=== PATIENT | male | born 1935 | race Caucasian/White ===

== ENCOUNTER 2018-04-19 15:22 | Emergency (ER) | payer OTHER ==
--- OUTSIDE RECORDS SUMMARY | 2018-04-19 15:25 | XMS REPORT | Clinical Summary ---
:1935 [facility] Address [address] [place] [address] Care Team Providers Name Role Phone Garcia Fernandes Primary Care Provider Allergies No Known Allergies Medications Medication Sig Dispensed Refills Start Date End Date Status pantoprazole (PROTONIX) Take 1 tablet (40 30 tablet 0 11/22/2015 Active 40 MG tablet mg total) by mouth daily. Active Problems Problem Noted Date Stenosis of aorta 11/21/2015 Chronic systolic CHF (congestive heart failure), NYHA class 2 11/21/2015 Bacteremia 11/20/2015 Cerebrovascular accident (CVA), unspecified mechanism 11/18/2015 Leucocytosis 11/18/2015 UTI (urinary tract infection) 11/18/2015 Stroke Coronary artery disease Social History Tobacco Use Types Packs/Day Years Used Date Current Every Day Smoker Alcohol Use Drinks/Week oz/Week Comments No Sex Assigned at Date Recorded Not on file Job Start Date Occupation Industry Not on file Not on file Not on file Travel History Travel Start Travel End No recent travel history available. Last Filed Vital Signs Not on file Plan of Treatment Not on file Results Not on fileafter 04/18/2017 Insurance Payer Benefit Plan / Group Subscriber ID Type Phone Address CARE IMPROVEMENT MEDICARE MGD CARE IMPROVEMENT PLUS xxxxxxxxx CARE Advance Directives For more information, please contact:[facility] [phone] Code Status Date Activated Date Inactivated Comments Full Code 11/18/2015 6:45 PM 11/22/2015 7:33 PM This code status was determined by: Patient
--- NOTE | 2018-04-19 16:11 | RAD REPORT ---
EXAM DESCRIPTION: CT - CTHCSPWOC - 04/19/2018 3:51 pm CLINICAL HISTORY: Fall, head and neck injury, laceration to the right face COMPARISON: CT head August 2016. TECHNIQUE: Axial 5 mm thick images of the head were obtained. Axial 2 mm thick images of the cervic al spine were obtained with sagittal and coronal reconstruction images generated and reviewed. All CT scans are performed using dose optimization technique as appropriate and may include automated exposure control or mA/KV adjustment according to patient size. FINDINGS: No intracranial hemorrhage, mass, edema or acute intracranial finding. No suspicion for ac yurok infarction. Advanced chronic ischemic changes are present. Mild to moderate atrophy is present. V entricles are in proportion to volume loss. COMMODITY LOAN CLERK shunt is in place entering the right side skull near t he parietotemporal junction tip is near the atrium of the right lateral ventricle. Ventricles are sim ilar to August 2016 study. Mastoid air cells and paranasal sinuses are clear. No globe or orbit abnorm ality seen. Cervical bodies are normal in height. There is a very slight retrolisthesis of C5 on C6. C5-6 and C6- 7 disc space narrowing seen. Facet degenerative changes are present. Mild foraminal encroachment at C 5-6. No fracture or acute bony abnormality. Central canal detail is inherently limited. No paraspinal mass or hematoma. IMPRESSION: No hemorrhage, edema or acute CT Head finding. No significant change from August 2016. Cervical spine degenerative change as detailed. No acute finding.
--- NOTE | 2018-04-19 16:12 | RAD REPORT ---
EXAM DESCRIPTION: RAD - Chest Single View - 04/19/2018 4:00 pm CLINICAL HISTORY: Fall, chest pain COMPARISON: August 2016 TECHNIQUE: AP portable chest image was obtained 1545 hour . FINDINGS: Lungs are clear. Heart and vasculature are normal. No measurable pleural effusion and no p neumothorax. No acute bony abnormality seen. No acute aortic findings suspected. IMPRESSION: No acute cardiopulmonary process.
--- NOTE | 2018-04-19 16:12 | RAD REPORT ---
EXAM DESCRIPTION: RAD - Pelvis - 04/19/2018 4:00 pm CLINICAL HISTORY: Fall, pelvic pain COMPARISON: None. TECHNIQUE: AP imaging of the pelvis was obtained. FINDINGS: No fracture of the bony pelvis. No fracture, dislocation or other acute hip joint finding. No significant SI joint findings. Lower lumbar degenerative change present. Mild degenerative changes are present at both hip joints. N o gross deformity of either femoral head. No soft tissue abnormality. IMPRESSION: Negative pelvis for acute or significant findings.
[2018-04-19 16:45] LABS: Absolute Lymphocytes (CBC) 1.5 K/uL (0.7-4.9); Absolute Neutrophil 6.8 K/uL (1.8-8.0); Basophils % 0.6 % (0-1.3); Eosinophils % 0.6 % (0-4.4); Lymphocytes % 15.9 % (15.3-44.8); MPV 11.1 fL (7.6-11.3); Monocytes % 10.8 % (3.3-12.3); Protime INR 1.07; RBC Red Blood Cell Count 5.48 M/uL (4.33-5.43)
[2018-04-19 16:52] LABS: Potassium 4.5 mmol/L (3.5-5.1)
[2018-04-19] MEDS ORDERED: TETANUS & DIPHTHERIA TOX,ADULT 0.5 ML VIAL ONE (17:03)
[2018-04-19] MEDS ORDERED: LIDOCAINE 1% MPF 30 ML VIAL ONE (17:22)
--- NOTE | 2018-04-19 18:33 | EDPHYS ---
Physician Documentation [facility] Name: Joey Ramsey Age: 82 yrs Sex: Male : 1935 Arrival Date: 04/19/2018 Time: 15:27 Bed 30 Private MD: ED Physician Austen Castañeda HPI: 04/19 18:09 This 82 yrs old Male presents to ER via Wheelchair with complaints of Fall gs Injury. 18:09 Details of fall: The patient fell from an upright position, while walking. Onset: The gs symptoms/episode began/occurred acutely, just prior to arrival. Associated injuries: The patient sustained injury to the head. Severity of symptoms: At their worst the symptoms were moderate, in the emergency department the symptoms are unchanged. The patient has experienced similar episodes in the past, a few times. no cp no dizziness says tripped and fell, says at baseline. Historical: - Allergies: 15:35 No Known Allergies; aj - Home Meds: 15:35 aspirin 81 mg Oral chew 1 tab once daily [Active]; clopidogrel 75 mg Oral tab once aj daily [Active]; atorvastatin 10 mg Oral tab 1 tab once daily [Active]; bisoprolol fumarate 5 mg Oral tab once daily [Active]; - PMHx: 15:35 Aortic Stenosis; CAD; CHF; stroke; UTI; aj 18:15 Hypertension; gs - PSHx: 15:35 cerebral stent; CABG; Cholecystectomy; right rotator cuff; Vasectomy; aj 18:16 vp business development shunt; gs - Immunization history: Last tetanus immunization: unknown. - Social history:: Smoking status: Patient/guardian denies using tobacco. - Ebola Screening: : No symptoms or risks identified at this time. ROS: 18:09 All other systems are negative. gs Exam: 18:09 Eyes: Pupils equal round and reactive to light, extra-ocular motions intact. Lids and gs lashes normal. Conjunctiva and sclera are non-icteric and not injected. Cornea within normal limits. Periorbital areas with no swelling, redness, or edema. ENT: Nares patent. No nasal discharge, no septal abnormalities noted. Tympanic membranes are normal and external auditory canals are clear. Oropharynx with no redness, swelling, or masses, exudates, or evidence of obstruction, uvula midline. Mucous membranes moist. Neck: Trachea midline, no thyromegaly or masses palpated, and no cervical lymphadenopathy. Supple, full range of motion without nuchal rigidity, or vertebral point tenderness. No Meningismus. Chest/axilla: Normal chest wall appearance and motion. Nontender with no deformity. No lesions are appreciated. Cardiovascular: Regular rate and rhythm with a normal S1 and S2. No gallops, murmurs, or rubs. Normal PMI, no JVD. No pulse deficits. Respiratory: Lungs have equal breath sounds bilaterally, clear to auscultation and percussion. No rales, rhonchi or wheezes noted. No increased work of breathing, no retractions or nasal flaring. Abdomen/GI: Soft, non-tender, with normal bowel sounds. No distension or tympany. No guarding or rebound. No evidence of tenderness throughout. Back: No spinal tenderness. No costovertebral tenderness. Full range of motion. Skin: Warm, dry with normal turgor. Normal color with no rashes, no lesions, and no evidence of cellulitis. MS/ Extremity: Pulses equal, no cyanosis. Neurovascular intact. Full, normal range of motion. Neuro: Awake and alert, GCS 15, oriented to person, place, time, and situation. Cranial nerves II-XII grossly intact. Motor strength 5/5 in all extremities. Sensory grossly intact. Cerebellar exam normal. Normal gait. 18:09 Constitutional: The patient appears alert, awake. 18:09 Head/face: Noted is a laceration(s), that is deep, 6 cm(s), of the right cheek. Vital Signs: 15:23 BP 169 / 77; Pulse 75; Resp 19; Temp 98.5; Pulse Ox 96% on R/A; Weight 68.04 kg; Height aj 5 ft. 8 in. (172.72 cm); 16:47 BP 157 / 70; Pulse 68; Resp 18; Pulse Ox 97% on R/A; mg2 17:52 BP 166 / 78; Pulse 65; Resp 18; Pulse Ox 98% on R/A; Pain 4/10; mg2 15:23 Body Mass Index 22.81 (68.04 kg, 172.72 cm) aj [place] Coma Score: 15:23 Eye Response: spontaneous(4). Verbal Response: oriented(5). Motor Response: obeys aj commands(6). Total: 15. Trauma Score (Adult): 15:23 Eye Response: spontaneous(1); Verbal Response: oriented(1); Motor Response: obeys aj commands(2); Systolic BP: > 89 mm Hg(4); Respiratory Rate: 10 to 29 per min(4); Franck Score: 15; Trauma Score: 12 Laceration: 18:09 Wound Repair of 6cm ( 2.4in ) subcutaneous laceration to right cheek. Distal gs neuro/vascular/tendon intact. Anesthesia: Local anesthetic administered with 5 mls of 1% lidocaine. Wound prep: Moderate cleansing with betadine, Wound irrigation with saline, Particulate matter removal of dirt, Copious irrigation. Subcutaneous tissue closed with 3 5-0 Prolene using simple sutures and sterile technique. Skin closed with 9 6-0 Prolene using simple sutures and sterile technique. Dressed with Bacitracin. Patient tolerated well. 18:09 Wound Repair of subcutaneous laceration to performed by chino masterson. Distal gs neuro/vascular/tendon intact. MDM: 15:29 Patient medically screened. cp 18:09 Differential diagnosis: closed head injury, fracture, laceration. Data reviewed: vital gs signs, nurses notes. Counseling: I had a detailed discussion with the patient and/or guardian regarding: the historical points, exam findings, and any diagnostic results supporting the discharge/admit diagnosis, lab results, radiology results, the need for outpatient follow up. Response to treatment: the patient's symptoms have markedly improved after treatment, and as a result, I will discharge patient. 04/19 15:32 Order name: CBC with Diff; Complete Time: 17:07 04/19 15:32 Order name: Basic Metabolic Panel; Complete Time: 17: 04/19 15:32 Order name: PT-INR; Complete Time: 17: 04/19 15:32 Order name: Type And Screen; Complete Time: 17:51 04/19 15:32 Order name: CT Head C Spine; Complete Time: 17: 04/19 17:30 Order name: ABO/RH no charge; Complete Time: 17:51 EDMS 04/19 15:32 Order name: XRAY CXR (1 view); Complete Time: 17:07 04/19 15:32 Order name: Pelvis XRAY; Complete Time: 17: 04/19 15:32 Order name: EKG - Nurse/Tech; Complete Time: 16:43 gs Administered Medications: 17:01 Drug: Tetanus-Diphtheria Toxoid Adult 0.5 ml {Metal Reclamation Kettle Tender: Topic. Exp: mg2 05/27/2020. Lot #: [id number]. } Route: IM; Site: left deltoid; 18:15 Follow up: Response: No adverse reaction mg2 Disposition: 04/19/18 18:14 Discharged to Home. Impression: Laceration without foreign body of unspecified part of head. - Condition is Stable. - Discharge Instructions: Laceration Care, Adult, [id number]. - Prescriptions for Keflex 500 mg Oral Capsule - take 1 capsule by ORAL route every 12 hours for 5 days; 10 capsule. - Medication Reconciliation Form, Thank You Letter, Antibiotic Education, Prescription Opioid Use form. - Follow up: Private Physician; When: 5 - 6 days; Reason: Staple/Suture removal. Signatures: Dispatcher [employer] EDMS Stacy Rubalcava RN RN Mehdi Mendenhall PA PA cp Baxter, Heather, RN RN hb Starr, Gregory, MD MD Salomon Millan RN RN mg2 Corrections: (The following items were deleted from the chart) 18:35 18:14 04/19/2018 18:14 Discharged to Home. Impression: Laceration without foreign body mg2 of unspecified part of head. Condition is Stable. Forms are Medication Reconciliation Form, Thank You Letter, Antibiotic Education, Prescription Opioid Use. Follow up: Private Physician; When: 5 - 6 days; Reason: Staple/Suture removal. 18:55 18:09 Wound Repair of 6cm ( 2.4in ) subcutaneous laceration to right cheek. Distal gs neuro/vascular/tendon intact. Anesthesia: Local anesthetic administered with 5 mls of 1% lidocaine. Wound prep: Moderate cleansing with betadine, Wound irrigation with saline, Particulate matter removal of dirt, Copious irrigation. Subcutaneous tissue closed with 3 5-0 Prolene using simple sutures and sterile technique. Skin closed with 9 6-0 Prolene using simple sutures and sterile technique. Dressed with Bacitracin. Patient tolerated well.
--- NOTE | 2018-04-19 18:33 | ER ---
Nurse's Notes [facility] Name: Joey Ramsey Age: 82 yrs Sex: Male : 1935 Arrival Date: 04/19/2018 Time: 15:27 Bed 30 Private MD: Diagnosis: Laceration without foreign body of unspecified part of head Presentation: 04/19 15:29 Presenting complaint: Patient states: Fell from standing position and hit face on aj ground. Laceration to right cheek. Positive LOC reported by patient. Fall was 1 hour NODULIZER. Care prior to arrival: None. Mechanism of Injury: Fall from standing position. Trauma event details: Injury occurred in the [facility], Injury occurred: at home. Injury occurred: April 19, 2018 Injury occurred at: 14:30. 15:29 Acuity: VINAY 2 aj 15:29 Method Of Arrival: Wheelchair aj 15:33 Transition of care: patient was not received from another setting of care. Onset of aj symptoms was April 19, 2018. Risk Assessment: Do you want to hurt yourself or someone else? Patient reports no desire to harm self or others. Initial Sepsis Screen: Does the patient meet any 2 criteria? No. Patient's initial sepsis screen is negative. Does the patient have a suspected source of infection? No. Patient's initial sepsis screen is negative. Trauma Activation: Alert Physician: ED Physician; Name: ; Notified At: ; Arrived At: Physician: General Surgeon; Name: ; Notified At: ; Arrived At: Physician: Radiology; Name: ; Notified At: ; Arrived At: Physician: Respiratory; Name: ; Notified At: ; Arrived At: Physician: Lab; Name: ; Notified At: ; Arrived At: Trauma Activation: Alert Physician: ED Physician; Name: Dr. Castañeda; Notified At: 15:23; Arrived At: 15:25 Physician: General Surgeon; Name: ; Notified At: 15:23; Arrived At: Physician: Radiology; Name: Niki hamilton; Notified At: 15:23; Arrived At: 15:24 Physician: Respiratory; Name: ; Notified At: 15:23; Arrived At: Physician: Lab; Name: ; Notified At: 15:23; Arrived At: Historical: - Allergies: 15:35 No Known Allergies; aj - Home Meds: 15:35 aspirin 81 mg Oral chew 1 tab once daily [Active]; clopidogrel 75 mg Oral tab once aj daily [Active]; atorvastatin 10 mg Oral tab 1 tab once daily [Active]; bisoprolol fumarate 5 mg Oral tab once daily [Active]; - PMHx: 15:35 Aortic Stenosis; CAD; CHF; stroke; UTI; aj 18:15 Hypertension; gs - PSHx: 15:35 cerebral stent; CABG; Cholecystectomy; right rotator cuff; Vasectomy; aj 18:16 vp security shunt; gs - Immunization history: Last tetanus immunization: unknown. - Social history:: Smoking status: Patient/guardian denies using tobacco. - Ebola Screening: : No symptoms or risks identified at this time. Screenin:32 Abuse screen: Denies threats or abuse. Denies injuries from another. Nutritional hb screening: No deficits noted. Tuberculosis screening: No symptoms or risk factors identified. Fall Risk Total Quezada Fall Scale indicates High Risk Score (45 or more points). Fall prevention measures have been instituted. Side Rails Up X 2 Frequent Obs/Assessments Occuring Family Present and informed to notify staff if the need to leave the bedside As available patient and family educated on Fall Prevention Program and Strategies. Primary Survey: 15:23 Breathing/Chest: Respiratory pattern: regular, Respiratory effort: spontaneous, aj unlabored, Breath sounds: clear, bilaterally. Chest inspection: symmetrical rise and fall of the chest. Circulation: Skin color: pink. Disability Alert. 16:44 Reassessment Breathing/Chest. mg2 Assessment: 15:23 General: Appears in no apparent distress. comfortable, Behavior is cooperative, flat. aj Pain: Complains of pain in face. Neuro: Level of Consciousness is awake, alert, obeys commands, Oriented to person, place, time, situation, Hoe Runner are equal bilaterally Moves all extremities. Full function. Neuro: Reports headache. Respiratory: Airway is patent Respiratory effort is even, unlabored, Respiratory pattern is regular, symmetrical. Derm: Skin is intact, is healthy with good turgor, Skin is pink, warm \T\ dry. normal. 16:47 Reassessment: Patient appears in no apparent distress at this time. Patient and/or mg2 family updated on plan of care and expected duration. Pain level reassessed. Patient is alert, oriented x 3, equal unlabored respirations, skin warm/dry/pink. 17:53 Reassessment: ongoing suturing by AJ James. mg2 Vital Signs: 15:23 BP 169 / 77; Pulse 75; Resp 19; Temp 98.5; Pulse Ox 96% on R/A; Weight 68.04 kg; Height aj 5 ft. 8 in. (172.72 cm); 16:47 BP 157 / 70; Pulse 68; Resp 18; Pulse Ox 97% on R/A; mg2 17:52 BP 166 / 78; Pulse 65; Resp 18; Pulse Ox 98% on R/A; Pain 4/10; mg2 15:23 Body Mass Index 22.81 (68.04 kg, 172.72 cm) aj Franck Coma Score: 15:23 Eye Response: spontaneous(4). Verbal Response: oriented(5). Motor Response: obeys aj commands(6). Total: 15. Trauma Score (Adult): 15:23 Eye Response: spontaneous(1); Verbal Response: oriented(1); Motor Response: obeys aj commands(2); Systolic BP: > 89 mm Hg(4); Respiratory Rate: 10 to 29 per min(4); [place] Score: 15; Trauma Score: 12 ED Course: 15:23 Patient has correct armband on for positive identification. aj 15:27 Patient arrived in ED. bd 15:29 Mehdi Collins PA is PHCP. cp 15:29 Austen Castañeda MD is Attending Physician. cp 15:30 Triage completed. aj 15:32 Patient maintains SpO2 saturation greater than 95% on room air. Thermoregulation: warm hb blanket given to patient. 15:35 Arm band placed on left wrist. Patient placed in an exam room, on a stretcher. aj 15:37 Salomon Millan, ALEXIS is Primary Nurse. mg2 15:50 CT completed. Patient moved to CT via stretcher. Patient moved back from CT. cw1 15:51 CT Head C Spine In Process Unspecified. EDMS 15:57 X-ray completed. Patient tolerated procedure well. kp1 15:58 XRAY CXR (1 view) In Process Unspecified. EDMS 15:58 Pelvis XRAY In Process Unspecified. EDMS 16:43 No provider procedures requiring assistance completed. Inserted saline lock: 20 gauge mg2 in right antecubital area, using aseptic technique. Blood collected. 17:05 manager monitoring on. Pulse ox on. NIBP on. mg2 17:05 Door closed. Warm blanket given. mg2 18:11 Assist provider with laceration repair on right side of the eyebrow that was between mg2 2.6 to 7.5 cm using sutures. Set up tray. Performed by Joselito Umana DATA COLLECTION SPECIALIST Dressed with Patient tolerated well. 12 stitches made under local anesthesia. Wound care: to laceration located on right side of th eeyebrow was cleaned with Betadine, irrigated with normal saline, dressed with ABD pads, Patient tolerated well. 18:33 IV discontinued, intact, bleeding controlled, No redness/swelling at site. Pressure mg2 dressing applied. Administered Medications: 17:01 Drug: Tetanus-Diphtheria Toxoid Adult 0.5 ml {Auto Washer: [employer]. Exp: mg2 05/27/2020. Lot #: [id number]. } Route: IM; Site: left deltoid; 18:15 Follow up: Response: No adverse reaction mg2 Intake: 17:52 PO: 0ml; Total: 0ml. mg2 Outcome: 18:14 Discharge ordered by . 18:34 Discharged to home via wheelchair, with family. mg2 18:34 Condition: stable 18:34 Discharge instructions given to patient, family, Instructed on discharge instructions, follow up and referral plans. medication usage, Demonstrated understanding of instructions, follow-up care, medications, wound care, Prescriptions given X 1. 18:34 Patient's length of stay in the Emergency Department was greater than 2 hours. for mg2 procedures like suturing. Patient's length of stay extended due to 18:35 Patient left the ED. mg2 Signatures: Dispatcher [employer] EDMS Jimena Duarte Amanda RN Niki Mcnair cw1 Mehdi Collins PA PA cp Baxter, Heather, Yasmine Love RN kp1 Austen Castañeda MD MD gs Gardose, Michele, RN RN mg2
[2018-04-19 19:04] VITALS: TEMP 98.5
[2018-04-19 19:07] VITALS: BP 166/78; O2SAT 98
== END 2018-04-19 18:35 | disposition home or self-care (01) ==
LOC: ER 15:22
PROC: 0JQ10ZZ Repair Face Subcutaneous Tissue and Fascia, Open Approach (ICD-10-PCS; principal; 2018-04-19)
DX: S01.411A Laceration without foreign body of right cheek and temporomandibular area, initial encounter (principal); W01.0XXA Fall on same level from slipping, tripping and stumbling without subsequent striking against object, initial encounter; Y93.9 Activity, unspecified; Y92.9 Unspecified place or not applicable; Z23 Encounter for immunization; Z79.82 Long term (current) use of aspirin; Z86.73 Personal history of transient ischemic attack (TIA), and cerebral infarction without residual deficits; Z95.1 Presence of aortocoronary bypass graft; I10 Essential (primary) hypertension; I50.9 Heart failure, unspecified
CPT/HCPCS: 36415; 70450; 71045; 72125; 72170; 80048; 85025; 85610; 86850; 86900; 86901; 90714; 99285

== ENCOUNTER 2018-07-26 18:00 | Emergency (ER) | payer OTHER ==
--- OUTSIDE RECORDS SUMMARY | 2018-07-26 18:02 | XMS REPORT | Clinical Summary ---
:1935 [facility] Address [address] [place] [address] Care Team Providers Name Role Phone Garcia [...] Not on file Results Not on fileafter 07/25/2017 Insurance Payer Benefit Plan / Group Subscriber ID Type Phone Address CARE IMPROVEMENT MEDICARE MGD CARE IMPROVEMENT PLUS xxxxxxxxx CARE Advance Directives For more information, please contact:[facility] [phone] Code Status Date Activated Date Inactivated Comments Full Code 11/18/2015 6:45 PM 11/22/2015 7:33 PM This code status was determined by: Patient
--- NOTE | 2018-07-26 19:12 | RAD REPORT ---
EXAM DESCRIPTION: CT - Head C Spine Mpr Wo Con - 07/26/2018 6:58 pm CLINICAL HISTORY: Head and neck injury status post fall. Head and neck pain COMPARISON: April 2018 TECHNIQUE: Computed axial tomography of the head and cervical spine was obtained. Sagittal and coronal reconstruction was performed. All CT scans are performed using dose optimization technique as appropriate and may include automated exposure control or mA/KV adjustment according to patient size. FINDINGS: A right-sided shunt is unchanged in position. Moderate low-density areas within periventricular, deep and subcortical white matter likely represent ischemic changes secondary to small vessel disease. An intracranial bleed is not seen. The ventricles are normal in caliber. An extra-axial fluid collect ion is not noted.Fluid within the visualized sinuses and mastoids is not seen A cervical fracture is not visualized. No dislocation is noted. Spondylosis involves primarily C5-6 a nd C6-7 IMPRESSION: No acute intracranial abnormality is seen. A cervical fracture is not visualized. If the patient continues to have symptoms to suggest intracra nial /spinal cord pathology then MRI would be recommended
--- NOTE | 2018-07-26 19:15 | RAD REPORT ---
EXAM DESCRIPTION: CT - Facial Bones W/ Mpr - 07/26/2018 6:58 pm CLINICAL HISTORY: Facial injury status post fall. Facial pain COMPARISON: None TECHNIQUE: Computed axial tomography of the face was obtained. Coronal and sagittal reconstruction w as performed. All CT scans are performed using dose optimization technique as appropriate and may include automated exposure control or mA/KV adjustment according to patient size. FINDINGS: A left frontal scalp swelling is present. The A fracture is not seen. The nasal septum is deviated towards the left A TMJ dislocation is not noted. The globes are intact. Fluid within the sinuses is not seen. IMPRESSION: Negative for a facial fracture.
--- NOTE | 2018-07-26 19:38 | RAD REPORT ---
EXAM DESCRIPTION: RAD - Knee Right 3 View - 07/26/2018 7:15 pm CLINICAL HISTORY: Right knee pain FINDINGS: No fracture or dislocation is seen. Chondrocalcinosis is present.
--- NOTE | 2018-07-26 19:44 | EDPHYS ---
Physician Documentation [facility] Name: Joey Ramsey Age: 82 yrs Sex: Male : 1935 Arrival Date: 07/26/2018 Time: 18:03 Bed 28 Private MD: Marcie Nielson ED Physician Austen Castañeda HPI: 07/26 18:18 This 82 yrs old Male presents to ER via Wheelchair with complaints of Fall jmm Injury. 18:18 Details of fall: The patient fell from an upright position. Onset: The symptoms/episode jmm began/occurred acutely, just prior to arrival. Associated injuries: The patient sustained injury to the head, abrasion. This is an 82 year old male with a history of CAD, CVA, HTN that presents to the ED after a mechanical fall which occurred just prior to arrival. Patient was talking out garbage and slipped, landing on his face injuring his right knee. Patient is weak on the right side after previous CVA. . Historical: - Allergies: 18:07 No Known Allergies; la1 - Home Meds: 19:34 aspirin 81 mg Oral chew 1 tab once daily [Active]; atorvastatin 10 mg Oral tab 1 tab mg2 once daily [Active]; bisoprolol fumarate 5 mg Oral tab once daily [Active]; clopidogrel 75 mg Oral tab once daily [Active]; - PMHx: 18:07 Aortic Stenosis; CAD; CHF; Hypertension; stroke; UTI; la1 - Immunization history:: Adult Immunizations up to date. - Social history:: Smoking status: Patient uses tobacco products, smokes one pack cigarettes per day. - Immunization history: Last tetanus immunization: unknown. - Ebola Screening: : No symptoms or risks identified at this time. ROS: 18:18 Constitutional: Negative for fever, chills, and weight loss, Cardiovascular: Negative jmm for chest pain, palpitations, and edema, Respiratory: Negative for shortness of breath, cough, wheezing, and pleuritic chest pain. 18:18 Neck: Negative for pain with movement, pain at rest. 18:18 MS/extremity: Positive for injury or acute deformity, abrasion. 18:18 Neuro: Positive for headache. 18:18 All other systems are negative. Exam: 18:18 Constitutional: This is a well developed, well nourished patient who is awake, alert, jmm and in no acute distress. 18:18 Eyes: EOMI, no conjunctival erythema appreciated ENT: Moist Mucus Membranes 18:18 Chest/axilla: Normal chest wall appearance and motion. Cardiovascular: Regular rate and rhythm. No edema appreciated Respiratory: Normal respirations, no respiratory distress appreciated Abdomen/GI: Non distended, soft Back: Normal ROM 18:18 Head/face: abrasion noted to the nose and the forehead. 18:18 Neck: C-spine: appears grossly normal, ROM/movement: is normal. 18:18 Chest/axilla: Inspection: normal, Palpation: is normal. 18:18 Musculoskeletal/extremity: abrasion noted to the right anterior knee, FROM appreciated, compartments are soft, NVI. 18:18 Skin: abrasions noted to the forehead, nose, and right anterior knee. 18:18 Neuro: Orientation: is normal, Mentation: is normal, Memory: is normal. 18:18 Psych: Behavior/mood is pleasant, cooperative. Vital Signs: 18:08 Pulse 65; Resp 16; Temp 97.5; Pulse Ox 98% on R/A; Weight 70.31 kg; Height 5 ft. 10 in. la1 (177.80 cm); 18:09 BP 136 / 63; la1 18:36 BP 131 / 63; Pulse 67; Resp 18; Pulse Ox 98% on R/A; Pain 3/10; mg2 19:31 BP 160 / 67; Pulse 61; Resp 18; Pulse Ox 96% on R/A; mg2 20:26 BP 145 / 78; Pulse 65; Resp 18; Pulse Ox 100% on R/A; Pain 2/10; mg2 18:08 Body Mass Index 22.24 (70.31 kg, 177.80 cm) la1 [place] Coma Score: 18:36 Eye Response: spontaneous(4). Verbal Response: oriented(5). Motor Response: obeys mg2 commands(6). Total: 15. Trauma Score (Adult): 18:36 Eye Response: spontaneous(1); Verbal Response: oriented(1); Motor Response: obeys mg2 commands(2); Systolic BP: > 89 mm Hg(4); Respiratory Rate: 10 to 29 per min(4); [place] Score: 15; Trauma Score: 12 MDM: 18:16 Patient medically screened. [place] 19:41 Data reviewed: vital signs, nurses notes. Counseling: I had a detailed discussion with cassie the patient and/or guardian regarding: the historical points, exam findings, and any diagnostic results supporting the discharge/admit diagnosis, radiology results, the need for outpatient follow up, to return to the emergency department if symptoms worsen or persist or if there are any questions or concerns that arise at home. ED course: Patient is alert and non toxic in appearance in the ED. CT imaging studies discussed with the patient. Advised to follow up with PCP for reevaluation. Patient otherwise given strict return precautions. Patient understood and agrees with plan of care. . 07/26 18:16 Order name: CT Head C Spine; Complete Time: 19:16 [place] 07/26 18:16 Order name: CT Facial Bones W/O Con; Complete Time: 19:20 [place] 07/26 18:16 Order name: Knee Right 3 View XRAY; Complete Time: 19:40 [place] 07/26 19:44 Order name: Wound Care; Complete Time: 20:13 [place] 07/26 19:44 Order name: Nico wrap-joint; Complete Time: 20:13 [place] Administered Medications: No medications were administered Disposition: 07/27 16:56 Co-signature as Attending Physician, Austen Castañeda MD. Disposition: 07/26/18 19:43 Discharged to Home. Impression: Unspecified injury of face and head, Abrasion of knee. - Condition is Stable. - Discharge Instructions: Abrasion, Head Injury, Adult. - Medication Reconciliation Form, Thank You Letter, Antibiotic Education, Prescription Opioid Use form. - Follow up: Marcie Nielson MD; When: 2 - 3 days; Reason: Recheck today's complaints, Continuance of care, Re-evaluation by your physician. Signatures: Dispatcher [employer] EDMS To Truong PA PA [place] Shelton Cavanaugh RN RN la1 Austen Castañeda MD MD Salomon Millan RN RN mg2 Corrections: (The following items were deleted from the chart) 07/26 20:27 19:43 07/26/2018 19:43 Discharged to Home. Impression: Unspecified injury of face and mg2 head; Abrasion of knee. Condition is Stable. Forms are Medication Reconciliation Form, Thank You Letter, Antibiotic Education, Prescription Opioid Use. Follow up: Marcie Nielson; When: 2 - 3 days; Reason: Recheck today's complaints, Continuance of care, Re-evaluation by your physician. cassie
--- NOTE | 2018-07-26 19:44 | ER ---
Nurse's Notes [facility] Name: Joey Ramsey Age: 82 yrs Sex: Male : 1935 Arrival Date: 07/26/2018 Time: 18:03 Bed 28 Private MD: Marcie Nielson Diagnosis: Unspecified injury of face and head;Abrasion of knee Presentation: 07/26 18:05 Presenting complaint: Patient states: I was taking the garbage back and fell on to the la1 concrete. I hit my face, and nose and right knee, pt denies LOC. Transition of care: patient was not received from another setting of care. Onset of symptoms was July 26, 2018. Risk Assessment: Do you want to hurt yourself or someone else? Patient reports no desire to harm self or others. Initial Sepsis Screen: Does the patient meet any 2 criteria? No. Patient's initial sepsis screen is negative. Does the patient have a suspected source of infection? No. Patient's initial sepsis screen is negative. Care prior to arrival: None. 18:05 Method Of Arrival: Wheelchair la1 18:05 Acuity: VINAY 3 la1 19:34 Mechanism of Injury: Fall from standing position. Trauma event details: Injury occurred mg2 in the [facility], Injury occurred: at home. Injury occurred: July 26, 2018 Injury occurred at: 17:00. Trauma Activation: Not Applicable Physician: ED Physician; Name: ; Notified At: ; Arrived At: Physician: General Surgeon; Name: ; Notified At: ; Arrived At: Physician: Radiology; Name: ; Notified At: ; Arrived At: Physician: Respiratory; Name: ; Notified At: ; Arrived At: Physician: Lab; Name: ; Notified At: ; Arrived At: Historical: - Allergies: 18:07 No Known Allergies; la1 - Home Meds: 19:34 aspirin 81 mg Oral chew 1 tab once daily [Active]; atorvastatin 10 mg Oral tab 1 tab mg2 once daily [Active]; bisoprolol fumarate 5 mg Oral tab once daily [Active]; clopidogrel 75 mg Oral tab once daily [Active]; - PMHx: 18:07 Aortic Stenosis; CAD; CHF; Hypertension; stroke; UTI; la1 - Immunization history:: Adult Immunizations up to date. - Social history:: Smoking status: Patient uses tobacco products, smokes one pack cigarettes per day. - Immunization history: Last tetanus immunization: unknown. - Ebola Screening: : No symptoms or risks identified at this time. Screenin:19 Abuse screen: Denies threats or abuse. Denies injuries from another. Tuberculosis mg2 screening: No symptoms or risk factors identified. 19:35 Nutritional screening: No deficits noted. Fall Risk Fall in past 12 months (25 points). mg2 Mental Status- Oriented to own ability (0 pts). Primary Survey: 18:33 NO uncontrolled hemorrhage observed. A: The patient is alert. Airway: patent. mg2 Breathing/Chest: Respiratory pattern: regular, Respiratory effort: spontaneous, unlabored, Breath sounds: clear, in right upper lobe, left upper lobe, left posterior upper lobe and right posterior upper lobe Chest inspection: symmetrical rise and fall of the chest. Circulation: Skin color: pink. Disability Alert. Exposure/Environment: All clothing and personal items were removed. There is no evidence of uncontrolled external bleeding. Obvious injury(ies) are noted at this time: abrasion A warming method has been applied: A warm blanket has been provided to the patient. 19:31 Reassessment Airway Airway Patent Breathing/Chest Respiratory pattern Regular mg2 Respiratory effort Spontaneous Unlabored Circulation Color [place] Disability Alert. Secondary Survey: 18:34 HEENT: Face Other abrasion noted Nose: clear to bilateral nares. abrasions noted. mg2 Gastrointestinal: No deficits noted. : No deficits noted. Musculoskeletal: Circulation, motion, and sensation intact. Capillary refill < 3 seconds, Reports pain in right knee. Injury Description: Abrasion sustained to face, right knee. Assessment: 18:29 General: Appears in no apparent distress. comfortable, Behavior is calm, cooperative. mg2 Pain: Complains of pain in face, right knee Pain does not radiate. Pain currently is 3 out of 10 on a pain scale. Quality of pain is described as aching, Pain began suddenly, 40 min ago Is intermittent. Neuro: Level of Consciousness is awake, alert, obeys commands, Oriented to person, place, time, situation. Cardiovascular: Capillary refill < 3 seconds Patient's skin is warm and dry. Respiratory: Airway is patent Respiratory effort is even, unlabored, Respiratory pattern is regular, symmetrical. GI: No signs and/or symptoms were reported involving the gastrointestinal system. : No signs and/or symptoms were reported regarding the genitourinary system. EENT: No signs and/or symptoms were reported regarding the EENT system. Derm: Skin is healthy with good turgor, Wound noted right knee and face Wound is abrasion. Musculoskeletal: Circulation, motion, and sensation intact. Capillary refill < 3 seconds. Injury Description: Abrasion sustained to right knee, face is not bleeding was sustained 30-60 minutes ago. Vital Signs: 18:08 Pulse 65; Resp 16; Temp 97.5; Pulse Ox 98% on R/A; Weight 70.31 kg; Height 5 ft. 10 in. la1 (177.80 cm); 18:09 BP 136 / 63; la1 18:36 BP 131 / 63; Pulse 67; Resp 18; Pulse Ox 98% on R/A; Pain 3/10; mg2 19:31 BP 160 / 67; Pulse 61; Resp 18; Pulse Ox 96% on R/A; mg2 20:26 BP 145 / 78; Pulse 65; Resp 18; Pulse Ox 100% on R/A; Pain 2/10; mg2 18:08 Body Mass Index 22.24 (70.31 kg, 177.80 cm) la1 [place] Coma Score: 18:36 Eye Response: spontaneous(4). Verbal Response: oriented(5). Motor Response: obeys mg2 commands(6). Total: 15. Trauma Score (Adult): 18:36 Eye Response: spontaneous(1); Verbal Response: oriented(1); Motor Response: obeys mg2 commands(2); Systolic BP: > 89 mm Hg(4); Respiratory Rate: 10 to 29 per min(4); [place] Score: 15; Trauma Score: 12 ED Course: 18:03 Patient arrived in ED. mr 18:04 Marcie Nielson MD is Private Physician. mr 18:07 Triage completed. la1 18:07 Arm band placed on right wrist. la1 18:11 To Truong PA is [facility] 18:11 Austen Castañeda MD is Attending Physician. m 18:16 Salomon Millan, ALEXIS is Primary Nurse. mg2 18:33 No provider procedures requiring assistance completed. Patient did not have IV access mg2 during this emergency room visit. 18:58 CT Head C Spine In Process Unspecified. EDMS 18:58 CT Facial Bones W/O Con In Process Unspecified. EDMS 19:09 Knee Right 3 View XRAY In Process Unspecified. EDMS 19:35 Patient has correct armband on for positive identification. Pulse ox on. NIBP on. Door mg2 closed. Warm blanket given. 19:35 Patient maintains SpO2 saturation greater than 95% on room air. mg2 19:35 Thermoregulation: warm blanket given to patient. mg2 19:43 Marcie Nielson MD is Referral Physician. jmm 20:25 Wound care: to abrasion, located on face and left leg was cleaned with Hibiclens, mg2 dressed with Neosporin. Administered Medications: No medications were administered Intake: 18:36 PO: 0ml; Total: 0ml. mg2 Outcome: 19:43 Discharge ordered by MD. jm 20:26 Discharged to home via wheelchair, with family. mg2 20:26 Condition: stable 20:26 Discharge instructions given to patient, family, Instructed on discharge instructions, follow up and referral plans. wound care, Demonstrated understanding of instructions, follow-up care, wound care. 20:26 Patient's length of stay was not longer than 2 hours. mg2 20:27 Patient left the ED. mg2 Signatures: Dispatcher [employer] EDMA To Truong PA PA jmm Rivera, Mary mr Shelton Cavanaugh, RN RN laSalomon Del Valle, ALEXIS RN mg2
[2018-07-26 21:11] VITALS: TEMP 97.5
[2018-07-26 21:16] VITALS: BP 145/78; O2SAT 100
== END 2018-07-26 20:27 | disposition home or self-care (01) ==
LOC: ER 18:00
DX: S09.90XA Unspecified injury of head, initial encounter (principal); S09.93XA Unspecified injury of face, initial encounter; S80.211A Abrasion, right knee, initial encounter; W01.0XXA Fall on same level from slipping, tripping and stumbling without subsequent striking against object, initial encounter; Y93.E9 Activity, other interior property and clothing maintenance; Y92.008 Other place in unspecified non-institutional (private) residence as the place of occurrence of the external cause; Z79.82 Long term (current) use of aspirin; Z86.73 Personal history of transient ischemic attack (TIA), and cerebral infarction without residual deficits; F17.210 Nicotine dependence, cigarettes, uncomplicated; I10 Essential (primary) hypertension; I50.9 Heart failure, unspecified
CPT/HCPCS: 70450; 70486; 72125; 76377; 99284

== ENCOUNTER 2018-11-10 14:56 | Emergency (ER) | payer OTHER ==
--- OUTSIDE RECORDS SUMMARY | 2018-11-10 14:58 | XMS REPORT | Clinical Summary ---
:1935 [facility] Address [address] [place] [address] Care Team Providers Name Role Phone Garcia [...] Not on file Results Not on fileafter 11/09/2017 Insurance Payer Benefit Plan / Group Subscriber ID Type Phone Address CARE IMPROVEMENT MEDICARE MGD CARE IMPROVEMENT PLUS xxxxxxxxx CARE Advance Directives For more information, please contact:[facility] [phone] Code Status Date Activated Date Inactivated Comments Full Code 11/18/2015 6:45 PM 11/22/2015 7:33 PM This code status was determined by: Patient
--- NOTE | 2018-11-10 15:33 | RAD REPORT ---
EXAM DESCRIPTION: CT - Head Brain Wo Cont - 11/10/2018 3:25 pm CLINICAL HISTORY: SLURRED SPEECH CVA symptomology, headache and drowsiness COMPARISON: <Comparisons> TECHNIQUE: All CT scans are performed using dose optimization technique as appropriate and may inclu de automated exposure control or mA/KV adjustment according to patient size. FINDINGS: No intracranial hemorrhage, hydrocephalus or extra-axial fluid collection.There is quite p rominent periventricular and deep white matter chronic microvascular ischemic changes. Right-sided ve ntriculostomy shunt is noted, unchanged in position.No areas of brain edema or evidence of midline sh ift. The paranasal sinuses and mastoids are clear. The calvarium is intact. IMPRESSION: No acute intracranial abnormality.
[2018-11-10] MEDS ORDERED: FOLIC ACID 5 MG/ML VIAL ONE (15:35)
[2018-11-10] MEDS ORDERED: NA CHLORIDE 0.9% 1,000 ML ONE (15:36)
--- NOTE | 2018-11-10 16:08 | RAD REPORT ---
EXAM DESCRIPTION: MRI - Brain Wo Cont - 11/10/2018 4:00 pm CLINICAL HISTORY: SLURRED SPEECH Headache, drowsiness, CVA symptomology COMPARISON: Head Brain Wo Cont dated 11/10/2018 TECHNIQUE: Multi-sequence, multiplanar MR imaging of the brain was performed without contrast. FINDINGS: There is blooming artifact present along the right posterior cerebrum limiting assessment. No acute hemorrhage, hydrocephalus or midline shift is seen. There is a diffuse mild and smooth thick ening of the dura.Moderate generalized brain atrophy is present with moderate periventricular and preethi p white matter chronic microvascular ischemic changes. DWI is negative for acute CVA. Midline structures are normally formed. Mastoid air cells and paranasal sinuses are clear. IMPRESSION: Examination is limited by blooming artifact, without acute CVA or other acute intracrani al finding demonstrated.
--- NOTE | 2018-11-10 16:48 | RAD REPORT ---
EXAM DESCRIPTION: US - CP - 11/10/2018 4:39 pm CLINICAL HISTORY: DIZZINESS Headache, drowsiness, syncope COMPARISON: <Comparisons> TECHNIQUE: Real-time sonographic evaluation of both carotid systems was performed. Doppler interroga tion was performed with waveform tracing bilaterally. FINDINGS: Normal high resistance waveforms are noted in both external carotid arteries. The common c arotid arteries and internal carotid arteries show normal low resistance waveforms. Mild hard plaque is present in both carotid bulbs. Peak systolic and end diastolic velocity values an d the ICA/CCA ratios are in the non-hemodynamically significant range. Antegrade flow seen in both vertebral arteries. IMPRESSION: Mild mixed plaquing in both proximal ICAs. No evidence of a hemodynamically significant stenosis.
--- NOTE | 2018-11-10 16:49 | RAD REPORT ---
EXAM DESCRIPTION: RAD - Chest Single View - 11/10/2018 4:44 pm CLINICAL HISTORY: COUGH Chest pain. COMPARISON: <Comparisons> FINDINGS: Portable technique limits examination quality. The lungs are grossly clear. The heart is upper limit normal in size changes of a prior CABG. No disp laced fractures.Right-sided shunt tubing traverses the chest. IMPRESSION: No acute intrathoracic process suspected.
[2018-11-10 16:57] LABS: Absolute Lymphocytes (CBC) 2.5 K/uL (0.7-4.9); Absolute Monocytes 0.9 K/uL (0.1-1.3); Absolute Neutrophil 3.3 K/uL (1.8-8.0); Basophils % 0.7 % (0-1.3); Eosinophils % 2.1 % (0-4.4); Hematocrit 45.3 % (39.6-49.0); Lymphocytes % 36.1 % (15.3-44.8); MPV 10.3 fL (7.6-11.3); Monocytes % 12.9 % (3.3-12.3); RBC Red Blood Cell Count 5.27 M/uL (4.33-5.43)
[2018-11-10 17:07] LABS: Protime INR 1.13
[2018-11-10 17:19] LABS: ALT/SGPT 16 U/L (12-78); AST/SGOT 8 U/L (15-37); Albumin 3.6 g/dL (3.4-5.0); Alkaline Phosphatase 72 U/L (45-117); BUN Blood Urea Nitrogen 18 mg/dL (7-18); Bicarbonate 29 mmol/L (21-32); Bilirubin Direct 0.2 mg/dL (0-0.2); Bilirubin Total 0.6 mg/dL (0.2-1.0); C-Reactive Protein < 2.90 mg/L (<3.00); Glucose Level 115 mg/dL (74-106); Magnesium 2.5 mg/dL (1.8-2.4); NT PRO-BNP 308 pg/mL (<450); Potassium 3.8 mmol/L (3.5-5.1); Sodium Level 145 mmol/L (136-145); Troponin (Emerg Dept Use Only) < 0.02 ng/mL (0.0-0.045)
--- NOTE | 2018-11-10 17:33 | ER ---
Nurse's Notes [facility] Name: Joey Ramsey Age: 83 yrs Sex: Male : 1935 Arrival Date: 11/10/2018 Time: 14:58 Bed 27 Private MD: Marcie Nielson Diagnosis: Hydrocephalus, unspecified;Altered mental status, unspecified-resolved;Unspecified adverse effect of drug or medicament-valium Presentation: 11/10 15:02 Presenting complaint: states: his appt was 11, he was given a Valium abou tw2 12-12:30, then he started having slurred speech when they called him back to the room and then he couldn't walk and was shuffling his feet, speech is better now but still shuffeling. Presenting complaint: states: they cancelled the surgery because of his symptoms, Dr. Machado wrote yall a note but they already dilated his eye. Transition of care: patient was not received from another setting of care. Onset of symptoms was November 10, 2018. Risk Assessment: Do you want to hurt yourself or someone else? Patient reports no desire to harm self or others. Initial Sepsis Screen: Does the patient meet any 2 criteria? No. Patient's initial sepsis screen is negative. Does the patient have a suspected source of infection? No. Patient's initial sepsis screen is negative. Care prior to arrival: None. 15:02 Method Of Arrival: Wheelchair tw2 15:02 Method Of Arrival: Wheelchair tw2 15:02 Acuity: VINAY 2 tw2 15:09 Note triage note and assessment discussed with Dr. Santos at this time. tw2 19:19 No acute neurological deficit is noted. Pre-hospital glucose is not applicable to this rv patient. Triage Assessment: 15:05 The onset of the patients symptoms was November 10, 2018 at 12:30. General: Appears in no tw2 apparent distress. Behavior is calm, cooperative, appropriate for age. Pain: Denies pain. Neuro: Reports shuffling feet. Historical: - Allergies: 15:07 No Known Allergies; tw2 - Home Meds: 15:07 clopidogrel 75 mg Oral tab once daily [Active]; atorvastatin 10 mg Oral tab 1 tab once tw2 daily [Active]; bisoprolol fumarate 5 mg Oral tab once daily [Active]; aspirin 81 mg Oral chew 1 tab once daily [Active]; - PMHx: 15:07 Aortic Stenosis; CAD; CHF; Hypertension; stroke; UTI; tw2 - Immunization history:: Adult Immunizations. - Social history:: Smoking status: . - Ebola Screening: : Patient denies travel to an Ebola-affected area in the 21 days before illness onset. - Family history:: not pertinent. Screenin:18 Abuse screen: Denies threats or abuse. Denies injuries from another. Nutritional rv screening: No deficits noted. Tuberculosis screening: No symptoms or risk factors identified. Fall Risk None identified. Assessment: 15:09 VAN Scoring: Arm Drift: Patients demonstrates NO arm weakness. Patient is VAN Negative. tw2 19:17 Patient has been NPO before screening. The patient is alert, and able to follow rv commands. The patient does not exhibit slurred or garbled speech. The patient is not exhibiting difficulty speaking. The patient does not exhibit difficulty understanding words. The patient is able to swallow own secretions with no drooling or need for suction. Patient tolerated one teaspoon of water. No drooling, immediate coughing, gurgling, or clearing of the throat was noted. The patient tolerated 90mL of water. No drooling, immediate coughing, gurgling, or clearing of the throat was noted. The patient passed the bedside swallow screening. Oral medications may be given as ordered. Contact Physician for further diet orders. Provider notified of bedside swallow screening results: Mehdi Santos MD. Vital Signs: 15:06 BP 147 / 66; Pulse 58; Resp 17; Temp 97.0(TE); Pulse Ox 98% on R/A; Weight 68.04 kg tw2 (R); Height 5 ft. 8 in. (172.72 cm); Pain 0/10; 16:00 BP 155 / 68; Pulse 61; Resp 17; Temp 98; Pulse Ox 98% ; rv 17:00 BP 147 / 71; Pulse 58; Resp 16; Pulse Ox 98% ; rv 18:00 BP 155 / 65; Pulse 57; Resp 16; Pulse Ox 99% ; rv 19:00 BP 147 / 76; Pulse 63; Resp 16; Temp 98; Pulse Ox 99% ; rv 15:06 Body Mass Index 22.81 (68.04 kg, 172.72 cm) tw2 NIH Stroke Scale Scores: 19:17 NIHSS Score: 0 rv ED Course: 14:58 Patient arrived in ED. mr 14:58 Marcie Nielson MD is Private Physician. mr 15:05 Triage completed. tw2 15:05 Arm band placed on. tw2 15:08 Mehdi Santos MD is Attending Physician. mychal 15:17 Saroj Villarreal, RN is Primary Nurse. rv 15:18 Radiology exam delayed due to PT GOING TO CT, MRI AND ULTRASOUND. bb2 15:27 CT Head Brain wo Cont In Process Unspecified. EDMS 15:50 Brain Wo Cont In Process Unspecified. EDMS 16:43 US Carotid Artery Bilateral In Process Unspecified. EDMS 16:46 XRAY Chest (1 view) In Process Unspecified. EDMS 16:47 Inserted saline lock: 22 gauge in right antecubital area, using aseptic technique. rv Blood collected. 16:59 EKG done, by chiller technician. reviewed by Mehdi Santos MD. at1 17:31 Marcie Nielson MD is Referral Physician. mychal 19:18 Patient has correct armband on for positive identification. Bed in low position. Call rv light in reach. Side rails up X 1. Pulse ox on. NIBP on. 19:19 No provider procedures requiring assistance completed. Patient transferred, IV remains rv in place. Administered Medications: 16:52 Drug: NS 0.9% 500 ml Route: IV; Rate: bolus; Site: right antecubital; rv 17:25 Follow up: IV Status: Completed infusion; IV Intake: 500ml rv 16:52 Drug: foLIC Acid 1 mg Route: IVPB; Site: right antecubital; rv 17:25 Drug: NS 0.9% 1000 ml Route: IV; Rate: 125 ml/hr; Site: right antecubital; rv Intake: 17:25 IV: 500ml; Total: 500ml. rv Outcome: 17:31 Discharge ordered by . mychal 18:02 ER care complete, transfer ordered by . mychal 19:22 Transferred to [facility], Transfer form completed. X-rays sent w/ patient. rv 19:22 Condition: good 19:22 Instructed on the need for transfer. 19:23 Patient left the ED. rv NIH Stroke Scale - NIH Stroke Score Date: 11/10/2018 Time: 19:17 Total Score = 0 1a. Level of Consciousness (LOC) - 0(Alert) 1b. Level of Consciousness (LOC) (Year \T\ Age) - 0(Both) 1c. LOC Commands (Open \T\ Closes Eyes/Project Design Engineer) - 0(Both) 2. Best Gaze (Lateral Gaze Paresis) - 0(Normal) 3. Visual Field Loss - 0(No visual loss) 4. Facial Palsy - 0(Normal) 5a. Left Arm: Motor (10-second hold) - 0(No drift) 5b. Right Arm: Motor (10-second hold) - 0(No drift) 6a. Left Leg: Motor (5-second hold - always test supine) - 0(No drift) 6b. Right Leg: Motor (5-second hold - always test supine) - 0(No drift) 7. Limb Ataxia (finger/nose \T\ heel/mcgrath - test with eyes open) - 0(Absent) 8. Sensory Loss (pinprick arms/legs/face) - 0(Normal) 9. Best Language: Aphasia (description/naming/reading) - 0(No aphasia) 10. Dysarthria (speech clarity - read or repeat words) - 0(Normal) 11. Extinction and Inattention (visual/tactile/auditory/spatial/personal) - 0(No abnormality) Initials: rv Signatures: Dispatcher [employer] EDMS Mehdi Santos MD MD cha Rivera, Wendy Stacy Durant, disease management nurse EKG Tat1 Christina Crocker RN RN tw2 Jenny Allen bb2 Saroj Villarreal, ALEXIS RN rv Corrections: (The following items were deleted from the chart) 15:07 15:06 BP 147 / 66; Pulse 58bpm; Resp 17bpm; Pulse Ox 98% RA; Temp 97.0F tw2 Temporal; 68.04 kg Reported; Height 5 ft. 10 in.; BMI: 21.5; Pain 0/10; tw2
--- NOTE | 2018-11-10 17:33 | EDPHYS ---
Physician Documentation [facility] Name: Joey Ramsey Age: 83 yrs Sex: Male : 1935 Arrival Date: 11/10/2018 Time: 14:58 Bed 27 Private MD: Marcie Nielson ED Physician Mehdi Santos HPI: 11/10 16:26 This 83 yrs old Male presents to ER via Wheelchair with complaints of Slurred mychal Speech. 16:26 The patient presents to the emergency department with weakness of the a speech or mychal higher order brain function problem, difficulty standing, difficult walking. Onset: The symptoms/episode began/occurred just prior to arrival. Context: occurred at an office. Historical: - Allergies: 15:07 No Known Allergies; tw2 - Home Meds: 15:07 clopidogrel 75 mg Oral tab once daily [Active]; atorvastatin 10 mg Oral tab 1 tab once tw2 daily [Active]; bisoprolol fumarate 5 mg Oral tab once daily [Active]; aspirin 81 mg Oral chew 1 tab once daily [Active]; - PMHx: 15:07 Aortic Stenosis; CAD; CHF; Hypertension; stroke; UTI; tw2 - Immunization history:: Adult Immunizations. - Social history:: Smoking status: . - Ebola Screening: : Patient denies travel to an Ebola-affected area in the 21 days before illness onset. - Family history:: not pertinent. ROS: 16:26 Constitutional: Negative for fever, chills, and weight loss, Eyes: Negative for injury, mychal pain, redness, and discharge, ENT: Negative for injury, pain, and discharge, Neck: Negative for injury, pain, and swelling, Cardiovascular: Negative for chest pain, palpitations, and edema, Respiratory: Negative for shortness of breath, cough, wheezing, and pleuritic chest pain, Abdomen/GI: Negative for abdominal pain, nausea, vomiting, diarrhea, and constipation, Back: Negative for injury and pain, : Negative for injury, bleeding, discharge, and swelling, MS/Extremity: Negative for injury and deformity, Skin: Negative for injury, rash, and discoloration, Psych: Negative for depression, anxiety, suicide ideation, homicidal ideation, and hallucinations, Allergy/Immunology: Negative for hives, rash, and allergies, Endocrine: Negative for neck swelling, polydipsia, polyuria, polyphagia, and marked weight changes, Hematologic/Lymphatic: Negative for swollen nodes, abnormal bleeding, and unusual bruising. 16:26 Neuro: Positive for altered mental status, speech changes, weakness. Exam: 16:26 Constitutional: This is a well developed, well nourished patient who is awake, alert, mychal and in no acute distress. Head/Face: Normocephalic, atraumatic. Eyes: Pupils equal round and reactive to light, extra-ocular motions intact. Lids and lashes normal. Conjunctiva and sclera are non-icteric and not injected. Cornea within normal limits. Periorbital areas with no swelling, redness, or edema. ENT: Nares patent. No nasal discharge, no septal abnormalities noted. Tympanic membranes are normal and external auditory canals are clear. Oropharynx with no redness, swelling, or masses, exudates, or evidence of obstruction, uvula midline. Mucous membranes moist. Neck: Trachea midline, no thyromegaly or masses palpated, and no cervical lymphadenopathy. Supple, full range of motion without nuchal rigidity, or vertebral point tenderness. No Meningismus. Chest/axilla: Normal chest wall appearance and motion. Nontender with no deformity. No lesions are appreciated. Cardiovascular: Regular rate and rhythm with a normal S1 and S2. No gallops, murmurs, or rubs. Normal PMI, no JVD. No pulse deficits. Respiratory: Lungs have equal breath sounds bilaterally, clear to auscultation and percussion. No rales, rhonchi or wheezes noted. No increased work of breathing, no retractions or nasal flaring. Abdomen/GI: Soft, non-tender, with normal bowel sounds. No distension or tympany. No guarding or rebound. No evidence of tenderness throughout. Back: No spinal tenderness. No costovertebral tenderness. Full range of motion. Skin: Warm, dry with normal turgor. Normal color with no rashes, no lesions, and no evidence of cellulitis. MS/ Extremity: Pulses equal, no cyanosis. Neurovascular intact. Full, normal range of motion. Neuro: Awake and alert, GCS 15, oriented to person, place, time, and situation. Cranial nerves II-XII grossly intact. Motor strength 5/5 in all extremities. Sensory grossly intact. Cerebellar exam normal. Normal gait. Psych: Awake, alert, with orientation to person, place and time. Behavior, mood, and affect are within normal limits. Vital Signs: 15:06 BP 147 / 66; Pulse 58; Resp 17; Temp 97.0(TE); Pulse Ox 98% on R/A; Weight 68.04 kg tw2 (R); Height 5 ft. 8 in. (172.72 cm); Pain 0/10; 16:00 BP 155 / 68; Pulse 61; Resp 17; Temp 98; Pulse Ox 98% ; rv 17:00 BP 147 / 71; Pulse 58; Resp 16; Pulse Ox 98% ; rv 18:00 BP 155 / 65; Pulse 57; Resp 16; Pulse Ox 99% ; rv 19:00 BP 147 / 76; Pulse 63; Resp 16; Temp 98; Pulse Ox 99% ; rv 15:06 Body Mass Index 22.81 (68.04 kg, 172.72 cm) tw2 NIH Stroke Scale Scores: 19:17 NIHSS Score: 0 rv MDM: 15:[address] [facility] 16:29 Data reviewed: vital signs, nurses notes, lab test result(s), EKG, radiologic studies, [facility] CT scan, MRI, ultrasound. 11/10 15:10 Order name: Basic Metabolic Panel [facility] 11/10 15:10 Order name: CBC with Diff [facility] 11/10 15:10 Order name: LFT's [facility] 11/10 15:10 Order name: Magnesium; Complete Time: 17:29 [facility] 11/10 15:10 Order name: NT PRO-BNP; Complete Time: 17:29 [facility] 11/10 15:10 Order name: PT-INR; Complete Time: 17:29 [facility] 11/10 15:10 Order name: Troponin (emerg Dept Use Only); Complete Time: 17:29 [facility] 11/10 15:10 Order name: XRAY Chest (1 view); Complete Time: 17:29 [facility] 11/10 15:10 Order name: Sed Rate; Complete Time: 17:29 [facility] 11/10 15:10 Order name: CRP; Complete Time: 17:29 [facility] 11/10 15:12 Order name: Basic Metabolic Panel; Complete Time: 17:29 [facility] 11/10 15:12 Order name: CBC with Automated Diff; Complete Time: 17:29 [facility] 11/10 15:12 Order name: Liver (Hepatic) Function; Complete Time: 17:29 [facility] 11/10 15:10 Order name: EKG; Complete Time: 15:13 [facility] 11/10 15:10 Order name: Cardiac monitoring [facility] 11/10 15:10 Order name: EKG - Nurse/Tech [facility] 11/10 15:10 Order name: IV Saline Lock [facility] 11/10 15:10 Order name: Labs collected and sent [facility] 11/10 15:10 Order name: O2 Per Protocol; Complete Time: 15:56 [facility] 11/10 15:10 Order name: O2 Sat Monitoring; Complete Time: 15:56 [facility] 11/10 15:10 Order name: CT Head Brain wo Cont; Complete Time: 16:30 [facility] 11/10 15:10 Order name: Urine Dipstick-Ancillary (obtain specimen) [facility] 11/10 15:10 Order name: US Carotid Artery Bilateral; Complete Time: 17:29 [facility] 11/10 15:49 Order name: Brain Wo Cont; Complete Time: 16:30 EDMS Administered Medications: 16:52 Drug: NS 0.9% 500 ml Route: IV; Rate: bolus; Site: right antecubital; rv 17:25 Follow up: IV Status: Completed infusion; IV Intake: 500ml rv 16:52 Drug: foLIC Acid 1 mg Route: IVPB; Site: right antecubital; rv 17:25 Drug: NS 0.9% 1000 ml Route: IV; Rate: 125 ml/hr; Site: right antecubital; rv Disposition: 11/10/18 18:[address] [facility]. Diagnosis are Hydrocephalus, unspecified, Altered mental status, unspecified - resolved, Unspecified adverse effect of drug or medicament - valium. - Reason for transfer: Higher level of care. - Accepting physician is to [facility], neurosurgery. - Condition is Stable. - Problem is new. - Symptoms have improved. NIH Stroke Scale - NIH Stroke Score Date: 11/10/2018 Time: 19:17 Total Score = 0 1a. Level of Consciousness (LOC) - 0(Alert) 1b. Level of Consciousness (LOC) (Year \T\ Age) - 0(Both) 1c. LOC Commands (Open \T\ Closes Eyes/Railcar Foreman) - 0(Both) 2. Best Gaze (Lateral Gaze Paresis) - 0(Normal) 3. Visual Field Loss - 0(No visual loss) 4. Facial Palsy - 0(Normal) 5a. Left Arm: Motor (10-second hold) - 0(No drift) 5b. Right Arm: Motor (10-second hold) - 0(No drift) 6a. Left Leg: Motor (5-second hold - always test supine) - 0(No drift) 6b. Right Leg: Motor (5-second hold - always test supine) - 0(No drift) 7. Limb Ataxia (finger/nose \T\ heel/mcgrath - test with eyes open) - 0(Absent) 8. Sensory Loss (pinprick arms/legs/face) - 0(Normal) 9. Best Language: Aphasia (description/naming/reading) - 0(No aphasia) 10. Dysarthria (speech clarity - read or repeat words) - 0(Normal) 11. Extinction and Inattention (visual/tactile/auditory/spatial/personal) - 0(No abnormality) Initials: rv Signatures: Dispatcher [employer] EDMS Mehdi Santos MD MD cha Wise, Tara, RN RN tw2 Saroj Villarreal RN RN rv Corrections: (The following items were deleted from the chart) 15:49 15:13 MR STROKE PROTOCOL+MRI.RAD.BRZ ordered. [facility] 18:00 17:31 11/10/2018 17:31 Discharged to Home. Impression: Altered mental status, mychal unspecified - resolved. Condition is Stable. Forms are Medication Reconciliation Form, Thank You Letter, Antibiotic Education, Prescription Opioid Use. Follow up: Marcie Nielson; When: 2 - 3 days; Reason: Recheck today's complaints, Continuance of care, Re-evaluation by your physician. Follow up: Private Physician; When: 48 Hours; Reason: Recheck today's complaints, Continuance of care, Re-evaluation by your physician. Problem is new. Symptoms have improved. mychal 19:23 18:02 11/10/2018 18:02 Transfer ordered to [facility]. Diagnosis is Hydrocephalus, unspecified; Altered mental status, unspecified - resolved; Unspecified adverse effect of drug or medicament - valium. Reason for transfer: Higher level of care. Accepting physician is to [facility], neurosurgery. Condition is Stable. Problem is new. Symptoms have improved. mychal
[2018-11-10 20:09] VITALS: TEMP 98
[2018-11-10 20:12] VITALS: O2SAT 99
[2018-11-10 20:14] VITALS: BP 147/76
--- NOTE | 2018-11-11 07:39 | EKG ---
Test Date: 2018-11-10 Test Time: 16:41:47 Skin Installer: TASHI MEASUREMENT RESULTS: Intervals: Rate: 60 WI: 218 QRSD: 98 QT: 466 QTc: 466 [place]: P: 22 WI: 218 QRS: -4 T: 103 INTERPRETIVE STATEMENTS: Sinus rhythm with 1st degree AV block Inferior infarct, age undetermined Abnormal ECG Compared to ECG 08/12/2016 21:40:08 First degree AV block now present Myocardial infarct finding now present Electronically Signed On 11-11-18 07:38:22 CDT by Zac Aquino
== END 2018-11-10 19:23 | disposition short-term general hospital (02) ==
LOC: ER 14:56
DX: G91.9 Hydrocephalus, unspecified (principal); T42.4X5A Adverse effect of benzodiazepines, initial encounter; I10 Essential (primary) hypertension; I50.9 Heart failure, unspecified; I25.10 Atherosclerotic heart disease of native coronary artery without angina pectoris; Z79.82 Long term (current) use of aspirin; Z86.73 Personal history of transient ischemic attack (TIA), and cerebral infarction without residual deficits
CPT/HCPCS: 93005; 85025; 80048; 36415; 83735; 85610; 80076; 85652; 84484; 83880; 86140; 70450; 71045; 93880; 70551; J7030; 96361; 96374; 99285

== ENCOUNTER 2018-11-13 12:09 | Emergency (ER) | payer OTHER ==
--- OUTSIDE RECORDS SUMMARY | 2018-11-13 12:11 | XMS REPORT ---
:1935 [facility] Address [address] [place]. [address] [place] [id number] Care Team Providers Name Role Phone Unavailable Unavailable Unavailable Problems This patient has no known problems. Allergies, Adverse Reactions, Alerts This patient has no known allergies or adverse reactions. Medications This patient has no known medications. Encounters Start End Encounter Admission Attending Care Care Encounter Date/Time Date/Time Type Type Clinicians Facility Department ID 2018-11-10 2018-11-10 Emergency [facility] [id number] 18:32:00 18:32:00
--- OUTSIDE RECORDS SUMMARY | 2018-11-13 12:11 | XMS REPORT | Clinical Summary ---
:1935 [facility] Address [address] [place] [address] Care Team Providers Name Role Phone Garcia [...] Not on file Results Not on fileafter 11/12/2017 Insurance Payer Benefit Plan / Group Subscriber ID Type Phone Address CARE IMPROVEMENT MEDICARE MGD CARE IMPROVEMENT PLUS xxxxxxxxx CARE Advance Directives For more information, please contact:[facility] [phone] Code Status Date Activated Date Inactivated Comments Full Code 11/18/2015 6:45 PM 11/22/2015 7:33 PM This code status was determined by: Patient
[2018-11-13 12:56] LABS: Protime INR 1.11
--- NOTE | 2018-11-13 13:01 | RAD REPORT ---
EXAM DESCRIPTION: Zach Single View11/13/2018 12:55 pm CLINICAL HISTORY: Hypertension dizziness COMPARISON: November 10, 2018 FINDINGS: The lungs appear clear of acute infiltrate. The heart is mildly enlarged. Postsurgical changes involve the chest. IMPRESSION: No acute abnormalities displayed
[2018-11-13] MEDS ORDERED: ONDANSETRON 4 MG/2 ML VIAL ONE ×2 (13:07→13:46)
[2018-11-13] MEDS ORDERED: NA CHLORIDE 0.9% 1,000 ML ONE ×2 (13:07→13:46)
[2018-11-13 13:08] LABS: BUN Blood Urea Nitrogen 15 mg/dL (7-18); Bicarbonate 25 mmol/L (21-32); Creatine Phosphokinase 39 U/L (39-308); Glucose Level 128 mg/dL (74-106); Potassium 3.8 mmol/L (3.5-5.1); Sodium Level 144 mmol/L (136-145); Troponin (Emerg Dept Use Only) < 0.02 ng/mL (0.0-0.045)
--- NOTE | 2018-11-13 13:22 | RAD REPORT ---
EXAM DESCRIPTION: CT - Ct Stroke Brain Wo Cont - 11/13/2018 1:14 pm CLINICAL HISTORY: DIZZINESS Headache, drowsiness COMPARISON: Head Brain Wo Cont dated 11/10/2018; Facial Bones W/ Mpr dated 07/26/2018; Brain Wo Cont da radha 11/10/2018 TECHNIQUE: All CT scans are performed using dose optimization technique as appropriate and may inclu de automated exposure control or mA/KV adjustment according to patient size. FINDINGS: No intracranial hemorrhage, hydrocephalus or extra-axial fluid collection.Prominent genera lized brain atrophy is present with prominent periventricular and deep white matter chronic microvasc ular ischemic changes.Right-sided ventriculostomy tube noted. The paranasal sinuses and mastoids are clear. The calvarium is intact. IMPRESSION: No acute intracranial abnormality. The findings were discussed with Dr. Hickey on 11/13/2018 at 12:40 p.m. by telephone.
[2018-11-13 13:33] LABS: Absolute Lymphocytes (CBC) 1.3 K/uL (0.7-4.9); Absolute Monocytes 0.6 K/uL (0.1-1.3); Absolute Neutrophil 5.1 K/uL (1.8-8.0); Basophils % 0.5 % (0-1.3); Eosinophils % 1.2 % (0-4.4); Hematocrit 44.8 % (39.6-49.0); Lymphocytes % 18.5 % (15.3-44.8); Monocytes % 7.9 % (3.3-12.3)
--- NOTE | 2018-11-13 13:34 | RAD REPORT ---
EXAM DESCRIPTION: CT - Head angio - 11/13/2018 1:26 pm CLINICAL HISTORY: DIZZINESS Headache, drowsiness, dizziness COMPARISON: Ct Stroke Brain Wo Cont dated 11/13/2018; Head Brain Wo Cont dated 11/10/2018 TECHNIQUE: CT angiography of the head was performed with MIPs. All CT scans are performed using dose optimization technique as appropriate and may include automated exposure control or mA/KV adjustment according to patient size. FINDINGS: No evidence of aneurysm is detected. No flow-limiting stenosis or vascular malformation id entified. Antegrade flow is seen in the vertebral arteries. The vertebral arteries are patent and slightly left -sided dominant. The visualized dural venous sinuses are patent. IMPRESSION: No significant flow abnormality is detected.
--- NOTE | 2018-11-13 13:40 | RAD REPORT ---
EXAM DESCRIPTION: CT - Neck Angio - 11/13/2018 1:28 pm CLINICAL HISTORY: dizziness COMPARISON: Head C Spine Mpr Wo Con dated 07/26/2018; Head C Spine Mpr Wo Con dated 04/19/2018; Brain Wo Cont dated 11/10/2018 TECHNIQUE: CT angiography of the neck vessels was performed with MIPs. All CT scans are performed using dose optimization technique as appropriate and may include automated exposure control or mA/KV adjustment according to patient size. FINDINGS: A left aortic arch is identified. No significant flow abnormality is seen of the common carotid bilaterally. Mild plaquing is present in both proximal internal carotid arteries. The proximal left ICA demonstrat es mild narrowing, less than 50%, based on NASCET criteria, due to mild mixed plaque. Normal flow is seen within both vertebral arteries. IMPRESSION: No significant carotid stenosis is identified. There is evidence of less than 50% stenos is proximal left ICA related to mixed plaque formation.
[2018-11-13] MEDS ORDERED: MORPHINE 4 MG/ML SYR ONE (13:46)
--- NOTE | 2018-11-13 14:33 | ER ---
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 Transition of care: patient was not received from another setting of care. Onset of symptoms was November 13, 2018 at 11:30. Risk Assessment: Do you want to hurt yourself or someone else? Unable to obtain. Initial Sepsis Screen: Does the patient meet any 2 criteria? No. Patient's initial sepsis screen is negative. Does the patient have a suspected source of infection? No. Patient's initial sepsis screen is negative. Care prior to arrival: IV initiated. 18 GA, in the left forearm, Glucose check: 141. 12:20 Method Of Arrival: EMS: [facility] bp 12:20 Acuity: VINAY 1 bp Triage Assessment: 12:30 General: Appears in no apparent distress. comfortable, Behavior is cooperative. Pain: bp Denies pain. EENT: No deficits noted. Neuro: Level of Consciousness is awake, obeys commands, Oriented to person, Accounting File Clerk are equal bilaterally Facial droop on left. Cardiovascular: Rhythm is sinus bradycardia. Respiratory: Airway is patent Respiratory effort is even, unlabored, Respiratory pattern is regular, symmetrical. GI: Parent/caregiver reports the patient having vomiting. : No signs and/or symptoms were reported regarding the genitourinary system. Derm: No deficits noted. Musculoskeletal: Circulation, motion, and sensation intact. Range of motion: intact in all extremities. 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 - Social history:: Smoking status: Patient/guardian denies using tobacco. - Ebola Screening: : No symptoms or risks identified at this time. - Family history:: not pertinent. - Hospitalizations: : Patient was recently seen at. Screenin:20 Abuse screen: Denies threats or abuse. Denies injuries from another. Nutritional bp screening: No deficits noted. 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 Fall Risk No fall in past 12 months (0 pts). Secondary diagnosis (15 points) CVA. Assessment: 12:20 Reassessment: PT TO CT. General: SEE TRIAGE NOTE. bp 13:03 Reassessment: Patient appears in no apparent distress at this time. Patient and/or tw2 family updated on plan of care and expected duration. Pain level reassessed. 13:31 Reassessment: pt is in imaging at this time. tw2 13:37 Reassessment: Patient appears in no apparent distress at this time. Patient and/or tw2 family updated on plan of care and expected duration. Pain level reassessed. pt back from imaging at this time. 14:32 Reassessment: Patient appears in no apparent distress at this time. Patient and/or tw2 family updated on plan of care and expected duration. Pain level reassessed. pt ambulates with nurse around nursing station at this time, reports "that's about how he normally walks", provider notified. Vital Signs: 12:30 BP 180 / 86; Pulse 57; Resp 14; Temp 98.3; Pulse Ox 96% ; Weight 68.04 kg; bp 13:02 BP 170 / 73; Pulse 54; Resp 16; Pulse Ox 98% on R/A; tw2 13:37 BP 145 / 86; Pulse 59; Resp 16; Pulse Ox 96% on R/A; tw2 14:32 BP 149 / 77; Pulse 58; Resp 17; Pulse Ox 97% on R/A; tw2 ED Course: 12:20 Patient arrived in ED. ss 12:20 Patient has correct armband on for positive identification. Bed in low position. Call bp light in reach. Side rails up X2. Adult w/ patient. 12:20 Maintain EMS IV. Dressing intact. Good blood return noted. Site clean \\T\\ dry. Gauge \\T\\ bp site: 18 GAUGE LEFT FA. 12:21 Fuad Hickey MD is Attending Physician. rn 12:36 Harsh Hicks, RN is Primary Nurse. bp 12:44 Triage completed. bp 12:51 X-ray completed. Portable x-ray completed in exam room. Patient tolerated procedure jb2 well. 12:53 Stroke CXR 1 View In Process Unspecified. EDMS 12:54 Arm band placed on. bp 12:59 EKG done, by pest technician. reviewed by Fuad Hickey MD. at1 13:02 CT Stroke Brain w/o Contrast In Process Unspecified. EDMS 13:28 CT Head Angio In Process Unspecified. EDMS 13:31 CT Neck Angio In Process Unspecified. EDMS 14:33 No provider procedures requiring assistance completed. IV discontinued, intact, tw2 bleeding controlled, No redness/swelling at site. Pressure dressing applied. Administered Medications: 12:55 Drug: NS 0.9% 1000 ml Route: IV; Rate: 1000 ml; Site: left antecubital; tw2 14:00 Follow up: Response: No adverse reaction; IV Status: Completed infusion; IV Intake: tw2 1000ml 12:59 Drug: Zofran 4 mg Route: IVP; Site: left forearm; tw2 14:33 Follow up: Response: No adverse reaction tw2 Point of Care Testing: Blood Glucose: 12:42 Blood Glucose: 140 mg/dL; tw2 Ranges: Intake: 14:00 IV: 1000ml; Total: 1000ml. tw2 Outcome: 14:33 Discharge ordered by . rn 14:50 Discharged to home via wheelchair, with significant other. bp 14:50 Condition: stable 14:50 Discharge instructions given to patient, significant other, Instructed on discharge instructions, follow up and referral plans. Demonstrated understanding of instructions, follow-up care. 14:50 Patient left the ED. bp 14:51 Patient left the ED. Signatures: Dispatcher [employer] EDMS Mao Kalpesh jb2 Fuad Hickey MD MD rn Smirch, Shelby, RN RN Stacy Robles, field control inspector EKG Tat1 Christina Crocker RN RN tw2 Harsh Hicks, RN RN bp Corrections: (The following items were deleted from the chart) 13:03 12:30 Pulse 57bpm; Resp 14bpm; Pulse Ox 96%; Temp 98.3F; 68.04 kg; bp bp
--- NOTE | 2018-11-13 14:34 | EDPHYS ---
Physician Documentation [facility] Name: Joey Ramsey Age: 83 yrs Sex: Male : 1935 Arrival Date: 11/13/2018 Time: 12:20 Bed 6 Private MD: ED Physician Fuad Hickey HPI: 11/13 13:05 This 83 yrs old Male presents to ER via EMS with complaints of dizziness. rn 13:05 The patient presents with generalized weakness, lightheadedness, feeling off balance. rn Onset: The symptoms/episode began/occurred at 11:00. Context: occurred at a restaurant, occurred while the patient was standing, just prior to the episode the patient experienced no apparent symptoms. Modifying factors: The symptoms are alleviated by nothing, the symptoms are aggravated by changing position. Severity of symptoms: At their worst the symptoms were moderate in the emergency department the symptoms have improved. The patient has experienced similar episodes in the past. reports similar but worse symptoms a few days ago, sent to [place] for shunt adjustment, they adjusted shunt, has not been back to baseline since then, but today after eating, got up to walk to truck, felt lightheaded and dizzy, no syncope. EMS reports seemed weak on left side of body and possible facial droop. Weakness of face or body no longer present, symptoms began around 1100, tried to help him to truck, unable to walk so called EMS. . 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 - Social history:: Smoking status: Patient/guardian denies using tobacco. - Ebola Screening: : No symptoms or risks identified at this time. - Family history:: not pertinent. - Hospitalizations: : Patient was recently seen at. ROS: 13:05 Constitutional: Negative for fever, chills, and weight loss, Eyes: Negative for injury, rn pain, redness, and discharge, Cardiovascular: Negative for chest pain, palpitations, and edema, Respiratory: Negative for shortness of breath, cough, wheezing, and pleuritic chest pain, Abdomen/GI: negative for abdominal pain, + nausea and vomiting MS/Extremity: Negative for injury and deformity, Skin: Negative for injury, rash, and discoloration, Neuro: Negative for headache, numbness, tingling, and seizure. Exam: 13:05 Constitutional: Thin male, awake, and no acute distress Head/Face: Normocephalic, rn atraumatic. ENT: Pupils equal bilaterally, 3mm, reactive Cardiovascular: Brett cardic, regular, No pulse deficits. Respiratory: Lungs have equal breath sounds bilaterally, clear to auscultation. No increased work of breathing, no retractions or nasal flaring. Abdomen/GI: soft, non-tender Skin: Warm, dry MS/ Extremity: Pulses equal, no cyanosis. Neurovascular intact. Full, normal range of motion. Equal circumference. Neuro: Awake and alert, GCS 15, oriented to person, place,not time. Cranial nerves II-XII grossly intact. Motor strength 4/5 in all extremities. Sensory grossly intact. Cerebellar exam normal. Vital Signs: 12:30 BP 180 / 86; Pulse 57; Resp 14; Temp 98.3; Pulse Ox 96% ; Weight 68.04 kg; bp 13:02 BP 170 / 73; Pulse 54; Resp 16; Pulse Ox 98% on R/A; tw2 13:37 BP 145 / 86; Pulse 59; Resp 16; Pulse Ox 96% on R/A; tw2 14:32 BP 149 / 77; Pulse 58; Resp 17; Pulse Ox 97% on R/A; tw2 MDM: 12:21 Patient medically screened. rn 12:36 ED course: NIH 0. CT head no acute findings per Dr. Wiley. Getting CT angio head and rn neck.. 12:38 ED course: Pt improving, states that currently is doing better than when rn transferred 3 days ago for similar symptoms. NIH 0 currently. . 14:29 Differential diagnosis: cardiac arrhythmia, CVA, generalized weakness, hypovolemia, rn idiopathic dizziness, near-syncope, TIA, vertigo. Data reviewed: vital signs, nurses notes, lab test result(s), EKG, radiologic studies, CT scan. Counseling: I had a detailed discussion with the patient and/or guardian regarding: the historical points, exam findings, and any diagnostic results supporting the discharge/admit diagnosis, lab results, radiology results. Response to treatment: the patient's symptoms have markedly improved after treatment. ED course: Pt improved, able to stand, no acute findings on w/u today, possible TIA. Just had shunt evaluated and settings evaluated 3 days ago, no significant flow abnormality on CTA head/neck, + mild dehydration. Will ambulate and reeval. Patient now reports took himself off of plavix for unclear reasons. . 14:31 ED course: states back to baseline, able to walk fine. Recommend restarting plavix rn and aspirin. Negative UA. Will dc home with neuro f/u, has appt this next week, return precautions given.. 11/13 12:34 Order name: CPK 11/13 12:34 Order name: Troponin (emerg Dept Use Only) 11/13 12:34 Order name: Basic Metabolic Panel 11/13 12:34 Order name: CBC with Diff 11/13 12:34 Order name: Protime (+inr); Complete Time: 13:15 11/13 12:34 Order name: Ptt, Activated; Complete Time: 13:15 11/13 12:34 Order name: CT Stroke Brain w/o Contrast; Complete Time: 13:50 rn 11/13 12:34 Order name: Stroke CXR 1 View; Complete Time: 13:15 11/13 12:35 Order name: Creatine Phosphokinase; Complete Time: 13:15 EDWY 11/13 12:35 Order name: Troponin (Emerg Dept Use Only); Complete Time: 13:15 EDWY 11/13 12:35 Order name: Basic Metabolic Panel; Complete Time: 13:15 EDWY 11/13 12:35 Order name: CT Head Angio; Complete Time: 13:50 rn 11/13 12:35 Order name: CT Neck Angio; Complete Time: 14:02 rn 11/13 14:38 Order name: Urine Dipstick--Ancillary (enter results) 11/13 12:34 Order name: EKG; Complete Time: 12:35 11/13 12:34 Order name: Accucheck; Complete Time: 12:41 rn 11/13 12:34 Order name: Cardiac monitoring; Complete Time: 12:42 rn 11/13 12:34 Order name: EKG - Nurse/Tech; Complete Time: 13:40 rn 11/13 12:34 Order name: IV Saline Lock; Complete Time: 12:42 rn 11/13 12:34 Order name: Labs collected and sent; Complete Time: 13:44 rn 11/13 12:34 Order name: NPO; Complete Time: 12:42 rn 11/13 12:34 Order name: O2 Per Protocol; Complete Time: 12:42 rn 11/13 12:34 Order name: O2 Sat Monitoring; Complete Time: 12:42 rn 11/13 12:34 Order name: Stroke Swallow Screen; Complete Time: 13:45 rn Administered Medications: 12:55 Drug: NS 0.9% 1000 ml Route: IV; Rate: 1000 ml; Site: left antecubital; tw2 14:00 Follow up: Response: No adverse reaction; IV Status: Completed infusion; IV Intake: tw2 1000ml 12:59 Drug: Zofran 4 mg Route: IVP; Site: left forearm; tw2 14:33 Follow up: Response: No adverse reaction tw2 Point of Care Testing: Blood Glucose: 12:42 Blood Glucose: 140 mg/dL; tw2 Ranges: Critical Glucose Levels:Adult <50 mg/dl or >400 mg/dl <40 mg/dl or >180 mg/dl Disposition: 11/13/18 14:33 Discharged to Home. Impression: Dizziness and giddiness, Transient cerebral ischemic attack, unspecified. - Condition is Stable. - Discharge Instructions: Dizziness, Transient Ischemic Attack. - Prescriptions for Plavix 75 mg Oral Tablet - take 1 tablet by ORAL route once daily; 90 tablet. - Medication Reconciliation Form, Thank You Letter, Antibiotic Education, Prescription Opioid Use form. - Follow up: Private Physician; When: As needed; Reason: Recheck today's complaints, Re-evaluation by your physician. - Problem is new. - Symptoms have improved. Signatures: Dispatcher [employer] EDMS Fuad Hickey MD MD rn Smirch, Shelby RN RN ss Christina Crocker RN RN tw2 Harsh Hicks RN RN bp Corrections: (The following items were deleted from the chart) 14:50 14:33 11/13/2018 14:33 Discharged to Home. Impression: Dizziness and giddiness; bp Transient cerebral ischemic attack, unspecified. Condition is Stable. Forms are Medication Reconciliation Form, Thank You Letter, Antibiotic Education, Prescription Opioid Use. Follow up: Private Physician; When: As needed; Reason: Recheck today's complaints, Re-evaluation by your physician. Problem is new. Symptoms have improved. rn 14:51 14:50 11/13/2018 14:33 Discharged to Home. Impression: Dizziness and giddiness; ss Transient cerebral ischemic attack, unspecified. Condition is Stable. Discharge Instructions: Dizziness, Transient Ischemic Attack. Forms are Medication Reconciliation Form, Thank You Letter, Antibiotic Education, Prescription Opioid Use. Follow up: Private Physician; When: As needed; Reason: Recheck today's complaints, Re-evaluation by your physician. Problem is new. Symptoms have improved. bp
[2018-11-13 14:48] LABS: Urine Blood NEGATIVE (NEG); Urine Glucose NEGATIVE (NEG); Urine Protein NEGATIVE (NEG); Urine Specific Gravity 1.015 (1.005-1.030)
[2018-11-13 15:31] VITALS: TEMP 98.3
[2018-11-13 15:34] VITALS: BP 149/77; O2SAT 97
--- NOTE | 2018-11-14 09:04 | EKG ---
Test Date: 2018-11-13 Test Time: 12:46:49 Oracle Manager: KEDAR MEASUREMENT RESULTS: Intervals: Rate: 55 MN: 234 QRSD: 94 QT: 488 QTc: 466 [place]: P: MN: 234 QRS: 2 T: 106 INTERPRETIVE STATEMENTS: Sinus bradycardia with 1st degree AV block Inferior infarct, age undetermined Abnormal ECG Compared to ECG 11/10/2018 16:41:47 Sinus rhythm no longer present Myocardial infarct finding still present Electronically Signed On 11-14-18 09:01:02 CDT by Nick Stubbs
== END 2018-11-13 14:51 | disposition home or self-care (01) ==
LOC: ER 12:09
DX: G45.9 Transient cerebral ischemic attack, unspecified (principal); I25.10 Atherosclerotic heart disease of native coronary artery without angina pectoris; I11.0 Hypertensive heart disease with heart failure; I50.9 Heart failure, unspecified; Z86.73 Personal history of transient ischemic attack (TIA), and cerebral infarction without residual deficits
CPT/HCPCS: 96361; 93005; 85025; 80048; 36415; 82550; 85610; 82962; 85730; 81003; 84484; 70496; 70498; 70450; 71045; 96374; 99291; 99292; Q9967 ×2; J7030; J2405

== ENCOUNTER 2018-12-03 16:51 | Emergency (ER) | payer OTHER ==
--- OUTSIDE RECORDS SUMMARY | 2018-12-03 16:53 | XMS REPORT | Clinical Summary ---
:1935 [facility] Address [address] [place] [address] Care Team Providers Name Role Phone Garcia [...] Not on file Results Not on fileafter 12/02/2017 Insurance Payer Benefit Plan / Group Subscriber ID Type Phone Address CARE IMPROVEMENT MEDICARE MGD CARE IMPROVEMENT PLUS xxxxxxxxx CARE Advance Directives For more information, please contact:[facility] [phone] Code Status Date Activated Date Inactivated Comments Full Code 11/18/2015 6:45 PM 11/22/2015 7:33 PM This code status was determined by: Patient
--- OUTSIDE RECORDS SUMMARY | 2018-12-03 16:53 | XMS REPORT ---
:1935 Author Organization [facility] Address [address] [place] [address] Dr. De Los Santos [address] [place] [address] Care Team Providers Name Role Phone Unavailable Unavailable Unavailable Problems This patient has no known problems. Allergies, Adverse Reactions, Alerts This patient has no known allergies or adverse reactions. Medications This patient has no known medications. Encounters Start End Encounter Admission Attending Care Care Encounter Date/Time Date/Time Type Type Clinicians Facility Department ID 2018-11-10 2018-11-10 Emergency E [facility] [id number] 18:32:00 18:32:00
[2018-12-03 17:29] LABS: Absolute Lymphocytes (CBC) 2.4 K/uL (0.7-4.9); Basophils % 0.6 % (0-1.3); Eosinophils % 1.6 % (0-4.4); Hematocrit 46.5 % (39.6-49.0); MPV 10.7 fL (7.6-11.3)
--- NOTE | 2018-12-03 17:31 | RAD REPORT ---
EXAM DESCRIPTION: CT - Head Brain Wo Cont - 12/03/2018 5:20 pm CLINICAL HISTORY: Alteration of awareness/confusion COMPARISON: November 13, 2018 TECHNIQUE: Computed axial tomography of the head was obtained. IV contrast was not requested. All CT scans are performed using dose optimization technique as appropriate and may include automated exposure control or mA/KV adjustment according to patient size. FINDINGS: Right ventriculostomy tube unchanged in position. Borderline prominence of the ventricles is unchanged An intracranial bleed is not seen . No extra-axial fluid collection is noted. Moderate low-density areas within periventricular, deep and subcortical white matter likely represent ischemic changes secondary to small vessel disease. Fluid within the sinuses/ mastoids is not seen. IMPRESSION: No change since the prior exam. If patient's symptoms persist MRI of the brain would be recommended.
[2018-12-03 17:41] LABS: Potassium 4.1 mmol/L (3.5-5.1)
--- NOTE | 2018-12-03 18:15 | RAD REPORT ---
EXAM DESCRIPTION: RAD - Shuntogram - 12/03/2018 5:44 pm CLINICAL HISTORY: Ventriculoperitoneal shunt. Lethargy FINDINGS: A shunt courses from the right aspect of the brain caudally into the right lateral neck and right lat eral chest. The shunt then enters the left mid abdomen extending cranially. The tip of the shunt with in the left upper quadrant is not included in the field of view of the x-rays and is not evaluated. A kink or break of the shunt is not noted
[2018-12-03] MEDS ORDERED: NA CHLORIDE 0.9% 1,000 ML ONE (18:39)
[2018-12-03 20:13] LABS: Urine Bacteria 20-50 /HPF (NONE SEEN); Urine Culture Reflex Order REFLEXED; Urine RBC <5 /HPF (NONE SEEN)
[2018-12-03 20:15] LABS: Urine Blood TRACE (NEG); Urine Glucose NEGATIVE (NEG); Urine Protein NEGATIVE (NEG); Urine Specific Gravity 1.025 (1.005-1.030); Urine pH 5.5 (5.0-7.0)
--- NOTE | 2018-12-03 20:26 | ER ---
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 Patient had recent shunt revision. Transition of care: patient was not received from another setting of care. Onset of symptoms was December 03, 2018 at 10:30. Risk Assessment: Do you want to hurt yourself or someone else? Patient reports no desire to harm self or others. Initial Sepsis Screen: Does the patient meet any 2 criteria? No. Patient's initial sepsis screen is negative. Does the patient have a suspected source of infection? No. Patient's initial sepsis screen is negative. Care prior to arrival: None. 16:57 Method Of Arrival: EMS: [facility] 16:57 Acuity: VINAY 2 aj Triage Assessment: 17:01 General: Appears in no apparent distress. comfortable, Behavior is calm, cooperative, aj appropriate for age. Pain: Denies pain. Neuro: Level of Consciousness is awake, confused, Oriented to none. Neuro: Reports weakness. Respiratory: Airway is patent Respiratory effort is even, unlabored, Respiratory pattern is regular, symmetrical. Derm: Skin is intact, is healthy with good turgor, Skin is pink, warm \T\ dry. normal. 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 - Social history:: Smoking status: Patient uses tobacco products, smokes one-half pack cigarettes per day. - Ebola Screening: : Patient negative for fever greater than or equal to 101.5 degrees Fahrenheit, and additional compatible Ebola Virus Disease symptoms Patient denies exposure to infectious person Patient denies travel to an Ebola-affected area in the 21 days before illness onset No symptoms or risks identified at this time. - Family history:: not pertinent. Screenin:19 Abuse screen: Denies threats or abuse. Denies injuries from another. Nutritional aj screening: No deficits noted. Tuberculosis screening: No symptoms or risk factors identified. Fall Risk None identified. Assessment: 17:19 Reassessment: Patient appears in no apparent distress at this time. No changes from aj previously documented assessment. 17:51 Reassessment: Patient appears in no apparent distress at this time. No changes from aj previously documented assessment. Patient and/or family updated on plan of care and expected duration. Pain level reassessed. Patient denies pain at this time. 18:16 General: Appears in no apparent distress. comfortable, Behavior is calm, cooperative, aj appropriate for age. Pain: Denies pain. 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 Respiratory: Airway is patent Respiratory effort is even, unlabored, Respiratory pattern is regular, symmetrical. Derm: Skin is intact, is healthy with good turgor, Skin is pink, warm \T\ dry. normal. 20:30 Reassessment: Report received from Stacy ESPINOZA. jb4 21:02 Reassessment: Patient appears in no apparent distress at this time. No changes from jb4 previously documented assessment. Patient and/or family updated on plan of care and expected duration. Pain level reassessed. Patient is alert, oriented x 3, equal unlabored respirations, skin warm/dry/pink. PT is now fully alert and oriented, speech is clear. Patient denies pain at this time. 21:30 Reassessment: Report called to ALEXIS Nguyen at receiving facility. jb4 Vital Signs: 17:01 BP 156 / 71; Pulse 74; Resp 17; Temp 98.4; Pulse Ox 98% on R/A; Weight 63.5 kg; Height aj 5 ft. 9 in. (175.26 cm); 17:56 BP 150 / 66; Pulse 68; Resp 18; Temp 98.1(O); Pulse Ox 99% on R/A; mh5 18:16 BP 160 / 66; Pulse 69; Resp 18; Pulse Ox 98% on R/A; aj 19:19 BP 156 / 65; Pulse 67; Resp 19; Pulse Ox 98% on R/A; aj 20:00 BP 148 / 69; Pulse 66; Resp 16; Pulse Ox 98% on R/A; jb4 21:00 BP 147 / 66; Pulse 66; Resp 16; Temp 97.7(O); Pulse Ox 98% on R/A; jb4 17:01 Body Mass Index 20.67 (63.50 kg, 175.26 cm) aj NIH Stroke Scale Scores: 18:52 NIHSS Score: 2 ED Course: 16:57 Patient arrived in ED. aj 16:58 Austen Castañeda MD is Attending Physician. 16:59 Triage completed. aj 17:01 Arm band placed on left wrist. Patient placed in an exam room. aj 17:[address] via stretcher. em2 17:18 AMMONIA Sent. aj 17:18 Basic Metabolic Panel Sent. aj 17:18 CBC with Diff Sent. aj 17:19 Patient has correct armband on for positive identification. aj 17:19 Inserted saline lock: 22 gauge in right forearm, using aseptic technique. Blood aj collected. 17:21 CT Head Brain wo Cont In Process Unspecified. EDMS 17:22 CT completed. Patient tolerated procedure well. Patient moved to radiology via em2 stretcher. 17:36 Stacy Rubalcava, RN is Primary Nurse. aj 17:42 Shuntogram XRAY In Process Unspecified. EDMS 18:[address] Lebron Garrison the nurosurgeon for the patient at eb [phone]/ left message with the the answering service to please call back. 19:46 Attending Physician role handed off by Austen Castañeda MD [facility] 19:46 Mehdi Santos MD is Attending Physician. mychal 20:29 XRAY Chest (1 view) In Process Unspecified. EDMS 20:29 PT-INR Sent. aj 20:29 LFT's Sent. aj 20:29 Magnesium Sent. aj 20:29 NT PRO-BNP Sent. aj 20:29 Troponin (emerg Dept Use Only) Sent. aj 20:45 IV discontinued, intact, bleeding controlled, No redness/swelling at site. IV jb4 infiltrated. 21:00 Inserted saline lock: 22 gauge in left antecubital area, using aseptic technique. jb4 21:30 No provider procedures requiring assistance completed. Patient transferred, IV remains jb4 in place. Administered Medications: 18:27 Drug: NS 0.9% 1000 ml Route: IV; Rate: 125 ml/hr; Site: right forearm; aj 20:22 Drug: NS 0.9% 500 ml Route: IV; Rate: bolus; Site: right forearm; aj 20:54 Follow up: IV SiteChange: left antecubital; IV SiteChange Reason: Infiltration jb4 20:22 Drug: foLIC Acid 1 mg Route: IVPB; Site: right forearm; aj Outcome: 20:25 ER care complete, transfer ordered by . mychal 21:30 Transferred by ground EMS to [facility]. jb4 21:30 Condition: stable 21:30 Discharge instructions given to patient, family, Instructed on the need for transfer, Demonstrated understanding of instructions. 22:08 Patient left the ED. jb4 NIH Stroke Scale - NIH Stroke Score Date: 12/03/2018 Time: 18:52 Total Score = 2 1a. Level of Consciousness (LOC) - 0(Alert) 1b. Level of Consciousness (LOC) (Year \T\ Age) - 2(Neither) 1c. LOC Commands (Open \T\ Closes Eyes/Seo Analyst) - 0(Both) 2. Best Gaze (Lateral Gaze Paresis) - 0(Normal) 3. Visual Field Loss - 0(No visual loss) 4. Facial Palsy - 0(Normal) 5a. Left Arm: Motor (10-second hold) - 0(No drift) 5b. Right Arm: Motor (10-second hold) - 0(No drift) 6a. Left Leg: Motor (5-second hold - always test supine) - 0(No drift) 6b. Right Leg: Motor (5-second hold - always test supine) - 0(No drift) 7. Limb Ataxia (finger/nose \T\ heel/mcgrath - test with eyes open) - 0(Absent) 8. Sensory Loss (pinprick arms/legs/face) - 0(Normal) 9. Best Language: Aphasia (description/naming/reading) - 0(No aphasia) 10. Dysarthria (speech clarity - read or repeat words) - 0(Normal) 11. Extinction and Inattention (visual/tactile/auditory/spatial/personal) - 0(No abnormality) Initials: Addendum: 12/07/2018 09:12 Addendum: Culture Results: Positive urine culture. Phone call Attempt #1 faxed ss culture report to [facility] Stroke unit. ATTN: ALEXIS Silvestre. Fax # [phone]. Signatures: Dispatcher [employer] Stacy Vang, RN Mehdi Flower MD MD cha Smirch, Shelby, RN RN ss Montes, Enrique em2 Bryson, James, RN RN Katey Willard Austen Miranda MD MD gs Botello, Elizabeth eb
--- NOTE | 2018-12-03 20:26 | EDPHYS ---
Physician Documentation [facility] Name: Joey Ramsey Age: 83 yrs Sex: Male : 1935 Arrival Date: 12/03/2018 Time: 16:57 Bed 20 Private MD: ED Physician Mehdi Santos HPI: 12/03 18:52 This 83 yrs old Male presents to ER via EMS with complaints of Altered Mental gs Status. 18:52 The patient presents with decreased mental status. Onset: The symptoms/episode gs began/occurred at 10:30. Possible causes: unknown. Associated signs and symptoms: Pertinent negatives: abdominal pain, chest pain. The patient has experienced similar episodes in the past, a few times. difficulty awaken this am, not talking to . 20:52 Patient's baseline: Neuro: alert and fully oriented. 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 - Social history:: Smoking status: Patient uses tobacco products, smokes one-half pack cigarettes per day. - Ebola Screening: : Patient negative for fever greater than or equal to 101.5 degrees Fahrenheit, and additional compatible Ebola Virus Disease symptoms Patient denies exposure to infectious person Patient denies travel to an Ebola-affected area in the 21 days before illness onset No symptoms or risks identified at this time. - Family history:: not pertinent. ROS: 18:52 Unable to obtain ROS due to baseline dementia. gs Exam: 18:52 Head/Face: Normocephalic, atraumatic. Eyes: Pupils equal round and reactive to light, gs extra-ocular motions intact. Lids and lashes normal. Conjunctiva and sclera are non-icteric and not injected. Cornea within normal limits. Periorbital areas with no swelling, redness, or edema. ENT: Nares patent. No nasal discharge, no septal abnormalities noted. Tympanic membranes are normal and external auditory canals are clear. Oropharynx with no redness, swelling, or masses, exudates, or evidence of obstruction, uvula midline. Mucous membranes moist. Neck: Trachea midline, no thyromegaly or masses palpated, and no cervical lymphadenopathy. Supple, full range of motion without nuchal rigidity, or vertebral point tenderness. No Meningismus. Chest/axilla: Normal chest wall appearance and motion. Nontender with no deformity. No lesions are appreciated. Cardiovascular: Regular rate and rhythm with a normal S1 and S2. No gallops, murmurs, or rubs. Normal PMI, no JVD. No pulse deficits. Respiratory: Lungs have equal breath sounds bilaterally, clear to auscultation and percussion. No rales, rhonchi or wheezes noted. No increased work of breathing, no retractions or nasal flaring. Abdomen/GI: Soft, non-tender, with normal bowel sounds. No distension or tympany. No guarding or rebound. No evidence of tenderness throughout. Back: No spinal tenderness. No costovertebral tenderness. Full range of motion. Skin: Warm, dry with normal turgor. Normal color with no rashes, no lesions, and no evidence of cellulitis. MS/ Extremity: Pulses equal, no cyanosis. Neurovascular intact. Full, normal range of motion. 18:52 Constitutional: The patient appears alert, awake. 18:52 Neuro: Orientation: to person, place, Cranial nerves: CN II- XII are normal as tested, Motor: moves all fours, Sensation: no obvious gross deficits. 19:04 ECG was reviewed by the Attending Physician. Vital Signs: 17:01 BP 156 / 71; Pulse 74; Resp 17; Temp 98.4; Pulse Ox 98% on R/A; Weight 63.5 kg; Height aj 5 ft. 9 in. (175.26 cm); 17:56 BP 150 / 66; Pulse 68; Resp 18; Temp 98.1(O); Pulse Ox 99% on R/A; mh5 18:16 BP 160 / 66; Pulse 69; Resp 18; Pulse Ox 98% on R/A; aj 19:19 BP 156 / 65; Pulse 67; Resp 19; Pulse Ox 98% on R/A; aj 20:00 BP 148 / 69; Pulse 66; Resp 16; Pulse Ox 98% on R/A; jb4 21:00 BP 147 / 66; Pulse 66; Resp 16; Temp 97.7(O); Pulse Ox 98% on R/A; jb4 17:01 Body Mass Index 20.67 (63.50 kg, 175.26 cm) aj NIH Stroke Scale Scores: 18:52 NIHSS Score: 2 MDM: 17:03 Patient medically screened. 18:52 Differential Diagnosis: CVA, UTI, volume depletion, shunt malfunction. Data reviewed: vital signs, nurses notes. Response to treatment: the patient's symptoms have markedly improved after treatment, closer to baseline. ED course: no TPA outside both 3 and 4.5 windows last know well early am, doubt stoke pt essentially back to baseline talking to me. 19:02 ED course: will discuss dr alston transferring pt v clinic follow up. 12/03 17:05 Order name: CBC with Diff; Complete Time: 18:14 12/03 17:05 Order name: Basic Metabolic Panel; Complete Time: 18:14 12/03 17:05 Order name: AMMONIA; Complete Time: 18:14 12/03 19:05 Order name: Urine Microscopic Only; Complete Time: 20:14 12/03 19:53 Order name: Urine Dipstick--Ancillary (enter results); Complete Time: 20:50 [facility] 12/03 20:15 Order name: Urine Culture [facility] 12/03 17:05 Order name: CT Head Brain wo Cont; Complete Time: 18:14 12/03 17:05 Order name: Shuntogram XRAY; Complete Time: 18:19 12/03 20:16 Order name: LFT's; Complete Time: 20:57 [facility] 12/03 20:16 Order name: Magnesium; Complete Time: 20:57 [facility] 12/03 20:16 Order name: NT PRO-BNP; Complete Time: 20:57 [facility] 12/03 20:16 Order name: PT-INR; Complete Time: 21:46 [facility] 12/03 20:16 Order name: Troponin (emerg Dept Use Only); Complete Time: 20:57 [facility] 12/03 20:16 Order name: XRAY Chest (1 view); Complete Time: 20:50 [facility] 12/03 18:20 Order name: EKG - Nurse/Tech; Complete Time: 18:51 12/03 19:05 Order name: Urine Dipstick-Ancillary (obtain specimen); Complete Time: 19:52 12/03 20:16 Order name: EKG; Complete Time: 20:17 [facility] 12/03 20:16 Order name: Cardiac monitoring; Complete Time: 20:22 [facility] 12/03 20:16 Order name: IV Saline Lock; Complete Time: 20:22 [facility] 12/03 20:16 Order name: Labs collected and sent; Complete Time: 20: [facility] 12/03 20:16 Order name: O2 Per Protocol; Complete Time: 20: [facility] 12/03 20:16 Order name: O2 Sat Monitoring; Complete Time: 20: [facility] EC:04 Rate is 68 beats/min. Rhythm is regular. IA interval is prolonged. QRS interval is gs normal. QT interval is normal. Q waves are Old in lead III. T waves are Inverted in lead aVL. Clinical impression: NSR w/ Non-specific ST/T Changes. Interpreted by me. Administered Medications: : Drug: NS 0.9% 1000 ml Route: IV; Rate: 125 ml/hr; Site: right forearm; aj 20:22 Drug: NS 0.9% 500 ml Route: IV; Rate: bolus; Site: right forearm; aj 20:54 Follow up: IV SiteChange: left antecubital; IV SiteChange Reason: Infiltration jb4 20:22 Drug: foLIC Acid 1 mg Route: IVPB; Site: right forearm; aj Disposition: 12/03/18 20:25 Transfer ordered to [facility]. Diagnosis are Transient cerebral ischemic attack, unspecified, Hydrocephalus, unspecified - Asparagus Cutter shunt, Altered mental status, unspecified. - Reason for transfer: Higher level of care. - Accepting physician is to [facility]. - Condition is Stable. - Problem is new. - Symptoms have improved. NIH Stroke Scale - NIH Stroke Score Date: 12/03/2018 Time: 18:52 Total Score = 2 1a. Level of Consciousness (LOC) - 0(Alert) 1b. Level of Consciousness (LOC) (Year \T\ Age) - 2(Neither) 1c. LOC Commands (Open \T\ Closes Eyes/Roller Mechanic) - 0(Both) 2. Best Gaze (Lateral Gaze Paresis) - 0(Normal) 3. Visual Field Loss - 0(No visual loss) 4. Facial Palsy - 0(Normal) 5a. Left Arm: Motor (10-second hold) - 0(No drift) 5b. Right Arm: Motor (10-second hold) - 0(No drift) 6a. Left Leg: Motor (5-second hold - always test supine) - 0(No drift) 6b. Right Leg: Motor (5-second hold - always test supine) - 0(No drift) 7. Limb Ataxia (finger/nose \T\ heel/mcgrath - test with eyes open) - 0(Absent) 8. Sensory Loss (pinprick arms/legs/face) - 0(Normal) 9. Best Language: Aphasia (description/naming/reading) - 0(No aphasia) 10. Dysarthria (speech clarity - read or repeat words) - 0(Normal) 11. Extinction and Inattention (visual/tactile/auditory/spatial/personal) - 0(No abnormality) Initials: Signatures: Dispatcher [employer] EDHI Stacy Rubalcava RN RN aj Anderson, Corey, MD MD cha Bryson, James, RN RN [address] Rhodes StreetAusten eubanks MD MD Corrections: (The following items were deleted from the chart) 22:08 20:25 12/03/2018 20:25 Transfer ordered to [address] Diagnosis is Transient cerebral ischemic attack, unspecified; Hydrocephalus, unspecified - Asparagus Cutter shunt; Altered mental status, unspecified. Reason for transfer: Higher level of care. Accepting physician is to [facility]. Condition is Stable. Problem is new. Symptoms have improved. mychal
[2018-12-03] MEDS ORDERED: FOLIC ACID 5 MG/ML VIAL ONE (20:34)
--- NOTE | 2018-12-03 20:43 | RAD REPORT ---
EXAM DESCRIPTION: Zach Single View12/03/2018 8:29 pm CLINICAL HISTORY: cough COMPARISON: 11/13/2018 FINDINGS: The lungs appear clear of acute infiltrate. The heart is normal size. Postsurgical changes involve the chest. Shunt courses the right hemithorax IMPRESSION: No acute abnormalities displayed
[2018-12-03 20:46] LABS: Protime INR 1.1
[2018-12-03 20:52] LABS: ALT/SGPT 18 U/L (12-78); AST/SGOT 14 U/L (15-37); Albumin 3.7 g/dL (3.4-5.0); Alkaline Phosphatase 72 U/L (45-117); Bilirubin Direct 0.2 mg/dL (0-0.2); Bilirubin Total 0.7 mg/dL (0.2-1.0); Magnesium 2.5 mg/dL (1.8-2.4); NT PRO-BNP 556 pg/mL (<450); Protein, Total 8.3 g/dL (6.4-8.2); Troponin (Emerg Dept Use Only) < 0.02 ng/mL (0.0-0.045)
[2018-12-03 22:19] VITALS: O2SAT 98
[2018-12-03 22:23] VITALS: BP 147/66; TEMP 97.7
--- NOTE | 2018-12-04 08:26 | EKG ---
Test Date: 2018-12-03 Test Time: 18:52:05 Sales Service Promoter: DOMO MEASUREMENT RESULTS: Intervals: Rate: 68 ND: 208 QRSD: 92 QT: 432 QTc: 459 Ward: P: 28 ND: 208 QRS: 12 T: 85 INTERPRETIVE STATEMENTS: Normal sinus rhythm Cannot rule out Inferior infarct, age undetermined Abnormal ECG Compared to ECG 11/13/2018 12:46:49 Sinus bradycardia no longer present First degree AV block no longer present Myocardial infarct finding still present Electronically Signed On 12-04-18 08:24:56 CDT by Nick Stubbs
== END 2018-12-03 22:08 | disposition short-term general hospital (02) ==
LOC: ER 16:51
DX: G45.9 Transient cerebral ischemic attack, unspecified (principal); G91.9 Hydrocephalus, unspecified; I10 Essential (primary) hypertension; I50.9 Heart failure, unspecified; F17.210 Nicotine dependence, cigarettes, uncomplicated; Z79.82 Long term (current) use of aspirin; Z98.2 Presence of cerebrospinal fluid drainage device; Z95.1 Presence of aortocoronary bypass graft
CPT/HCPCS: 93005; 87088; 85025; 87086; 80048; 36415; 82140; 83735; 85610; 80076; 84484; 83880; 70450; 71045; 75809; 49427; 96374; 99285; J7030; 81003; 81015; 87077; 87186

== ENCOUNTER 2019-01-09 09:58 | Emergency (ER) | payer OTHER ==
--- OUTSIDE RECORDS SUMMARY | 2019-01-09 10:01 | XMS REPORT | Clinical Summary ---
:1935 Author Organization [facility] Address [address] [place] [address] Care Team Providers Name Role Phone Garcia [...] Not on file Results Not on fileafter 01/08/2018 Insurance Payer Benefit Plan / Group Subscriber ID Type Phone Address CARE IMPROVEMENT MEDICARE MGD CARE IMPROVEMENT PLUS xxxxxxxxx CARE Advance Directives For more information, please contact:[facility] [phone] Code Status Date Activated Date Inactivated Comments Full Code 11/18/2015 6:45 PM 11/22/2015 7:33 PM This code status was determined by: Patient
--- OUTSIDE RECORDS SUMMARY | 2019-01-09 10:04 | XMS REPORT | Continuity of Care Document ---
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/19 [facility] STROKE [address] [place] [address] HYDROCEPHALUS, Active 12/02/19 UNSPECIFIED 19 [place] At risk for 11/11/19 11/12/2018 [facility] altered mental [address] [place] [address] status Center AMS Active 11/11/[address] 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 [facility] STROKE [address] [place] [address] 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 [facility] [place] CVA - Active Problem 03/20/2013 [facility] Cerebrovascular Medical accident [facility], [place] Dysarthria Active Problem 03/20/2013 [facility], [place] Dysphagia Active Problem 03/20/2013 [facility] Fall risk Active Problem 03/20/2013 [facility] General weakness Active Problem 03/20/2013 [facility] HLD Resolved Problem 03/24/2013 [facility] HTN Resolved Problem 03/24/2013 [facility] Hypertension Active Problem 03/20/2013 [facility] Knowledge deficit Active Problem 03/20/[address],[facility] Slurred speech Active Problem 03/20/2013 [facility] CVA - Active Problem 01/01/2019 [facility] Cerebrovascular Medical accident [place], [place] Dysarthria Active Problem 01/01/2019 [facility], [place] Dysphagia Active Problem 01/01/2019 [facility] Fall risk Active Problem 01/01/2019 [facility] General weakness Active Problem 01/01/2019 [facility] HLD (Confirmed) Resolved Problem 01/01/2019 [facility] HTN (Confirmed) Resolved Problem 01/01/2019 [facility] Hypertension Active Problem 01/01/2019 [facility] Knowledge deficit Active Problem 01/01/2019 stroke [facility] stroke1 [facility] Slurred speech Active Problem 01/01/2019 [facility] COMMUNICAT Active HYDROCEPHALUS [facility] CVA Active [facility] CEREB INFRC D/T Active [facility] UNSP OCCLS OR Medical ST[facility] OF [place] Medications Medication Details Route Status Patient Ordering Order Source Instructions Provider Date quetiapine 25 mg, 1 tab, Inactive [facility] Route: PO, 019 Medical Drug form: [place] TAB, Bedtime, Dosing Weight 70.17, kg, Start date: 12/08/18 21:00:00 CDT, Stop date: 01/06/19 21:00:00 CDT, 0Notes: (Same as: SEROquel) Levetiracetam 500 mg=1 tab, Active [place] 500 MG Oral PO, Q12H, # 60 019 Medical Tablet [Keppra] tab, 2 Center Refill(s) Levetiracetam 500 mg, 1 tab, No Longer [place] 500 MG Oral Route: PO, Active 019 Medical Tablet [Keppra] Drug form: [place] TAB, Q12H, Dosing Weight 70.17, kg, Start date: 12/05/18 21:00:00 CDT, Duration: 30 day, Stop date: 01/04/19 9:00:00 CDT, 0Notes: (Same as:Keppra) Vancomycin 1,000 mg, No Longer [facility] Route: IVPB, Active 019 Medical Drug form: [place] INJ, [id number], Dosing Weight 70.17, kg, Priority: STAT, Start date: 12/05/18 19:25:00 CDT, Duration: 7 day, Stop date: 12/11/18 19:25:00 CDT, ABX Indication: Bacteremia, 0Notes: TIME CRITICAL MEDICATION (Same As: Vancocin) Infusion rate 2001 mg: infuse over 2.5 hours For adult patients only: Round to nearest 250 mg per Medical Staff approval MEDICATION WASTE Product Size: 1000 mg Product Wasted: ___ mg Vitamin B12 1,000 Inactive [facility] microgram, 1 019 Medical mL, Route: IM, Center Drug form: INJ, ONCE, Dosing Weight 70.17, kg, Start date: 12/05/18 16:53:00 CDT, Stop date: 12/05/18 16:53:00 CDT, 0Notes: (Same As: Vitamin B12) Vitamin B12 1,000 Inactive [place] microgram, 1 019 Medical mL, Route: IM, Center Drug form: INJ, ONCE, Dosing Weight 70.17, kg, Start date: 12/05/18 16:42:00 CDT, Stop date: 12/05/18 16:42:00 CDT, 0Notes: (Same As: Vitamin B12) Keppra 1,500 mg, Inactive [facility] Route: IVPB, 019 Medical ONCE, Dosing Center Weight 70.17, kg, Loading Dose, Start date: 12/05/18 11:09:00 CDT, Stop date: 12/05/18 11:09:00 CDT, 0Notes: Same as Keppra Mix with 100 mL NS, LR or D5W MEDICATION WASTE Product Size: 500 mg Product Wasted: ___ mg Vitamin B12 1,000 Inactive [facility] microgram, 1 019 Medical mL, Route: IM, Center Drug form: INJ, ONCE, Dosing Weight 70.17, kg, Start date: 12/05/18 11:09:00 CDT, Stop date: 12/05/18 11:09:00 CDT, 0Notes: (Same As: Vitamin B12) atorvastatin 10 mg, 1 tab, No Longer [facility] Route: PO, Active 019 Medical Drug form: Center TAB, Bedtime, Dosing Weight 70.17, kg, Start date: 12/04/18 21:00:00 CDT, Duration: 30 day, Stop date: 01/02/19 21:00:00 CDT, 0Notes: (Same As: Lipitor) Briviact 50 mg, 1 tab, Inactive [facility] Route: PO, 019 Medical Drug form: Center TAB, Q12H, Dosing Weight 70.17, kg, Start date: 12/04/18 21:00:00 CDT, Duration: 30 day, Stop date: 01/03/19 9:00:00 CDT, 0Notes: (Same as: Briviact) Do Not Crush topiramate 25 mg, Route: Inactive [facility] PO, Drug form: 019 Medical TAB, Q12H, Center Dosing Weight 70.17, kg, Start date: 12/04/18 21:00:00 CDT, Duration: 30 day, Stop date: 01/03/19 9:00:00 CDT Aspirin 81 MG 81 mg=1 tab, Active [facility] Enteric Coated PO, Daily, # 019 Medical Tablet 90 tab, 3 Center Refill(s) Saline Flush 10 ml, Route: No Longer [facility] 0.9% IVP, Drug Active 019 Medical Form: INJ, Center Dosing Weight 63.5, kg, Q12H, Start date: 12/04/18 9:00:00 CDT, Duration: 30 day, Stop date: 01/02/19 21:00:00 CDT, 0Notes: Same as: BD Posiflush Sterile Docusate Sodium 1 tab, Route: No Longer [place] 50 MG / PO, Drug Form: Active 019 Medical sennosides, GROUP HOME TAB, Dosing Center 8.6 MG Oral Weight 70.17, Tablet kg, BID, Start date: 12/04/18 9:00:00 CDT, Duration: 30 day, Stop date: 01/02/19 17:00:00 CDT, 0Notes: (Same as Senokot-S) Equiv. to Valorie-Colace. Topamax 200 mg, Route: Inactive [place] PO, Drug form: 019 Medical TAB, Q12H, Center Dosing Weight 70.17, kg, Start date: 12/04/18 9:00:00 CDT, Duration: 30 day, Stop date: 01/02/19 21:00:00 CDT heparin 5,000 unit, 1 No Longer [place] mL, Route: Active 019 Medical SUB-Q, Drug Center form: INJ, Q8H, Dosing Weight 70.17, kg, Start date: 12/04/18 8:00:00 CDT, Duration: 30 day, Stop date: 01/03/19 0:00:00 CDT, 0Notes: porcine heparin clopidogrel 75 mg, 1 tab, No Longer [facility] Route: PO, Active 019 Medical Drug form: [place] TAB, Q24H, Dosing Weight 63.5, kg, Start date: 12/04/18 4:00:00 CDT, Duration: 30 day, Stop date: 01/02/19 9:00:00 CDT, 0Notes: (Same As: Plavix) Aspirin 81 MG 81 mg, 1 tab, No Longer [facility] Enteric Coated Route: PO, Active 019 Medical Tablet Drug form: [place] ECTAB, Q24H, Dosing Weight 63.5, kg, Start date: 12/04/18 4:00:00 CDT, Duration: 30 day, Stop date: 01/02/19 9:00:00 CDT, 0Notes: Do not crush or chew. (Same As: Ecotrin) normal saline 1,000 mL, No Longer [facility] 0.9% IV 1,000 Rate: 75 Active 019 Medical mL ml/hr, Infuse Center over: 13.3 hr, Route: IV, Dosing Weight 63.5 kg, Total Volume: 1,000, Start date: 12/04/18 3:38:00 CDT, Duration: 30 day, Stop date: 01/03/19 3:37:00 CDT, 1.76, m2, 0 Fluticasone 1 spray, Active [facility] propionate 0.05 NASAL, BID, # 019 Medical MG/ACTUAT 16 gm, 0 [place] Metered Dose Refill(s) Nasal [place] meclizine 25 mg 25 mg=1 tab, Active [facility] oral tablet PO, TID, PRN 019 Medical Other-See [place] Comments, # 30 tab, 0 Refill(s) atorvastatin 10 10 mg=1 tab, Active [place] mg oral tablet PO, Bedtime, # 019 Medical 30 tab, 0 Center Refill(s) Aspirin 81 mg, PO, Inactive [facility] Daily, 0 019 Medical Refill(s) Center losartan 25 mg 25 mg=1 tab, Active [facility] oral tablet PO, Daily, # 019 Medical 30 tab, 0 Center Refill(s) Saline Flush 10 ml, Route: No Longer [facility] 0.9% IVP, Drug Active 019 Medical Form: INJ, Center Dosing Weight 63.5, kg, PRN, PRN Line Flush, Start date: 12/04/18 3:28:00 CDT, Duration: 30 day, Stop date: 01/03/19 3:27:00 CDT, 0Notes: Same as: BD Posiflush Sterile Iohexol 60 mL, Route: Inactive [facility] IVP, Drug 019 Medical Form: SOLN, [place] Dosing Weight 63.5, kg, ONCALL, STAT, Start date: 12/04/18 0:16:00 CDT, Duration: 1 doses or times, Dose=2.2ml/kg, Max [id number] -- "To be infused by Radiology Staff ONLY" Lipitor 80 mg, 1 tab, Inactive [facility] Route: PO, treras Medical Drug form: [place] TAB, QPM, Dosing Weight 72.727, kg, Start date: 03/17/13 17:00:00, Duration: 30 day, Stop date: 04/15/13 17:00:00Same as Lipitor Lipitor 80 mg 80 mg, 1 tab, Inactive [place] [facility] oral tablet PO, Daily, Medical tab, Center Substitution Allowed, TAB lisinopril 10 10 mg, 1 tab, Active [place] mg oral tablet PO, Daily, Medical tab, Center Substitution Allowed, TAB aspirin 325 mg 325 mg, 1 tab, Active [place] [facility] tablet, enteric PO, Daily, Medical coated tab, Center Substitution Allowed, ECTAB aspirin 81 mg 81 mg, 1 tab, Inactive [facility] tablet, PO, Daily, Medical chewable tab, Center Substitution Allowed, [place] lisinopril 10 mg, 1 tab, Inactive [place] [facility] Route: PO, 013 Medical Drug form: Center TAB, Daily, Dosing Weight 72.727, kg, Start date: 03/17/13 11:00:00, Duration: 30 day, Stop date: 04/16/13 9:00:00(Same as: Prinivil, Zestril) clopidogrel 75 mg, 1 tab, Inactive [facility] 10/09/2 [place] Route: PO, susanne Sanabria Medical Drug form: Center TAB, Daily, Dosing Weight 72.727, kg, Start date: 03/17/13 9:00:00, Duration: 30 day, Stop date: 04/15/13 9:00:00(Same As: Plavix) aspirin 300 mg 300 mg, 1 Inactive [place] rectal supp, Route: [place] Medical suppository [place], Drug form: [place] SUPP, Daily, Dosing Weight 72.727, kg, Start date: 03/17/13 9:00:00, Duration: 30 day, Stop date: 04/15/13 9:00:00Refrige rate. Senokot S 1 tab, Route: [facility] [place] PO, Drug Form: susanne [facility] Medical TAB, Dosing Center Weight 72.727, kg, Daily, Start date: 03/17/13 9:00:00, Duration: 30 day, Stop date: 04/15/13 9:00:00(Same as Senokot-S) Equiv. to Valorie-Colace. Omnipaque 85 mL, Route: [facility] [place] [facility]/ml IVP, Drug susanne Sanabria Medical Form: SOLN, [place] Dosing Weight 72.727, kg, ONCALL, STAT, Start date: 03/17/13 1:53:00, Duration: 1 doses or times, Dose=2.2ml/kg, Max [id number] -- "To be infused by Radiology Staff ONLY"Dose=2.2m l/kg, Max [id number] -- "To be infused by Radiology Staff ONLY"(Same as:Omnipaque 350). heparin 5,000 unit, 1 [facility] [place] mL, Route: susanne [facility] Medical SUB-Q, Drug Center form: INJ, Q8H, Dosing Weight 72.727, kg, Start date: 03/17/13 0:00:00, Duration: 30 day, Stop date: 04/15/13 16:00:00porcin e heparin aspirin 325 mg 325 mg, 1 tab, [facility] [place] tablet, enteric Route: PO, Active treras 013 Medical coated Drug form: [place] ECTAB, Daily, Dosing Weight 72.727, kg, Start date: 03/16/13 23:30:00, Duration: 30 day, Stop date: 04/15/13 9:00:00(Do Not Crush) Do not crush or chew. aspirin 81 mg 81 mg, 1 tab, No Longer [place] tablet, PO, Daily, Active [facility] Medical chewable tab, Center Substitution Allowed, [place]AB citalopram 20 20 mg, 1 tab, Active [place] mg oral tablet PO, Daily, Medical tab, Center Substitution Allowed, TAB bisoprolol 5 mg 2.5 mg, 0.5 Active [facility] oral tablet tab, PO, Every Medical Other Day, Center Substitution Allowed clopidogrel 75 75 mg, 1 tab, Active [place] mg oral tablet PO, Daily, Medical tab, Center Substitution Allowed, TAB Saline Flush 5 ml, Route: No Longer [facility] 0.9% IVP, Drug Active treras 013 Medical Form: INJ, [place] Dosing Weight 72.727, kg, Q12H, Start date: 03/16/13 21:00:00, Duration: 30 day, Stop date: 04/15/13 9:00:00(Same as: BD Posiflush) Dextrose 50% 25 gm, 50 mL, No Longer [facility] Syringe Route: IVP, Active treras 013 Medical Drug Form: [place] INJ, Dosing Weight 72.727, kg, PRN, PRN Abnormal Lab Result, Start date: 03/16/13 20:58:00, Duration: 30 day, Stop date: 04/15/13 19:57:00 insulin regular 7 unit, 0.07 No Longer [facility] 100 units/mL mL, Route: Active treras 013 Medical human SUB-Q, Drug [place] recombinant form: SOLN, PRN, Dosing Weight 72.727, kg, PRN Abnormal Lab Result, Start date: 03/16/13 20:58:00, Duration: 30 day, Stop date: 04/15/13 19:57:00(Same as: Humulin R) Roll in palms of hands gently; Do not shake vigorously. "single patient use only" (Restricted to patients requiring a dose > 60 units) Stable for 28 days at room temperature Expires in days from Date Zofran 4 mg, 1 tab, No Longer [facility] Route: PO, Active treras 013 Medical Drug form: Center TAB, Q8H, Dosing Weight 72.727, kg, PRN Nausea, Start date: 03/16/13 20:57:00, Duration: 30 day, Stop date: 04/15/13 20:56:00(Same as: Zofran) Tylenol 650 mg, 2 tab, [facility] Route: PO, Active treras 013 Medical Drug form: Center TAB, Q6H, Dosing Weight 72.727, kg, PRN Pain, Start date: 03/16/13 20:57:00, Duration: 30 day, Stop date: 04/15/13 20:56:00Do not exceed 4 gm/day. (Same as: Tylenol) Saline Flush 5 ml, Route: No Longer [facility] 0.9% IVP, Drug Active treras 013 Medical Form: INJ, Center Dosing Weight 72.727, kg, PRN, PRN Line Flush, Start date: 03/16/13 20:56:00, Duration: 30 day, Stop date: 04/15/13 19:55:00(Same as: BD Posiflush) labetalol 10 mg, 2 mL, [facility] Long[facility] Route: IVP, Active [place]ras 013 Medical Drug form: Center INJ, Q10Min, Dosing Weight 72.727, kg, PRN Hypertension, Start date: 03/16/13 20:56:00, Duration: 30 day, Stop date: 04/15/13 19:55:00, For SBP > 180mmHg and/or DBP > 105mmHg Sodium Chloride 1,000 mL, [facility] Longer [facility] 0.9% IV 1,000 Rate: 75 Active [place]ras 013 Medical mL ml/hr, Infuse Center over: 13.3 hr, Route: IV, Dosing Weight 72.727 kg, Total Volume: 1,000, Start date: 03/16/13 20:56:00, Duration: 30 day, Stop date: 04/15/13 20:55:00 Allergies, Adverse Reactions, Alerts Substance Category Reaction Severity Reaction Status Date Comments Source type Reported No Known Assertion Drug Medication allergy [place] Allergies Immunizations No Data Provided for This Section Results Order Name Results Value Reference Date Interpretation Comments Source Range URINE AND UA Turbidity Slight Clear 12/06 [facility] *ABN* /2018 [facility] (12/06/18 9:32 AM) [place] URINE AND UA Color Yellow Yellow 12/06 [facility] *NA* 2018 [facility] (12/06/18 9:32 AM) [place] URINE AND UA Hyal Cast 1 0 - 2 12/[address] URINE AND UA Gran Cast 0-2 /LPF None Seen 12/06 [facility] /[facility] [address] [place] [address] URINE AND UA WBC 5 0 - 5 12/[address] URINE AND UA Amorph Occasional None Seen 12/06 [facility] Lupe /HPF /HPF [address] [place] [address] URINE AND UA Renal Epi 1 <=0 /LPF 12/[address] URINE AND UA RBC 13 0 - 2 12/[address] URINE AND UA Mucus Few /LPF None Seen 12/06 [facility] /[facility] [address] [place] [address] URINE AND UA Bacteria Occasional None Seen 12/06 [facility] /HPF /HPF /[address] [place] [address] URINE AND UA Sq Epi Occasional Few /LPF 12/06 [facility] /[facility] [address] [place] [address] URINE AND UA Blood Moderate Negative 12/06 [facility] *ABN* /2018 [facility] (12/06/18 9:32 AM) [place] URINE AND UA Nitrite Negative Negative 12/06 [facility] (12/06/18 9:32 AM) [facility] URINE AND UA <1.0 0.1 - 1.0 12/06 [facility] Urobilinogen /[address] [place] [address] URINE AND UA Leuk Est Negative Negative 12/06 [facility] (12/06/18 9:32 AM) [address] [place] [address] URINE AND UA Spec Grav 1.020 <=1.030 12/[address] URINE AND UA Bili Negative Negative 12/06 [facility] STOOL *NA* [facility] (12/06/18 9:32 AM) Center URINE AND UA Ketones Negative Negative 12/06 [facility] mg/dL mg/dL [facility] URINE AND UA Protein Negative Negative 12/06 [facility] mg/dL mg/dL [facility] URINE AND UA pH 5.0 5.0 - 8.0 12/[address] URINE AND UA Glucose Negative Negative 12/06 [facility] mg/dL mg/dL [facility] CHEM PANEL Magnesium Lvl 2.3 1.8 - 2.4 12/[address] CHEM PANEL Phosphorus 2.8 2.5 - 4.5 12/[address] ELECTROLYTE AGAP 9.5 10.0 - 12/[address] [facility] 20.0 [facility] ELECTROLYTE BUN 13 7 - 22 12/[address] ELECTROLYTE Potassium Lvl 3.5 3.5 - 5.1 12/[address] ELECTROLYTE Chloride Lvl 108 95 - 109 12/[address] ELECTROLYTE Creatinine 0.91 0.50 - 12/[address] [facility] Lvl 1.40 [facility] ELECTROLYTE Sodium Lvl 139 135 - 145 12/[address] ELECTROLYTE Glucose Lvl 100 70 - 99 12/[address] ELECTROLYTE eGFR 77 12/06 [facility] Comment: The [facility] eGFR is Center calculated using the CKD-EPI formula. In most young, healthy individuals the eGFR will be >90 mL/min/1.73m2 . The eGFR declines with age. An eGFR of 60-89 may be normal in some populations, particularly the elderly, for whom the CKD-EPI formula has not been extensively validated. Use of the eGFR is not recommended in the following populations:< br/>
Dannielle viduals with unstable creatinine concentration s, including patients and those with serious co-morbid conditions.<b r/>
Patie nts with extremes in muscle mass or diet.

The data above are obtained from the National Kidney Disease Education Program (NKDEP) which additionally recommends that when the eGFR is used in patients with extremes of body mass index for purposes of drug dosing, the eGFR should be multiplied by the estimated BMI. ELECTROLYTE CO2 25 24 - 32 12/06 [facility] S [facility] ELECTROLYTE Calcium Lvl 9.2 8.5 - 10.5 12/06 [facility] S /2018 [facility] HEMATOLOGY RBC 5.17 4.70 - 12/06 [place] 6.10 [facility] HEMATOLOGY Hgb 15.1 14.0 - 12/06 [place] 18.0 /2019 [facility] HEMATOLOGY WBC 10.8 3.7 - 10.4 12/06 2018 [facility] HEMATOLOGY MPV 10.4 7.4 - 10.4 12/06 [facility]2018 [facility] HEMATOLOGY Platelet 174 133 - 450 12/06 [facility] HEMATOLOGY MCHC 34.5 32.0 - 12/06 [facility] 36.0 [facility] HEMATOLOGY RDW 15.2 11.5 - 12/06 [facility] 14.5 [facility] HEMATOLOGY MCH 29.1 27.0 - 12/06 [facility] 31.0 [facility] HEMATOLOGY MCV 84.3 80.0 - 12/06 [facility] 94.0 [facility] HEMATOLOGY Hct 43.6 42.0 - 12/06 [place] 54.0 2019 [facility] HEMATOLOGY Lymphocytes # 1.7 1.0 - 5.5 12/[address] HEMATOLOGY Neutrophils # 7.5 1.5 - 8.1 12/06 [facility]2018 [facility] HEMATOLOGY Eosinophils # 0.2 0.0 - 0.5 12/06 [facility]2018 [facility] HEMATOLOGY Monocytes # 1.3 0.0 - 0.8 12/06 [facility]2018 [facility] HEMATOLOGY Segs 69.5 45.0 - 12/06 [place] 75.0 2019 [facility] HEMATOLOGY Monocytes 12.4 2.0 - 12.0 12/[address] HEMATOLOGY Lymphocytes 16.0 20.0 - 12/06 [facility] 40.0 2019 [facility] HEMATOLOGY Eosinophils 1.7 0.0 - 4.0 12/06 [facility]2018 [facility] HEMATOLOGY Basophils 0.4 0.0 - 1.0 12/06 [facility]2018 [facility] PARATHYROID Ca Ion WB 1.20 1.05 - 12/06 [place] PROFILE 1. [facility] PARATHYROID Ca Norm WB 1.18 1.05 - 12/06 [place] PROFILE 07.03 [facility] ANEMIA Vitamin B12 218 254 - 1320 12/05 [facility] STUDY l /2018 [facility] Center CHEM PANEL VITAMIN B1 136.4 66.5 - 12/05 Result [facility] (THIAMINE) 200.0 /2018 Comment: This Medical WHOLE BLOOD test was Center developed and its performance characteristi cs
determ ined by [facility]. It has not been cleared or
approv ed by the Food and Drug Administratio n.
Perfor med At: [facility] [place]
[address], [place] [id number]<br/ >Kirk Moon MD Ph:[phone] CHEM PANEL Ammonia 12.0 <=45.0 12/05 [facility] uMol/L /2018 [facility] IMMUNOLOGY HIV Ag/Ab 4th Negative Negative 12/05 [facility] Gen *NA* /2018 [facility] (12/04/18 8:39 PM) [place] IMMUNOLOGY Treponemal Ab Non-Reactive Non [facility] (12/04/18 8:39 PM) Center CHEM PANEL Lactic Acid 1.8 0.5 - 2.2 12/04 [facility] /2018 [facility] URINE AND UA <1.0 0.1 - 1.0 12/04 [facility] Urobilinogen /2018 [facility] URINE AND UA Leuk Est Negative Negative 12/04 [facility] (12/04/18 5:27 PM) /2018 [facility] URINE AND UA Sq Epi Occasional Few /LPF 12/04 [facility] STOOL /F /2018 [facility] URINE AND UA Nitrite Negative Negative 12/04 [facility] (12/04/18 5:27 PM) /2018 [facility] URINE AND UA Blood Negative Negative 12/04 [facility] (12/04/18 5:27 PM) /2018 [facility] URINE AND UA Bili Negative Negative 12/04 [facility] STOOL *NA* /2018 [facility] (12/04/18 5:27 PM) Center URINE AND UA Mucus Few /LPF None Seen 12/04 [facility] STOOL /LPF /2019 [facility] URINE AND UA RBC <1 0 - 2 12/04 [facility] /[address] [place] [address] URINE AND UA Bacteria Moderate None Seen 12/04 [facility] STOOL /HPF /HPF /2018 [facility] URINE AND UA WBC 1 0 - 5 12/04 [facility] STOOL /[address] [place] [address] URINE AND UA Protein Negative Negative 12/04 [facility] STOOL mg/dL mg/dL [facility] URINE AND UA pH 5.0 5.0 - 8.0 12/04 [facility] STOOL /2018 [facility] URINE AND UA Spec Grav 1.016 <=1.030 12/04 [facility] STOOL /2018 [facility] URINE AND UA Turbidity Clear Clear 12/04 [facility] STOOL (12/04/18 5:27 PM) /2018 [facility] URINE AND UA Color Light Yellow Yellow 12/04 [facility] STOOL *NA* /2018 [facility] (12/04/18 5:27 PM) [place] URINE AND UA Ketones Trace Negative 12/04 [facility] [facility] STOOL mg/dL mg/dL [facility] URINE AND UA Glucose Negative Negative 12/04 [facility] STOOL mg/dL mg/dL [facility] MOLECULAR Anisha Not Detected Not 12/04 [facility] DIAGNOSTIC Vancomycin (12/04/18 5:14 PM) Detected [facility] MOLECULAR vanB Not Detected Not 12/04 [facility] DIAGNOSTIC Vancomycin (12/04/18 5:14 PM) Detected [facility] MOLECULAR S. anginosus Not Detected Not 12/04 [facility] DIAGNOSTIC grp (12/04/18 5:14 PM) [facility] MOLECULAR E. faecalis Not Detected Not 12/04 [facility] DIAGNOSTIC (12/04/18 5:14 PM) [facility] MOLECULAR S. pyogenes Not Detected Not 12/04 [facility] DIAGNOSTIC (12/04/18 5:14 PM) [facility] MOLECULAR S. pneumoniae Not Detected Not 12/04 [facility] DIAGNOSTIC (12/04/18 5:14 PM) [facility] MOLECULAR S. agalactiae Not Detected Not 12/04 [facility] DIAGNOSTIC (12/04/18 5:14 PM) Detected [facility] MOLECULAR Streptococcus Not Detected Not 12/04 [facility] DIAGNOSTIC spp. (12/04/18 5:14 PM) Detected [facility] MOLECULAR Staphylococcu Detected Not 12/04 [facility] DIAGNOSTIC s spp. *ABN* Detected /2018 [facility] (12/04/18 5:14 PM) [place] MOLECULAR E. faecium Not Detected Not 12/04 [facility] DIAGNOSTIC (12/04/18 5:14 PM) Detected [facility] MOLECULAR mecA Not Detected Not 12/04 [facility] DIAGNOSTIC Methicillin (12/04/18 5:14 PM) Detected [facility] MOLECULAR Listeria spp. Not Detected Not 12/04 [facility] DIAGNOSTIC (12/04/18 5:14 PM) Detected [facility] MOLECULAR S. Not Detected Not 12/04 [facility] DIAGNOSTIC epidermidis (12/04/18 5:14 PM) Detected [facility] MOLECULAR S. aureus Not Detected Not 12/04 [facility] DIAGNOSTIC (12/04/18 5:14 PM) Detected [facility] MOLECULAR S. Not Detected Not 12/04 [facility] DIAGNOSTIC lugdunensis (12/04/18 5:14 PM) [facility] HEMATOLOGY Plav Effect 19 12/04 [facility] Plt /2018 [facility] HEMATOLOGY ASA Effect 509 12/04 [facility] Plt [facility] URINE AND UA Mucus Few /LPF None Seen 12/04 [facility] STOOL /LPF /2018 [facility] URINE AND UA Bacteria Occasional None Seen 12/04 [facility] STOOL /HPF /HPF /2018 [facility] URINE AND UA Color Light Yellow Yellow 12/04 [facility] STOOL *NA* /2018 [facility] (12/04/18 5:37 AM) [place] URINE AND UA Turbidity Clear Clear 12/04 [facility] (12/04/18 5:37 AM) [facility] URINE AND UA Spec Grav 1.032 <=1.030 12/04 [facility] STOOL [facility] URINE AND UA Sq Epi Occasional Few /LPF 12/04 [facility] STOOL /LPF [facility] URINE AND UA WBC 1 0 - 5 12/04 [facility] URINE AND UA Leuk Est Negative Negative 12/04 [facility] (12/04/18 5:37 AM) [facility] URINE AND UA RBC 1 0 - 2 12/04 [facility] STOOL [facility] URINE AND UA pH 5.0 5.0 - 8.0 12/04 [facility] STOOL [facility] URINE AND UA Protein Negative Negative 12/04 [facility] STOOL mg/dL mg/dL [facility] URINE AND UA Glucose Negative Negative 12/04 [facility] STOOL mg/dL mg/dL [facility] URINE AND UA Ketones 20 mg/dL Negative 12/04 [facility] STOOL mg/dL [facility] URINE AND UA Bili Negative Negative 12/04 [facility] *NA* /2018 [facility] (12/04/18 5:37 AM) [place] URINE AND UA <1.0 0.1 - 1.0 12/04 [facility] STOOL Urobilinogen /2018 [facility] URINE AND UA Nitrite Negative Negative 12/04 [facility] STOOL (12/04/18 5:37 AM) [facility] URINE AND UA Blood Negative Negative 12/04 [facility] STOOL (12/04/18 5:37 AM) [facility] CARDIAC Total CK 411 12 - 191 12/04 [facility] ENZYMES [facility] LIPIDS CHD Risk 3.03 4.00 - 12/04 [facility] 7.30 [facility] LIPIDS Trig 123 <=149 12/04 [facility] mg/dL /2018 [facility] LIPIDS HDL 38 >=61 mg/dL 12/04 [facility] LIPIDS Chol 115 <=199 12/04 [facility] mg/dL [facility] LIPIDS LDL 52 <=99 mg/dL 12/04 [facility] (Calculated) [facility] LIPIDS VLDL 25 12/04 [facility] SPECIAL Hgb A1C 5.3 <=5.6 % 12/04 [facility] CHEMISTRY [facility] CHEM PANEL eGFR 76 12/04 Result Comment: The [facility] eGFR is Center calculated using the CKD-EPI formula. In most young, healthy individuals the eGFR will be >90 mL/min/1.73m2 . The eGFR declines with age. An eGFR of 60-89 may be normal in some populations, particularly the elderly, for whom the CKD-EPI formula has not been extensively validated. Use of the eGFR is not recommended in the following populations:< br/>
Dannielle viduals with unstable creatinine concentration s, including patients and those with serious co-morbid conditions.<b r/>
Patie nts with extremes in muscle mass or diet.

The data above are obtained from the National Kidney Disease Education Program (NKDEP) which additionally recommends that when the eGFR is used in patients with extremes of body mass index for purposes of drug dosing, the eGFR should be multiplied by the estimated BMI. CHEM PANEL Glucose Lvl 75 70 - 99 12/04 [facility] CHEM PANEL BUN 14 7 - 22 12/04 [facility] CHEM PANEL Creatinine 0.92 0.50 - 12/04 [facility] Lvl 1.40 [facility] CHEM PANEL Sodium Lvl 136 135 - 145 12/04 [facility] CHEM PANEL Calcium Lvl 9.2 8.5 - 10.5 12/04 [facility]2018 [facility] CHEM PANEL Potassium Lvl 4.3 3.5 - 5.1 12/[address] CHEM PANEL CO2 23 24 - 32 12/[address] CHEM PANEL Chloride Lvl 104 95 - 109 12/[address] CHEM PANEL AGAP 13.3 10.0 - 12/04 [place] 20.0 2019 [facility] HEMATOLOGY Neutrophils # 4.6 1.5 - 8.1 12/[address] HEMATOLOGY Basophils 0.5 0.0 - 1.0 12/04 [facility]2018 [facility] HEMATOLOGY Eosinophils # 0.2 0.0 - 0.5 12/04 [facility]2018 [facility] HEMATOLOGY Lymphocytes # 2.7 1.0 - 5.5 12/04 [facility]2018 [facility] HEMATOLOGY Monocytes # 1.1 0.0 - 0.8 12/04 [facility]2018 [facility] HEMATOLOGY Segs 53.1 45.0 - 12/04 [place] 75.0 [facility] HEMATOLOGY Lymphocytes 31.4 20.0 - 12/04 [place] 40.0 [facility] HEMATOLOGY Monocytes 13.0 2.0 - 12.0 12/04 [facility]2018 [facility] HEMATOLOGY Eosinophils 2.0 0.0 - 4.0 12/04 [facility]2018 [facility] HEMATOLOGY PTT 29.9 22.9 - 12/04 [place] 35.8 /2019 [facility] HEMATOLOGY INR 1.04 0.85 - 12/04 [place] 1.17 [facility] HEMATOLOGY PT 13.4 12.0 - 12/04 [place] 14.7 [facility] HEMATOLOGY RDW 15.0 11.5 - 12/04 [facility] 14.5 [facility] HEMATOLOGY Platelet 164 133 - 450 12/04 [facility]2018 [facility] HEMATOLOGY MCH 28.4 27.0 - 12/04 [place] 31.0 2019 [facility] HEMATOLOGY MCHC 33.5 32.0 - 12/04 [place] 36.0 2019 [facility] HEMATOLOGY MPV 10.3 7.4 - 10.4 12/[address] HEMATOLOGY RBC 5.37 4.70 - 12/04 [place] 6.10 2019 [facility] HEMATOLOGY Hgb 15.2 14.0 - 12/04 [facility] [place] 18.0 [facility] HEMATOLOGY WBC 8.7 3.7 - 10.4 12/04 [facility] HEMATOLOGY Hct 45.5 42.0 - 12/04 [facility] 54.0 [facility] HEMATOLOGY MCV 84.8 80.0 - 12/04 [facility] 94.0 [facility] BEDSIDE Glucose POC 136 70 - 99 03/17 [place] <sup>1</sup>I [facility] nterpretive Medical TESTING Data: Center Upper Reportable Limit: 200 mg/dL. CHEMISTRY Hgb A1C 5.6 <=5.6 03/17 Normal [facility] CHEMISTRY A/G Ratio 1.0 0.7 - 1.6 03/17 Normal [facility] CHEMISTRY Globulin 3.5 2.0 - 4.0 03/17 Normal [facility] CHEMISTRY B/C Ratio 16 6 - 25 03/17 Normal [facility] CHEMISTRY AGAP 14.0 10.0 - 03/17 Normal [facility] 20.0 [facility] CHEMISTRY eGFR 81 03/17 <sup>3</sup>R esult Medical Comment: The Center eGFR is calculated using the CKD-EPI formula. In most young, healthy individuals the eGFR will be >90 mL/min/1.73m2 . The eGFR declines with age. An eGFR of 60-89 may be normal in some populations, particularly the elderly, for whom the CKD-EPI formula has not been extensively validated. Use of the eGFR is not recommended in the following populations:& lt;br/>
I ndividuals with unstable creatinine concentration s, including patients and those with serious co-morbid conditions.<b r/>
Patie nts with extremes in muscle mass or diet.

The data above are obtained from the National Kidney Disease Education Program (NKDEP) which additionally recommends that when the eGFR is used in patients with extremes of body mass index for purposes of drug dosing, the eGFR should be multiplied by the estimated BMI. CHEMISTRY Albumin Lvl 3.6 3.5 - 5.0 03/17 Normal [facility] CHEMISTRY BUN 14 7 - 22 03/17 Normal [facility] CHEMISTRY Alk Phos 56 39 - 136 03/17 Normal [facility] CHEMISTRY ALANINE 15 0 - 65 03/17 Normal [facility] AMINOTRANSFER [facility] Center CHEMISTRY Sodium Lvl 144 135 - 145 03/17 Normal [facility] CHEMISTRY Glucose Lvl 145 70 - 99 03/17 HI <sup>5</sup>I nterpretive Medical Data: Adult Center reference range values reflect the clinical guidelines
of the [place] [employer]. CHEMISTRY Creatinine 0.9 0.5 - 1.4 03/17 Normal [facility] Lvl [facility] CHEMISTRY Chloride Lvl 108 95 - 109 03/17 Normal [facility] CHEMISTRY Calcium Lvl 8.7 8.5 - 10.5 03/17 Normal [facility] CHEMISTRY Bili Total 0.3 0.2 - 1.3 03/17 Normal [facility] CHEMISTRY CO2 26 24 - 32 03/17 Normal [facility] CHEMISTRY Total Protein 7.1 6.4 - 8.4 03/17 Normal [facility] CHEMISTRY ASPARTATE 8 0 - 37 03/17 Normal [facility] TRANSAMINASE [facility] CHEMISTRY Potassium Lvl 4.0 3.5 - 5.1 03/17 Normal [facility] CHEMISTRY Ca Ion WB 1.13 1.05 - 03/17 Normal [facility] 1. [facility] CHEMISTRY Ca Norm WB 1.13 1.05 - 03/17 Normal [facility] 1. [facility] CHEMISTRY LDL 64 <=99 03/17 Normal [facility] CHOLESTEROL [facility] CHEMISTRY Chol 120 <=199 03/17 Normal [facility] CHEMISTRY HDL 33 >=61 03/17 LOW [facility] CHEMISTRY Trig 113 <=149 03/17 Normal [facility] CHEMISTRY CHD Risk 3.64 4.00 - 03/17 LOW [facility] 7.30 [facility] CHEMISTRY eGFR 81 03/17 <sup>4</sup>R esult Medical Comment: The Center eGFR is calculated using the CKD-EPI formula. In most young, healthy individuals the eGFR will be >90 mL/min/1.73m2 . The eGFR declines with age. An eGFR of 60-89 may be normal in some populations, particularly the elderly, for whom the CKD-EPI formula has not been extensively validated. Use of the eGFR is not recommended in the following populations:& lt;br/>
I ndividuals with unstable creatinine concentration s, including patients and those with serious co-morbid conditions.<b r/>
Patie nts with extremes in muscle mass or diet.

The data above are obtained from the National Kidney Disease Education Program (NKDEP) which additionally recommends that when the eGFR is used in patients with extremes of body mass index for purposes of drug dosing, the eGFR should be multiplied by the estimated BMI. CHEMISTRY Glucose Lvl 144 70 - 99 03/17 [facility] <sup>6</sup>I nterpretive Medical Data: Adult Center reference range values reflect the clinical guidelines
of the [place] [employer]. CHEMISTRY Creatinine 0.9 0.5 - 1.4 03/17 Normal [facility] Lvl [facility] CHEMISTRY BUN 14 7 - 22 03/17 Normal [facility] CHEMISTRY CO2 22 24 - 32 03/17 LOW [facility] CHEMISTRY Calcium Lvl 8.7 8.5 - 10.5 03/17 Normal [facility] CHEMISTRY Sodium Lvl 144 135 - 145 03/17 Normal [facility] CHEMISTRY Chloride Lvl 109 95 - 109 03/17 Normal [facility] CHEMISTRY Potassium Lvl 4.0 3.5 - 5.1 03/17 Normal [facility] CHEMISTRY AGAP 17.0 10.0 - 03/17 Normal [place] 20.0 [facility] HEMATOLOGY Lymphocytes # 2.8 1.0 - 5.5 03/17 Normal [facility] HEMATOLOGY Monocytes # 1.1 0.0 - 0.8 03/17 HI [facility] HEMATOLOGY Eosinophils # 0.2 0.0 - 0.5 03/17 Normal [facility] HEMATOLOGY Basophils # 0.1 0.0 - 0.2 03/17 Normal [facility] HEMATOLOGY Monocytes 12.9 2.0 - 12.0 03/17 [facility] HEMATOLOGY Lymphocytes 32.1 20.0 - 10 Normal [place] 40.0 [facility] HEMATOLOGY Segs 51.5 45.0 - 03/17 Normal [place] 75.0 /2012 [facility] HEMATOLOGY Segs-Bands # 4.5 1.5 - 8.1 03/17 Normal [facility] HEMATOLOGY Basophils 0.9 0.0 - 1.0 03/17 Normal [facility] HEMATOLOGY Eosinophils 2.6 0.0 - 4.0 03/17 Normal [facility] HEMATOLOGY INR 1.01 0.85 - 03/17 Normal <sup>8</sup>I [facility] 1.17 nterpretive Medical Data: Center RECOMMENDED RANGES FOR PROTIME INR:
2.0-3.0 for most medical and surgical thromboemboli c states.
2.5-3.5 for artificial heart valves and recurrent embolism.<br/ >
INR SHOULD BE USED ONLY FOR PATIENTS ON STABLE ANTICOAGULANT THERAPY. HEMATOLOGY aPTT 27.0 22.9 - 03/17 Normal <sup>9</sup>I [facility] 35.8 nterpretive Medical Data: Heparin Center Therapeutic Range: 57 - 92 Seconds HEMATOLOGY PROTIME 13.2 12.0 - 03/17 Normal [facility] 14.7 [facility] HEMATOLOGY RBC X 10x6 5.06 4.70 - 03/17 Normal [facility] 6.10 [facility] HEMATOLOGY WBC X 10x3 8.7 3.7 - 10.4 03/17 Normal [facility] HEMATOLOGY RDW 15.5 11.5 - 03/17 [facility] 14.5 [facility] HEMATOLOGY MCHC 33.9 32.0 - 03/17 Normal [facility] 36.0 /2012 [facility] HEMATOLOGY MCH 29.9 27.0 - 03/17 Normal [facility] 31.0 [facility] HEMATOLOGY MPV 10.7 7.4 - 10.4 03/17 [facility] HEMATOLOGY Platelet 145 133 - 450 03/17 Normal [facility] HEMATOLOGY MCV 88.1 80.0 - 03/17 Normal [facility] 94.0 [facility] HEMATOLOGY Hct 44.5 42.0 - 03/17 Normal [facility] 54.0 [facility] HEMATOLOGY Hgb 15.1 14.0 - 03/17 [facility] 18.0 [facility] CHEMISTRY U Cannab Scr Negative Negative 03/17 [facility] *NA* [facility] (03/17/2013 00:09:00) Center CHEMISTRY U Opiate Scr Negative Negative 03/17 [facility] *NA* /2012 Medical (03/17/2013 00:09:00) Center CHEMISTRY U Benzodia Negative Negative 03/17 [facility] Scr *NA Medical (03/17/2013 00:09:00) Center CHEMISTRY U Cocaine Scr Negative Negative 03/17 * Medical (03/17/2013 00:09:00) Center CHEMISTRY U Sapna Scr Negative Negative 03/17 Medical (03/17/2013 00:09:00) Center CHEMISTRY UDS Note See Note 7 03/17 <sup>7</sup>I nterpretive Medical (03/17/2013 00:09:00) Data: Drugs Center reported as positive have not been confirmed by a second
method and should be used for medical purposes only. To order
con firmation, contact laboratory.

n ote: Below are cut-off concentration s for all urine drugs of
abuse performed in the laboratory. Some drugs listed in the table
may not be included in this panel.
<b r/>Descriptio n Cut-off concentration
-------- ---
Amphe tamine 1000 ng/mL
Bar biturates 200 ng/mL
Maurizio zodiazepines 300 ng/mL
Kay victor m metabolites 300 ng/mL
Opi ates 300 ng/mL
Phe ncyclidine 25 ng/mL
Pro poxyphene 300 ng/mL
Mar ijuana metabolites 50 ng/mL
Met hadone 300 ng/mL
Uri ne alcohol 20 mg/dL CHEMISTRY U Phencyc Scr Negative Negative 03/17 [facility] * Medical (03/17/2013 00:09:00) Center CHEMISTRY U Amph Scr Negative Negative 03/17 Medical (03/17/2013 00:09:00) Center URINALYSIS UA <=1.0 0.1 - 1.0 03/17 [facility] Urobilinogen mg/dL [facility] URINALYSIS UA RBC <1 0 - 2 03/[address] [facility] URINALYSIS UA WBC 1 0 - [address] 03/[address] [facility] Center URINALYSIS UA Mucus Few /LPF None Seen 03/17 Medical [place] URINALYSIS UA Nitrite Negative Negative 03/17 Normal [facility] (03/17/2013 00:09:00) Medical Center URINALYSIS UA Blood Negative Negative 03/17 Normal [facility] (03/17/2013 00:09:00) Medical Center URINALYSIS UA Glucose Negative Negative 03/17 [facility] mg/dL [facility] Center URINALYSIS UA Sq Epi Occasional Few 03/17 [facility] /F Medical Center URINALYSIS UA Leuk Est Negative Negative 03/17 Normal [facility] (03/17/2013 00:09:00) [facility] URINALYSIS UA Bili Negative Negative 03/17 [facility] *NA* [facility] (03/17/2013 00:09:00) Center URINALYSIS UA Ketones Negative Negative 03/17 [facility] mg/dL [facility] URINALYSIS UA Spec Grav 1.007 <=1.030 03/17 Normal [facility] URINALYSIS UA pH 7.0 5.0 - 8.0 03/17 Normal [facility] URINALYSIS UA Protein Negative Negative 03/17 Normal [facility] mg/dL [facility] URINALYSIS UA Turbidity Clear Clear 03/17 Normal [facility] (03/17/2013 00:09:00) [facility] Center URINALYSIS UA Color Light Yellow Yellow 03/17 [facility] *NA* Medical (03/17/2013 00:09:00) Center BEDSIDE Gluc POC Notify 03/17 [facility] GLUCOSE Comment 1 RN/MD /2012 Medical TESTING Center BEDSIDE Glucose POC 99 70 - 99 03/17 Normal <sup>2</sup>I [facility] GLUCOSE nterpretive Medical TESTING Data: Center Upper Reportable Limit: 200 mg/dL. Pathology Reports No Data Provided for This Section Diagnostic Reports Report Value Date Source Esophagus BA swallow Clinical Indication: Dysphagia - dysphagia / cerebral infarction,unspecified, / FT= 12/30/2018 [facility] function video DX Comparison: None FINDINGS: Fluoroscopic imaging was provided for modified barium swallow examination performed by the speech pathology service. The patient ingested thin liquids, nectar thick, honey, pureed, and solids. Aspiration was seen with thin and nectar. Total fluoroscopic time: 2.5 minutes Reference air kerma 5.3 mGy Fluoroscopic images were saved on PACS. Please refer to the official speech pathology report for detailed assessment. IMPRESSION: 1. Fluoroscopic imaging provided for modified barium swallow examination by speech pathology, as noted above. SL: [id number] Brain wo contrast CT Clinical Indication: - hydrocephalus, dementia; 2018 [facility] Comparison: Head CT on 12/05/2018, magnetic resonance imaging of the brain on 12/04/2014 TECHNIQUE: CT images were obtained from the foramen magnum to the vertex without the use of intravenous contrast on a multidetector CT. Coronal and sagittal reconstructions were obtained. CT imaging performed at this location utilizes radiation dose optimization techniques which include one or more of the following: -Automated exposure control -Adjustment of the mA and/or kV according to patient size -Use of iterative reconstruction technique CT Radiation Dose DLP 585 mGy-cm FINDINGS: BRAIN PARENCHYMA: There is no mass effect, midline shift or edema. There is no intracranial hyperdense hemorrhage. Severe patchy/confluent hypoattenuation within the bilateral periventricular subcortical and deep white matter. Severe atherosclerotic calcified plaques of the bilateral cavernous internal carotid arter ies and distal intradural vertebral arteries. A small chronic lacunar infarct within the left cerebellar hemisphere. Tiny lacunar infarcts within the left thalamus left basal ganglions and right subinsu lar region. Previously seen small right temporal lobe infarct is not well visualized. VENTRICLES: Again noted is right posterior parietal ventriculoperitoneal shunt catheter with tip within the occipital horn of the right lateral ventricle subependymal location/adjacent white matter, sim ilar to prior study. The lateral ventricles, third and fourth ventricles remain prominent. The basilar cisterns are normal. ORBITS, MASTOIDS AND PARANASAL SINUSES: The limited visualized orbits are unremarkable. A 1 cm mucous retention cyst within the left maxillary sinus. An 8 mm mucous retention cyst within the right maxil radha sinus. Partial opacification of the left anterior and bilateral posterior ethmoidal air cells. The limited visualized other paranasal sinuses are unremarkable. The mastoid air cells are clear. SKULL: There are no osseous abnormalities. If there is further concern for intracranial pathology or acute stroke, MRI of the brain may be performed for complete assessment. ---- IMPRESSION: 1. No mass effect, hemorrhage . 2. Known small right temporal infarct is not well visualized. 3. Stable size of the ventricles. 4. Mild paranasal sinus disease. 5. No significant change since prior study as detailed above. ----- SL: EMIDIA- Ventriculoperitoneal shunt Clinical Indication: - Hydrocephalus, unspecified ; 12/17/2018 [facility] [place] Comparison: 10/28/2011 Technique: After sterile preparation, the right retromastoid shunt reservoir was accessed with a small needle. Clear CSF was withdrawn. 2 mCi of technetium 99m DTPA was then injected and flushed with CSF. Anterior planar scintigraphic imaging was performed of the head, chest, and abdomen. Findings: Radiotracer reticulation is seen within the ventricular system, shunt reservoir, and shunt catheter coursing in the right neck, chest, and abdomen. There is free spillage of radiotracer into the abdomen. IMPRESSION: Patent right ventriculoperitoneal shunt catheter. SL: [id number] Brain wo contrast CT EXAM: CT BRAIN WITHOUT CONTRAST 12/05/2018 [facility] DATE: 12/05/2018 12:55 CDT Center INDICATION: - DROWSINESS COMPARISON: Brain MRI dated 01/03/2019 TECHNIQUE: Routine axial CT images of the brain were obtained. Reformatted images in the sagittal and coronal plane were included. IV contrast: None. DLP: 904 mGy-cm FINDINGS: The recent infarct in the right temporal deep white matter is not clearly delineated in the current exam. Confluent microvascular ischemic changes in the periventricular and subcortical white matter, as well as in the thalami and basal ganglia remain similar in appearance as compared to the previous study. The ventricles and sulci are prominent as are result of volume loss. The right temporal ventricu lostomy catheter is unchanged in position. The sinuses are unremarkable. IMPRESSION: No new parenchymal abnormality. The recent right temporal white matter infarct is difficult to delineate. Skull 1 view DX EXAM: SKULL 1 VIEW 12/04/2018 [facility] DATE: 12/04/2018 at 0417 hours Center INDICATION: - post MRI COMPARISON: Skull radiograph 12/04/2018 at an earlier time TECHNIQUE: AP and lateral views of the skull, chest and abdomen. FINDINGS: A partially visualized ventricular peritoneal shunt is present, with the proximal limb projecting over the temporal region. Programmable hydrocephalus valve appears to be a Strata NSC with P/L of 1.0, unchanged compared to prior radiographs performed on 12/04/2018 at 0100 hours. IMPRESSION: Partially visualized ventricular peritoneal shunt with settings as above without change compared to 12/04/2018 at 0100 hours. UT SECTION: ER Skull 1 view DX EXAM: SKULL 1 VIEWS 12/04/2018 [facility] DATE: 12/04/2018 at 0100 hours Center INDICATION: -shunt setting COMPARISON: None TECHNIQUE: Lateral views of the skull FINDINGS: A partially visualized ventricular peritoneal shunt is present, with the proximal limb projecting over the temporal region. Programmable hydrocephalus valve appears to be a Strata NSC with P/L of 1.0. IMPRESSION: Partially visualized ventricular peritoneal shunt with settings as above. UT SECTION: ER Brain wo contrast MRI EXAM: MRI BRAIN WITHOUT CONTRAST 12/04/2018 [facility] DATE: 12/04/2018 2:56 CDT Center INDICATION: - eval for acute infarct Additional clinical information: Pt. transferred from [facility] c/o TIA. N at 1030 this morning. Per EMS pt. had episode of confusion and trouble walking with slurred speech. Symptoms resolved. Hx of CVA with R. sided deficits. CT neg. 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 CT of the brain dated 2018. TECHNIQUE: Abbreviated stroke protocol including axial flair, axial DWI, and axial gradient echo images was acquired. Arterial spin labeling noncontrast MR perfusion sequences were included. FINDINGS: A triangular-shaped area of restricted diffusion in the deep white matter of the right temporal lobe (series 3, image 19) is identified, consistent with recent infarct. Confluent microvascular ischemic changes in the periventricular and subcortical white matter remain similar in distribution as compared to prior exams. There is a right temporal ventriculostomy catheter, with a stable decompressed ventricles. The basal cisterns are patent. IMPRESSION: 1. Focus of restricted diffusion noted in the right temporal lobe, which may represent recent infarct. 2. Scattered severe confluent white matter abnormal signal which is nonspecific, most likely chronic microvascular ischemic changes. Findings discussed with Dr. Almanzar at 0336 hours on 12/04/2018. Brain/Neck CTA Exam: CTA HEAD AND NECK 12/03/2018 [facility] DATE: 12/03/2018 11:38 PM CDT Center INDICATION: - tia symptoms COMPARISON: Carotid ultrasound 11/10/2018, CT 8 03/17/2013 TECHNIQUE: Rapid acquisition spiral CT images of the brain and neck were obtained between the skull base and the cranial vertex during intravenous infusion of iodinated contrast for the purposes of CT angiography. 3-D CT angiographic images are created using maximum intensity projection technique at the acquisition workstation. The source images are also presented for interpretation. IV contrast: 100 mL Omnipaque 350 Total DLP: 767 mGycm. DISCUSSION: Calcified plaque in the aortic arch involving the origin of the right brachiocephalic trunk. Both common carotid arteries are patent from their origin. The carotid bifurcations are patent. Concentric mi xed plaque at the origin of the left internal carotid artery not resulting in significant stenosis by NASCET criteria. Both cervical internal carotid arteries are patent and symmetric in caliber. Atheromatous calcification of the carotid siphons. Both vertebral arteries are patent from their origin with usual course and caliber. The intradural vertebral arteries, basilar artery and both posterior cerebral arteries are patent. Contour irregularit y along the basilar artery and both project economist, left greater than right, increased since exam from 2012. Contour irregularities along both MCA and ROXANNE branches. Stable appearance of the left M2 segment since prior CTA from 2012. No AV malformation or aneurysms. IMPRESSION: No significant stenosis by NASCET criteria. Increased contour irregularities in the left AWAKE OVERNIGHT COUNSELOR presumably due to atherosclerotic disease since CTA from 2012. All quantitative and qualitative assessment of stenosis in the carotid bulbs are made referencing the distal internal carotid artery (NASCET criteria). Brain-Outside Consult MRI EXAM: MRI BRAIN WITHOUT CONTRAST-- OUTSIDE CONSULT 11/10/2018 [facility] DATE: 11/10/2018 9:16 PM T Center INDICATION: ' - outside study'; transferred for higher level of care, request for second interpretation of outside imaging. COMPARISON: MRI 03/17/2013 TECHNIQUE: Multisequence multiplanar noncontrast MR imaging of the brain was at an outside hospital. 244 images. Imaging was performed at [facility] on 11/10/2018. FINDINGS: There is no intracranial hemorrhage. There is FLAIR hyperintense dural thickening versus holohemispheric collections. No diffusion-weighted imaging abnormality to suggest acute ischemic infarction in the nonobscured portions. Artifact from the shunt obscures portions of the right brain. Unchanged severe confluent white matter T2 FLAIR hyperintense signal is nonspecific, likely chronic microvascular ischemic changes given the corresponding pontine signal abnormality. Persistent right transtemporal shunt catheter with associated artifact. The ventricles are slightly smaller in caliber, but with persistent enlargement. The pituitary gland is larger than on the 2013 exam. IMPRESSION: 1. Portions of the brain on the diffusion weighted imaging are obscured by the shunt catheter related artifact, but there is no acute ischemic infarction in the nonobscured portions. 2. Interval slight decrease in ventricular caliber since 2013 with new dural thickening versus subdural collections and pituitary enlargement that can be correlated for clinical signs of intracranial hypotension and over shunting. 3. Unchanged severe confluent white matter abnormal signal which is nonspecific, most likely chronic microvascular ischemic changes. Skull 1 view EXAM: SKULL X-RAY 1 VIEW 03/17/2013 [facility] DATE: 03/17/2013 INDICATION: Programmable ventricular shunt TECHNIQUE: Three oblique radiographs of the skull. COMPARISON: None FINDINGS: Strata programmable valve is present with setting closest to P/L 1.0. IMPRESSION: Strata programmable valve with pressure setting approximately P/ L 1.0. Brain wo contrast MRI MRI OF THE BRAIN 03/17/2013 [facility] DATE: 03/17/2013 at 3:18 a.m. Comparison studies: 05/03/2011. CLINICAL INFORMATION: Aphasia, dysarthria. Technique: Multiplanar MR imaging was performed utilizing T1, diffusion, and T2 weighting. FINDINGS: The brain is morphologically normal. There is a tiny focus of restricted diffusion within the right frontal siegel radiata (series 301 image 136, series 351 image 132) consistent with a small acute infarct. There is no other focus of restricted diffusion to suggest acute infarction. There is confluent increased T2 signal throughout the periventricular white matter progressed since the previous study. The ventricles are slightly more prominent than on the previous study with elevati on and thinning of the corpus callosum. These findings suggest transependymal fluid migration superimposed upon chronic small vessel ischemic disease, and mild hydrocephalus. A right transit parietal sh unt catheter is again noted in place with tip ending in the right occipital horn. IMPRESSION: 1. Small acute infarct within the right frontal siegel radiata. 2. Mild hydrocephalus with transependymal fluid migration. 3. Nonspecific T2 white matter hyperintensities consistent chronic small vessel ischemic disease. Head/Neck CTA CT ANGIOGRAM OF THE HEAD AND NECK 03/17/2013 [facility] DATE: 03/17/2013 at 2:16 a.m. CLINICAL INFORMATION: Aphasia, dysarthria. Comparison studies: 05/04/2011. Outside imaging CT brain 03/16/2013 from [facility]. TECHNIQUE: Axial images were obtained from the vertex through the upper thorax at 1.5 mm intervals in the enhanced mode. 3-D maximum intensity projection, MIP images were also created. FINDINGS: Calcified atherosclerotic plaque is noted with the wall the aorta and proximal great vessels without stenosis. There is normal contrast-enhancement of the aortic arch and proximal great vessels. The rig ht innominate, left common carotid, and left subclavian arteries arise in normal anatomic configuration. There are no proximal stenoses. Minimal calcified plaque is noted within the left carotid bulb and proximal left internal carotid artery without stenosis. There is normal contrast- enhancement of the bilateral common, internal, and external carotid arteries. There is normal contrast-enhancement of the bilateral vertebral arteries. Intracranially there is normal contrast-enhancement of the bilateral intracranial internal carotid arteries, the bilateral distal vertebral arteries , and the basilar artery. Calcified atherosclerotic pl aque is noted with the hay of the cavernous internal carotid arteries bilaterally without stenosis. Atherosclerotic disease with moderate to severe stenosis of the left M2 segment is again noted and n ot significantly changed from the prior study. There is irregularity of the hay of the right middle cerebral artery and bilateral posterior cerebral arteries without the thickened stenosis. There is n ormal contrast-enhancement of the superior cerebellar, and posterior inferior cerebellar arteries bilaterally. There are no intracranial branch occlusions. There is normal contrast-enhancement of the venous structures. A right transit parietal shunt catheter is again noted in place with tip near the right occipital horn but possibly an extraventricular. There is however no hydrocephalus. Ventricles are unchanged in si ze. Low density is again noted within the periventricular white matter likely representing chronic small vessel ischemic disease. There is prominence of the cortical sulci, fissures, cisterns and ventri cles consistent with cortical atrophy appropriate for the patient's stated age of 77 years. IMPRESSION: 1. Sclerotic plaque of the aortic arch, proximal great vessels, left carotid bifurcation common bilateral cavernous internal carotid arteries without hemodynamically significant stenosis. 2. Atherosclerotic disease with high grade stenosis of the left M2 segment, unchanged from prior study of 05/04/2011. 3. Mild atherosclerotic disease of the right middle cerebral artery and bilateral posterior cerebral arteries. 4. White matter hypodensity consistent chronic small vessel ischemic disease. 5. Age-related volume loss. 6. Right transparietal shunt catheter in place without evidence of shunt malfunction. Consultation Notes No Data Provided for This Section Discharge Summaries No Data Provided for This Section History and Physicals No Data Provided for This Section Vital Signs Vital Sign Value Date Comments Source Temperature Oral (F) 98.9 F 12/08/2018 [facility] Systolic (mm Hg) 137 12/08/2018 [facility] Diastolic (mm Hg) 81 12/08/2018 [facility] Heart Rate 91 12/08/2018 [facility] Respitory Rate 18 12/08/2018 [facility] Systolic (mm Hg) 140 12/08/2018 [facility] Diastolic (mm Hg) 86 12/08/2018 [facility] Heart Rate 83 12/08/2018 [facility] Respitory Rate 20 12/08/2018 [facility] Systolic (mm Hg) 140 12/08/2018 [facility] Diastolic (mm Hg) 80 12/08/2018 [facility] Respitory Rate 20 12/08/2018 [facility] Heart Rate 76 12/08/2018 [facility] Temperature Oral (F) 98.8 F 12/08/2018 [facility] Temperature Oral (F) 97.4 F 12/07/2018 [facility] Height 177.8 cm 12/04/2018 [facility] Weight 70.17 12/04/2018 [facility] BMI Calculated 22.2 12/04/2018 [facility] Weight 63.5 12/04/2018 [facility] BMI Calculated 20.67 12/04/2018 [facility] Height 175.26 cm 12/04/2018 [facility] Temperature Oral (F) 98.1 F 11/11/2018 [facility] Respitory Rate 18 11/11/2018 [facility] Systolic (mm Hg) 168 11/11/2018 [facility] Diastolic (mm Hg) 71 11/11/2018 [facility] Systolic (mm Hg) 173 11/11/2018 [facility] Diastolic (mm Hg) 77 11/11/2018 [facility] Respitory Rate 20 11/11/2018 [facility] Systolic (mm Hg) 146 11/11/2018 [facility] Diastolic (mm Hg) 82 11/11/2018 [facility] Respitory Rate 20 11/11/2018 [facility] Weight 68.182 11/11/2018 [facility] BMI Calculated 22.2 11/11/2018 [facility] Height 175.26 cm 11/11/2018 [facility] Temperature Oral (F) 97.1 F 11/11/2018 [facility] Heart Rate 59 11/11/2018 [facility] Respitory Rate 25 03/17/2013 [facility] Systolic (mm Hg) 141 03/17/2013 [facility] Diastolic (mm Hg) 77 03/17/2013 [facility] Respitory Rate 17 03/17/2013 [facility] Diastolic (mm Hg) 74 03/17/2013 [facility] Systolic (mm Hg) 136 03/17/2013 [facility] Respitory Rate 23 03/17/2013 [facility] Diastolic (mm Hg) 85 03/17/2013 [facility] Systolic (mm Hg) 146 03/17/2013 [facility] Temperature Oral (F) 96.9 F 03/17/2013 [facility] Height 172.72 cm 03/17/2013 [facility] Weight 72.727 03/17/2013 [facility] Temperature Oral (F) 97.2 F 03/17/2013 [facility] Encounters Location Location Encounter Encounter Reason Attending ADM DC Status Source Details Type Number For Provider Date Date Visit Outpatient [id number] HYDROCEP RAÚL GARRISON 10/27 [id number] EMILY 03/16 03/17 Discharg [facility] 1 ARMIJO /2012 ed [facility] Emergency [id number] Mehdi 11/11 11/11 [facility] 5 [facility] Inpatient [id number] Delia 12/04 12/08 [facility] Drew 3 [facility] Outpatient [id number] Raúl Garrison 12/17 12[facility]18 [id number] [place] 12/30 12/31 [facility] 4 [place] [facility] Procedures Procedure Code Date Perfomer Comments Source Cholecystectomy [id number] [facility] Insertion of stent [id number] [facility] into cerebral artery [facility] Open heart surgery [id number] [facility] Cholecystectomy [id number] [facility] Insertion of stent [id number] [facility] into cerebral artery [facility] Open heart surgery [id number] [facility] Balloon dilation of [id number] [facility] prostate Cholecystectomy [id number] [facility] Creation of RESULTS TECHNICIAN shunt [id number] [facility] Insertion of stent [id number] [facility] into cerebral artery Open heart surgery [id number] [facility] Triple coronary [id number] [facility] bypass Balloon dilation of [id number] [facility] Creation of RESULTS TECHNICIAN shunt [id number] [facility] Triple coronary [id number] [facility] Assessment and Plan Assessment and Plan Date Source Extracted from:Title: Stroke Discharge Summary 12/08/2018 [facility] Author: Jakob Moore MD Date: 12/08/18 [place] DISCHARGE SUMMARY Date of Admission: 12/03/2018 23:06 Date of Discharge: 12/08/2018 Admit Diagnosis: Cerebral infarction due to embolism of right middle cerebral artery Discharge Diagnosis: (I63.511) Acceleratedhypertension(I10) AcuteischemicrightMCAstroke(I63.511) CAD(coronaryarterydisease)(I25.10) Cerebralinfarctionduetoembolismofrightmiddlecerebralartery(I63.411) ChroniccombinedsystolicanddiastolicCHF(congestiveheartfailure)(I50.42) ChronicischemicleftMCAstroke(I69.30) Consults Obtained: Neurosurgery Brief HPI: 83 yo M with PMH of HTN, CAD s/p CABG and stent on (ASA/Plavix, compliant), CHF , NPH s/p VPS (2004), prior pontine stroke (2010), presenting with acute-onset confusion, dysarthria and b/l UE shaking epi sodes concerning for TIA vs Stroke. tried to wake him up but he appeared confused and had an episode of b/l UE shaking that lasted around 1 min. This episode was also associated with confusion and slurring of speech. was concerned that he may be having another stroke therefore took the patient to OSH ED, where CT head and shunt series was done. Of note, patient was seen here on 11/10 with alte red mental status after receiving Valium during a cataract surgery. At that time patient's shunt settings were changed by neurosurgery. Patient has had problems with ambulation and confusion since 11/10. Prior to this admission, patient was seen by his Neurosurgery on 11/20 (Dr. Raúl Garrison), recommended obtaining a nuclear shunt study to interrogate it's integrity. Hospital Course: 12/04: Neurosurgery was consulted to rule-out shunt malfunction and told to the patient to follow-up outpatient just after admission. An MRI stroke-limited confirmed the presence of a DWI lesion in RMCA territory, but presented outside the window for tPA. No large vessel occlusion was noted on CTA, but severe internal carotid artery disease was noted. 12/05: Due to increasing confusion overnight and difficultly arousing the patient, repeat CT and EEG were ordered. CT was stable. EEG showed encephalopathic changes. Despite EEG without seizure activity, he was started on Keppra given concern that mental status changes could still be related to seizure activity. Echocardiogram was preformed to assess stroke etiology. Patient was found to have global hy pokinesis, EF 40%, and mild mitral and tricuspid regurgitation, consistent with known diagnosis of CHF. B12 was found to be low, and was repleted. TSH was within normal limits, Treponemal Ab and HIV were negative. 12/06: The patient began retaining urine and required Q6H straight catheterizations for urinary retention. Retention thought to be neurologic, as UA was negative and patient has fluctuating exam, stroke, and possible shunt malfunction. One of two blood cultures from 12/04 also came back positive for staph species, likely contamination. 12/07: Patient urinated without straight catheterization, and subsequently had 2 episodes of urinary incontinence. He was bladder scanned twice with <150cc. Patient was discharged with follow ups w ith Neurology, Neurosurgery for NPH and RESULTS TECHNICIAN management, Urology for urinary changes, and PCP for follow-up. Discharge Physical Examination: GENERAL: Easily arousable, alert HEENT: - Normocephalic and atraumatic LUNGS - Comfortable on room air CV - RRR, systolic murmur noted, equal pulses bilaterally. ABDOMEN - Soft, nontender, normoactive bowel sounds NEURO: Mental Status: A&Ox2 to self and location Language: Speech dysarthric, but clearer today. Comprehension appears intact. Naming difficulties. Cranial Nerves: PERRL 3 mm/brisk. EOMI, no facial asymmetry, facial sensation intact, VF full. Motor: antigravity in all extremities Tone: is normal and bulk is normal Sensation- intact to light tough Coordination: FTN intact Etiology of Stroke: ICAD Discharge Medications: See HMR Disposition: Home with home health Follow up and Discharge Instructions: - Follow up with Dr.Shahin Hunter, Neurologist in 2 weeks. - Follow up with PCP in 2 weeks. - Follow up with Dr. Raúl Garrison, Neurosurgeon in 1 week. - Follow up with your urologist in 2 weeks. - Take your BP 2 times a day and write it down, take log with you to PCP for management of BP medications. BP goal is < 150 systolic (top number). - The patient received stroke education regarding signs and symptoms of stroke. They were instructed to call 911 if similar symptoms occurred again.The list of their medications on discharge was revi ewed with the patient and all questions were answered. Nell Meneses MD PGY-1 Neurology Extracted from:Title: Stroke Progress Note Author: Nell Meneses MD Date: 12/08/18 Stroke Progress Note Patient is a 83 y/o M w/ history of HTN, CAD s/p CABG + stent on ASA/plavix, CHF, NPH s/p shunt who initially presented with bilateral upper extremity shaking, AMS, and slurred speech. Hospital Course: 12/04: Exam improving. 12/05: Afebrile overnight. Increasingly confusion overnight and difficult to arouse this morning. B12 low, will replete. Repeat CT stable. Started on Keppra. 12/06: Decreased urine output overnight, bladder scan showed >700cc. Blood cultures from 12/04 + for staph species but only 1/2 cultures - likely contamination. Mentation much improved. Transferred to floor. 12/07: No acute events overnight. Patient much more awake this morning. Requiring straight caths overnight, but urinated on his own this AM. Review of Systems: GEN: no fever, chills CARDIO: no chest pain PULM: no shortness of breath GI: no abdominal pain, + constipation : urinating Medications (9) Active Scheduled Meds (7): 12/04/18 aspirin (aspirin 81 mg tablet, enteric coated) 81 mg PO Q24H 12/04/18 atorvastatin 10 mg PO Bedtime 12/04/18 clopidogrel 75 mg PO Q24H 12/04/18 docusate-senna (docusate-senna 50 mg-8.6 mg oral tablet) 1 tab PO BID 12/04/18 heparin 5,000 unit SUB-Q Q8H 12/05/18 levETIRAcetam (Keppra 500 mg oral tablet) 500 mg PO Q12H 12/04/18 sodium chloride (Saline Flush 0.9%) 10 ml IVP Q12H Objective: Vitals Tmp(F) Pulse BP RR SpO2 FIO2 12/08 03:33 97.8 83 140/86 20 97 --- 12/08 00:42 97.4 76 140/80 20 96 --- 12/08 00:15 ---- 76 159/82 24 96 --- 12/07 22:00 ---- 78 159/87 14 97 --- 12/07 21:00 ---- 75 154/72 17 97 --- 24 Hr Tmax: 98.8F (37.11c) at 12/07 19:08 Vital Signs are the last 5 in the past 48 hours. I/O Intake Output Balance 12/07/2018 7a-3p 460.00 440.00 20.00 3p-11p 10.00 900.00 -890.00 11p-7a 0.00 500.00 -500.00 Totals 470.00 1840.00 -1370.00 12/06/2018 7a-3p 535.00 320.00 215.00 3p-11p 610.00 280.00 330.00 11p-7a 600.00 500.00 100.00 Totals 1745.00 1100.00 645.00 GENERAL: Easily arousable, alert HEENT: - Normocephalic and atraumatic LUNGS - Comfortable on room air CV - RRR, systolic murmur noted, equal pulses bilaterally. ABDOMEN - Soft, nontender, normoactive bowel sounds NEURO: Mental Status: A&Ox2 to self and location Language: Speech dysarthric, but clearer today. Comprehension appears intact. Naming difficulties. Cranial Nerves: PERRL 3 mm/brisk. EOMI, no facial asymmetry, facial sensation intact, VF full. Motor: antigravity in all extremities Tone: is normal and bulk is normal Sensation- intact to light tough Coordination: FTN intact Gait- deferred Labs (Last four charted values) WBC H 10.8 (DEC 06) 8.7 (DEC 03) Hgb 15.1 (DEC 06) 15.2 (DEC 03) Hct 43.6 (DEC 06) 45.5 (DEC 03) Plt 174 (DEC 06) 164 (DEC 03) Na 139 (DEC 06) 136 (DEC 03) K 3.5 (DEC 06) 4.3 (DEC 03) CO2 25 (DEC 06) L 23 (DEC 03) Cl 108 (DEC 06) 104 (DEC 03) Cr 0.91 (DEC 06) 0.92 (DEC 03) BUN 13 (DEC 06) 14 (DEC 03) Glucose Random H 100 (DEC 06) 75 (DEC 03) Mg 2.3 (DEC 06) Phos 2.8 (DEC 06) Ca 9.2 (DEC 06) 9.2 (DEC 03) PT 13.4 (DEC 03) INR 1.04 (DEC 03) PTT 29.9 (DEC 03) Total CK H 411 (DEC 04) LDL 52 A1c 5.3 TSH 1.78 B12 218 B1 pending Trep Ab non reactive HIV negative Blood Cx 12/04 + staph species ECHO: global hypokinesis, mild mitral and tricuspid regurg. EF 40%. Otherwise normal structures. EEG: Moderate encephalopathy, no seizure or epileptiform activity Imaging Studies Brain wo contrast CT 12/05/2018 13:29 Impression: No new parenchymal abnormality. The recent right temporal white matter infarct is difficult to delineate. Skull 1 view DX 12/04/2018 04:22 Impression: Partially visualized ventricular peritoneal shunt with settings as above without change compared to 12/04/2018 at 0100 hours. UT SECTION: ER Brain wo contrast MRI 12/04/2018 03:28 Impression: 1. Focus of restricted diffusion noted in the right temporal lobe, which may represent recent infarct. 2. Scattered severe confluent white matter abnormal signal which is nonspecific, most likely chronic microvascular ischemic changes. Findings discussed with Dr. Almanzar at 0336 hours on 12/04/2018. Skull 1 view DX 12/04/2018 01:13 Impression: Partially visualized ventricular peritoneal shunt with settings as above. UT SECTION: ER Brain/Neck CTA 12/04/2018 00:44 Impression: No significant stenosis by NASCET criteria. Increased contour irregularities in the left AWAKE OVERNIGHT COUNSELOR presumably due to atherosclerotic disease since CTA from 2012. All quantitative and qualitative assessment of stenosis in the carotid bulbs are made referencing the distal internal carotid artery (NASCET criteria). Assessment: 83 yo M with PMH of HTN, CAD s/p CABG and stent on (ASA/Plavix, compliant), CHF , NPH s/p VPS (2004), prior pontine stroke (2010), presenting with acute-onset confusion, dysarthria and b/l UE shaking episodes concerning for TIA vs Stroke. Patient was also recently evaluated by his neurosurgeon who expressed concern for shunt malfunction and had ordered NM shunt study, neurosurgery was consulted to rule-out shunt malfunction. An MRI strok e-limited confirmed the presence of DWI lesion in RMCA territory, patient presented OOW for tPA, no LVO on CTA but severe ICAD noted. 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 -PT/OT recommending home with home health - ASA/Plavix Assay - effective DAPT - Repeat CT stable - Follow-up with Neurosurgery as scheduled for shunt management Dysphagia following cerebral infarction -ST - dysphagia diet with thin liquids - ST following Hemiplegia - improving -PT/OT Metabolic encephalopathy -TSH normal -B12 low - replete - HIV, Trep negative - B1 pending - Repeat CT stable - Continue Keppra, as possible that fluctuation in MS may be seizure activity, though EEG only with encephalopathy NPH - Shunt evaluated by NSGY - Appears to be intact - Follow up with Neurosurgery in 1 week. RESP Breathing RA COPD - chronic smoker - Ok to keep sats in 90-94 CV Essential (primary) hypertension -Permissive for now <220 - Resume Home meds when appropriate -Titrate oral agents Hyperlipidemia, unspecified - Statin for goal LDL < 70 ID Possible bacteremia - Likely contamination - Staph species, not resistant to vanc - 1/2 cultures + - Remains afebrile, very mild leukocytosis - Vancomycin x1 dose last night - D/c today /Renal Urinary Retention - likely neurologic, urinated this morning - Repeat UA - consistent with straight cath with mod blood, squam, bacteria - straight cath q8h if >300cc - Continue straight cath on discharge - Follow up with home urologist 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 Georgiana Hunter - Follow up with Neurosurgery: Dr. Raúl Garrison - Follow up with patient's urologist 1-2 weeks post discharge Nell Meneses MD PGY-1 Neurology STROKE STAFF I have personally evaluated the patient. i have reviewed the resident 's note detailed above. I agree with the resident's findings, assessment and plan as outlined in the note except as detail ed below. In addition, i have reviewed the patient's neuroimaging findings. has a right temporal ischemic infarction, probably due to cerebral atherosclerosis given the vascular risk factors and CTA findings. On ASA and Plavix. He will follow up with his neurosurgeon for NPH management and isotope testing. He also needs a comprehensive neuropsychological testing and dementia assessment by outside neurology. He is now able to urinayte on his own, he will follow up [facility] urology outpatient. I spoke to his at length at the bedside at length, updated her on the clinical case progress and answered all her questions Jakob Moore MD Appellate Law Clerk-[facility] Department of Neurology Extracted from:Title: Stroke H&P Author: Charlie Manley MD Date: 12/04/18 Stroke History and Physical Patient:MATT MATT Consult Requested By: ED Chief Complaint: Confusion, dysarthia, right UE shaking History of Present Illness: 83 yo M with PMH of HTN, CAD s/p CABG and stent on (ASA/Plavix, compliant), CHF , NPH s/p VPS (2004), prior pontine stroke (2010), presenting with acute-onset confusion, dysarthria and b/l UE shaking epi sodes concerning for TIA vs Stroke. Patient was last seen normal at 10:30 AM at which time he took a nap. Around 3pm, tried to wake him up but he appeared confused and had an episode of b/l UE sh aking that lasted around 1 min. This episode was also associated with confusion and slurring of speech. was concerned that he may be having another stroke therefore took the patient to OSH ED, wher e CT head and shunt series was done. Per EMS, patient was beginning to become verbal. Of note, patient was seen here on 11/10 with altered mental status after receiving Valium during a cataract surgery. At that time patient's shunt settings were changed by neurosurgery. states that he has had problems with ambulation and confusion since 11/10. denies fever, chest pain, abdominal pain, changes in UOP. Patient denies pain anywhere Prior to this admission, patient was seen by his Neurosurgery on 11/20 (Dr. Raúl Garrison), recommended obtaining a nuclear shunt study to interrogate it's integrity. Review of Systems: GEN: no fever, chills, weight loss, fatigue EYES: no blurred vision, double vision CARDIO: no chest pain, palpitations PULM: no shortness of breath, cough GI: no nausea, vomiting, diarrhea, no abd pain : no frequency, dysuria, hematuria NEURO: see HPI SKIN: no rash or lesion MSK: no pain, swelling, redness, heat in muscles, no limited ROM, weakness, or atrophy, no cramps LYMPH/IMMUNO: No lymph node enlargement/tenderness, no heat/cold intolerance Past Medical History: HTN (hypertension) HLD (hyperlipidemia) Past Surgical History: Insertion of stent into cerebral artery Open heart surgery Cholecystectomy Family Medical History: [place] Social History: Smokes 1 ppd for >50 years, lives with . Home Medications: aspirin 70UrrgbdqozBXYXTZNDvlmnixt22Wupd. atorvastatin(mmfmwbwsrgjj64darnbcagnyhl) 1tab(s)BYMOUTHBedtime. bisoprolol(lcpmtcuxjy9kukwbragzbut) 0.5tab(s)BYMOUTHEveryOtherDay. clopidogrel(yqvlxaientz15zhhqckpruwih) 1tab(s)BYMOUTHDaily. fluticasonenasal(fluticasonenasal0.05mg/inhspray) 1spray(s)Morzd0XzdmzEhkyz. losartan(flhgbadj59kbgvetkxgwfo) 1tab(s)BYMOUTHDaily. meclizine(jclwvevdb24hmzxhghgsvdd) 1tab(s)NJIHRPB0RkrsjHgwxyvtmhwdtzSkmea- AleJzhvahyvfwi38Xixh. Allergies: No Known Medication Allergies Physical Exam: Vitals Vital Signs (last 24 hrs) Last Charted Temp Oral 97.5 DegF (DEC 03:) Heart Rate Peripheral 69 bpm (DEC 03:) Resp Rate 18 BRMIN (DEC 03:) SBP H 182mmHg (DEC 03:) DBP 80 mmHg (DEC 03:) SpO2 96 % (DEC 03:) Weight 63.5 kg (DEC 03:) Height 175.26 cm (DEC 03:) BMI 20.67 (DEC 03:) GENERAL: Awake, alert in NAD HEENT: - Normocephalic and atraumatic, dry mm, no LN++, no Thyromegally LUNGS - Clear to auscultation bilaterally with no wheezes CV - S1S2 RRR, no m/r/g, equal pulses bilaterally. ABDOMEN - Soft, nontender, nondistended with normoactive BS NEURO: Mental Status: Alert, orient to self and place but unable to tell the year. But able to name POTUS Language: speech is slowed, but normal. Able to comprehend commands when talked to loudly. But slow in responses Cranial Nerves: PERRL 4-2mm/brisk. EOMI, visual murphy full, no facial asymmetry, facial sensation intact, presbyacusis, tongue/uvula/soft palate midline, normal sternocleidomastoid and trapezius muscle strength. No evidence of tongue atrophy or fibrillations Motor: 5/5 upper ext. 4/5 on LE but symmetric weakness of hip extensor/ flexors. Tone: is normal and bulk is normal Sensation- Intact to light touch bilaterally Coordination: FTN intact bilaterally, no ataxia in BLE. Gait- Magnetic gait, walks in varying speed, unable to maintain balance on retropulsion test. Unable to perform tandem walk or tiptoe walking. Romberg + Pre-Morbid MRS 3-Moderate disability-requires help but walks WITHOUT assistance NIHSS=0 Labs: BMP/CBC Labs (Last four charted values) WBC 8.7 (DEC 03) Hgb 15.2 (DEC 03) Hct 45.5 (DEC 03) Plt 164 (DEC 03) Na 136 (DEC 03) K 4.3 (DEC 03) CO2 L 23 (DEC 03) Cl 104 (DEC 03) Cr 0.92 (DEC 03) BUN 14 (DEC 03) Glucose Random 75 (DEC 03) Ca 9.2 (DEC 03) PT 13.4 (DEC 03) INR 1.04 (DEC 03) PTT 29.9 (DEC 03) HbA1C Lipid Profile CHD Risk: 3.03 Low (12/04/18 04:16:00) Chol: 115 mg/dL (12/04/18 04:16:00) HDL: 38 mg/dL Low (12/04/18 04:16:00) LDL (Calculated): 52 mg/dL (12/04/18 04:16:00) Tri mg/dL (12/04/18 04:16:00) VLDL: 25 (12/04/18 04:16:00) LFT No qualifying data available. EKG: Imaging: Imaging Studies (last 36 hours) Skull 1 view DX 12/04/2018 01:13 Impression: Partially visualized ventricular peritoneal shunt with settings as above. UT SECTION: ER Brain/Neck CTA 12/04/2018 00:44 Impression: No significant stenosis by NASCET criteria. Increased contour irregularities in the left AWAKE OVERNIGHT COUNSELOR presumably due to atherosclerotic disease since CTA from 2012. All quantitative and qualitative assessment of stenosis in the carotid bulbs are made referencing the distal internal carotid artery (NASCET criteria). Assessment: 83 yo M with PMH of HTN, CAD s/p CABG and stent on (ASA/Plavix, compliant), CHF , NPH s/p VPS (2004), prior pontine stroke (2010), presenting with acute-onset confusion, dysarthria and b/l UE shaking episodes concerning for TIA vs Stroke. Patient was also recently evaluated by his neurosurgeon who expressed concern for shunt malfunction and had ordered NM shunt study, neurosurgery was consulted to rule-out shunt malfunction. An MRI strok e-limited confirmed the presence of DWI lesion in RMCA territory, patient presented OOW for tPA, no LVO on CTA but severe ICAD noted. Plan: Acute Ischemic Stroke Cerebral infarction due to embolism of right middle cerebral artery Acuity: Acute Current Suspected Etiology: ICAD Continue Evaluation: -Admit to: Stroke Unit -Continue DAPT + Statin -Blood pressure control, goal of SYS <220 -MRI/ECHO/A1C/Lipid panel. -Hyperglycemia management per SSI to maintain glucose 140-180mg/dL. 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 Georgiana Hunter - Follow up with Neurosurgery: Dr. 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 i have reviewed the resident 's note detailed above. I agree with the resident's findings, assessment and plan as outlined in the note except as detailed below. 12/04: we reviewed the MRI , ddx includes ischemic stroke, encephalopathy; will complete stroke evaluation and encephalopathy eval; check EEG; d/w NSG if our evaluateion is negative. will add therapeutic trial of AED after EEG. language is severely dysarthric, he follows commands, had a right facial droop , EOMI, jaw hangs open, slight drift on the right and slightly weak RLE; Medications (8) Active Scheduled Meds (6): 12/04/18 aspirin (aspirin 81 mg tablet, enteric coated) 81 mg PO Q24H 12/04/18 clopidogrel 75 mg PO Q24H 12/04/18 docusate-senna (docusate-senna 50 mg-8.6 mg oral tablet) 1 tab PO BID 12/04/18 heparin 5,000 unit SUB-Q Q8H 12/04/18 sodium chloride (Saline Flush 0.9%) 10 ml IVP Q12H 12/04/18 topiramate (Topamax) 200 mg PO Q12H Unscheduled Meds: None PRN Meds (1): 12/04/18 sodium chloride (Saline Flush 0.9%) 10 ml IVP PRN One Time Meds: None Continuous Infusions (1): 12/04/18 Sodium Chloride 0.9% IV 1,000 mL (normal saline 0.9% IV 1,000 mL) 1, 000 mL 75 ml/hr Vitals and Temp: Vitals Tmp(F) Pulse BP RR SpO2 FIO2 12/04 08:00 ---- 78 152/76 19 96 --- 12/04 07:00 98.2 68 145/69 15 96 --- 12/04 06:00 96.6 73 165/76 23 96 --- 12/04 05:05 ---- 77 ----- 27 --- --- 12/04 05:00 ---- 74 161/73 16 97 --- 24 Hr Tmax: 98.2F (36.78c) at 12/04 07:00 Vital Signs are the last 5 in the past 48 hours. In addition, i have reviewed the patient's neuroimaging findings which reveal: CT: CTA Head/Neck CT 12/04/18 00:44:04 IMPRESSION: No significant stenosis by NASCET criteria. Increased contour irregularities in the left AWAKE OVERNIGHT COUNSELOR presumably due to atherosclerotic disease since CTA from 2012. MRI/MRA: TTE/MARKOS: LIPIDS: Chol: 115 mg/dL (12/04/18 04:16:00) HDL: 38 mg/dL Low (12/04/18 04:16:00) LDL (Calculated): 52 mg/dL (12/04/18 04:16:00) Tri mg/dL (12/04/18 04:16:00) Hgb A1C: 5.3 % (12/04/18 04:16:00) impression/Plan: THE FOLLOWING WERE PRESENT ON ADMISSION: In addition to above: G93.41, Metabolic encephalopathy -unclear etiology, eval inprogress Plan of Care No Data Provided for This Section Social History Social History Date Source Social History TypeResponse 11/11/2018 [facility] Alcohol Current, Type Beer. Frequency: 1-2 times per year. Smoking Status Current every day smoker; Exposure to Tobacco Smoke None; Cigarette Smoking Last 365 Days No; Reg Smoking Cessation Counseling No entered on: 12/06/18 Social History TypeResponse 11/11/2018 [facility] Alcohol Current, Type Beer. Frequency: 1-2 times per year. Smoking Status Current every day smoker; Exposure to Tobacco Smoke None; Cigarette Smoking Last 365 Days No; Reg Smoking Cessation Counseling No entered on: 12/06/18 Family History No Data Provided for This Section Advance Directives No Data Provided for This Section Functional Status No Data Provided for This Section
--- OUTSIDE RECORDS SUMMARY | 2019-01-09 10:05 | XMS REPORT | Summary of Care ---
:1935 Author Organization [facility] Address [address] [place] [id number] Encounter HQ Encntr_bambi(FIN) [id number] Date(s): 11/10/18 - 11/10/[address] Professional Services provided by [facility] [place] [address]- Encounter Diagnosis At risk for altered mental status (Discharge Diagnosis) - 11/10/18 Discharge Disposition: Home or Self Care Attending Physician: Isael Vogt MD Admitting Physician: Osmar Hoffman MD Referring Physician: Mehdi Santos MD Vital Signs Most recent to oldest [Reference 1 2 3 Range]: Height 175.26 cm (11/10/18 8:12 PM) Temperature Oral [96.4-99.1 DegF] 98.1 DegF 97.1 DegF (11/10/18 10:21 PM) (11/10/18 8:12 PM) Blood Pressure [90-140/60-90 168/71 mmHg 173/77 mmHg 146/82 mmHg mmHg] *HI* *HI* *HI* (11/10/18 10:21 PM) (11/10/18 9:34 PM) (11/10/18 8:48 PM) Respiratory Rate [14-20 BRMIN] 18 BRMIN 20 BRMIN 20 BRMIN (11/10/18 10:21 PM) (11/10/18 9:34 PM) (11/10/18 8:48 PM) Peripheral Pulse Rate [60-100 59 bpm bpm] *LOW* (11/10/18 8:12 PM) Weight 68.182 kg (11/10/18 8:12 PM) Body Mass Index 22.2 m2 (11/10/18 8:12 PM) Problem List Condition Effective Dates Status Health Status Informant CVA - Cerebrovascular Active accident(Confirmed) Dysarthria(Confirmed) Active Dysphagia(Confirmed) Active Fall risk(Confirmed) Active General weakness(Confirmed) Active HLD (hyperlipidemia)(Confirmed) Resolved HTN (hypertension)(Confirmed) Resolved Hypertension(Confirmed) Active Knowledge deficit stroke(Confirmed)1 Active Slurred speech(Confirmed) Active 1stroke Allergies, Adverse Reactions, Alerts No Known Medication Allergies Medications No data available for this section Results No data available for this section Immunizations No data available for this section Procedures Procedure Date Related Diagnosis Body Site Status Cholecystectomy Completed Insertion of stent into cerebral artery Completed Open heart surgery Completed Social History Social History Type Response Alcohol Current, Type Beer. Frequency: 1-2 times per year. Smoking Status Current every day smoker; Exposure to Tobacco Smoke None; Cigarette Smoking Last 365 Days No; Reg Smoking Cessation Counseling No entered on: 11/10/18 Assessment and Plan No data available for this section
--- OUTSIDE RECORDS SUMMARY | 2019-01-09 10:05 | XMS REPORT | CCD ---
:1935 Author Organization [facility] Care Team Providers Name Role Phone Javier Causey Consulting Provider Dee Shipman Referring Provider Allergies, Adverse Reactions, Alerts Substance Reaction Status NKDA Active Problem List Condition Effective Dates Status CVA - Cerebrovascular accident Active Dysarthria Active Dysphagia Active Fall risk Active General weakness Active HLD (hyperlipidemia) Resolved HTN (hypertension) Resolved Hypertension Active Knowledge deficit (specify)1 Active Slurred speech Active 1stroke Medications Medication Instructions Start Date End Date Status bisoprolol 5 mg oral 2.5 mg, 0.5 tab, PO, 03/16/2013 Ordered tablet Every Other Day, Substitution Allowed lisinopril 10 mg oral 10 mg, 1 tab, PO, Daily, 03/17/2013 Ordered tablet 30 tab, Substitution Allowed, TAB aspirin 325 mg tablet, 325 mg, 1 tab, PO, Daily, 03/17/2013 Ordered enteric coated 30 tab, Substitution Allowed, ECTAB aspirin 81 mg tablet, 81 mg, 1 tab, PO, Daily, 03/17/2013 03/17/2013 Discontinued chewable tab, Substitution Allowed, CHEWTAB clopidogrel 75 mg oral 75 mg, 1 tab, PO, Daily, 03/16/2013 Ordered tablet 30 tab, Substitution Allowed, TAB Saline Flush 0.9% 5 ml, Route: IVP, Drug 03/16/2013 03/17/2013 Discontinued Form: INJ, Dosing Weight 72.727, kg, Q12H, Start date: 03/16/13 21:00:00, Duration: 30 day, Stop date: 04/15/13 9:00:00 Saline Flush 0.9% 5 ml, Route: IVP, Drug 03/16/2013 03/17/2013 Discontinued Form: INJ, Dosing Weight 72.727, kg, PRN, PRN Line Flush, Start date: 03/16/13 20:56:00, Duration: 30 day, Stop date: 04/15/13 19:55:00 aspirin 325 mg tablet, 325 mg, 1 tab, Route: PO, 03/16/2013 03/17/2013 Discontinued enteric coated Drug form: ECTAB, Daily, Dosing Weight 72.727, kg, Start date: 03/16/13 23:30:00, Duration: 30 day, Stop date: 04/15/13 9:00:00 clopidogrel 75 mg, 1 tab, Route: PO, 03/17/2013 03/17/2013 Discontinued Drug form: TAB, Daily, Dosing Weight 72.727, kg, Start date: 03/17/13 9:00:00, Duration: 30 day, Stop date: 04/15/13 9:00:00 aspirin 300 mg rectal 300 mg, 1 supp, Route: 03/17/2013 03/17/2013 Discontinued suppository NM, Drug form: SUPP, Daily, Dosing Weight 72.727, kg, Start date: 03/17/13 9:00:00, Duration: 30 day, Stop date: 04/15/13 9:00:00 heparin 5,000 unit, 1 mL, Route: 03/17/2013 03/17/2013 Discontinued SUB-Q, Drug form: INJ, Q8H, Dosing Weight 72.727, kg, Start date: 03/17/13 0:00:00, Duration: 30 day, Stop date: 04/15/13 16:00:00 labetalol 10 mg, 2 mL, Route: IVP, 03/16/2013 03/17/2013 Discontinued Drug form: INJ, Q10Min, Dosing Weight 72.727, kg, PRN Hypertension, Start date: 03/16/13 20:56:00, Duration: 30 day, Stop date: 04/15/13 19:55:00, For SBP > 180mmHg and/or DBP > 105mmHg Sodium Chloride 0.9% IV 1,000 mL, Rate: 75 ml/hr, 03/16/2013 03/17/2013 Discontinued 1,000 mL Infuse over: 13.3 hr, Route: IV, Dosing Weight 72.727 kg, Total Volume: 1,000, Start date: 03/16/13 20:56:00, Duration: 30 day, Stop date: 04/15/13 20:55:00 Lipitor 80 mg oral tablet 80 mg, 1 tab, PO, Daily, 03/17/2013 03/17/2013 Discontinued 30 tab, Substitution Allowed, TAB lisinopril 10 mg, 1 tab, Route: PO, 03/17/2013 03/17/2013 Discontinued Drug form: TAB, Daily, Dosing Weight 72.727, kg, Start date: 03/17/13 11:00:00, Duration: 30 day, Stop date: 04/16/13 9:00:00 aspirin 81 mg tablet, 81 mg, 1 tab, PO, Daily, 03/16/2013 03/17/2013 Discontinued chewable tab, Substitution Allowed, CHEWTAB Omnipaque 350mg/ml 85 mL, Route: IVP, Drug Form: SOLN, Dosing Weight 72.727, kg, ONCALL, STAT, Start date: 03/17/13 1:53:00, Duration: 1 doses or times, Dose =2.2ml/kg, Max [id number] -- "To be infused by Radiology Staff ONLY" 201203/17/2013 Completed Dose=2.2ml/kg, Max [id number] -- "To be infused by Radiology Staff ONLY" Dextrose 50% Syringe 25 gm, 50 mL, Route: IVP, 03/16/2013 03/17/2013 Discontinued Drug Form: INJ, Dosing Weight 72.727, kg, PRN, PRN Abnormal Lab Result, Start date: 03/16/13 20:58:00, Duration: 30 day, Stop date: 04/15/13 19:57:00 insulin regular 100 7 unit, 0.07 mL, Route: 03/16/2013 03/17/2013 Discontinued units/mL human SUB-Q, Drug form: SOLN, recombinant PRN, Dosing Weight 72.727, kg, PRN Abnormal Lab Result, Start date: 03/16/13 20:58:00, Duration: 30 day, Stop date: 04/15/13 19:57:00 Dextrose 50% Syringe 6.25 gm, 12.5 mL, Route: 03/16/2013 03/17/2013 Discontinued IVP, Drug Form: INJ, Dosing Weight 72.727, kg, PRN, PRN Abnormal Lab Result, Start date: 03/16/13 20:58:00, Duration: 30 day, Stop date: 04/15/13 19:57:00 insulin regular 100 3 unit, 0.03 mL, Route: 03/16/2013 03/17/2013 Discontinued units/mL human SUB-Q, Drug form: SOLN, recombinant PRN, Dosing Weight 72.727, kg, PRN Abnormal Lab Result, Start date: 03/16/13 20:58:00, Duration: 30 day, Stop date: 04/15/13 19:57:00 Dextrose 50% Syringe 12.5 gm, 25 mL, Route: 03/16/2013 03/17/2013 Discontinued IVP, Drug Form: INJ, Dosing Weight 72.727, kg, PRN, PRN Abnormal Lab Result, Start date: 03/16/13 20:58:00, Duration: 30 day, Stop date: 04/15/13 19:57:00 insulin regular 100 5 unit, 0.05 mL, Route: 03/16/2013 03/17/2013 Discontinued units/mL human SUB-Q, Drug form: SOLN, recombinant PRN, Dosing Weight 72.727, kg, PRN Abnormal Lab Result, Start date: 03/16/13 20:58:00, Duration: 30 day, Stop date: 04/15/13 19:57:00 Lipitor 80 mg, 1 tab, Route: PO, 03/17/2013 03/17/2013 Discontinued Drug form: TAB, QPM, Dosing Weight 72.727, kg, Start date: 03/17/13 17:00:00, Duration: 30 day, Stop date: 04/15/13 17:00:00 Zofran 4 mg, 1 tab, Route: PO, 03/16/2013 03/17/2013 Discontinued Drug form: TAB, Q8H, Dosing Weight 72.727, kg, PRN Nausea, Start date: 03/16/13 20:57:00, Duration: 30 day, Stop date: 04/15/13 20:56:00 Senokot S 1 tab, Route: PO, Drug 03/17/2013 03/17/2013 Discontinued Form: TAB, Dosing Weight 72.727, kg, Daily, Start date: 03/17/13 9:00:00, Duration: 30 day, Stop date: 04/15/13 9:00:00 Tylenol 650 mg, 2 tab, Route: PO, 03/16/2013 03/17/2013 Discontinued Drug form: TAB, Q6H, Dosing Weight 72.727, kg, PRN Pain, Start date: 03/16/13 20:57:00, Duration: 30 day, Stop date: 04/15/13 20:56:00 citalopram 20 mg oral 20 mg, 1 tab, PO, Daily, 03/16/2013 Ordered tablet 30 tab, Substitution Allowed, TAB Vital Signs Most recent to oldest 1 2 3 [Reference Range]: Height 172.72 cm (03/16/2013 20:29:00) Temperature Oral 96.9 DegF 97.2 DegF [96.4-99.1 DegF] (03/17/2013 12:54:00) (03/16/2013 20:05:00) Systolic Blood Pressure 141 mmHg 136 mmHg 146 mmHg [90-140 mmHg] *HI* (03/17/2013 16:00:00) *HI* (03/17/2013 17:00:00) (03/17/2013 15:00:00) Diastolic Blood Pressure 77 mmHg 74 mmHg 85 mmHg [60-90 mmHg] (03/17/2013 17:00:00) (03/17/2013 16:00:00) (03/17/2013 15:00: 00) Respiratory Rate [14-20 25 BRMIN 17 BRMIN 23 BRMIN BRMIN] *HI* (03/17/2013 17:00:00) *HI* (03/17/2013 18:00:00) (03/17/2013 16:00:00) Weight 72.727 kg (03/16/2013 20:29:00) Results BEDSIDE GLUCOSE TESTING Most recent to oldest [Reference 1 2 Range]: Glucose POC [70-99 mg/dL] 136 mg/dL 1 99 mg/dL 2 *HI* (03/16/2013 20:19:00) (03/17/2013 12:33:00) Gluc POC Comment 1 Notify RN/MD *NA* (03/16/2013 20:19:00) 1Interpretive Data: Upper Reportable Limit: 200 mg/dL.2Interpretive Data: Upper Reportable Limit: 200 mg/dL.URINALYSIS Most recent to oldest [Reference Range]: 1 2 UA Turbidity [Clear] Clear (03/17/2013 00:09:00) UA Color [Yellow] Light Yellow *NA* (03/17/2013 00:09:00) UA pH [5.0-8.0] 7.0 (03/17/2013 00:09:00) UA Spec Grav [<=1.030] 1.007 (03/17/2013 00:09:00) UA Glucose [Negative mg/dL] Negative mg/dL *NA* (03/17/2013 00:09:00) UA Blood [Negative] Negative (03/17/2013 00:09:00) UA Ketones [Negative mg/dL] Negative mg/dL *NA* (03/17/2013 00:09:00) UA Protein [Negative mg/dL] Negative mg/dL (03/17/2013 00:09:00) UA Urobilinogen [0.1-1.0 mg/dL] <=1.0 mg/dL *NA* (03/17/2013 00:09:00) UA Bili [Negative] Negative *NA* (03/17/2013 00:09:00) UA Leuk Est [Negative] Negative (03/17/2013 00:09:00) UA Nitrite [Negative] Negative (03/17/2013 00:09:00) UA WBC [0-5 /HPF] 1 /HPF (03/17/2013 00:09:00) UA RBC [0-2 /HPF] <1 /HPF (03/17/2013 00:09:00) UA Sq Epi [Few /LPF] Occasional /LPF *NA* (03/17/2013 00:09:00) UA Mucus [None Seen /LPF] Few /LPF *NA* (03/17/2013 00:09:00) CHEMISTRY Most recent to oldest [Reference 1 2 Range]: Sodium Lvl [135-145 mEq/L] 144 mEq/L 144 mEq/L (03/17/2013 00:23:00) (03/17/2013 00:20:00) Potassium Lvl [3.5-5.1 mEq/L] 4.0 mEq/L 4.0 mEq/L (03/17/2013 00:23:00) (03/17/2013 00:20:00) Chloride Lvl [95-109 mEq/L] 108 mEq/L 109 mEq/L (03/17/2013 00:23:00) (03/17/2013 00:20:00) CO2 [24-32 mEq/L] 26 mEq/L 22 mEq/L (03/17/2013 00:23:00) *LOW* (03/17/2013 00:20:00) AGAP [10.0-20.0 mEq/L] 14.0 mEq/L 17.0 mEq/L (03/17/2013:23:00) (03/17/2013 00:20:00) Creatinine Lvl [0.5-1.4 mg/dL] 0.9 mg/dL 0.9 mg/dL (03/17/2013:23:00) (03/17/2013 00:20:00) eGFR 81 mL/min/1.73m2 3 81 mL/min/1.73m2 4 *NA* *NA* (03/17/2013:23:00) (03/17/2013 00:20:00) BUN [7-22 mg/dL] 14 mg/dL 14 mg/dL (03/17/2013:23:00) (03/17/2013 00:20:00) B/C Ratio [6-25] 16 (03/17/2013:23:00) Glucose Lvl [70-99 mg/dL] 145 mg/dL 5 144 mg/dL 6 *HI* *HI* (03/17/2013:23:00) (03/17/2013:20:00) Total Protein [6.4-8.4 g/dL] 7.1 g/dL (03/17/2013 00:23:00) Albumin Lvl [3.5-5.0 g/dL] 3.6 g/dL (03/17/2013:23:00) Globulin [2.0-4.0 g/dL] 3.5 g/dL (03/17/2013 00:23:00) A/G Ratio [0.7-1.6] 1.0 (03/17/2013:23:00) Calcium Lvl [8.5-10.5 mg/dL] 8.7 mg/dL 8.7 mg/dL (03/17/2013 00:23:00) (03/17/2013 00:20:00) ALT [0-65 unit/L] 15 unit/L (03/17/2013 00:23:00) AST [0-37 unit/L] 8 unit/L (03/17/2013 00:23:00) Alk Phos [39-136 unit/L] 56 unit/L (03/17/2013 00:23:00) Bili Total [0.2-1.3 mg/dL] 0.3 mg/dL (03/17/2013 00:23:00) CHD Risk [4.00-7.30] 3.64 *LOW* (03/17/2013 00:20:00) Chol [<=199 mg/dL] 120 mg/dL (03/17/2013 00:20:00) Trig [<=149 mg/dL] 113 mg/dL (03/17/2013 00:20:00) HDL [>=61 mg/dL] 33 mg/dL *LOW* (03/17/2013 00:20:00) LDL [<=99 mg/dL] 64 mg/dL (03/17/2013 00:20:00) Hgb A1C [<=5.6 %] 5.6 % (03/17/2013 00:23:00) Ca Ion WB [1.05-1.25 mMol/L] 1.13 mMol/L (03/17/2013 00:20:00) Ca Norm WB [1.05-1.25 mMol/L] 1.13 mMol/L (03/17/2013 00:20:00) U Amph Scr [Negative] Negative *NA* (03/17/2013 00:09:00) U Sapna Scr [Negative] Negative *NA* (03/17/2013 00:09:00) U Benzodia Scr [Negative] Negative *NA* (03/17/2013 00:09:00) U Cocaine Scr [Negative] Negative *NA* (03/17/2013 00:09:00) U Opiate Scr [Negative] Negative *NA* (03/17/2013 00:09:00) U Phencyc Scr [Negative] Negative *NA* (03/17/2013 00:09:00) U Cannab Scr [Negative] Negative *NA* (03/17/2013 00:09:00) UDS Note See Note 7 *NA* (03/17/2013 00:09:00) 3Result Comment: The eGFR is calculated using the CKD-EPI formula. In most young , healthy individualsthe eGFR will be >90 mL/min/1.73m2. The eGFR declines with age. An eGFR of 60-89 may be normal in some populations, particularly the elderly, for whom the CKD-EPI formula has not been extensively validated. Use of the eGFR is not recommended in the following populations: Individuals with unstable creatinine concentrations, including patients and those with serious co-morbid conditions. Patients with extremes in muscle mass or diet. The data above are obtained from the National Kid[employer] Disease Education Program ( NKDEP) which additionally recommends that when the eGFR is used in patients with extremes of body mass index for purposesof drug dosing, the eGFR should be multiplied by the estimated BMI.4Result Comment: The eGFR is calculated using the CKD-EPI formula. In most young, healthy individualsthe eGFR will be >90 mL/ min/1.73m2. The eGFR declines with age. An eGFR of 60-89 may be normal in some populations, particularly the elderly, for whom the CKD-EPI formula has not been extensively validated. Use of the eGFR is not recommended in the following populations: Individuals with unstable creatinine concentrations, including patients and those with serious co-morbid conditions. Patients with extremes in muscle mass or diet. The data above are obtained from the National Kid[employer] Disease Education Program ( NKDEP) which additionally recommends that when the eGFR is used in patients with extremes of body mass index for purposesof drug dosing, the eGFR should be multiplied by the estimated BMI.5Interpretive Data: Adult reference range values reflect the clinical guidelines of the [place] [employer].6Interpretive Data: Adult reference range values reflect the clinical guidelines of the [place] [employer].7Interpretive Data: Drugs reported as positive have not been confirmed by a second method and should be used for medical purposes only. To order confirmation, contact laboratory. note: Below are cut-off concentrations for all urine drugs of abuse performed in the laboratory. Some drugs listed in the table may not be included in this panel. Description Cut-off concentration Amphetamine 1000 ng/mL Barbiturates 200 ng/mL Benzodiazepines 300 ng/mL Cocaine metabolites 300 ng/mL Opiates 300 ng/mL Phencyclidine 25 ng/mL Propoxyphene 300 ng/mL Marijuana metabolites 50 ng/mL Methadone 300 ng/mL Urine alcohol 20 mg/dLHEMATOLOGY Most recent to oldest [Reference Range]: 1 2 WBC [3.7-10.4 K/CMM] 8.7 K/CMM (03/17/2013 00:20:00) RBC [4.70-6.10 M/CMM] 5.06 M/CMM (03/17/2013 00:20:00) Hgb [14.0-18.0 g/dL] 15.1 g/dL (03/17/2013 00:20:00) Hct [42.0-54.0 %] 44.5 % (03/17/2013 00:20:00) MCV [80.0-94.0 fL] 88.1 fL (03/17/2013 00:20:00) MCH [27.0-31.0 pg] 29.9 pg (03/17/2013 00:20:00) MCHC [32.0-36.0 g/dL] 33.9 g/dL (03/17/2013 00:20:00) RDW [11.5-14.5 %] 15.5 % *HI* (03/17/2013 00:20:00) Platelet [133-450 K/CMM] 145 K/CMM (03/17/2013 00:20:00) MPV [7.4-10.4 fL] 10.7 fL *HI* (03/17/2013 00:20:00) Segs [45.0-75.0 %] 51.5 % (03/17/2013 00:20:00) Lymphocytes [20.0-40.0 %] 32.1 % (03/17/2013 00:20:00) Monocytes [2.0-12.0 %] 12.9 % *HI* (03/17/2013 00:20:00) Eosinophils [0.0-4.0 %] 2.6 % (03/17/2013 00:20:00) Basophils [0.0-1.0 %] 0.9 % (03/17/2013 00:20:00) Segs-Bands # [1.5-8.1 K/CMM] 4.5 K/CMM (03/17/2013 00:20:00) Lymphocytes # [1.0-5.5 K/CMM] 2.8 K/CMM (03/17/2013 00:20:00) Monocytes # [0.0-0.8 K/CMM] 1.1 K/CMM *HI* (03/17/2013 00:20:00) Eosinophils # [0.0-0.5 K/CMM] 0.2 K/CMM (03/17/2013 00:20:00) Basophils # [0.0-0.2 K/CMM] 0.1 K/CMM (03/17/2013 00:20:00) PT [12.0-14.7 seconds] 13.2 seconds (03/17/2013 00:20:00) INR [0.85-1.17] 1.01 8 (03/17/2013 00:20:00) PTT [22.9-35.8 seconds] 27.0 seconds 9 (03/17/2013 00:20:00) 8Interpretive Data: RECOMMENDED RANGES FOR PROTIME INR: 2.0-3.0 for most medical and surgical thromboembolic states. 2.5-3.5 for artificial heart valves and recurrent embolism. INR SHOULD BE USED ONLY FOR PATIENTS ON STABLE ANTICOAGULANT THERAPY.9Interpretive Data: Heparin Therapeutic Range: 57 - 92 Seconds Procedures Procedures Date Related Diagnosis Cholecystectomy Insertion of stent into cerebral artery Open heart surgery
--- OUTSIDE RECORDS SUMMARY | 2019-01-09 10:05 | XMS REPORT | Summary of Care ---
:1935 Author Organization [facility] Address [address], [place] [address]- Encounter HQ Encntr_alias(FIN) [id number] Date(s): 12/03/18 - 12/08/[address] Professional Services provided by [facility] [place] [address]- Discharge Disposition: Home or Self Care Attending Physician: Jakob Moore MD Admitting Physician: Natalie Robles MD Referring Physician: Delia Madrid MD Vital Signs Most recent to oldest 1 2 3 [Reference Range]: Height 177.8 cm 175.26 cm (12/04/18 5:06 AM) (12/03/18 11:07 PM) Temperature Oral [96.4-99.1 98.9 DegF 98.8 DegF 97.4 DegF DegF] (12/08/18 10:11 AM) (12/07/18 7:08 PM) (12/07/18 3:00 PM) Blood Pressure [90-140/60-90 137/81 mmHg 140/86 mmHg 140/80 mmHg mmHg] (12/08/18 7:30 AM) (12/08/18 3:33 AM) (12/08/18 12:42 AM) Respiratory Rate [14-20 BRMIN] 18 BRMIN 20 BRMIN 20 BRMIN (12/08/18 7:30 AM) (12/08/18 3:33 AM) (12/08/18 12:42 AM) Peripheral Pulse Rate [60-100 91 bpm 83 bpm 76 bpm bpm] (12/08/18 7:30 AM) (12/08/18 3:33 AM) (12/08/18 12:42 AM) Weight 70.17 kg 63.5 kg (12/04/18 5:06 AM) (12/03/18 11:07 PM) Body Mass Index 22.2 m2 20.67 m2 (12/04/18 5:06 AM) (12/03/18 11:07 PM) Problem List Condition Effective Dates Status Health Status Informant CVA - Cerebrovascular Active accident(Confirmed) Dysarthria(Confirmed) Active Dysphagia(Confirmed) Active Fall risk(Confirmed) Active General weakness(Confirmed) Active HLD (hyperlipidemia)(Confirmed) Resolved HTN (hypertension)(Confirmed) Resolved Hypertension(Confirmed) Active Knowledge deficit stroke(Confirmed)1 Active Slurred speech(Confirmed) Active 1stroke Allergies, Adverse Reactions, Alerts No Known Medication Allergies Medications aspirin 81 mg, PO, Daily, 0 Refill(s) Start Date: 12/04/18 Stop Date: 12/04/18 Status: Discontinuedaspirin 81 mg tablet, enteric coated 81 mg=1 tab, PO, Daily, # 90 tab, 3 Refill(s) Start Date: 12/04/18 Status: Orderedaspirin 81 mg tablet, enteric coated 81 mg, 1 tab, Route: PO, Drug form: ECTAB, Q24H, Dosing Weight 63.5, kg, Start date: 12/04/18 4:00:00 CDT, Duration: 30 day, Stop date: 01/02/19 9:00:00 CDT, 0 Notes: Do not crush or chew.(Same As: Ecotrin) Start Date: 12/04/18 Stop Date: 12/08/18 Status: Discontinuedatorvastatin 10 mg, 1 tab, Route: PO, Drug form: TAB, Bedtime, Dosing Weight 70.17, kg, Start date: 12/04/18 21:00:00 CDT, Duration: 30 day, Stop date: 01/02/19 21:00: 00 CDT, 0 Notes: (Same As: Lipitor) Start Date: 12/04/18 Stop Date: 12/08/18 Status: Discontinuedatorvastatin 10 mg oral tablet 10 mg=1 tab, PO, Bedtime, # 30 tab, 0 Refill(s) Start Date: 12/04/18 Status: OrderedBriviact 50 mg, 1 tab, Route: PO, Drug form: TAB, Q12H, Dosing Weight 70.17, kg, Start date: 12/04/18 21:00:00 CDT, Duration: 30 day, Stop date: 01/03/19 9:00:00 CDT, 0 Notes: (Same as: Briviact)Do Not Crush Start Date: 12/04/18 Stop Date: 12/04/18 Status: Discontinuedclopidogrel 75 mg, 1 tab, Route: PO, Drug form: TAB, Q24H, Dosing Weight 63.5, kg, Start date: 12/04/18 4:00:00 CDT, Duration: 30 day, Stop date: 01/02/19 9:00:00 CDT, 0 Notes: (Same As: Plavix) Start Date: 12/04/18 Stop Date: 12/08/18 Status: Discontinueddocusate-senna 50 mg-8.6 mg oral tablet 1 tab, Route: PO, Drug Form: TAB, Dosing Weight 70.17, kg, BID, Start date: 9:00:00 CDT, Duration: 30 day, Stop date: 01/02/19 17:00:00 CDT, 0 Notes: (Same as Senokot-S) Equiv. to Valorie-Colace. Start Date: 12/04/18 Stop Date: 12/08/18 Status: Discontinuedfluticasone nasal 0.05 mg/inh spray 1 spray, NASAL, BID, # 16 gm, 0 Refill(s) Start Date: 12/04/18 Status: Orderedheparin 5,000 unit, 1 mL, Route: SUB-Q, Drug form: INJ, Q8H, Dosing Weight 70.17, kg, Start date: 12/04/18 8:00:00 CDT, Duration: 30 day, Stop date: 01/03/19 0:00:00 CDT, 0 Notes: porcine heparin Start Date: 12/04/18 Stop Date: 12/08/18 Status: DiscontinuedKeppra + Sodium Chloride 0.9% IV 100 mL 1,500 mg, Route: IVPB, ONCE, Dosing Weight 70.17, kg, Loading Dose, Start date: 12/05/18 11:09:00 CDT, Stop date: 12/05/18 11:09:00 CDT, 0 Notes: Same as KeppraMix with 100 mL NS, LR or D5W MEDICATION WASTE Product Size: 500 mgProduct Wasted: ___ mg Start Date: 12/05/18 Stop Date: 12/05/18 Status: CompletedKeppra 500 mg oral tablet 500 mg, 1 tab, Route: PO, Drug form: TAB, Q12H, Dosing Weight 70.17, kg, Start date: 12/05/18 21:00:00 CDT, Duration: 30 day, Stop date: 01/04/19 9:00:00 CDT, 0 Notes: (Same as:Keppra) Start Date: 12/05/18 Stop Date: 12/08/18 Status: DiscontinuedKeppra 500 mg oral tablet 500 mg=1 tab, PO, Q12H, # 60 tab, 2 Refill(s) Start Date: 12/08/18 Status: Orderedlosartan 25 mg oral tablet 25 mg=1 tab, PO, Daily, # 30 tab, 0 Refill(s) Start Date: 12/04/18 Status: Orderedmeclizine 25 mg oral tablet 25 mg=1 tab, PO, TID, PRN Other-See Comments, # 30 tab, 0 Refill(s) Start Date: 12/04/18 Stop Date: 12/14/18 Status: Orderednormal saline 0.9% IV 1,000 mL 1,000 mL, Rate: 75 ml/hr, Infuse over: 13.3 hr, Route: IV, Dosing Weight 63.5 kg , Total Volume: 1,000, Start date: 12/04/18 3:38:00 CDT, Duration: 30 day, Stop date: 01/03/19 3:37:00 CDT, 1.76, m2, 0 Start Date: 12/04/18 Stop Date: 12/08/18 Status: DiscontinuedOmnipaque 350mg/ml 60 mL, Route: IVP, Drug Form: SOLN, Dosing Weight 63.5, kg, ONCALL, STAT, Start date: 12/04/18 0:16:00 CDT, Duration: 1 doses or times, Dose=2.2ml/kg, Max dose =100ml -- "To be infused by Radiology Staff ONLY" Start Date: 12/04/18 Stop Date: 12/04/18 Status: CompletedQUEtiapine 25 mg, 1 tab, Route: PO, Drug form: TAB, Bedtime, Dosing Weight 70.17, kg, Start date: 12/08/18 21:00:00 CDT, Stop date: 01/06/19 21:00:00 CDT, 0 Notes: (Same as: SEROquel) Start Date: 12/08/18 Stop Date: 12/08/18 Status: CanceledSaline Flush 0.9% 10 ml, Route: IVP, Drug Form: INJ, Dosing Weight 63.5, kg, Q12H, Start date: 9:00:00 CDT, Duration: 30 day, Stop date: 01/02/19 21:00:00 CDT, 0 Notes: Same as: BD Posiflush Sterile Start Date: 12/04/18 Stop Date: 12/08/18 Status: DiscontinuedSaline Flush 0.9% 10 ml, Route: IVP, Drug Form: INJ, Dosing Weight 63.5, kg, PRN, PRN Line Flush, Start date: :28:00 CDT, Duration: 30 day, Stop date: 01/03/19 3:27:00 CDT, 0 Notes: Same as: BD Posiflush Sterile Start Date: 12/04/18 Stop Date: 12/08/18 Status: DiscontinuedTopamax 200 mg, Route: PO, Drug form: TAB, Q12H, Dosing Weight 70.17, kg, Start date: 9:00:00 CDT, Duration: 30 day, Stop date: 01/02/19 21:00:00 CDT Start Date: 12/04/18 Stop Date: 12/04/18 Status: Discontinuedtopiramate 25 mg, Route: PO, Drug form: TAB, Q12H, Dosing Weight 70.17, kg, Start date: 21:00:00 CDT, Duration: 30 day, Stop date: 01/03/19 9:00:00 CDT Start Date: 12/04/18 Stop Date: 12/04/18 Status: Canceledvancomycin 1,000 mg, Route: IVPB, Drug form: INJ, [id number], Dosing Weight 70.17, kg, Priority: STAT, Start date:06/29/19 19:25:00 CDT, Duration: 7 day, Stop date: 19:25:00 CDT, ABX Indication: Bacteremia, 0 Notes: TIME CRITICAL MEDICATION(Same As: Vancocin)Infusion rate< 1000 mg: infuse over 1 [id number] - 1500 mg: infuse over 1.5 [id number] - 2000 mg: infuse over 2 hours> 2001 mg: infuse over 2.5 hoursFor adult patients only: Round to nearest 250 mg per Medical Staff approval MEDICATION WASTE Product Size: 1000 mgProduct Wasted: ___ mg Start Date: 12/05/18 Stop Date: 12/06/18 Status: DiscontinuedVitamin B12 1,000 microgram, 1 mL, Route: IM, Drug form: INJ, ONCE, Dosing Weight 70.17, kg , Start date: 12/05/18 16:42:00 CDT, Stop date: 12/05/18 16:42:00 CDT, 0 Notes: (Same As: Vitamin B12) Start Date: 12/05/18 Stop Date: 12/05/18 Status: DeletedVitamin B12 1,000 microgram, 1 mL, Route: IM, Drug form: INJ, ONCE, Dosing Weight 70.17, kg , Start date: 12/05/18 16:53:00 CDT, Stop date: 12/05/18 16:53:00 CDT, 0 Notes: (Same As: Vitamin B12) Start Date: 12/05/18 Stop Date: 12/05/18 Status: CompletedVitamin B12 1,000 microgram, 1 mL, Route: IM, Drug form: INJ, ONCE, Dosing Weight 70.17, kg , Start date: 12/05/18 11:09:00 CDT, Stop date: 12/05/18 11:09:00 CDT, 0 Notes: (Same As: Vitamin B12) Start Date: 12/05/18 Stop Date: 12/05/18 Status: Completed Results Most recent to oldest 1 2 3 [Reference Range]: Neutrophils # [1.5-8.1 7.5 K/CMM 4.6 K/CMM K/CMM] (12/06/18 4:15 AM) (12/03/18 11:47 PM) Lymphocytes # [1.0-5.5 1.7 K/CMM 2.7 K/CMM K/CMM] (12/06/18 4:15 AM) (12/03/18 11:47 PM) Monocytes # [0.0-0.8 1.3 K/CMM 1.1 K/CMM K/CMM] *HI* *HI* (12/06/18 4:15 AM) (12/03/18 11:47 PM) Eosinophils # [0.0-0.5 0.2 K/CMM 0.2 K/CMM K/CMM] (12/06/18 4:15 AM) (12/03/18 11:47 PM) Vitamin B1 [66.5-200.0 136.4 nMol/L 1 nMol/L] *NA* (12/04/18 8:39 PM) UA Gran Cast [None Seen 0-2 /LPF /LPF] *ABN* (12/06/18 9:32 AM) HIV Ag/Ab 4th Gen Negative [Negative] *NA* (12/04/18 8:39 PM) ASA Effect Plt 509 ARU *NA* (12/04/18 5:37 AM) Plav Effect Plt 19 PRU *NA* (12/04/18 5:37 AM) E. faecalis [Not Detected] Not Detected (12/04/18 5:14 PM) E. faecium [Not Detected] Not Detected (12/04/18 5:14 PM) Listeria spp. [Not Not Detected Detected] (12/04/18 5:14 PM) mecA Methicillin Not Detected Resistance [Not Detected] (12/04/18 5:14 PM) S. agalactiae [Not Not Detected Detected] (12/04/18 5:14 PM) S. anginosus grp [Not Not Detected Detected] (12/04/18 5:14 PM) S. aureus [Not Detected] Not Detected (12/04/18 5:14 PM) S. epidermidis [Not Not Detected Detected] (12/04/18 5:14 PM) S. lugdunensis [Not Not Detected Detected] (12/04/18 5:14 PM) S. pneumoniae [Not Not Detected Detected] (12/04/18 5:14 PM) S. pyogenes [Not Detected] Not Detected (12/04/18 5:14 PM) Staphylococcus spp. [Not Detected Detected] *ABN* (12/04/18 5:14 PM) Streptococcus spp. [Not Not Detected Detected] (12/04/18 5:14 PM) Anisha Vancomycin Resistance Not Detected [Not Detected] (12/04/18 5:14 PM) vanB Vancomycin Resistance Not Detected [Not Detected] (12/04/18 5:14 PM) eGFR 77 mL/min/1.73m2 2 76 mL/min/1.73m2 3 *NA* *NA* (12/06/18 4:15 AM) (12/03/18 11:47 PM) Ammonia [<=45.0 uMol/L] 12.0 uMol/L (12/04/18 8:39 PM) AGAP [10.0-20.0 mEq/L] 9.5 mEq/L 13.3 mEq/L *LOW* (12/03/18 11:47 PM) (12/06/18 4:15 AM) Basophils [0.0-1.0 %] 0.4 % 0.5 % (12/06/18 4:15 AM) (12/03/18 11:47 PM) BUN [7-22 mg/dL] 13 mg/dL 14 mg/dL (12/06/18 4:15 AM) (12/03/18 11:47 PM) Calcium Lvl [8.5-10.5 9.2 mg/dL 9.2 mg/dL mg/dL] (12/06/18 4:15 AM) (12/03/18 11:47 PM) CHD Risk [4.00-7.30] 3.03 *LOW* (12/04/18 4:16 AM) Chol [<=199 mg/dL] 115 mg/dL (12/04/18 4:16 AM) Total CK [12-191 unit/L] 411 unit/L *HI* (12/04/18 4:16 AM) Chloride Lvl [95-109 108 mEq/L 104 mEq/L mEq/L] (12/06/18 4:15 AM) (12/03/18 11:47 PM) CO2 [24-32 mEq/L] 25 mEq/L 23 mEq/L (12/06/18 4:15 AM) *LOW* (12/03/18 11:47 PM) Creatinine Lvl [0.50-1.40 0.91 mg/dL 0.92 mg/dL mg/dL] (12/06/18 4:15 AM) (12/03/18 11:47 PM) Eosinophils [0.0-4.0 %] 1.7 % 2.0 % (12/06/18 4:15 AM) (12/03/18 11:47 PM) Glucose Lvl [70-99 mg/dL] 100 mg/dL 75 mg/dL *HI* (12/03/18 11:47 PM) (12/06/18 4:15 AM) Hct [42.0-54.0 %] 43.6 % 45.5 % (12/06/18 4:15 AM) (12/03/18 11:47 PM) HDL [>=61 mg/dL] 38 mg/dL *LOW* (12/04/18 4:16 AM) Hgb [14.0-18.0 g/dL] 15.1 g/dL 15.2 g/dL (12/06/18 4:15 AM) (12/03/18 11:47 PM) Hgb A1C [<=5.6 %] 5.3 % (12/04/18 4:16 AM) INR [0.85-1.17] 1.04 (12/03/18 11:47 PM) Potassium Lvl [3.5-5.1 3.5 mEq/L 4.3 mEq/L mEq/L] (12/06/18 4:15 AM) (12/03/18 11:47 PM) Lactic Acid Lvl [0.5-2.2 1.8 mMol/L mMol/L] (12/04/18 5:27 PM) LDL (Calculated) [<=99 52 mg/dL mg/dL] (12/04/18 4:16 AM) Lymphocytes [20.0-40.0 %] 16.0 % 31.4 % *LOW* (12/03/18 11:47 PM) (12/06/18 4:15 AM) MCH [27.0-31.0 pg] 29.1 pg 28.4 pg (12/06/18 4:15 AM) (6/27/19 11:47 PM) MCHC [32.0-36.0 g/dL] 34.5 g/dL 33.5 g/dL (12/06/18 4:15 AM) (12/03/18 11:47 PM) MCV [80.0-94.0 fL] 84.3 fL 84.8 fL (12/06/18 4:15 AM) (12/03/18 11:47 PM) Magnesium Lvl [1.8-2.4 2.3 mg/dL mg/dL] (12/06/18 4:15 AM) Monocytes [2.0-12.0 %] 12.4 % 13.0 % *HI* *HI* (12/06/18 4:15 AM) (12/03/18 11:47 PM) MPV [7.4-10.4 fL] 10.4 fL 10.3 fL (12/06/18 4:15 AM) (12/03/18 11:47 PM) Sodium Lvl [135-145 mEq/L] 139 mEq/L 136 mEq/L (12/06/18 4:15 AM) (12/03/18 11:47 PM) Phosphorus [2.5-4.5 mg/dL] 2.8 mg/dL (12/06/18 4:15 AM) Platelet [133-450 K/CMM] 174 K/CMM 164 K/CMM (12/06/18 4:15 AM) (12/03/18 11:47 PM) Segs [45.0-75.0 %] 69.5 % 53.1 % (12/06/18 4:15 AM) (12/03/18 11:47 PM) PT [12.0-14.7 seconds] 13.4 seconds (12/03/18 11:47 PM) PTT [22.9-35.8 seconds] 29.9 seconds (12/03/18 11:47 PM) RBC [4.70-6.10 M/CMM] 5.17 M/CMM 5.37 M/CMM (12/06/18 4:15 AM) (12/03/18 11:47 PM) RDW [11.5-14.5 %] 15.2 % 15.0 % *HI* *HI* (12/06/18 4:15 AM) (12/03/18 11:47 PM) Trig [<=149 mg/dL] 123 mg/dL (12/04/18 4:16 AM) UA Amorph Lupe [None Seen Occasional /HPF /HPF] *NA* (12/06/18 9:32 AM) UA Bacteria [None Seen Occasional /HPF Moderate /HPF Occasional /HPF /HPF] *NA* *ABN* *NA* (12/06/18 9:32 AM) (12/04/18 5:27 PM) (12/04/18 5:37 AM) UA Bili [Negative] Negative Negative Negative *NA* *NA* *NA* (12/06/18 9:32 AM) (12/04/18 5:27 PM) (12/04/18 5:37 AM) UA Blood [Negative] Moderate Negative Negative *ABN* (12/04/18 5:27 PM) (12/04/18 5:37 AM) (12/06/18 9:32 AM) UA Color [Yellow] Yellow Light Yellow Light Yellow *NA* *NA* *NA* (12/06/18 9:32 AM) (12/04/18 5:27 PM) (12/04/18 5:37 AM) UA Glucose [Negative Negative mg/dL Negative mg/dL Negative mg/dL mg/dL] *NA* *NA* *NA* (12/06/18 9:32 AM) (12/04/18 5:27 PM) (12/04/18 5:37 AM) UA Hyal Cast [0-2 /LPF] 1 /LPF (12/06/18 9:32 AM) UA Ketones [Negative Negative mg/dL Trace mg/dL 20 mg/dL mg/dL] *NA* *ABN* *ABN* (12/06/18 9:32 AM) (12/04/18 5:27 PM) (12/04/18 5:37 AM) UA Leuk Est [Negative] Negative Negative Negative (12/06/18 9:32 AM) (12/04/18 5:27 PM) (12/04/18 5:37 AM) UA Mucus [None Seen /LPF] Few /LPF Few /LPF Few /LPF *NA* *NA* *NA* (12/06/18 9:32 AM) (12/04/18 5:27 PM) (12/04/18 5:37 AM) UA Nitrite [Negative] Negative Negative Negative (12/06/18 9:32 AM) (12/04/18 5:27 PM) (12/04/18 5:37 AM) UA pH [5.0-8.0] 5.0 5.0 5.0 (12/06/18 9:32 AM) (12/04/18 5:27 PM) (12/04/18 5:37 AM) UA Protein [Negative Negative mg/dL Negative mg/dL Negative mg/dL mg/dL] (12/06/18 9:32 AM) (12/04/18 5:27 PM) (12/04/18 5:37 AM) UA RBC [0-2 /HPF] 13 /HPF <1 /HPF 1 /HPF *HI* (12/04/18 5:27 PM) (12/04/18 5:37 AM) (12/06/18 9:32 AM) UA Renal Epi [<=0 /LPF] 1 /LPF *HI* (12/06/18 9:32 AM) UA Spec Grav [<=1.030] 1.020 1.016 1.032 (12/06/18 9:32 AM) (12/04/18 5:27 PM) *HI* (12/04/18 5:37 AM) UA Sq Epi [Few /LPF] Occasional /LPF Occasional /LPF Occasional /LPF *NA* *NA* *NA* (12/06/18 9:32 AM) (12/04/18 5:27 PM) (12/04/18 5:37 AM) UA Turbidity [Clear] Slight Clear Clear *ABN* (12/04/18 5:27 PM) (12/04/18 5:37 AM) (12/06/18 9:32 AM) UA Urobilinogen [0.1-1.0 <1.0 mg/dL <1.0 mg/dL <1.0 mg/dL mg/dL] (12/06/18 9:32 AM) (12/04/18 5:27 PM) (12/04/18 5:37 AM) UA WBC [0-5 /HPF] 5 /HPF 1 /HPF 1 /HPF (12/06/18 9:32 AM) (12/04/18 5:27 PM) (12/04/18 5:37 AM) Vitamin B12 Lvl [254-1320 218 pg/mL pg/mL] *LOW* (12/04/18 8:39 PM) WBC [3.7-10.4 K/CMM] 10.8 K/CMM 8.7 K/CMM *HI* (12/03/18 11:47 PM) (12/06/18 4:15 AM) Ca Ion WB [1.05-1.25 1.20 mMol/L mMol/L] (12/06/18 4:15 AM) Ca Norm WB [1.05-1.25 1.18 mMol/L mMol/L] (12/06/18 4:15 AM) Treponemal Ab Non-Reactive [Non-Reactive] *NA* (12/04/18 8:39 PM) VLDL 25 *NA* (12/04/18 4:16 AM) 1Result Comment: This test was developed and its performance characteristics determined by [employer]. It has not been cleared or approved by the Food and Drug Administration. Performed At: [address] [id number] Kirk Moon MD Ph:[phone] Comment: The eGFR is calculated using the CKD-EPI formula. In most young, healthy individualsthe eGFR will be >90 mL/min/1.73m2. The eGFR declines with age. An eGFR of 60-89 may be normal insome populations, particularly the elderly, for whom the [...] eGFR should be multiplied by the estimated BMI.3Result Comment: The eGFR is calculated using the CKD-EPI formula. In most young, healthy individualsthe eGFR will be >90 mL/min/1.73m2. The eGFR declines with age. An eGFR of 60-89 may be normal insome populations, particularly the elderly, for whom the [...] should be multiplied by the estimated BMI. Immunizations No data available for this section Procedures Procedure Date Related Diagnosis Body Site Status Balloon dilation of prostate Completed Cholecystectomy Completed Creation of PAPER PATTERN FOLDER shunt Completed Insertion of stent into cerebral artery Completed Open heart surgery Completed Triple coronary bypass Completed Social History Social History Type Response Alcohol Current, Type Beer. Frequency: 1-2 times per year. Smoking Status Current every day smoker; Exposure to Tobacco Smoke None; Cigarette Smoking Last 365 Days No; Reg Smoking Cessation Counseling No entered on: 12/06/18 Assessment and Plan Extracted from: Title: Stroke Discharge Summary Author: Jakob Moore MD Date: [facility]08[facility] Date of Admission: 12/03/2018 23:06 Date of Discharge: 12/08/2018 Admit Diagnosis: Cerebral infarction due to embolism of right middle cerebral artery Discharge Diagnosis: (I63.511) Acceleratedhypertension(I10) AcuteischemicrightMCAstroke(I63.511) CAD(coronaryarterydisease)(I25.10) Cerebralinfarctionduetoembolismofrightmiddlecerebral artery(I63.411) ChroniccombinedsystolicanddiastolicCHF(congestiveheart failure)(I50.42) ChronicischemicleftMCAstroke(I69.30) Consults Obtained: Neurosurgery Brief HPI: 83 yo M with PMH of HTN, CAD s/p CABG and stent on (ASA/Plavix, compliant), CHF, NPH s/p VPS (2004), prior pontine stroke (2010), presenting with acute- onset confusion, dysarthria and b/l UE shaking e pisodes concerning for TIA vs Stroke. tried to wake him up but he appeared confused and had an episode of b/l UE shaking that lasted around 1 min. This episode was also associated with confusion an d slurring of speech. was concerned that he may be having another stroke therefore took the patient to [facility] ED, where CT head and shunt series was done. Of note, patient was seen here on 11/10 with al tered mental status after receiving Valium during a cataract surgery. At that time patient's shunt settings were changed by neurosurgery. Patient has had problems with ambulation and confusion since 11/10. Prior to this admission, patient was seen by his Neurosurgery on 11/20 (Dr. Lebron Garrison), recommended obtaining a nuclear shunt study [...] <150cc. Patient was discharged with follow ups with Neurology, Neurosurgery for NPH and PAPER PATTERN FOLDER management, Urology for urinary changes , and PCP for follow-up. Discharge Physical Examination: [...] 2 weeks. - Follow up with Dr. Lebron Garrison, Neurosurgeon in 1 week. - Follow [...] to call 911 if similar symptoms occurred again. The list of their medications on discharge was rev iewed with the patient and all questions were answered. Nell Meneses MD PGY-1 Neurology Extracted from: Title: Stroke Progress Note Author: Nell Meneses MD [...] criteria. Increased contour irregularities in the left NONDESTRUCTIVE TESTER presumably due to atherosclerotic disease since CTA [...] on CTA but severe ICAD noted. 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 Lebron Garrison - Follow up with patient's urologist 1-2 weeks post discharge Nell Meneses MD PGY-1 Neurology STROKE STAFF I have personally evaluated the patient. i have reviewed the resident 's note detailed above. I agree with the resident's findings, assessment and plan as outlined in the note except as detailed below. In addition, i have reviewed the [...] on his own, [facility]. I spoke to his at length at the bedside at length, updated her on the clinical case progress and answered all her questions Jakob Moore MD [facility] Department of Neurology Extracted from: Title: Stroke H&P Author: Charlie Manley MD Date: 12/04/18 Stroke History & Physical Patient:MATT MATT Consult Requested By: ED [...] seen by his Neurosurgery on 11/20 (Dr. Lebron Garrison), recommended obtaining a nuclear shunt study [...] Open heart surgery Cholecystectomy Family Medical History: [place] Social History: Smokes 1 ppd for >50 years, lives with . Home Medications: aspirin 13YiwkfahelHRGJXWHUxegjwpl64Svcb. atorvastatin(nbeimpybxedy23tgomsbzzoscf) 1tab(s)BYMOUTH Bedtime. bisoprolol(ntjdgvhtuw9kuliptdtzssf) 0.5tab(s)BYMOUTHEvery OtherDay. clopidogrel(ytpbdbictis92uknkghdiwwrv) 1tab(s)BYMOUTHDaily. fluticasonenasal(fluticasonenasal0.05mg/inhspray) 1spray(s) Slmpd0LklpjNeitx. losartan(toruuail01zbyuwyjnqssl) 1tab(s)BYMOUTHDaily. meclizine(cxheoqhbd85llottaxdoful) 1tab(s)BGVVSED9Rezmy DailyasneededOther-UgjOlkcegrtrrm83Umfg. Allergies: No Known Medication Allergies Physical Exam: [...] on LE but symmetric weakness of hip extensor/flexors. Tone: is normal and bulk is normal [...] criteria. Increased contour irregularities in the left NONDESTRUCTIVE TESTER presumably due to atherosclerotic disease since CTA [...] Switch to different platelet agent if necessary. 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 Lebron Garrison THE FOLLOWING WERE PRESENT ON ADMISSION: TRAVELING REPAIR ACCOUNTANT - Acute Ischemic Stroke, NPH, Encephalopathy Respiratory - COPD Cardiovascular - CAD, HTN Renal - CKD Charlie Manley MD, MPH Neurology Resident PGY-2 [facility] STROKE STAFF I have personally evaluated the [...] criteria. Increased contour irregularities in the left NONDESTRUCTIVE TESTER presumably due to atherosclerotic disease since CTA [...]
--- OUTSIDE RECORDS SUMMARY | 2019-01-09 10:05 | XMS REPORT | CCD ---
:1935 Author Organization [facility] [place] Care Team Providers Name Role Phone Lebron Garrison Referring Provider Allergies, Adverse Reactions, Alerts Substance Reaction Status NKDA Active Problem List Condition Effective Dates Status CVA - Cerebrovascular accident Active Dysarthria Active Dysphagia Active Fall risk Active General weakness Active Hypertension Active Knowledge deficit (specify)1 Active Slurred speech Active 1stroke
--- OUTSIDE RECORDS SUMMARY | 2019-01-09 10:05 | XMS REPORT | Summary of Care ---
:1935 Author Organization [facility] Address [facility] [place], [place] [address]- Encounter HQ Shondantr_bambi(FIN) [id number] Date(s): 12/30/18 - 12/30/[address] [address]- Discharge Disposition: Home or Self Care Attending Physician: Georgiana Hunter MD Referring Physician: Georgiana Hunter MD Vital Signs No data available for this section Problem List Condition Effective Dates Status Health [...] of prostate Completed Cholecystectomy Completed Creation of INTERNAL CONTROLS SPECIALIST shunt Completed Insertion of stent into cerebral artery Completed Open heart surgery Completed Triple coronary bypass Completed Social History Social History Type Response Alcohol Current, Type Beer. Frequency: 1-2 times per year. Smoking Status Current every day smoker; Exposure to Tobacco Smoke None; Cigarette Smoking Last 365 Days No; Reg Smoking Cessation Counseling No entered on: 12/06/18 Assessment and Plan No data available for this section
--- OUTSIDE RECORDS SUMMARY | 2019-01-09 10:05 | XMS REPORT | Summary of Care ---
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
--- OUTSIDE RECORDS SUMMARY | 2019-01-09 10:06 | XMS REPORT | CCD ---
:1935 Author Organization [facility] Care Team Providers Name Role Phone Javier Causey Consulting Provider Dee Shipman Referring Provider Allergies, Adverse Reactions, Alerts Substance Reaction Status NKDA Active Problem List Condition Effective Dates Status CVA - Cerebrovascular accident Active Dysarthria Active Dysphagia Active Fall risk Active General weakness Active HLD (hyperlipidemia) Resolved HTN (hypertension) Resolved Hypertension Active Knowledge deficit stroke1 Active Slurred speech Active 1stroke Medications Medication Instructions Start Date End Date Status bisoprolol 5 mg oral 2.5 mg, 0.5 tab, PO, Every 03/16/2013 Ordered tablet Other Day, Substitution Allowed lisinopril 10 mg oral 10 mg, 1 tab, PO, Daily, 30 03/17/2013 Ordered tablet tab, Substitution Allowed, TAB aspirin 325 mg tablet, 325 mg, 1 tab, PO, Daily, 30 03/17/2013 Ordered enteric coated tab, Substitution Allowed, ECTAB aspirin 81 mg tablet, 81 mg, 1 tab, PO, Daily, 03/17/2013 03/17/2013 Discontinued chewable tab, Substitution Allowed, CHEWTAB clopidogrel 75 mg oral 75 mg, 1 tab, PO, Daily, 30 03/16/2013 Ordered tablet tab, Substitution Allowed, TAB Saline Flush 0.9% 5 ml, Route: IVP, Drug Form: 03/16/2013 03/17/2013 Discontinued INJ, Dosing Weight 72.727, kg, Q12H, Start date: 03/16/13 21:00:00, Duration: 30 day, Stop date: 04/15/13 9:00:00(Same as: BD Posiflush) Saline Flush 0.9% 5 ml, Route: IVP, Drug Form: 03/16/2013 03/17/2013 Discontinued INJ, Dosing Weight 72.727, kg, PRN, PRN Line Flush, Start date: 03/16/13 20:56:00, Duration: 30 day, Stop date: 04/15/13 19:55:00(Same as: BD Posiflush) aspirin 325 mg tablet, 325 mg, 1 tab, Route: PO, 03/16/2013 03/17/2013 Discontinued enteric coated Drug form: ECTAB, Daily, Dosing Weight 72.727, kg, Start date: 03/16/13 23:30:00, Duration: 30 day, Stop date: 04/15/13 9:00:00(Do Not Crush) Do not crush or chew. clopidogrel 75 mg, 1 tab, Route: PO, 03/17/2013 03/17/2013 Discontinued Drug form: TAB, Daily, Dosing Weight 72.727, kg, Start date: 03/17/13 9:00:00, Duration: 30 day, Stop date: 04/15/13 9:00:00(Same As: Plavix) aspirin 300 mg rectal 300 mg, 1 supp, Route: [place], 03/17/2013 03/17/2013 Discontinued suppository Drug form: SUPP, Daily, Dosing Weight 72.727, kg, Start date: 03/17/13 9:00:00, Duration: 30 day, Stop date: 04/15/13 9:00:00Refrigerate. heparin 5,000 unit, 1 mL, Route: 03/17/2013 03/17/2013 Discontinued SUB-Q, Drug form: INJ, Q8H, Dosing Weight 72.727, kg, Start date: 03/17/13 0:00:00, Duration: 30 day, Stop date: 04/15/13 16:00:00porcine heparin labetalol 10 mg, 2 mL, Route: IVP, 03/16/2013 03/17/2013 Discontinued Drug form: INJ, Q10Min, Dosing Weight 72.727, kg, PRN Hypertension, Start date: 03/16/13 20:56:00, Duration: 30 day, Stop date: 04/15/13 19:55:00, For SBP > 180mmHg and/or DBP > 105mmHg Sodium Chloride 0.9% 1,000 mL, Rate: 75 ml/hr, 03/16/2013 03/17/2013 Discontinued IV 1,000 mL Infuse over: 13.3 hr, Route: IV, Dosing Weight 72.727 kg, Total Volume: 1,000, Start date: 03/16/13 20:56:00, Duration: 30 day, Stop date: 04/15/13 20:55:00 Lipitor 80 mg oral 80 mg, 1 tab, PO, Daily, 30 03/17/2013 03/17/2013 Discontinued tablet tab, Substitution Allowed, TAB lisinopril 10 mg, 1 tab, Route: PO, 03/17/2013 03/17/2013 Discontinued Drug form: TAB, Daily, Dosing Weight 72.727, kg, Start date: 03/17/13 11:00:00, Duration: 30 day, Stop date: 04/16/13 9:00:00(Same as: Prinivil, Zestril) aspirin 81 mg tablet, 81 mg, 1 tab, PO, Daily, 03/16/2013 03/17/2013 Discontinued chewable tab, Substitution Allowed, CHEWTAB Omnipaque 350mg/ml 85 mL, Route: IVP, Drug Form: SOLN, Dosing Weight 72.727, kg, ONCALL, STAT, Start date: 03/17/13 1:53:00, Duration: 1 doses or times, Dose =2.2ml/kg, Max anog=[id number] -- "To be infused by Radiology Staff ONLY" 201203/17/2013 Completed Dose=2.2ml/kg, Max hopm=493va -- "To be infused by Radiology Staff ONLY"( Same as:Omnipaque 350). Dextrose 50% Syringe 25 gm, 50 mL, Route: IVP, 03/16/2013 03/17/2013 Discontinued Drug Form: INJ, Dosing Weight 72.727, kg, PRN, PRN Abnormal Lab Result, Start date: 03/16/13 20:58:00, Duration: 30 day, Stop date: 04/15/13 19:57:00 insulin regular 100 7 unit, 0.07 mL, Route: 03/16/2013 03/17/2013 Discontinued units/mL human SUB-Q, Drug form: SOLN, PRN, recombinant Dosing Weight 72.727, kg, PRN Abnormal Lab Result, Start date: 03/16/13 20:58:00, Duration: 30 day, Stop date: 04/15/13 19:57:00(Same as: Humulin R) Roll in palms of hands gently; Do not shake vigorously. "single patient use only"(Restricted to patients requiring a dose > 60 units) Stable for 28 days at room temperatureExpires in days from Date Dextrose 50% Syringe 6.25 gm, 12.5 mL, Route: 03/16/2013 03/17/2013 Discontinued IVP, Drug Form: INJ, Dosing Weight 72.727, kg, PRN, PRN Abnormal Lab Result, Start date: 03/16/13 20:58:00, Duration: 30 day, Stop date: 04/15/13 19:57:00 insulin regular 100 3 unit, 0.03 mL, Route: 03/16/2013 03/17/2013 Discontinued units/mL human SUB-Q, Drug form: SOLN, PRN, recombinant Dosing Weight 72.727, kg, PRN Abnormal Lab Result, Start date: 03/16/13 20:58:00, Duration: 30 day, Stop date: 04/15/13 19:57:00(Same as: Humulin R) Roll in palms of hands gently; Do not shake vigorously. "single patient use only"(Restricted to patients requiring a dose > 60 units) Stable for 28 days at room temperatureExpires in days from Dextrose 50% Syringe 12.5 gm, 25 mL, Route: IVP, 03/16/2013 03/17/2013 Discontinued Drug Form: INJ, Dosing Weight 72.727, kg, PRN, PRN Abnormal Lab Result, Start date: 03/16/13 20:58:00, Duration: 30 day, Stop date: 04/15/13 19:57:00 insulin regular 100 5 unit, 0.05 mL, Route: 03/16/2013 03/17/2013 Discontinued units/mL human SUB-Q, Drug form: SOLN, PRN, recombinant Dosing Weight 72.727, kg, PRN Abnormal Lab Result, Start date: 03/16/13 20:58:00, Duration: 30 day, Stop date: 04/15/13 19:57:00(Same as: Humulin R) Roll in palms of hands gently; Do not shake vigorously. "single patient use only"(Restricted to patients requiring a dose > 60 units) Stable for 28 days at room temperatureExpires in days from Date Lipitor 80 mg, 1 tab, Route: PO, 03/17/2013 03/17/2013 Discontinued Drug form: TAB, QPM, Dosing Weight 72.727, kg, Start date: 03/17/13 17:00:00, Duration: 30 day, Stop date: 04/15/13 17:00:00Same as Lipitor Zofran 4 mg, 1 tab, Route: PO, Drug 03/16/2013 03/17/2013 Discontinued form: TAB, Q8H, Dosing Weight 72.727, kg, PRN Nausea, Start date: 03/16/13 20:57:00, Duration: 30 day, Stop date: 04/15/13 20:56:00(Same as: Zofran) Senokot S 1 tab, Route: PO, Drug Form: 03/17/2013 03/17/2013 Discontinued TAB, Dosing Weight 72.727, kg, Daily, Start date: 03/17/13 9:00:00, Duration: 30 day, Stop date: 04/15/13 9:00:00(Same as Senokot-S) Equiv. to Valorie-Colace. Tylenol 650 mg, 2 tab, Route: PO, 03/16/2013 03/17/2013 Discontinued Drug form: TAB, Q6H, Dosing Weight 72.727, kg, PRN Pain, Start date: 03/16/13 20:57:00, Duration: 30 day, Stop date: 04/15/13 20:56:00Do not exceed 4 gm/day. (Same as: Tylenol) citalopram 20 mg oral 20 mg, 1 tab, PO, Daily, 30 03/16/2013 Ordered tablet tab, Substitution Allowed, TAB Vital Signs Most [...] AGAP [10.0-20.0 mEq/L] 14.0 mEq/L 17.0 mEq/L (03/17/2013 00:23:00) (03/17/2013 00:20:00) Creatinine Lvl [0.5-1.4 mg/dL] 0.9 mg/dL 0.9 mg/dL (03/17/2013 00:23:00) (03/17/2013 00:20:00) eGFR 81 mL/min/1.73m2 3 81 mL/min/1.73m2 4 *NA* *NA* (03/17/2013 00:23:00) (03/17/2013 00:20:00) BUN [7-22 mg/dL] 14 mg/dL 14 mg/dL (03/17/2013 00:23:00) (03/17/2013 00:20:00) B/C Ratio [6-25] 16 (03/17/2013 00:23:00) Glucose Lvl [70-99 mg/dL] 145 mg/dL 5 144 mg/dL 6 *HI* *HI* (03/17/2013 00:23:00) (03/17/2013 00:20:00) Total Protein [6.4-8.4 g/dL] 7.1 g/dL (03/17/2013 00:23:00) Albumin Lvl [3.5-5.0 g/dL] 3.6 g/dL (03/17/2013 00:23:00) Globulin [2.0-4.0 g/dL] 3.5 g/dL (03/17/2013 00:23:00) A/G Ratio [0.7-1.6] 1.0 (03/17/2013:23:00) Calcium Lvl [8.5-10.5 mg/dL] 8.7 mg/dL 8.7 mg/dL (03/17/2013:23:00) (03/17/2013 00:20:00) ALT [0-65 unit/L] 15 unit/L [...] values reflect the clinical guidelines of the [employer].6Interpretive Data: Adult reference range values reflect the clinical guidelines of the [employer].7Interpretive Data: Drugs reported as positive [...]
--- OUTSIDE RECORDS SUMMARY | 2019-01-09 10:06 | XMS REPORT | CCD ---
:1935 Author Organization [facility] Care Team Providers Name Role Phone Javier [...] mg rectal 300 mg, 1 supp, Route: [place], 03/17/2013 03/17/2013 Discontinued suppository Drug form: SUPP, [...] 1 doses or times, Dose =2.2ml/kg, Max dxle=[id number] -- "To be infused by Radiology Staff ONLY" 201203/17/2013 Completed Dose=2.2ml/kg, Max zwuy=[id number] -- "To be infused by Radiology Staff [...] values reflect the clinical guidelines of the [place] [employer].6Interpretive Data: Adult reference range values reflect the clinical guidelines of the [place] [employer].7Interpretive Data: Drugs reported as positive [...]
--- OUTSIDE RECORDS SUMMARY | 2019-01-09 10:06 | XMS REPORT | CCD ---
:1935 Author Organization [facility] Care Team Providers Name Role [...] mg rectal 300 mg, 1 supp, Route: [place], 03/17/2013 03/17/2013 Discontinued suppository Drug form: SUPP, [...] 1 doses or times, Dose =2.2ml/kg, Max [id number] -- "To be infused by Radiology Staff ONLY" 201203/17/2013 Completed Dose=2.2ml/kg, Max nwdz=[id number] -- "To be infused by Radiology Staff [...] values reflect the clinical guidelines of the [place] [employer].6Interpretive Data: Adult reference range values reflect the clinical guidelines of the [place] [employer].7Interpretive Data: Drugs reported as positive [...]
--- OUTSIDE RECORDS SUMMARY | 2019-01-09 10:06 | XMS REPORT | CCD ---
:1935 Author Organization [facility] Care Team Providers Name Role Phone [...] mg rectal 300 mg, 1 supp, Route: [place], 03/17/2013 03/17/2013 Discontinued suppository Drug form: SUPP, [...] 1 doses or times, Dose =2.2ml/kg, Max [id number]=[id number] -- "To be infused by Radiology Staff ONLY" 201203/17/2013 Completed Dose=2.2ml/kg, Max [id number] -- "To be infused by Radiology Staff [...] values reflect the clinical guidelines of the [place] [employer].6Interpretive Data: Adult reference range values reflect the clinical guidelines of the [place] [employer].7Interpretive Data: Drugs reported as positive [...]
--- OUTSIDE RECORDS SUMMARY | 2019-01-09 10:07 | XMS REPORT ---
:1935 [facility] Address [address] [place] [address] Care Team Providers Name Role Phone Unavailable Unavailable Unavailable Problems This patient has no known problems. Allergies, Adverse Reactions, Alerts This patient has no known allergies or adverse reactions. Medications This patient has no known medications. Encounters Start End Encounter Admission Attending Care Care Encounter Date/Time Date/Time Type Type Clinicians Facility Department ID 2018-12-30 2018-12-30 Outpatient [facility] [id number] 12:18:00 12:18:00 2018-12-17 2018-12-17 Outpatient [facility] 7502 10:25:00 10:25:00 2018-12-04 2018-12-03 Inpatient E [facility] [id number] 03:20:00 23:06:00 2018-11-10 2018-11-10 Emergency E [facility] [id number] 18:32:00 18:32:00
--- NOTE | 2019-01-09 11:28 | EDPHYS ---
Physician Documentation [facility] Name: Joey Ramsey Age: 83 yrs Sex: Male : 1935 Arrival Date: 01/09/2019 Time: 09:59 Bed 19 Private MD: Marcie Nielson ED Physician Fuad Hickey HPI: 01/09 10:25 This 83 yrs old Male presents to ER via Ambulatory with complaints of Cough. 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 - Social history:: Smoking status: unknown. - Ebola Screening: : Patient negative for fever greater than or equal to 101.5 degrees Fahrenheit, and additional compatible Ebola Virus Disease symptoms Patient denies exposure to infectious person Patient denies travel to an Ebola-affected area in the 21 days before illness onset No symptoms or risks identified at this time. ROS: 10:29 Eyes: Negative for injury, pain, redness, and discharge. cp 10:29 Constitutional: Negative for fever, poor PO intake. 10:29 ENT: Negative for drainage from ear(s), ear pain, sore throat, difficulty swallowing, difficulty handling secretions. 10:29 Cardiovascular: Negative for chest pain. 10:29 Respiratory: Positive for cough, Negative for wheezing. 10:29 Abdomen/GI: Negative for vomiting, diarrhea, constipation. 10:29 All other systems are negative. Exam: 10:35 Constitutional: The patient appears in no acute distress, alert, awake, non-toxic, well cp developed, well nourished. 10:35 Head/Face: Normocephalic, atraumatic. cp 10:35 Eyes: Periorbital structures: appear normal, Conjunctiva: normal, no exudate, no injection, Lids and lashes: appear normal, bilaterally. 10:35 ENT: External ear(s): are unremarkable, Nose: is normal, Mouth: Lips: moist, Oral mucosa: pink and intact, moist, Posterior pharynx: is normal, airway is patent, no erythema, no exudate. 10:35 Chest/axilla: Inspection: normal, Palpation: is normal, no crepitus, no tenderness. 10:35 Cardiovascular: Rate: normal, Rhythm: regular, Edema: is not appreciated, JVD: is not appreciated. 10:35 Respiratory: the patient does not display signs of respiratory distress, Respirations: normal, no use of accessory muscles, no retractions, no splinting, no tachypnea, labored breathing, is not present, Breath sounds: are clear throughout, no decreased breath sounds, no stridor, no wheezing. 10:35 Abdomen/GI: Exam negative for discomfort, distension, guarding, Inspection: abdomen appears normal. Vital Signs: 10:11 BP 102 / 53; Pulse 66; Resp 18; Temp 98.3(O); Pulse Ox 98% on R/A; Weight 60.33 kg; hj Height 5 ft. 6 in. (167.64 cm); Pain 0/10; 10:11 Body Mass Index 21.47 (60.33 kg, 167.64 cm) hj MDM: 10:26 Patient medically screened. cp 10:30 Differential Diagnosis: Bronchitis Viral Syndrome Pneumonia Other COPD. cp 11:26 Data reviewed: vital signs, nurses notes, radiologic studies, plain films. cp 11:26 Test interpretation: by ED physician or midlevel provider: chest xray negative for cp infiltrates. Counseling: I had a detailed discussion with the patient and/or guardian regarding: the historical points, exam findings, and any diagnostic results supporting the discharge/admit diagnosis, radiology results, to return to the emergency department if symptoms worsen or persist or if there are any questions or concerns that arise at home. 01/09 10:26 Order name: XRAY Chest Pa And Lat (2 Views) cp Administered Medications: No medications were administered Disposition: 15:28 Co-signature as Attending Physician, Fuad Hickey MD. rn Disposition: 01/09/19 11:27 Discharged to Home. Impression: Cough. - Condition is Stable. - Discharge Instructions: Cough, Adult. - Medication Reconciliation Form, Thank You Letter, Antibiotic Education, Prescription Opioid Use form. - Follow up: Private Physician; When: 1 - 2 days; Reason: Worsening of condition. - Problem is new. - Symptoms have improved. 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 Impression: Cough. Condition is Stable. em Forms are Medication Reconciliation Form, Thank You Letter, Antibiotic Education, Prescription Opioid Use. Follow up: Private Physician; When: 1 - 2 days; Reason: Worsening of condition. Problem is new. Symptoms have improved. cp
--- NOTE | 2019-01-09 11:28 | ER ---
Nurse's Notes [facility] Name: Joey Ramsey Age: 83 yrs Sex: Male : 1935 Arrival Date: 01/09/2019 Time: 09:59 Bed 19 Private MD: Marcie Nielson Diagnosis: Cough Presentation: 01/09 10:08 Presenting complaint: states: he aspirates when he takes in fluids, last night he hj started coughing when he took the thickened water; just wanna make sure he doesn't have aspiration pneumonia;. Transition of care: patient was not received from another setting of care. Onset of symptoms was January 09, 2019. Risk Assessment: Do you want to hurt yourself or someone else? Patient reports no desire to harm self or others. Initial Sepsis Screen: Does the patient meet any 2 criteria? No. Patient's initial sepsis screen is negative. Does the patient have a suspected source of infection? No. Patient's initial sepsis screen is negative. Care prior to arrival: None. 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 - Social history:: Smoking status: unknown. - Ebola Screening: : Patient negative for fever greater than or equal to 101.5 degrees Fahrenheit, and additional compatible Ebola Virus Disease symptoms Patient denies exposure to infectious person Patient denies travel to an Ebola-affected area in the 21 days before illness onset No symptoms or risks identified at this time. Screenin:32 Abuse screen: Denies threats or abuse. Nutritional screening: No deficits noted. em Tuberculosis screening: No symptoms or risk factors identified. Fall Risk None identified. Assessment: 10:32 General: Appears in no apparent distress. comfortable, Behavior is calm, cooperative, em Denies fever. Pain: Denies pain. Neuro: Level of Consciousness is awake, alert, obeys commands, Oriented to person, place, time, situation. Cardiovascular: Capillary refill < 3 seconds Patient's skin is warm and dry. Rhythm is regular. Respiratory: Reports cough that is hacking, Airway is patent Respiratory effort is even, unlabored, Respiratory pattern is regular, symmetrical, Breath sounds are clear bilaterally. Derm: Skin is intact, is thin, Skin is pink, warm \T\ dry. Musculoskeletal: Capillary refill < 3 seconds, Range of motion: intact in all extremities. Vital Signs: 10:11 BP 102 / 53; Pulse 66; Resp 18; Temp 98.3(O); Pulse Ox 98% on R/A; Weight 60.33 kg; hj Height 5 ft. 6 in. (167.64 cm); Pain 0/10; 10:11 Body Mass Index 21.47 (60.33 kg, 167.64 cm) hj ED Course: 09:59 Patient arrived in ED. as 10:01 Triage completed. hj 10:02 Marcie Nielson MD is Private Physician. as 10:11 Arm band placed on left wrist. hj 10:20 Mehdi Collins PA is PHCP. cp 10:21 Fuad Hickey MD is Attending Physician. cp 10:23 Tika Myers RN is Primary Nurse. iw 10:32 Patient has correct armband on for positive identification. Bed in low position. Call em light in reach. Adult w/ patient. 10:49 XRAY Chest Pa And Lat (2 Views) In Process Unspecified. EDMS 11:37 No provider procedures requiring assistance completed. Patient did not have IV access em during this emergency room visit. Administered Medications: No medications were administered Outcome: 11:27 Discharge ordered by MD. cp 11:37 Discharged to home via wheelchair, with family. em 11:37 Condition: good 11:37 Discharge instructions given to patient, family, Instructed on discharge instructions, follow up and referral plans. Demonstrated understanding of instructions, follow-up care. 11:37 Patient left the ED. em Signatures: Dispatcher [employer] EDMS Parker Viera, WELDER REPAIR WELDER REPAIR em Florence Mcmillan as Tika Myers RN RN iw Rick Eaton RN RN Mehdi Collins PA PA cp Corrections: (The following items were deleted from the chart) 10:02 10:01 Pulse 81bpm; Resp 20bpm; Pulse Ox 96% RA; Temp 98.7F Oral; 56.7 kg; Height 5 ft. hj 0 in.; BMI: 24.4; Pain 10/10; hj 10:04 10:01 Allergies: No Known Allergies; hj hj : 10:01 PMHx: Aortic Stenosis; [facility] : 10:01 PMHx: CAD; [facility] : 10:01 PMHx: CHF; : 10:01 PMHx: CVA; : 10:01 PMHx: Hypertension; [facility] : 10:01 PMHx: UTI; [facility] : 10:01 PSHx: CABG; 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 10:01 BP 143 / 60; Pulse 81bpm; Resp 20bpm; Pulse Ox 96% RA; Temp 98.7F Oral; 56.7 kg; hj Height 5 ft. 0 in.; BMI: 24.4; Pain 10/10; 09:59 Presenting complaint: Patient states: i leaned over and my lower back started hj hurting since then and also i had hx of diverticulitis, not sure which one i have now; denies trauma to the area; pain is 10/10; denies N/V; denies diarrhea; :59 Transition of care: patient was not received from another setting of care. [facility] 59 Onset of symptoms was January 09, 2019 [facility] :59 Risk Assessment: Do you want to hurt yourself or someone else? Patient reports no hj desire to harm self or others. 59 Initial Sepsis Screen: Does the patient meet any 2 criteria? No. Patient's initial sepsis screen is negative. Does the patient have a suspected source of infection? No. Patient's initial sepsis screen is negative. 59 Care prior to arrival: None. [facility] 59 Method Of Arrival: Ambulatory [facility] 59 Acuity: VINAY 3 [facility] 10:01 Arm band placed on left wrist. [facility] 10:11 Pulse 66bpm; Resp 18bpm; Pulse Ox 98% RA; Temp 98.3F Oral; 60.33 kg; Height 5 ft. hj 6 in.; BMI: 21.4; Pain 0/10;
[2019-01-09 12:01] VITALS: BP 102/53; TEMP 98.3; O2SAT 98
--- NOTE | 2019-01-09 13:07 | RAD REPORT ---
EXAM DESCRIPTION: Zach Mejía (2 Views)01/09/2019 10:49 am CLINICAL HISTORY: cough COMPARISON: None FINDINGS: The lungs appear clear of acute infiltrate. The heart is normal size. Postsurgical changes involve the chest. IMPRESSION: No acute abnormalities displayed
== END 2019-01-09 11:37 | disposition home or self-care (01) ==
LOC: ER 09:58
DX: R05 Cough (principal); Z86.73 Personal history of transient ischemic attack (TIA), and cerebral infarction without residual deficits; Z95.1 Presence of aortocoronary bypass graft
CPT/HCPCS: 71046; 99283

== ENCOUNTER 2019-02-14 16:07 | Emergency (ER) | payer OTHER ==
--- OUTSIDE RECORDS SUMMARY | 2019-02-14 16:10 | XMS REPORT | Clinical Summary ---
:1935 Author [facility] Address [address] [place] [address] Care Team Providers Name Role Phone Garcia [...] Not on file Results Not on fileafter 02/13/2018 Insurance Payer Benefit Plan / Group Subscriber ID Type Phone Address CARE IMPROVEMENT MEDICARE MGD CARE IMPROVEMENT PLUS xxxxxxxxx CARE Advance Directives For more information, please contact:[facility] [phone] Code Status Date Activated Date Inactivated Comments Full Code 11/18/2015 6:45 PM 11/22/2015 7:33 PM This code status was determined by: Patient
--- OUTSIDE RECORDS SUMMARY | 2019-02-14 16:12 | XMS REPORT | Continuity of Care Document ---
:[address] [employer] [facility] Care Team Providers Name Role Phone [facility] [employer] [facility] Unavailable Unavailable Problems Problem Status Onset Classification Date Comments Source Date Reported I63.9 Active 12/25/19 [facility] [place] TIA Active 12/04/[address] ISCHEMIC R MCA Active 12/04/19 [facility] STROKE [address] [place] [address] HYDROCEPHALUS, Active 12/02/19 UNSPECIFIED 19 [place] At risk for 11/11/19 11/12/2018 [facility] altered mental [address] [place] [address] status Center AMS Active 11/11/[address] 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 [facility] STROKE [address] [place] [address] 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 [facility] [place] CVA - Active Problem 03/20/2013 [facility] Cerebrovascular Medical accident [facility], [place] Dysarthria Active Problem 03/20/2013 [facility], [place] Dysphagia Active Problem 03/20/2013 [facility] Fall risk Active Problem 03/20/2013 [facility] General weakness Active Problem 03/20/2013 [facility] HLD Resolved Problem 03/24/2013 [facility] HTN Resolved Problem 03/24/2013 [facility] Hypertension Active Problem 03/20/2013 [facility] Knowledge deficit Active Problem 03/20/[address],[facility] Slurred speech Active Problem 03/20/2013 [facility] CVA - Active Problem 01/01/2019 [facility] Cerebrovascular Medical accident [place], [place] Dysarthria Active Problem 01/01/2019 [facility], [place] Dysphagia Active Problem 01/01/2019 [facility], [place] Fall risk Active Problem 01/01/2019 [facility] General weakness Active Problem 01/01/2019 [facility] HLD (Confirmed) Resolved Problem 01/01/2019 [facility] HTN (Confirmed) Resolved Problem 01/01/2019 [facility] Hypertension Active Problem 01/01/2019 [facility] Knowledge deficit Active Problem 01/01/2019 stroke [facility] stroke1 [facility] Slurred speech Active Problem 01/01/2019 [facility] COMMUNICAT Active HYDROCEPHALUS [facility] CVA Active [facility] CEREB INFRC D/T Active [facility] UNSP OCCLS OR Medical [facility] [place] Medications Medication Details Route Status Patient Ordering Order Source Instructions Provider Date quetiapine 25 mg, 1 tab, Inactive [facility] Route: PO, 019 Medical Drug form: [place] TAB, Bedtime, Dosing Weight 70.17, kg, Start date: 12/08/18 21:00:00 CDT, Stop date: 01/06/19 21:00:00 CDT, 0Notes: (Same as: SEROquel) Levetiracetam 500 mg=1 tab, Active [place] 500 MG Oral PO, Q12H, # 60 019 Medical Tablet [Keppra] tab, 2 Center Refill(s) Levetiracetam 500 mg, 1 tab, No Longer [place] 500 MG Oral Route: PO, Active 019 Medical Tablet [Keppra] Drug form: [place] TAB, Q12H, Dosing Weight 70.17, kg, Start date: 12/05/18 21:00:00 CDT, Duration: 30 day, Stop date: 01/04/19 9:00:00 CDT, 0Notes: (Same as:Keppra) Vancomycin 1,000 mg, No Longer [facility] Route: IVPB, Active 019 Medical Drug form: [place] INJ, [id number], Dosing Weight 70.17, kg, Priority: STAT, Start [...] Wasted: ___ mg Vitamin B12 1,000 Inactive [facility] microgram, 1 019 Medical mL, Route: [...] As: Vitamin B12) Keppra 1,500 mg, Inactive [facility] Route: IVPB, 019 Medical ONCE, Dosing Center Weight 70.17, kg, Loading Dose, Start date: 12/05/18 11:09:00 CDT, Stop date: 12/05/18 11:09:00 CDT, 0Notes: Same as Keppra Mix with 100 mL NS, LR or D5W MEDICATION WASTE Product Size: 500 mg Product Wasted: ___ mg Vitamin B12 1,000 Inactive [facility] microgram, 1 019 Medical mL, Route: IM, Center Drug form: INJ, ONCE, Dosing Weight 70.17, kg, Start date: 12/05/18 11:09:00 CDT, Stop date: 12/05/18 11:09:00 CDT, 0Notes: (Same As: Vitamin B12) atorvastatin 10 mg, 1 tab, No Longer [facility] Route: PO, Active 019 Medical Drug form: Center TAB, Bedtime, Dosing Weight 70.17, kg, Start date: 12/04/18 21:00:00 CDT, Duration: 30 day, Stop date: 01/02/19 21:00:00 CDT, 0Notes: (Same As: Lipitor) Briviact 50 mg, 1 tab, Inactive [facility] Route: PO, 019 Medical Drug form: Center TAB, Q12H, Dosing Weight 70.17, kg, Start date: 12/04/18 21:00:00 CDT, Duration: 30 day, Stop date: 01/03/19 9:00:00 CDT, 0Notes: (Same as: Briviact) Do Not Crush topiramate 25 mg, Route: Inactive [facility] PO, Drug form: 019 Medical TAB, Q12H, Center Dosing Weight 70.17, kg, Start date: 12/04/18 21:00:00 CDT, Duration: 30 day, Stop date: 01/03/19 9:00:00 CDT Aspirin 81 MG 81 mg=1 tab, Active [facility] Enteric Coated PO, Daily, # 019 Medical Tablet 90 tab, 3 Center Refill(s) Saline Flush 10 ml, Route: No Longer [facility] 0.9% IVP, Drug Active 019 Medical Form: INJ, Center Dosing Weight 63.5, kg, Q12H, Start date: 12/04/18 9:00:00 CDT, Duration: 30 day, Stop date: 01/02/19 21:00:00 CDT, 0Notes: Same as: BD Posiflush Sterile Docusate Sodium 1 tab, Route: No Longer [place] 50 MG / PO, Drug Form: Active 019 Medical sennosides, LONGTERM TAB, Dosing Center 8.6 MG Oral Weight [...] clopidogrel 75 mg, 1 tab, No Longer [facility] Route: PO, Active 019 Medical Drug form: [place] TAB, Q24H, Dosing Weight 63.5, kg, Start date: 12/04/18 4:00:00 CDT, Duration: 30 day, Stop date: 01/02/19 9:00:00 CDT, 0Notes: (Same As: Plavix) Aspirin 81 MG 81 mg, 1 tab, No Longer [facility] Enteric Coated Route: PO, Active 019 Medical Tablet Drug form: [place] ECTAB, Q24H, Dosing Weight 63.5, kg, Start date: 12/04/18 4:00:00 CDT, Duration: 30 day, Stop date: 01/02/19 9:00:00 CDT, 0Notes: Do not crush or chew. (Same As: Ecotrin) normal saline 1,000 mL, No Longer [facility] 0.9% IV 1,000 Rate: 75 Active 019 Medical mL ml/hr, Infuse Center over: 13.3 hr, Route: IV, Dosing Weight 63.5 kg, Total Volume: 1,000, Start date: 12/04/18 3:38:00 CDT, Duration: 30 day, Stop date: 01/03/19 3:37:00 CDT, 1.76, m2, 0 Fluticasone 1 spray, Active [facility] propionate 0.05 NASAL, BID, # 019 Medical MG/ACTUAT 16 gm, 0 [place] Metered Dose Refill(s) Nasal [place] meclizine 25 mg 25 mg=1 tab, Active [facility] oral tablet PO, TID, PRN 019 Medical Other-See [place] Comments, # 30 tab, 0 Refill(s) atorvastatin 10 10 mg=1 tab, Active [place] mg oral tablet PO, Bedtime, # 019 Medical 30 tab, 0 Center Refill(s) Aspirin 81 mg, PO, Inactive [facility] Daily, 0 019 Medical Refill(s) Center losartan 25 mg 25 mg=1 tab, Active [facility] oral tablet PO, Daily, # 019 Medical 30 tab, 0 Center Refill(s) Saline Flush 10 ml, Route: No Longer [facility] 0.9% IVP, Drug Active 019 Medical Form: INJ, Center Dosing Weight 63.5, kg, PRN, PRN Line Flush, Start date: 12/04/18 3:28:00 CDT, Duration: 30 day, Stop date: 01/03/19 3:27:00 CDT, 0Notes: Same as: BD Posiflush Sterile Iohexol 60 mL, Route: Inactive [facility] IVP, Drug 019 Medical Form: SOLN, [place] Dosing Weight 63.5, kg, ONCALL, STAT, Start date: 12/04/18 0:16:00 CDT, Duration: 1 doses or times, Dose=2.2ml/kg, Max [id number] -- "To be infused by Radiology Staff ONLY" Lipitor 80 mg, 1 tab, Inactive [facility] Route: PO, treras Medical Drug form: [place] TAB, QPM, Dosing Weight 72.727, kg, Start date: 03/17/13 17:00:00, Duration: 30 day, Stop date: 04/15/13 17:00:00Same as Lipitor Lipitor 80 mg 80 mg, 1 tab, Inactive [facility] oral tablet PO, Daily, Medical tab, Center Substitution Allowed, TAB lisinopril 10 10 mg, 1 tab, Active [place] mg oral tablet PO, Daily, Medical tab, Center Substitution Allowed, TAB aspirin 325 mg 325 mg, 1 tab, Active [facility] tablet, enteric PO, Daily, Medical coated tab, Center Substitution Allowed, ECTAB aspirin 81 mg 81 mg, 1 tab, Inactive [facility] tablet, PO, Daily, Medical chewable tab, Center Substitution Allowed, CHEWTAB lisinopril 10 mg, 1 tab, Inactive [facility] Route: PO, 013 Medical Drug form: [...] aspirin 300 mg 300 mg, 1 Inactive [place] rectal supp, Route: Dan[facility] Medical suppository RI, Drug form: [place] SUPP, Daily, Dosing Weight 72.727, kg, Start date: 03/17/13 9:00:00, Duration: 30 day, Stop date: 04/15/13 9:00:00Refrige rate. Senokot S 1 tab, Route: [facility] PO, Drug Form: susanne [facility] Medical TAB, Dosing Center Weight 72.727, kg, Daily, Start date: 03/17/13 9:00:00, Duration: 30 day, Stop date: 04/15/13 9:00:00(Same as Senokot-S) Equiv. to Valorie-Colace. Omnipaque 85 mL, Route: [facility]/ml IVP, Drug susanne [facility] Medical Form: SOLN, [place] Dosing Weight 72.727, kg, ONCALL, STAT, Start date: 03/17/13 1:53:00, Duration: 1 doses or times, Dose=2.2ml/kg, Max ggey=660qi -- "To be infused by Radiology Staff ONLY"Dose=2.2m l/kg, Max gwpi=[id number] -- "To be infused by Radiology Staff ONLY"(Same as:Omnipaque 350). heparin 5,000 unit, 1 [facility] mL, Route: [facility] Medical SUB-Q, Drug Center form: INJ, Q8H, Dosing Weight 72.727, kg, Start date: 03/17/13 0:00:00, Duration: 30 day, Stop date: 04/15/13 16:00:00porcin e heparin aspirin 325 mg 325 mg, 1 tab, [facility] Long[facility] tablet, enteric Route: PO, Active treras 013 Medical coated Drug form: [place] ECTAB, Daily, Dosing Weight 72.727, kg, Start date: 03/16/13 23:30:00, Duration: 30 day, Stop date: 04/15/13 9:00:00(Do Not Crush) Do not crush or chew. aspirin 81 mg 81 mg, 1 tab, No Longer [place] tablet, PO, Daily, Active [facility] Medical chewable tab, Center Substitution Allowed, CHEWTAB citalopram 20 20 mg, 1 tab, Active [place] mg oral tablet PO, Daily, Medical tab, Center Substitution Allowed, TAB bisoprolol 5 mg 2.5 mg, 0.5 Active [facility] oral tablet tab, PO, Every Medical Other Day, Center Substitution Allowed clopidogrel 75 75 mg, 1 tab, Active [place] mg oral tablet PO, Daily, Medical tab, Center Substitution Allowed, TAB Saline Flush 5 ml, Route: No Longer [facility] 0.9% IVP, Drug Active treras 013 Medical Form: INJ, [place] Dosing Weight 72.727, kg, Q12H, Start date: 03/16/13 21:00:00, Duration: 30 day, Stop date: 04/15/13 9:00:00(Same as: BD Posiflush) Dextrose 50% 25 gm, 50 mL, No Longer [facility] Syringe Route: IVP, Active treras 013 Medical Drug Form: [place] INJ, Dosing Weight 72.727, kg, PRN, PRN Abnormal Lab Result, Start date: 03/16/13 20:58:00, Duration: 30 day, Stop date: 04/15/13 19:57:00 insulin regular 7 unit, 0.07 No Longer [facility] 100 units/mL mL, Route: Active treras 013 Medical human SUB-Q, Drug [place] recombinant form: SOLN, PRN, Dosing Weight 72.727, [...] 4 mg, 1 tab, No Longer [facility] Route: PO, Active treras 013 Medical Drug form: Center TAB, Q8H, Dosing Weight 72.727, kg, PRN Nausea, Start date: 03/16/13 20:57:00, Duration: 30 day, Stop date: 04/15/13 20:56:00(Same as: Zofran) Tylenol 650 mg, 2 tab, [facility] Route: PO, Active treras 013 Medical Drug form: Center TAB, Q6H, Dosing Weight 72.727, kg, PRN Pain, Start date: 03/16/13 20:57:00, Duration: 30 day, Stop date: 04/15/13 20:56:00Do not exceed 4 gm/day. (Same as: Tylenol) Saline Flush 5 ml, Route: No Longer [facility] 0.9% IVP, Drug Active treras 013 Medical Form: INJ, Center Dosing Weight 72.727, kg, PRN, PRN Line Flush, Start date: 03/16/13 20:56:00, Duration: 30 day, Stop date: 04/15/13 19:55:00(Same as: BD Posiflush) labetalol 10 mg, 2 mL, [facility] Longer [facility] Route: IVP, Active treras 013 Medical Drug form: Center INJ, Q10Min, Dosing Weight 72.727, kg, PRN Hypertension, Start date: 03/16/13 20:56:00, Duration: 30 day, Stop date: 04/15/13 19:55:00, For SBP > 180mmHg and/or DBP > 105mmHg Sodium Chloride 1,000 mL, No Longer [facility] 0.9% IV 1,000 Rate: 75 Active [...] URINE AND UA Turbidity Slight Clear 12/06 [facility] [place] [facility] *ABN* /2018 [facility] (12/06/18 9:32 AM) [place] URINE AND UA Color Yellow Yellow 12/06 [facility] [place] [facility] *NA* 2018 [facility] (12/06/18 9:32 AM) [place] URINE AND UA Hyal Cast 1 0 - 2 12/[address] URINE AND UA Gran Cast 0-2 /LPF None Seen 12/06 [facility] [place] [facility] /[facility] [address] [place] [address] URINE AND UA WBC 5 0 - 5 12/[address] URINE AND UA Amorph Occasional None Seen 12/06 [facility] [place] [facility] Lupe /HPF /HPF [address] [place] [address] URINE AND UA Renal Epi 1 <=0 /LPF 12/[address] URINE AND UA RBC 13 0 - 2 12/[address] URINE AND UA Mucus Few /LPF None Seen 12/06 [facility] [place] [facility] /[facility] [address] [place] [address] URINE AND UA Bacteria Occasional None Seen 12/06 [facility] [place] [facility] /HPF /HPF /[address] [place] [address] URINE AND UA Sq Epi Occasional Few /LPF 12/06 [facility] [place] [facility] /[facility] [address] [place] [address] URINE AND UA Blood Moderate Negative 12/06 [facility] [place] [facility] *ABN* /2018 [facility] (12/06/18 9:32 AM) [place] URINE AND UA Nitrite Negative Negative 12/06 [facility] [place] [facility] (12/06/18 9:32 AM) [facility] URINE AND UA <1.0 0.1 - 1.0 12/06 [facility] [place] [facility] Urobilinogen /[address] [place] [address] URINE AND UA Leuk Est Negative Negative 12/06 [facility] [place] [facility] (12/06/18 9:32 AM) [address] [place] [address] URINE AND UA Spec Grav 1.020 <=1.030 12/[address] URINE AND UA Bili Negative Negative 12/06 [facility] STOOL *NA* [facility] (12/06/18 9:32 AM) Center URINE AND UA Ketones Negative Negative 12/06 [facility] [place] [facility] mg/dL mg/dL [facility] URINE AND UA Protein Negative Negative 12/06 [facility] [place] [facility] mg/dL mg/dL [facility] URINE AND UA pH 5.0 5.0 - 8.0 12/[address] URINE AND UA Glucose Negative Negative 12/06 [facility] [place] [facility] mg/dL mg/dL [facility] CHEM PANEL Magnesium Lvl 2.3 1.8 - 2.4 12/[address] CHEM PANEL Phosphorus 2.8 2.5 - 4.5 12/[address] ELECTROLYTE AGAP 9.5 10.0 - 12/06 [facility] 20.0 [facility] ELECTROLYTE BUN 13 7 - 22 12/[address] ELECTROLYTE Potassium Lvl 3.5 3.5 - 5.1 12/[address] ELECTROLYTE Chloride Lvl 108 95 - 109 12/[address] ELECTROLYTE Creatinine 0.91 0.50 - 12/06 [facility] Lvl 1.40 [facility] ELECTROLYTE Sodium Lvl 139 135 - 145 12/[address] ELECTROLYTE Glucose Lvl 100 70 - 99 12/[address] ELECTROLYTE eGFR 77 12/06 [facility] [place] Comment: [facility] eGFR is Center calculated using the CKD-EPI [...] ELECTROLYTE CO2 25 24 - 32 12/06 [facility] S [facility] ELECTROLYTE Calcium Lvl 9.2 8.5 - 10.5 12/06 [facility] S /2018 [facility] HEMATOLOGY RBC 5.17 4.70 - 12/06 [place] 6.10 [facility] HEMATOLOGY Hgb 15.1 14.0 - 12/06 [place] 18.0 /2019 [facility] HEMATOLOGY WBC 10.8 3.7 - 10.4 12/06 2018 [facility] HEMATOLOGY MPV 10.4 7.4 - 10.4 12/06 [facility]2018 [facility] HEMATOLOGY Platelet 174 133 - 450 12/06 [facility] HEMATOLOGY MCHC 34.5 32.0 - 12/06 [facility] 36.0 [facility] HEMATOLOGY RDW 15.2 11.5 - 12/06 [facility] 14.5 [facility] HEMATOLOGY MCH 29.1 27.0 - 12/06 [facility] 31.0 [facility] HEMATOLOGY MCV 84.3 80.0 - 12/06 [facility] 94.0 [facility] HEMATOLOGY Hct 43.6 42.0 - 12/06 [place] 54.0 2019 [facility] HEMATOLOGY Lymphocytes # 1.7 1.0 - 5.5 12/[address] HEMATOLOGY Neutrophils # 7.5 1.5 - 8.1 12/06 [facility]2018 [facility] HEMATOLOGY Eosinophils # 0.2 0.0 - 0.5 12/06 [facility]2018 [facility] HEMATOLOGY Monocytes # 1.3 0.0 - 0.8 12/06 [facility]2018 [facility] HEMATOLOGY Segs 69.5 45.0 - 12/06 [place] 75.0 2019 [facility] HEMATOLOGY Monocytes 12.4 2.0 - 12.0 12/[address] HEMATOLOGY Lymphocytes 16.0 20.0 - 12/06 [facility] 40.0 2019 [facility] HEMATOLOGY Eosinophils 1.7 0.0 - 4.0 12/06 [facility]2018 [facility] HEMATOLOGY Basophils 0.4 0.0 - 1.0 12/06 [facility]2018 [facility] PARATHYROID Ca Ion WB 1.20 1.05 - 12/06 [place] PROFILE 1. [facility] PARATHYROID Ca Norm WB 1.18 1.05 - 12/06 [place] PROFILE 07.03 [facility] ANEMIA Vitamin B12 218 254 - 1320 12/05 [facility] STUDY l /2018 [facility] Center CHEM PANEL VITAMIN B1 136.4 66.5 - 12/05 Result [facility] (THIAMINE) 200.0 /2018 Comment: This Medical WHOLE BLOOD test was Center developed and its performance characteristi cs
determ ined by [facility]. It has not been cleared or
approv ed by the Food and Drug Administratio n.
Perfor med At: [facility]
[address] [place], [place] [id number]<br/ >Kirk Moon MD Ph:[phone] CHEM PANEL Ammonia 12.0 <=45.0 12/05 [facility] uMol/L /2018 [facility] IMMUNOLOGY HIV Ag/Ab 4th Negative Negative 12/05 [facility] Gen *NA* /2018 [facility] (12/04/18 8:39 PM) [place] IMMUNOLOGY Treponemal Ab Non-Reactive Non 12/[facility] (12/04/18 8:39 PM) Center CHEM PANEL Lactic Acid 1.8 0.5 - 2.2 12/04 [facility] /2018 [facility] URINE AND UA <1.0 0.1 - 1.0 12/04 [facility] [place] [facility] Urobilinogen /2018 [facility] URINE AND UA Leuk Est Negative Negative 12/04 [facility] [place] [facility] (12/04/18 5:27 PM) /2018 [facility] URINE AND UA Sq Epi Occasional Few /LPF 12/04 [facility] STOOL /F /2018 [facility] URINE AND UA Nitrite Negative Negative 12/04 [facility] [place] [facility] (12/04/18 5:27 PM) /2018 [facility] URINE AND UA Blood Negative Negative 12/04 [facility] [place] [facility] (12/04/18 5:27 PM) /2018 [facility] URINE AND UA Bili Negative Negative 12/04 [facility] STOOL *NA* /2018 [facility] (12/04/18 5:27 PM) Center URINE AND UA Mucus Few /LPF None Seen 12/04 [facility] STOOL /LPF /2019 [facility] URINE AND UA RBC <1 0 - 2 12/04 [facility] [place] [facility] /[address] [place] [address] URINE AND UA Bacteria Moderate None Seen 12/04 [facility] STOOL /HPF /HPF /2018 [facility] URINE AND UA WBC 1 0 - 5 12/04 [facility] STOOL /[address] [place] [address] URINE AND UA Protein Negative Negative 12/04 [facility] STOOL mg/dL mg/dL [facility] URINE AND UA pH 5.0 5.0 - 8.0 12/04 [facility] STOOL /2018 [facility] URINE AND UA Spec Grav 1.016 <=1.030 12/04 [facility] STOOL /2018 [facility] URINE AND UA Turbidity Clear Clear 12/04 [facility] STOOL (12/04/18 5:27 PM) /2018 [facility] URINE AND UA Color Light Yellow Yellow 12/04 [facility] STOOL *NA* /2018 [facility] (12/04/18 5:27 PM) [place] URINE AND UA Ketones Trace Negative 12/04 [facility] STOOL mg/dL mg/dL [facility] URINE AND UA Glucose Negative Negative 12/04 [facility] STOOL mg/dL mg/dL [facility] MOLECULAR Anisha Not Detected Not 12/04 [facility] DIAGNOSTIC Vancomycin (12/04/18 5:14 PM) Detected [facility] MOLECULAR vanB Not Detected Not 12/04 [facility] DIAGNOSTIC Vancomycin (12/04/18 5:14 PM) Detected [facility] MOLECULAR S. anginosus Not Detected Not 12/04 [facility] DIAGNOSTIC grp (12/04/18 5:14 PM) [facility] MOLECULAR E. faecalis Not Detected Not 12/04 [facility] DIAGNOSTIC (12/04/18 5:14 PM) [facility] MOLECULAR S. pyogenes Not Detected Not 12/04 [facility] DIAGNOSTIC (12/04/18 5:14 PM) [facility] MOLECULAR S. pneumoniae Not Detected Not 12/04 [facility] DIAGNOSTIC (12/04/18 5:14 PM) [facility] MOLECULAR S. agalactiae Not Detected Not 12/04 [facility] DIAGNOSTIC (12/04/18 5:14 PM) Detected [facility] MOLECULAR Streptococcus Not Detected Not 12/04 [facility] DIAGNOSTIC spp. (12/04/18 5:14 PM) Detected [facility] MOLECULAR Staphylococcu Detected Not 12/04 [facility] DIAGNOSTIC s spp. *ABN* Detected /2018 [facility] (12/04/18 5:14 PM) [place] MOLECULAR E. faecium Not Detected Not 12/04 [facility] DIAGNOSTIC (12/04/18 5:14 PM) Detected [facility] MOLECULAR mecA Not Detected Not 12/04 [facility] DIAGNOSTIC Methicillin (12/04/18 5:14 PM) Detected [facility] MOLECULAR Listeria spp. Not Detected Not 12/04 [facility] DIAGNOSTIC (12/04/18 5:14 PM) Detected [facility] MOLECULAR S. Not Detected Not 12/04 [facility] DIAGNOSTIC epidermidis (12/04/18 5:14 PM) Detected [facility] MOLECULAR S. aureus Not Detected Not 12/04 [facility] DIAGNOSTIC (12/04/18 5:14 PM) Detected [facility] MOLECULAR S. Not Detected Not 12/04 [facility] DIAGNOSTIC lugdunensis (12/04/18 5:14 PM) [facility] HEMATOLOGY Plav Effect 19 12/04 [facility] Plt /2018 [facility] HEMATOLOGY ASA Effect 509 12/04 [facility] Plt [facility] URINE AND UA Mucus Few /LPF None Seen 12/04 [facility] STOOL /LPF /2018 [facility] URINE AND UA Bacteria Occasional None Seen 12/04 [facility] STOOL /HPF /HPF /2018 [facility] URINE AND UA Color Light Yellow Yellow 12/04 [facility] STOOL *NA* /2018 [facility] (12/04/18 5:37 AM) [place] URINE AND UA Turbidity Clear Clear 12/04 [facility] [place] [facility] (12/04/18 5:37 AM) [facility] URINE AND UA Spec Grav 1.032 <=1.030 12/04 [facility] STOOL [facility] URINE AND UA Sq Epi Occasional Few /LPF 12/04 [facility] STOOL /LPF [facility] URINE AND UA WBC 1 0 - 5 12/04 [facility] URINE AND UA Leuk Est Negative Negative 12/04 [facility] [place] [facility] (12/04/18 5:37 AM) [facility] URINE AND UA RBC 1 0 - 2 12/04 [facility] STOOL [facility] URINE AND UA pH 5.0 5.0 - 8.0 12/04 [facility] STOOL [facility] [facility] URINE AND UA Protein Negative Negative 12/04 [facility] STOOL mg/dL mg/dL [facility] URINE AND UA Glucose Negative Negative 12/04 [facility] STOOL mg/dL mg/dL [facility] URINE AND UA Ketones 20 mg/dL Negative 12/04 [facility] STOOL mg/dL [facility] URINE AND UA Bili Negative Negative 12/04 [facility] [place] [facility] *NA* /2018 [facility] (12/04/18 5:37 AM) [place] URINE AND UA <1.0 0.1 - 1.0 12/04 [facility] STOOL Urobilinogen /2018 [facility] URINE AND UA Nitrite Negative Negative 12/04 [facility] STOOL (12/04/18 5:37 AM) [facility] URINE AND UA Blood Negative Negative 12/04 [facility] STOOL (12/04/18 5:37 AM) [facility] CARDIAC Total CK 411 12 - 191 12/04 [facility] ENZYMES [facility] LIPIDS CHD Risk 3.03 4.00 - 12/04 [facility] 7.30 [facility] LIPIDS Trig 123 <=149 12/04 [facility] mg/dL /2018 [facility] LIPIDS HDL 38 >=61 mg/dL 12/04 [facility] LIPIDS Chol 115 <=199 12/04 [facility] mg/dL [facility] LIPIDS LDL 52 <=99 mg/dL 12/04 [facility] (Calculated) [facility] LIPIDS VLDL 25 12/04 [facility] SPECIAL Hgb A1C 5.3 <=5.6 % 12/04 [facility] CHEMISTRY [facility] CHEM PANEL eGFR 76 12/04 Result Comment: [facility] eGFR is Center calculated using the CKD-EPI [...] Glucose Lvl 75 70 - 99 12/04 [facility] CHEM PANEL BUN 14 7 - 22 12/04 [facility] CHEM PANEL Creatinine 0.92 0.50 - 12/04 [facility] Lvl 1.40 [facility] CHEM PANEL Sodium Lvl 136 135 - 145 12/04 [facility] CHEM PANEL Calcium Lvl 9.2 8.5 - 10.5 12/04 [facility]2018 [facility] CHEM PANEL Potassium Lvl 4.3 3.5 - 5.1 12/[address] CHEM PANEL CO2 23 24 - 32 12/[address] CHEM PANEL Chloride Lvl 104 95 - 109 12/[address] CHEM PANEL AGAP 13.3 10.0 - 12/04 [place] 20.0 2019 [facility] HEMATOLOGY Neutrophils # 4.6 1.5 - 8.1 12/[address] HEMATOLOGY Basophils 0.5 0.0 - 1.0 12/04 [facility]2018 [facility] HEMATOLOGY Eosinophils # 0.2 0.0 - 0.5 12/04 [facility]2018 [facility] HEMATOLOGY Lymphocytes # 2.7 1.0 - 5.5 12/04 [facility]2018 [facility] HEMATOLOGY Monocytes # 1.1 0.0 - 0.8 12/04 [facility]2018 [facility] HEMATOLOGY Segs 53.1 45.0 - 12/04 [place] 75.0 [facility] HEMATOLOGY Lymphocytes 31.4 20.0 - 12/04 [place] 40.0 [facility] HEMATOLOGY Monocytes 13.0 2.0 - 12.0 12/04 [facility]2018 [facility] HEMATOLOGY Eosinophils 2.0 0.0 - 4.0 12/04 [facility]2018 [facility] HEMATOLOGY PTT 29.9 22.9 - 12/04 [place] 35.8 /2019 [facility] HEMATOLOGY INR 1.04 0.85 - 12/04 [place] 1.17 [facility] HEMATOLOGY PT 13.4 12.0 - 12/04 [place] 14.7 [facility] HEMATOLOGY RDW 15.0 11.5 - 12/04 [facility] 14.5 [facility] HEMATOLOGY Platelet 164 133 - 450 12/04 [facility]2018 [facility] HEMATOLOGY MCH 28.4 27.0 - 12/04 [place] 31.0 2019 [facility] HEMATOLOGY MCHC 33.5 32.0 - 12/04 [place] 36.0 2019 [facility] HEMATOLOGY MPV 10.3 7.4 - 10.4 12/[address] HEMATOLOGY RBC 5.37 4.70 - 12/04 [place] 6.10 2019 [facility] HEMATOLOGY Hgb 15.2 14.0 - 12/04 [facility] [place] 18.0 [facility] HEMATOLOGY WBC 8.7 3.7 - 10.4 12/04 [facility] HEMATOLOGY Hct 45.5 42.0 - 12/04 [facility] 54.0 [facility] HEMATOLOGY MCV 84.8 80.0 - 12/04 [facility] 94.0 [facility] BEDSIDE Glucose POC 136 70 - 99 03/17 [place] <sup>1</sup>I [facility] nterpretive Medical TESTING Data: Center Upper Reportable Limit: 200 mg/dL. CHEMISTRY Hgb A1C 5.6 <=5.6 03/17 Normal [facility] CHEMISTRY A/G Ratio 1.0 0.7 - 1.6 03/17 Normal [facility] CHEMISTRY Globulin 3.5 2.0 - 4.0 03/17 Normal [facility] CHEMISTRY B/C Ratio 16 6 - 25 03/17 Normal [facility] CHEMISTRY AGAP 14.0 10.0 - 03/17 Normal [facility] 20.0 [facility] CHEMISTRY eGFR 81 03/17 <sup>3</sup>R esult Medical [...] Lvl 3.6 3.5 - 5.0 03/17 Normal [facility] CHEMISTRY BUN 14 7 - 22 03/17 Normal [facility] CHEMISTRY Alk Phos 56 39 - 136 03/17 Normal [facility] CHEMISTRY ALANINE 15 0 - 65 03/17 Normal [facility] AMINOTRANSFER [facility] CHEMISTRY Sodium Lvl 144 135 - 145 03/17 Normal [facility] CHEMISTRY Glucose Lvl 145 70 - 99 03/17 [place] <sup>5</sup>I nterpretive Medical Data: Adult Center reference range values reflect the clinical guidelines
of the [place] [employer]. CHEMISTRY Creatinine 0.9 0.5 - 1.4 03/17 Normal [facility] Lvl [facility] CHEMISTRY Chloride Lvl 108 95 - 109 03/17 Normal [facility] CHEMISTRY Calcium Lvl 8.7 8.5 - 10.5 03/17 Normal [facility] CHEMISTRY Bili Total 0.3 0.2 - 1.3 03/17 Normal [facility] CHEMISTRY CO2 26 24 - 32 03/17 Normal [facility] CHEMISTRY Total Protein 7.1 6.4 - 8.4 03/17 Normal [facility] CHEMISTRY ASPARTATE 8 0 - 37 03/17 Normal [facility] TRANSAMINASE [facility] CHEMISTRY Potassium Lvl 4.0 3.5 - 5.1 03/17 Normal [facility] CHEMISTRY Ca Ion WB 1.13 1.05 - 03/17 Normal [facility] 1. [facility] CHEMISTRY Ca Norm WB 1.13 1.05 - 03/17 Normal [facility] 1. [facility] CHEMISTRY LDL 64 <=99 03/17 Normal [facility] CHOLESTEROL [facility] CHEMISTRY Chol 120 <=199 03/17 Normal [facility] CHEMISTRY HDL 33 >=61 03/17 LOW [facility] CHEMISTRY Trig 113 <=149 03/17 Normal [facility] CHEMISTRY CHD Risk 3.64 4.00 - 03/17 LOW [facility] 7.30 [facility] CHEMISTRY eGFR 81 03/17 <sup>4</sup>R esult Medical [...] values reflect the clinical guidelines
of the [place] [employer]. CHEMISTRY Creatinine 0.9 0.5 - 1.4 03/17 Normal [facility] Lvl [facility] CHEMISTRY BUN 14 7 - 22 03/17 Normal [facility] CHEMISTRY CO2 22 24 - 32 03/17 LOW [facility] CHEMISTRY Calcium Lvl 8.7 8.5 - 10.5 03/17 Normal [facility] CHEMISTRY Sodium Lvl 144 135 - 145 03/17 Normal [facility] CHEMISTRY Chloride Lvl 109 95 - 109 03/17 Normal [facility] CHEMISTRY Potassium Lvl 4.0 3.5 - 5.1 03/17 Normal [facility] CHEMISTRY AGAP 17.0 10.0 - 03/17 Normal [place] 20.0 [facility] HEMATOLOGY Lymphocytes # 2.8 1.0 - 5.5 03/17 Normal [facility] HEMATOLOGY Monocytes # 1.1 0.0 - 0.8 03/17 HI [facility] HEMATOLOGY Eosinophils # 0.2 0.0 - 0.5 03/17 Normal [facility] HEMATOLOGY Basophils # 0.1 0.0 - 0.2 03/17 Normal [facility] HEMATOLOGY Monocytes 12.9 2.0 - 12.0 03/17 [facility] HEMATOLOGY Lymphocytes 32.1 20.0 - 10 Normal [place] 40.0 [facility] HEMATOLOGY Segs 51.5 45.0 - 03/17 Normal [place] 75.0 /2012 [facility] HEMATOLOGY Segs-Bands # 4.5 1.5 - 8.1 03/17 Normal [facility] HEMATOLOGY Basophils 0.9 0.0 - 1.0 03/17 Normal [facility] HEMATOLOGY Eosinophils 2.6 0.0 - 4.0 03/17 Normal [facility] HEMATOLOGY INR 1.01 0.85 - 03/17 Normal <sup>8</sup>I [facility] 1.17 nterpretive Medical Data: Center RECOMMENDED RANGES FOR PROTIME INR:
2.0-3.0 for most medical and surgical thromboemboli c states.
2.5-3.5 for artificial heart valves and recurrent embolism.<br/ >
INR SHOULD BE USED ONLY FOR PATIENTS ON STABLE ANTICOAGULANT THERAPY. HEMATOLOGY aPTT 27.0 22.9 - 03/17 Normal <sup>9</sup>I [facility] 35.8 nterpretive Medical Data: Heparin Center Therapeutic Range: 57 - 92 Seconds HEMATOLOGY PROTIME 13.2 12.0 - 03/17 Normal [facility] 14.7 [facility] HEMATOLOGY RBC X 10x6 5.06 4.70 - 03/17 Normal [facility] 6.10 [facility] HEMATOLOGY WBC X 10x3 8.7 3.7 - 10.4 03/17 Normal [facility] HEMATOLOGY RDW 15.5 11.5 - 03/17 [facility] 14.5 [facility] HEMATOLOGY MCHC 33.9 32.0 - 03/17 Normal [facility] 36.0 /2012 [facility] HEMATOLOGY MCH 29.9 27.0 - 03/17 Normal [facility] 31.0 [facility] HEMATOLOGY MPV 10.7 7.4 - 10.4 03/17 [facility] HEMATOLOGY Platelet 145 133 - 450 03/17 Normal [facility] HEMATOLOGY MCV 88.1 80.0 - 03/17 Normal [facility] 94.0 [facility] HEMATOLOGY Hct 44.5 42.0 - 03/17 Normal [facility] 54.0 [facility] HEMATOLOGY Hgb 15.1 14.0 - 03/17 [facility] 18.0 [facility] CHEMISTRY U Cannab Scr Negative Negative 03/17 [facility] *NA* [facility] (03/17/2013 00:09:00) Center CHEMISTRY U Opiate Scr Negative Negative 03/17 [facility] *NA* /2012 Medical (03/17/2013 00:09:00) Center CHEMISTRY U Benzodia Negative Negative 03/17 [facility] Scr *NA Medical (03/17/2013 00:09:00) Center [...] CHEMISTRY U Phencyc Scr Negative Negative 03/17 [facility] * Medical (03/17/2013 00:09:00) Center CHEMISTRY U Amph Scr Negative Negative 03/17 Medical (03/17/2013 00:09:00) Center URINALYSIS UA <=1.0 0.1 - 1.0 03/17 [facility] Urobilinogen mg/dL [facility] URINALYSIS UA RBC <1 0 - 2 03/17 Normal [facility] Center URINALYSIS UA WBC 1 0 - 5 03/17 Normal [facility] Center URINALYSIS UA Mucus Few /LPF None Seen 03/17 Medical [place] URINALYSIS UA Nitrite Negative Negative 03/17 Normal [facility] (03/17/2013 00:09:00) Medical Center URINALYSIS UA Blood Negative Negative 03/17 Normal [facility] (03/17/2013 00:09:00) Medical Center URINALYSIS UA Glucose Negative Negative 03/17 [facility] mg/dL [facility] Center URINALYSIS UA Sq Epi Occasional Few 03/17 [facility] /F Medical Center URINALYSIS UA Leuk Est Negative Negative 03/17 Normal [facility] (03/17/2013 00:09:00) [facility] URINALYSIS UA Bili Negative Negative 03/17 [facility] *NA* [facility] (03/17/2013 00:09:00) Center URINALYSIS UA Ketones Negative Negative 03/17 [facility] mg/dL [facility] URINALYSIS UA Spec Grav 1.007 <=1.030 03/17 Normal [facility] URINALYSIS UA pH 7.0 5.0 - 8.0 03/17 Normal [facility] URINALYSIS UA Protein Negative Negative 03/17 Normal [facility] mg/dL [facility] URINALYSIS UA Turbidity Clear Clear 03/17 Normal [facility] (03/17/2013 00:09:00) [facility] Center URINALYSIS UA Color Light Yellow Yellow 03/17 [facility] *NA* Medical (03/17/2013 00:09:00) Center BEDSIDE Gluc POC Notify 03/17 [facility] GLUCOSE Comment 1 RN/MD /2012 Medical TESTING Center BEDSIDE Glucose POC 99 70 - 99 03/17 Normal <sup>2</sup>I [facility] GLUCOSE nterpretive Medical TESTING Data: Center Upper Reportable Limit: 200 mg/dL. Pathology Reports No Data Provided for This Section Diagnostic Reports Report Value Date Source Esophagus BA swallow Clinical Indication: Dysphagia - dysphagia / cerebral infarction,unspecified, / FT= 12/30/2018 [facility] function video DX Comparison: None FINDINGS: Fluoroscopic [...] by speech pathology, as noted above. SL: [id number] Brain wo contrast CT Clinical Indication: - hydrocephalus, dementia; 2018 [facility] Comparison: Head CT on 12/05/2018, magnetic resonance [...] Clinical Indication: - Hydrocephalus, unspecified ; 12/17/2018 [facility] [place] Comparison: 10/28/2011 Technique: After sterile preparation, [...] IMPRESSION: Patent right ventriculoperitoneal shunt catheter. SL: [id number] Brain wo contrast CT EXAM: CT BRAIN WITHOUT CONTRAST 12/05/2018 [facility] DATE: 12/05/2018 12:55 CDT Center INDICATION: - [...] view DX EXAM: SKULL 1 VIEW 12/04/2018 [facility] DATE: 12/04/2018 at 0417 hours Center INDICATION: [...] view DX EXAM: SKULL 1 VIEWS 12/04/2018 [facility] DATE: 12/04/2018 at 0100 hours Center INDICATION: [...] MRI EXAM: MRI BRAIN WITHOUT CONTRAST 12/04/2018 [facility] DATE: 12/04/2018 2:56 CDT Center INDICATION: - eval for acute infarct Additional clinical information: Pt. transferred from [facility] c/o TIA. N at 1030 this morning. Per EMS pt. had episode of confusion and trouble walking with slurred speech. Symptoms resolved. Hx of CVA with R. sided deficits. CT neg. 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 Contour irregularities along both MCA and ORXANNE branches. Stable appearance of the left M2 segment since prior CTA from 2012. No AV malformation or aneurysms. IMPRESSION: No significant stenosis by NASCET criteria. 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 All quantitative and qualitative assessment of stenosis in the carotid bulbs are made referencing the distal internal carotid artery (NASCET criteria). Brain-Outside Consult MRI EXAM: MRI BRAIN WITHOUT CONTRAST-- OUTSIDE CONSULT 11/10/2018 [facility] DATE: 11/10/2018 9:16 PM T Center INDICATION: ' - outside study'; transferred for higher level of care, request for second interpretation of outside imaging. COMPARISON: MRI 03/17/2013 TECHNIQUE: Multisequence multiplanar noncontrast MR imaging of the brain was at an outside hospital. 244 images. Imaging was performed at [facility] on 11/10/2018. FINDINGS: There is no intracranial [...] view EXAM: SKULL X-RAY 1 VIEW 03/17/2013 [facility] DATE: 03/17/2013 INDICATION: Programmable ventricular shunt TECHNIQUE: Three oblique radiographs of the skull. COMPARISON: None FINDINGS: Strata programmable valve is present with setting closest to P/L 1.0. IMPRESSION: Strata programmable valve with pressure setting approximately P/ L 1.0. Brain wo contrast MRI MRI OF THE BRAIN 03/17/2013 [facility] DATE: 03/17/2013 at 3:18 a.m. Comparison studies: [...] ANGIOGRAM OF THE HEAD AND NECK 03/17/2013 [facility] DATE: 03/17/2013 at 2:16 a.m. CLINICAL INFORMATION: Aphasia, dysarthria. Comparison studies: 05/04/2011. Outside imaging CT brain 03/16/2013 from [facility]. TECHNIQUE: Axial images were obtained from the [...] Source Temperature Oral (F) 98.9 F 12/08/2018 [facility] Systolic (mm Hg) 137 12/08/2018 [facility] Diastolic (mm Hg) 81 12/08/2018 [facility] Heart Rate 91 12/08/2018 [facility] Respitory Rate 18 12/08/2018 [facility] Systolic (mm Hg) 140 12/08/2018 [facility] Diastolic (mm Hg) 86 12/08/2018 [facility] Heart Rate 83 12/08/2018 [facility] Respitory Rate 20 12/08/2018 [facility] Systolic (mm Hg) 140 12/08/2018 [facility] Diastolic (mm Hg) 80 12/08/2018 [facility] Respitory Rate 20 12/08/2018 [facility] Heart Rate 76 12/08/2018 [facility] Temperature Oral (F) 98.8 F 12/08/2018 [facility] Temperature Oral (F) 97.4 F 12/07/2018 [facility] Height 177.8 cm 12/04/2018 [facility] Weight 70.17 12/04/2018 [facility] BMI Calculated 22.2 12/04/2018 [facility] Weight 63.5 12/04/2018 [facility] BMI Calculated 20.67 12/04/2018 [facility] Height 175.26 cm 12/04/2018 [facility] Temperature Oral (F) 98.1 F 11/11/2018 [facility] Respitory Rate 18 11/11/2018 [facility] Systolic (mm Hg) 168 11/11/2018 [facility] Diastolic (mm Hg) 71 11/11/2018 [facility] Systolic (mm Hg) 173 11/11/2018 [facility] Diastolic (mm Hg) 77 11/11/2018 [facility] Respitory Rate 20 11/11/2018 [facility] Systolic (mm Hg) 146 11/11/2018 [facility] Diastolic (mm Hg) 82 11/11/2018 [facility] Respitory Rate 20 11/11/2018 [facility] Weight 68.182 11/11/2018 [facility] BMI Calculated 22.2 11/11/2018 [facility] Height 175.26 cm 11/11/2018 [facility] Temperature Oral (F) 97.1 F 11/11/2018 [facility] Heart Rate 59 11/11/2018 [facility] Respitory Rate 25 03/17/2013 [facility] Systolic (mm Hg) 141 03/17/2013 [facility] Diastolic (mm Hg) 77 03/17/2013 [facility] Respitory Rate 17 03/17/2013 [facility] Diastolic (mm Hg) 74 03/17/2013 [facility] Systolic (mm Hg) 136 03/17/2013 [facility] Respitory Rate 23 03/17/2013 [facility] Diastolic (mm Hg) 85 03/17/2013 [facility] Systolic (mm Hg) 146 03/17/2013 [facility] Temperature Oral (F) 96.9 F 03/17/2013 [facility] Height 172.72 cm 03/17/2013 [facility] Weight 72.727 03/17/2013 [facility] Temperature Oral (F) 97.2 F 03/17/2013 [facility] Encounters Location Location Encounter Encounter Reason Attending ADM DC Status Source Details Type Number For Provider Date Date Visit Outpatient [id number] HYDROCEP RAÚL GARRISON 10/27 Active [id number] EMILY 03/16 03/17 Discharg [facility] 1 ARMIJO /2012 ed [facility] Emergency [id number] Mehdi 11/11 11/11 [facility] [place] 5 [facility] Inpatient [id number] Delia 12/04 12/08 [facility] [place] 3 [facility] Outpatient [id number] Raúl Garrison 12/17 12[facility]18 [id number] [place] 12/30 12/31 [facility] 4 [place] [facility] Procedures Procedure Code Date Perfomer Comments Source Cholecystectomy [id number] [facility] Insertion of stent [id number] [facility] cerebral artery [facility] Open heart surgery [id number] [facility] Balloon dilation of [id number] [facility] prostate [facility] Cholecystectomy [id number] [facility] Creation of FACULTY MEMBER shunt [id number] [facility] Insertion of stent [id number] [facility] Open heart surgery [id number] [facility] 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 [facility] bypass [facility] Assessment and Plan Assessment and Plan Date Source Extracted from:Title: Stroke Discharge Summary 12/08/2018 [facility] Author: Jakob Moore MD Date: 12/08/18 [place]-STROKE DISCHARGE SUMMARY Date of Admission: 12/03/2018 23:06 [...] another stroke therefore took the patient to H ED, where CT head and shunt series [...] w ith Neurology, Neurosurgery for NPH and FACULTY MEMBER management, Urology for urinary changes, and PCP [...] Q24H 12/04/18 atorvastatin 10 mg PO Bedtime 06/28/19 clopidogrel 75 mg PO Q24H 12/04/18 docusate-senna [...] criteria. Increased contour irregularities in the left SERVICE STATION EQUIPMENT MECHANIC presumably due to atherosclerotic disease since CTA [...] on CTA but severe ICAD noted. 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 I spoke to his at length at the bedside at length, updated her on the clinical case progress and answered all her questions Jakob Moore MD [facility] Department of Neurology Extracted from:Title: Stroke H&P [...] years, lives with . Home Medications: aspirin 22SkbcpzwduMXLEKANTdodqzlg46Exzm. atorvastatin(hgbqbqtdpsuz34gbxtrmoyuxdz) 1tab(s)BYMOUTHBedtime. bisoprolol(loqvbdtvhs1ovzwgzyocfnd) 0.5tab(s)BYMOUTHEveryOtherDay. clopidogrel(tlbxjvdbrfc66svzhfyegpxqm) 1tab(s)BYMOUTHDaily. fluticasonenasal(fluticasonenasal0.05mg/inhspray) 1spray(s)Idnsj2EcnqqQapwv. losartan(oxuwglld39ydwacrojzujd) 1tab(s)BYMOUTHDaily. meclizine(lmmcedcwl73zhdkwwqylyaz) 1tab(s)XUKJBWU0YeefmZaxucsbokrsdnFslfr- AlxYxlkrwhdcis73Riuf. Allergies: No Known Medication Allergies Physical Exam: [...] criteria. Increased contour irregularities in the left SERVICE STATION EQUIPMENT MECHANIC presumably due to atherosclerotic disease since CTA [...] Switch to different platelet agent if necessary. 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 Increased contour irregularities in the left SERVICE STATION EQUIPMENT MECHANIC presumably due to atherosclerotic disease since CTA [...] History Date Source Social History TypeResponse 11/11/2018 [facility] Alcohol Current, Type Beer. Frequency: 1-2 times per year. Smoking Status Current every day smoker; Exposure to Tobacco Smoke None; Cigarette Smoking Last 365 Days No; Reg Smoking Cessation Counseling No entered on: 12/06/18 Social History TypeResponse 11/11/2018 [facility] Alcohol Current, Type Beer. Frequency: 1-2 times [...]
--- OUTSIDE RECORDS SUMMARY | 2019-02-14 16:13 | XMS REPORT | CCD ---
:1935 Author Organization [facility] Care Team Providers Name Role Phone Lebron Garrison Referring Provider Allergies, Adverse Reactions, Alerts Substance Reaction Status NKDA Active Problem List Condition Effective Dates Status CVA - Cerebrovascular accident Active Dysarthria Active Dysphagia Active Fall risk Active General weakness Active Hypertension Active Knowledge deficit (specify)1 Active Slurred speech Active 1stroke
--- OUTSIDE RECORDS SUMMARY | 2019-02-14 16:13 | XMS REPORT | CCD ---
:1935 Author Organization [facility] Care Team Providers Name Role Phone [...] 1 supp, Route: 03/17/2013 03/17/2013 Discontinued suppository [place], Drug form: SUPP, Daily, Dosing Weight 72.727, [...] 1 doses or times, Dose =2.2ml/kg, Max dsfl=528co -- "To be infused by Radiology Staff ONLY" 201203/17/2013 Completed Dose=2.2ml/kg, Max gjvo=325rt -- "To be infused by Radiology Staff [...] values reflect the clinical guidelines of the [place] [employer].6Interpretive Data: Adult reference range values reflect the clinical guidelines of the [place] [employer].7Interpretive Data: Drugs reported as positive [...]
--- OUTSIDE RECORDS SUMMARY | 2019-02-14 16:13 | XMS REPORT | CCD ---
:1935 Author Organization [facility] Care Team Providers Name Role Phone [...] mg rectal 300 mg, 1 supp, Route: [place], 03/17/2013 03/17/2013 Discontinued suppository Drug form: SUPP, [...] 1 doses or times, Dose =2.2ml/kg, Max hspe=[id number] -- "To be infused by Radiology Staff ONLY" 201203/17/2013 Completed Dose=2.2ml/kg, Max arpa=514hm -- "To be infused by Radiology Staff [...] values reflect the clinical guidelines of the [place] [employer].6Interpretive Data: Adult reference range values reflect the clinical guidelines of the [place] [employer].7Interpretive Data: Drugs reported as positive [...]
--- OUTSIDE RECORDS SUMMARY | 2019-02-14 16:14 | XMS REPORT | CCD ---
:1935 Author Organization [facility] Care Team Providers Name Role Phone Javier [...] mg rectal 300 mg, 1 supp, Route: [place], 03/17/2013 03/17/2013 Discontinued suppository Drug form: SUPP, [...] 1 doses or times, Dose =2.2ml/kg, Max twmf=129pi -- "To be infused by Radiology Staff ONLY" 201203/17/2013 Completed Dose=2.2ml/kg, Max [id number] -- "To be infused by Radiology Staff [...] values reflect the clinical guidelines of the [place] [employer].6Interpretive Data: Adult reference range values reflect the clinical guidelines of the [place] [employer].7Interpretive Data: Drugs reported as positive [...]
--- OUTSIDE RECORDS SUMMARY | 2019-02-14 16:14 | XMS REPORT | CCD ---
:1935 Author Organization [facility] Care Team Providers Name Role Phone [...] mg rectal 300 mg, 1 supp, Route: [place], 03/17/2013 03/17/2013 Discontinued suppository Drug form: SUPP, [...] 1 doses or times, Dose =2.2ml/kg, Max yaan=167iu -- "To be infused by Radiology Staff ONLY" 201203/17/2013 Completed Dose=2.2ml/kg, Max jcge=[id number] -- "To be infused by Radiology Staff [...] values reflect the clinical guidelines of the [place] [employer].6Interpretive Data: Adult reference range values reflect the clinical guidelines of the [place] [employer].7Interpretive Data: Drugs reported as positive [...]
--- OUTSIDE RECORDS SUMMARY | 2019-02-14 16:14 | XMS REPORT | CCD ---
:1935 Author Organization [facility] Care Team Providers Name Role Phone [...] mg rectal 300 mg, 1 supp, Route: [place], 03/17/2013 03/17/2013 Discontinued suppository Drug form: SUPP, [...] 1 doses or times, Dose =2.2ml/kg, Max onve=515er -- "To be infused by Radiology Staff ONLY" 201203/17/2013 Completed Dose=2.2ml/kg, Max cvvu=[id number] -- "To be infused by Radiology Staff [...] values reflect the clinical guidelines of the [place] [employer].6Interpretive Data: Adult reference range values reflect the clinical guidelines of the [place] [employer].7Interpretive Data: Drugs reported as positive [...]
--- OUTSIDE RECORDS SUMMARY | 2019-02-14 16:15 | XMS REPORT ---
:1935 Author Organization [facility] Address [address] [place] [address] [address] [place] [address] Care Team Providers Name Role Phone Unavailable Unavailable Unavailable Problems This patient has no known problems. Allergies, Adverse Reactions, Alerts This patient has no known allergies or adverse reactions. Medications This patient has no known medications. Encounters Start End Encounter Admission Attending Care Care Encounter Date/Time Date/Time Type Type Clinicians Facility Department ID 2018-12-30 2018-12-30 Outpatient [facility] [id number] 12:18:00 12:18:00 2018-12-17 2018-12-17 Outpatient [facility] [id number] 10:25:00 10:25:00 2018-12-04 2018-12-03 Inpatient [facility] [id number] 03:20:00 23:06:00 2018-11-10 2018-11-10 Emergency [facility] [id number] 18:32:00 18:32:00
--- NOTE | 2019-02-14 17:34 | RAD REPORT ---
EXAM DESCRIPTION: CT - Ct Stroke Brain Wo Cont - 02/14/2019 5:24 pm CLINICAL HISTORY: SLURRED SPEECH Headache, drowsiness, CVA symptomology COMPARISON: Head Brain Wo Cont dated 12/03/2018; Head angio dated 11/13/2018 TECHNIQUE: All CT scans are performed using dose optimization technique as appropriate and may inclu de automated exposure control or mA/KV adjustment according to patient size. FINDINGS: No intracranial hemorrhage, hydrocephalus or extra-axial fluid collection.Moderate general ized brain atrophy is present with moderate periventricular and deep white matter chronic microvascul ar ischemic changes.No areas of brain edema or evidence of midline shift. Right-sided ventriculostomy tube is noted, unchanged in position. Mild fluid is seen in the paranasal sinuses. The calvarium is intact. IMPRESSION: No acute intracranial abnormality. The findings were discussed with Dr. Hickey on 02/14/2019 at 5:30 p.m. by telephone.
--- NOTE | 2019-02-14 17:36 | RAD REPORT ---
EXAM DESCRIPTION: RAD - Chest Single View - 02/14/2019 5:31 pm CLINICAL HISTORY: Congestion;Cough Chest pain. COMPARISON: Chest Pa And Lat (2 Views) dated 01/09/2019; Chest Single View dated 12/03/2018; Chest Sing le View dated 11/13/2018; Chest Single View dated 11/10/2018 FINDINGS: Portable technique limits examination quality. The lungs are grossly clear. 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 Right-sided shunt tubing noted. IMPRESSION: No acute intrathoracic process suspected.
[2019-02-14 17:43] LABS: Absolute Lymphocytes (CBC) 1.2 K/uL (0.7-4.9); Basophils % 0.6 % (0-1.3); Hematocrit 36.9 % (39.6-49.0); Lymphocytes % 13.9 % (15.3-44.8); MPV 11.2 fL (7.6-11.3); Protime INR 1.19; RBC Red Blood Cell Count 4.35 M/uL (4.33-5.43)
[2019-02-14] MEDS ORDERED: NA CHLORIDE 0.9% 500 ML ONE ×2 (17:47→18:48)
[2019-02-14] MEDS ORDERED: NA CHLORIDE 0.9% 0 ML ONE (17:48)
[2019-02-14 18:01] LABS: Albumin 3.3 g/dL (3.4-5.0); Bilirubin Direct 0.2 mg/dL (0-0.2); Bilirubin Total 0.5 mg/dL (0.2-1.0); CKMB Creatine Kinase MB 1.9 ng/mL (0.3-3.6); Protein, Total 7.7 g/dL (6.4-8.2); Troponin (Emerg Dept Use Only) 0.44 ng/mL (0.0-0.045)
[2019-02-14 19:23] LABS: Urine Bacteria <20 /HPF (NONE SEEN); Urine Culture Reflex Order NOT NEEDED; Urine RBC <5 /HPF (NONE SEEN)
--- NOTE | 2019-02-14 19:28 | RAD REPORT ---
EXAM DESCRIPTION: CT - Head angio - 02/14/2019 7:21 pm CLINICAL HISTORY: slurred speach Headache, drowsiness, CVA symptomology. COMPARISON: Ct Stroke Brain Wo Cont dated 02/14/2019; Head Brain Wo Cont dated 12/03/2018 TECHNIQUE: CT angiography of the head was performed with MIPs. All CT scans are performed using dose optimization technique as appropriate and may include automated exposure control or mA/KV adjustment according to patient size. FINDINGS: No evidence of aneurysm is detected. No flow-limiting stenosis or vascular malformation id entified. Antegrade flow is seen in the vertebral arteries. The vertebral arteries are patent with mild left-si ded dominance. The visualized dural venous sinuses are patent. Mild multifocal fluid in the paranasal sinuses and ma stoid air cells. IMPRESSION: No significant flow abnormality is detected.
--- NOTE | 2019-02-14 19:32 | RAD REPORT ---
EXAM DESCRIPTION: CT - Neck Angio - 02/14/2019 7:19 pm CLINICAL HISTORY: slurred speach Headache, CVA symptomology COMPARISON: Neck Angio dated 11/13/2018; Head C Spine Mpr Wo Con dated 07/26/2018; Head C Spine Mpr Wo Con dated 04/19/2018 TECHNIQUE: CT angiography of the neck vessels was performed with MIPs. All CT scans are performed using dose optimization technique as appropriate and may include automated exposure control or mA/KV adjustment according to patient size. FINDINGS: A left aortic arch is identified with normal three vessel configuration of the great vesse ls. No significant flow abnormality is seen of the common carotid bilaterally. Mild atheromatous plaquing is seen in both carotid bulbs without a significant stenosis identified. Normal flow is seen within both vertebral arteries. The left vertebral artery is mildly dominant. IMPRESSION: No significant flow abnormality of the neck vessels is identified.
[2019-02-14 20:17] LABS: Urine Blood NEGATIVE (NEG); Urine Glucose NEGATIVE (NEG); Urine Protein NEGATIVE (NEG)
--- NOTE | 2019-02-14 21:15 | ER ---
Nurse's Notes [facility] Name: Joey Ramsey Age: 83 yrs Sex: Male : 1935 Arrival Date: 02/14/2019 Time: 16:09 Bed 14 Private MD: Diagnosis: Volume depletion;Acute upper respiratory infection, unspecified Presentation: 02/14 16:17 Presenting complaint: states: cough, congestion, fever and fatigue x 2 days. ss states that symptoms became worse today. Transition of care: patient was not received from another setting of care. Onset of symptoms was February 12, 2019. Risk Assessment: Do you want to hurt yourself or someone else? Patient reports no desire to harm self or others. Initial Sepsis Screen: Does the patient meet any 2 criteria? No. Patient's initial sepsis screen is negative. Does the patient have a suspected source of infection? No. Patient's initial sepsis screen is negative. Care prior to arrival: None. 16:17 Method Of Arrival: Wheelchair ss 16:17 Acuity: VINAY 3 ss Stroke Activation: Symptom onset > 6 hours Physician: Stroke Attending; Name: ; Notified At: ; Arrived At: Physician: Chief Stroke Resident; Name: ; Notified At: ; Arrived At: Physician: Stroke Resident; Name: ; Notified At: ; Arrived At: Physician: ED Attending; Name: ; Notified At: ; Arrived At: Physician: ED Resident; Name: ; Notified At: ; Arrived At: Historical: - Allergies: 16:20 No Known Allergies; ss - Home Meds: 16:30 aspirin 81 mg Oral chew 1 tab once daily [Active]; atorvastatin 10 mg Oral tab 1 tab rb1 once daily [Active]; bisoprolol fumarate 5 mg Oral tab once daily [Active]; clopidogrel 75 mg Oral tab once daily [Active]; - 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 - Social history:: Smoking status: Patient uses tobacco products, smokes one-half pack cigarettes per day. - Ebola Screening: : Patient denies exposure to infectious person Patient denies travel to an Ebola-affected area in the 21 days before illness onset. Screenin:23 Abuse screen: Denies threats or abuse. Nutritional screening: decreased appetite . rb1 Tuberculosis screening: No symptoms or risk factors identified. Fall Risk Fall in past 12 months (25 points). Secondary diagnosis (15 points) TIA, CVA, IV access (20 points). Ambulatory Aid- Crutches/Cane/Walker (15 pts). Gait- Impaired (20 pts.). Mental Status- Oriented to own ability (0 pts). Total [place] Fall Scale indicates High Risk Score (45 or more points). Fall prevention measures have been instituted. Side Rails Up X 2 Placed Close to Nursing Station 1:1 Attendant Assigned Frequent Obs/Assessments Occuring Family Present and informed to notify staff if the need to leave the bedside As available patient and family educated on Fall Prevention Program and Strategies. Assessment: 16:23 General: Appears in no apparent distress. Behavior is calm, cooperative, Reports fever rb1 for. General: Pt. was treated for a UTI a couple weeks ago and was put on antibiotics and he finished them as ordered. Has a decreased appetite for the last couple days due to not feeling well.. Pain: Denies pain. Neuro: Level of Consciousness is awake, alert, obeys commands, Oriented to person, place, time, situation, Foundry Hand are equal bilaterally Moves all extremities. Gait is unsteady, Speech is slurred, Facial symmetry appears normal, Reports weakness since x 2 days. Cardiovascular: Capillary refill < 3 seconds is brisk in bilateral fingers. Respiratory: Reports cough that is Airway is patent Respiratory effort is even, unlabored, Respiratory pattern is regular, symmetrical. GI: No signs and/or symptoms were reported involving the gastrointestinal system. : No signs and/or symptoms were reported regarding the genitourinary system. Derm: Skin is pink, warm \T\ dry. Musculoskeletal: Range of motion: intact in all extremities. 17:14 Reassessment: Patient appears in no apparent distress at this time. Patient and/or rb1 family updated on plan of care and expected duration. Pain level reassessed. Patient is alert, oriented x 3, equal unlabored respirations, skin warm/dry/pink. Patient denies pain at this time. 17:16 Reassessment: pt. went to CT. rb1 18:15 Reassessment: Patient appears in no apparent distress at this time. Patient and/or rb1 family updated on plan of care and expected duration. Pain level reassessed. Patient is alert, oriented x 3, equal unlabored respirations, skin warm/dry/pink. Patient denies pain at this time. 19:30 General: Appears in no apparent distress. Behavior is calm, cooperative. Pain: Denies ea pain. Neuro: Level of Consciousness is awake, alert, obeys commands, Oriented to person, place. Cardiovascular: Patient's skin is warm and dry. Respiratory: Airway is patent Respiratory effort is even, unlabored, Respiratory pattern is regular, symmetrical. Derm: Skin is pink, warm \T\ dry. Musculoskeletal: Circulation, motion, and sensation intact. 20:37 Reassessment: Patient and/or family updated on plan of care and expected duration. Pain ea level reassessed. Patient is alert, oriented x 3, equal unlabored respirations, skin warm/dry/pink. 21:26 Reassessment: Patient and/or family updated on plan of care and expected duration. Pain ea level reassessed. Patient is alert, oriented x 3, equal unlabored respirations, skin warm/dry/pink. Discharge instruction given to patient and family, verbalized the understanding of instruction. Pt left ED per wheelchair, accompanied by family. Pt assisted to private vehicle tolerated well Patient states feeling better. Vital Signs: 16:16 BP 100 / 52; Pulse 82; Resp 22; Temp 99.0(O); Pulse Ox 94% on R/A; Weight 65.77 kg; ss Height 5 ft. 8 in. (172.72 cm); Pain 0/10; 17:15 BP 106 / 60; Pulse 79; Resp 24; Temp 99.0(O); Pulse Ox 96% on R/A; Pain 0/10; rb1 18:15 BP 120 / 56; Pulse 74; Resp 17; Pulse Ox 96% on R/A; Pain 0/10; rb1 19:00 BP 121 / 62; Pulse 72; Resp 18; Temp 98.8(O); Pulse Ox 95% ; ea 20:54 BP 134 / 59; Pulse 68; Resp 18; Pulse Ox 97% on R/A; ea 21:15 BP 119 / 68; Pulse 71; Resp 18; Temp 98.5; Pulse Ox 97% on R/A; ea 16:16 Body Mass Index 22.05 (65.77 kg, 172.72 cm) [place] Coma Score: 17:21 Eye Response: spontaneous(4). Verbal Response: oriented(5). Motor Response: obeys snw commands(6). Total: 15. NIH Stroke Scale Scores: 17:21 NIHSS Score: 2 snw ED Course: 16:09 Patient arrived in ED. as 16:18 Triage completed. ss 16:20 Arm band placed on right wrist. ss 16:30 Placed in gown. Bed in low position. Call light in reach. Side rails up X 1. Side rails jp3 up X2. Adult w/ patient. Warm blanket given. Pillow given. Verbal reassurance given. lunchroom monitor on. Pulse ox on. NIBP on. 16:30 Patient maintains SpO2 saturation greater than 95% on room air. jp3 16:41 Zoë Momin FNP-C is PHCP. snw 16:41 Fuad Hickey MD is Attending Physician. snw 16:48 Inserted saline lock: 20 gauge in right forearm, using aseptic technique. Blood jp3 collected. 16:48 Initial lab(s) drawn, by wa, held in ED. jp3 16:55 Jazmine Burdick, RN is Primary Nurse. rb1 17:02 EKG done, by ED staff, reviewed by Zoë YANG. jp3 17:24 CT-STROKE BRAIN W/O CONTRAST CT In Process Unspecified. EDMS 17:25 sent to lab. jp3 17:32 Chest Single View XRAY In Process Unspecified. EDMS 17:45 First set of blood cultures drawn by wa. jp3 18:00 Urine collected: straight cath specimen, clear, nakia colored, Amount Returned: 300mL. jp3 18:10 Second set of blood cultures drawn by wa. jp3 19:20 CT completed. Patient tolerated procedure well. Patient moved back from CT. mw3 19:21 Head angio In Process Unspecified. EDMS 19:21 Neck Angio In Process Unspecified. EDMS 21:27 No provider procedures requiring assistance completed. IV discontinued, intact, ea bleeding controlled, No redness/swelling at site. Pressure dressing applied. Administered Medications: 17:50 Drug: NS 0.9% 500 ml Route: IV; Rate: bolus; Site: right antecubital; rb1 20:48 Follow up: Response: No adverse reaction; IV Status: Completed infusion; IV Intake: ea 500ml 19:00 Drug: NS 0.9% 1000 ml Route: IV; Rate: 125 ml/hr; Site: right antecubital; ea 21:25 Follow up: Response: No adverse reaction; IV Status: Completed infusion; IV Intake: ea 125ml 19:40 Drug: NS 0.9% 500 ml Route: IV; Rate: bolus; Site: right antecubital; ea 20:48 Follow up: Response: No adverse reaction; IV Status: Completed infusion; IV Intake: ea 500ml Point of Care Testing: Blood Glucose: 18:37 Blood Glucose: 75 mg/dL; jp3 Ranges: Intake: 20:48 IV: 500ml; Total: 500ml. ea 20:48 IV: 500ml; Total: 1000ml. ea 21:25 IV: 125ml; Total: 1125ml. ea Outcome: 21:13 Discharge ordered by MD. snw 21:28 Discharged to home via wheelchair, with family. ea 21:28 Condition: stable 21:28 Discharge instructions given to patient, family, Instructed on discharge instructions, follow up and referral plans. Demonstrated understanding of instructions, follow-up care. 21:30 Patient left the ED. ea NIH Stroke Scale - NIH Stroke Score Date: 02/14/2019 Time: 17:21 Total Score = 2 1a. Level of Consciousness (LOC) - 0(Alert) 1b. Level of Consciousness (LOC) (Year \T\ Age) - 0(Both) 1c. LOC Commands (Open \T\ Closes Eyes/Security Professionals) - 0(Both) 2. Best Gaze (Lateral Gaze Paresis) - 0(Normal) 3. Visual Field Loss - 0(No visual loss) 4. Facial Palsy - 0(Normal) 5a. Left Arm: Motor (10-second hold) - 0(No drift) 5b. Right Arm: Motor (10-second hold) - 0(No drift) 6a. Left Leg: Motor (5-second hold - always test supine) - 0(No drift) 6b. Right Leg: Motor (5-second hold - always test supine) - 0(No drift) 7. Limb Ataxia (finger/nose \T\ heel/mcgrath - test with eyes open) - 0(Absent) 8. Sensory Loss (pinprick arms/legs/face) - 0(Normal) 9. Best Language: Aphasia (description/naming/reading) - 1(Mild to moderate aphasia) 10. Dysarthria (speech clarity - read or repeat words) - 1(Mild to Moderate) 11. Extinction and Inattention (visual/tactile/auditory/spatial/personal) - 0(No abnormality) Initials: snw Signatures: Dispatcher [employer] EDMS Zoë Momin, BRIM POUNCER MACHINE OPERATOR-C BRIM POUNCER MACHINE OPERATOR-Csnw Florence Mcmillan Shelby, RN RN ss Jazmine Burdick RN RN rb1 Adrienne Bond RN RN ea Willis, Michelle mw3 Olaf Gardner jp3 Corrections: (The following items were deleted from the chart) 17:16 16:23 Neuro: Level of Consciousness is awake, alert, obeys commands, Oriented rb1 to person, place, time, situation, Reports weakness since x 2 days rb1
--- NOTE | 2019-02-14 21:16 | EDPHYS ---
Physician Documentation [facility] Name: Joey Ramsey Age: 83 yrs Sex: Male : 1935 Arrival Date: 02/14/2019 Time: 16:09 Bed 14 Private MD: ED Physician Fuad Hickey HPI: 02/14 17:28 This 83 yrs old Male presents to ER via Wheelchair with complaints of snw Weakness, Fever, Congestion. 17:28 The patient presents to the emergency department with weakness of the entire body, snw generalized weakness. Onset: The symptoms/episode began/occurred gradually, 2 day(s) ago, and became worse. Context: occurred at home, occurred while the patient was had s/s of URI shortly prior to s/s. Associated signs and symptoms: Pertinent positives: fever, weakness, cough. Severity of symptoms: At their worst the symptoms were moderate in the emergency department the symptoms pt developed slurred speech. Patient's baseline: Neuro: alert and fully oriented, Motor: generalized weakness, Ambulation: walks without assistance, Speech: became slurred while in ED, The patient has a previous history of CVA, TIA, began shuffling his feet. Current symptoms: pt began having slurred speech, fever and cough. The patient has experienced similar episodes in the past. The patient has been recently seen by a physician: with similar presenting complaints. 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 - Social history:: Smoking status: Patient uses tobacco products, smokes one-half pack cigarettes per day. - Ebola Screening: : Patient denies exposure to infectious person Patient denies travel to an Ebola-affected area in the 21 days before illness onset. ROS: 17:26 Eyes: Negative for injury, pain, redness, and discharge, ENT: Negative for injury, snw pain, and discharge, Neck: Negative for injury, pain, and swelling, Cardiovascular: Negative for chest pain, palpitations, and edema. 17:26 Abdomen/GI: Negative for abdominal pain, nausea, vomiting, diarrhea, and constipation, Back: Negative for injury and pain, : Negative for injury, bleeding, discharge, and swelling, MS/Extremity: Negative for injury and deformity, Skin: Negative for injury, rash, and discoloration. 17:26 Constitutional: Positive for body aches, fever, malaise, poor PO intake. 17:26 Respiratory: Positive for cough, congestion began today. 17:26 Neuro: Positive for recent UTI. little bit of fever and a little out of it. Pt family states he is now slurring his words and was not on arrival to ED. Exam: 17:21 Head/Face: Normocephalic, atraumatic. Eyes: Pupils equal round and reactive to light, snw extra-ocular motions intact. Lids and lashes normal. Conjunctiva and sclera are non-icteric and not injected. Cornea within normal limits. Periorbital areas with no swelling, redness, or edema. ENT: Nares patent. No nasal discharge, no septal abnormalities noted. Tympanic membranes are normal and external auditory canals are clear. Oropharynx with no redness, swelling, or masses, exudates, or evidence of obstruction, uvula midline. Mucous membranes moist. Neck: Trachea midline, no thyromegaly or masses palpated, and no cervical lymphadenopathy. Supple, full range of motion without nuchal rigidity, or vertebral point tenderness. No Meningismus. Chest/axilla: Normal chest wall appearance and motion. Nontender with no deformity. No lesions are appreciated. Cardiovascular: Regular rate and rhythm with a normal S1 and S2. No gallops, murmurs, or rubs. Normal PMI, no JVD. No pulse deficits. 17:21 Abdomen/GI: Soft, non-tender, with normal bowel sounds. No distension or tympany. No guarding or rebound. No evidence of tenderness throughout. Back: No spinal tenderness. No costovertebral tenderness. Full range of motion. Skin: Warm, dry with normal turgor. Normal color with no rashes, no lesions, and no evidence of cellulitis. MS/ Extremity: Pulses equal, no cyanosis. Neurovascular intact. Full, normal range of motion. 17:21 Constitutional: The patient appears frail, listless. 17:21 Respiratory: the patient does not display signs of respiratory distress, Respirations: shallow respirations, Breath sounds: bronchial sounds. 17:21 Neuro: Orientation: is normal, Mentation: lucid, able to follow commands, Memory: is normal, Cranial nerves: grossly normal, Cerebellar function: is grossly normal, Motor: is normal, Sensation: is normal, Babinski testing is normal, seizure activity, is not displayed by the patient, Abnormal movements: there are no abnormal movements, slurred speech since about 1715 - Spouse states he was not having slurred speech when they arrived. Vital Signs: 16:16 BP 100 / 52; Pulse 82; Resp 22; Temp 99.0(O); Pulse Ox 94% on R/A; Weight 65.77 kg; ss Height 5 ft. 8 in. (172.72 cm); Pain 0/10; 17:15 BP 106 / 60; Pulse 79; Resp 24; Temp 99.0(O); Pulse Ox 96% on R/A; Pain 0/10; rb1 18:15 BP 120 / 56; Pulse 74; Resp 17; Pulse Ox 96% on R/A; Pain 0/10; rb1 19:00 BP 121 / 62; Pulse 72; Resp 18; Temp 98.8(O); Pulse Ox 95% ; ea 20:54 BP 134 / 59; Pulse 68; Resp 18; Pulse Ox 97% on R/A; ea 21:15 BP 119 / 68; Pulse 71; Resp 18; Temp 98.5; Pulse Ox 97% on R/A; ea 16:16 Body Mass Index 22.05 (65.77 kg, 172.72 cm) NIH Stroke Scale Scores: 17:21 NIHSS Score: 2 snw Franck Coma Score: 17:21 Eye Response: spontaneous(4). Verbal Response: oriented(5). Motor Response: obeys snw commands(6). Total: 15. MDM: 16:41 Patient medically screened. snw 20:08 Data reviewed: vital signs, nurses notes. Response to treatment: the patient's symptoms snw have markedly improved after treatment. 02/14 17:13 Order name: C-Reactive Protein; Complete Time: 18:07 snw 02/14 17:13 Order name: Basic Metabolic Panel; Complete Time: 18:07 snw 02/14 17:13 Order name: Blood Culture Adult (2) snw 02/14 17:13 Order name: CBC with Diff; Complete Time: 17:46 snw 02/14 17:13 Order name: Ckmb; Complete Time: 18:07 snw 02/14 17:13 Order name: CPK; Complete Time: 18:07 snw 02/14 17:13 Order name: Lactate; Complete Time: 19:11 snw 02/14 17:13 Order name: LFT's; Complete Time: 18:07 snw 02/14 17:13 Order name: Lipase; Complete Time: 18:07 snw 02/14 17:13 Order name: Procalcitonin; Complete Time: 18:10 snw 02/14 17:13 Order name: Protime (+inr); Complete Time: 17:46 snw 02/14 17:13 Order name: Ptt, Activated; Complete Time: 17:46 snw 02/14 17:13 Order name: Troponin (emerg Dept Use Only); Complete Time: 18:07 snw 02/14 17:13 Order name: Urine Microscopic Only; Complete Time: 19:28 snw 02/14 17:13 Order name: CT-STROKE BRAIN W/O CONTRAST CT; Complete Time: 17:41 snw 02/14 17:13 Order name: Chest Single View XRAY; Complete Time: 17:42 snw 02/14 17:13 Order name: Accucheck; Complete Time: 18:37 snw 02/14 17:13 Order name: Cardiac monitoring; Complete Time: 18:18 snw 02/14 17:13 Order name: EKG - Nurse/Tech; Complete Time: 17:20 snw 02/14 17:13 Order name: IV Saline Lock - Large Bore; Complete Time: 17:20 snw 02/14 17:13 Order name: Labs collected and sent; Complete Time: 17:20 snw 02/14 17:13 Order name: O2 Per Protocol; Complete Time: 17:20 snw 02/14 18:21 Order name: Head angio; Complete Time: 19:43 EDMS 02/14 18:21 Order name: Neck Angio; Complete Time: 19:43 EDMS 02/14 18:27 Order name: Glucose, Ancillary Testing; Complete Time: 18:30 EDMS 02/14 18:29 Order name: Urine Dipstick--Ancillary (enter results); Complete Time: 20:18 eb 02/14 18:36 Order name: Flu; Complete Time: 19:46 snw 02/14 17:13 Order name: O2 Sat Monitoring; Complete Time: 17:20 snw 02/14 17:13 Order name: Urine Dipstick-Ancillary (obtain specimen); Complete Time: 18:18 snw 02/14 17:13 Order name: Cath; Complete Time: 18:18 snw Administered Medications: 17:50 Drug: NS 0.9% 500 ml Route: IV; Rate: bolus; Site: right antecubital; rb1 20:48 Follow up: Response: No adverse reaction; IV Status: Completed infusion; IV Intake: ea 500ml 19:00 Drug: NS 0.9% 1000 ml Route: IV; Rate: 125 ml/hr; Site: right antecubital; ea 21:25 Follow up: Response: No adverse reaction; IV Status: Completed infusion; IV Intake: ea 125ml 19:40 Drug: NS 0.9% 500 ml Route: IV; Rate: bolus; Site: right antecubital; ea 20:48 Follow up: Response: No adverse reaction; IV Status: Completed infusion; IV Intake: ea 500ml Point of Care Testing: Blood Glucose: 18:37 Blood Glucose: 75 mg/dL; jp3 Ranges: Critical Glucose Levels:Adult <50 mg/dl or >400 mg/dl <40 mg/dl or >180 mg/dl Disposition: 02/15 07:12 Co-signature as Attending Physician, Fuad Hickey MD. rn Disposition: 02/14/19 21:13 Discharged to Home. Impression: Volume depletion, Acute upper respiratory infection, unspecified. - Condition is Stable. - Discharge Instructions: Dehydration, Elderly, Upper Respiratory Infection, Adult, Cool Mist Vaporizer, Cough, Adult, Rehydration, Elderly. - Medication Reconciliation Form, Thank You Letter, Antibiotic Education, Prescription Opioid Use form. - Follow up: Private Physician; When: 1 - 2 days; Reason: Recheck today's complaints, Continuance of care, Re-evaluation by your physician. Follow up: Emergency Department; When: As needed; Reason: Worsening of condition. - Problem is new. - Symptoms have improved. NIH Stroke Scale - NIH Stroke Score Date: 02/14/2019 Time: 17:21 Total Score = 2 1a. Level of Consciousness (LOC) - 0(Alert) 1b. Level of Consciousness (LOC) (Year \T\ Age) - 0(Both) 1c. LOC Commands (Open \T\ Closes Eyes/Nurse'S Companion) - 0(Both) 2. Best Gaze (Lateral Gaze Paresis) - 0(Normal) 3. Visual Field Loss - 0(No visual loss) 4. Facial Palsy - 0(Normal) 5a. Left Arm: Motor (10-second hold) - 0(No drift) 5b. Right Arm: Motor (10-second hold) - 0(No drift) 6a. Left Leg: Motor (5-second hold - always test supine) - 0(No drift) 6b. Right Leg: Motor (5-second hold - always test supine) - 0(No drift) 7. Limb Ataxia (finger/nose \T\ heel/mcgrath - test with eyes open) - 0(Absent) 8. Sensory Loss (pinprick arms/legs/face) - 0(Normal) 9. Best Language: Aphasia (description/naming/reading) - 1(Mild to moderate aphasia) 10. Dysarthria (speech clarity - read or repeat words) - 1(Mild to Moderate) 11. Extinction and Inattention (visual/tactile/auditory/spatial/personal) - 0(No abnormality) Initials: snw Signatures: Dispatcher [employer] EDMS Zoë Momin, PRECONSTRUCTION MANAGER-C PRECONSTRUCTION MANAGER-Csnw Fuad Hickey MD MD rn Smirch, Shelby, RN RN ss Barber, Rebecca, Adrienne Osborne RN, RN RN ea Corrections: (The following items were deleted from the chart) 02/14 21:30 21:13 02/14/2019 21:13 Discharged to Home. Impression: Volume depletion; Acute ea upper respiratory infection, unspecified. Condition is Stable. Discharge Instructions: Dehydration, Elderly, Upper Respiratory Infection, Adult, Cool Mist Vaporizer, Cough, Adult, Rehydration, Elderly. Forms are Medication Reconciliation Form, Thank You Letter, Antibiotic Education, Prescription Opioid Use. Follow up: Private Physician; When: 1 - 2 days; Reason: Recheck today's complaints, Continuance of care, Re-evaluation by your physician. Follow up: Emergency Department; When: As needed; Reason: Worsening of condition. Problem is new. Symptoms have improved. snw
[2019-02-15 03:52] VITALS: O2SAT 97
[2019-02-15 03:53] VITALS: BP 119/68; TEMP 98.5
--- NOTE | 2019-02-15 16:57 | EKG ---
Test Date: 2019-02-14 Test Time: 17:00:19 Ticketing Agent: SARAH MEASUREMENT RESULTS: Intervals: Rate: 80 IN: 190 QRSD: 84 QT: 394 QTc: 454 Ruth: P: 68 IN: 190 QRS: 57 T: 85 INTERPRETIVE STATEMENTS: Normal sinus rhythm Possible Inferior infarct, age undetermined Abnormal ECG Compared to ECG 12/03/2018 18:52:05 No significant changes Electronically Signed On 02-15-19 16:55:24 CDT by Nick Stubbs
== END 2019-02-14 21:30 | disposition home or self-care (01) ==
LOC: ER 16:07
DX: E86.9 Volume depletion, unspecified (principal); J06.9 Acute upper respiratory infection, unspecified; F17.210 Nicotine dependence, cigarettes, uncomplicated; E78.00 Pure hypercholesterolemia, unspecified; Z79.82 Long term (current) use of aspirin; Z86.73 Personal history of transient ischemic attack (TIA), and cerebral infarction without residual deficits; Z95.1 Presence of aortocoronary bypass graft
CPT/HCPCS: 96361; 93005; 87040 ×2; 85025; 80048; 36415; 82550; 85610; 82962; 80076; 83605; 85730; 84484; 82553; 83690; 84145; 86140; 87804 ×2; 70496; 70498; 70450; 71045; 96360; 99285; Q9967; 81003; 81015; J7030

== ENCOUNTER 2020-01-21 15:25 | Inpatient (IN) | payer OTHER ==
--- OUTSIDE RECORDS SUMMARY | 2020-01-21 15:27 | XMS REPORT | Clinical Summary ---
:1935 Author Organization [facility] Address [address] [place] [address] Care Team Providers Name Role Phone Shalom Fernandes Primary Care Provider Allergies No Known Allergies Medications Medication Sig Dispensed Refills Start Date End Date Status pantoprazole (PROTONIX) Take 1 tablet (40 30 tablet 0 11/22/19 16 Active 40 MG tablet mg total) by [...] Not on file Results Not on fileafter 01/20/2019 Insurance Payer Benefit Plan / Group Subscriber ID Type Phone A ddress CARE IMPROVEMENT MEDICARE MGD CARE IMPROVEMENT PLUS xxxxxxxxx CARE Advance Directives For more information, please contact:[address] [phone] Code Status Date Activated Date Inactivated Comments Full Code 11/18/2015 6:45 PM 11/22/2015 7:33 PM This code status was determined by: Patient
--- OUTSIDE RECORDS SUMMARY | 2020-01-21 15:28 | XMS REPORT ---
:1935 Author Organization [employer] Care Team Providers Name Role Phone Nielson, Na Provider Role Unavailable Allergies, Adverse Reactions, Alerts Substance Reaction Event Type N.K.D.A. 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 status Assessment Weakness R53.1 Active Assessment Seasonal allergic rhinitis, J30.2 Active unspecified trigger Assessment Coronary artery disease involving I25.810 Active coronary bypass graft of elem heart without angina pectoris Assessment Depression, unspecified depression F32.9 Active type Assessment COPD (chronic obstructive pulmonary J44.9 Active disease) Assessment Benign prostatic hyperplasia, N40.0 Active unspecified whether lower urinary tract symptoms present Assessment Dizziness R42 Active Assessment High cholesterol E78.00 Active Problem Dizziness R42 Active Assessment HTN (hypertension) I10 Active Problem Lack of appetite R63.0 Active Problem Depression, unspecified depression F32.9 Active type Problem Hydrocephalus in adult G91.9 Activ e Problem 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 Problem Bilateral hearing loss, unspecified H91.93 Active hearing loss type Problem Seasonal allergic rhinitis, J30.2 Active unspecified trigger Problem COPD (chronic obstructive pulmonary J44.9 Active disease) Problem 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 LEADER (ventriculoperitoneal) 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 Active status Problem Decreased hearing of both ears H91.93 Active Problem Coronary artery disease involving I25.810 Active coronary bypass graft of elem heart without angina pectoris Problem Urinary incontinence without N39.42 Active sensory awareness Problem Dementia without behavioral F03.90 Active disturbance, unspecified dementia type Problem History of CVA with residual I69.30 Active deficit Problem Kidney stones N20.0 Active Assessment Dysphagia, unspecified type R13.10 Active Problem HTN (hypertension) I10 Active Assessment Renal insufficiency N28.9 Active Problem Stroke I63.9 Active Problem Heart disease I51.9 Active Assessment History of CVA with residual I69.30 Active deficit Problem High cholesterol E78.00 Active Problem Benign prostatic hyperplasia, N40.0 Active unspecified whether lower urinary tract symptoms present Problem Weakness R53.1 Active Problem Seasonal allergies J30.2 Active Problem Benign prostatic hyperplasia with N40.1 Active lower urinary tract symptoms Medications Medication Code Code Instructions Start End Status Dosage System Date Date Bisoprolol [facility] 37021804003 5 MG Orally Active 1 tab let Fumarate Once a day Lipitor [facility] 97995152878 10 MG Orally Active 1 table t Once a day Cetirizine HCl [facility] [id number] 10 MG Orally Active 1 tablet Once a day Meclizine HCl [facility] [id number] 25 MG Orally Active 1 tablet as every 8 hours needed as needed for dizziness Aspir-81 [facility] 13998039933 81 MG Orally Active 1 tabl et Once a day Ketoconazole [facility] 58234865155 2 % Externally Active 1 application Twice a day Losartan [facility] 04501469568 25 MG Orally Active 1 tabl et Potassium Once a day Hydrocortisone [facility] [id number] 2.5 % Rectal Active 1 application Twice a day Flonase [facility] 41224601249 50 MCG/ACT Active 2 spray i n Nasally Once a each nost ril day Plavix [facility] [id number] 75 MG Active TAKE ONE TABLET BY MOUTH DAILY Plavix [facility] 77077384365 75 MG Orally Active 1 table t Once a day Tamsulosin HCl [facility] 01832963729 0.4 MG Orally Active 1 capsule Once a day Colace [facility] 42080132559 100 MG Orally Active 1 caps ule as Once a day needed Aricept [facility] 00523686343 10 MG Orally Active 1 table t at Once a day bedtime Ketoconazole [facility] 20655745160 2 % Externally Active 5 ml Results No Known Results Summary Purpose [employer] Submission
--- OUTSIDE RECORDS SUMMARY | 2020-01-21 15:28 | XMS REPORT | Continuity of Care Document ---
:1935 Author Organization [facility] t Address [address] [place] [address] Care Team Providers Name Role Phone Shalom Fernandes Primary Care Physician Problems Condition Condition Condition Status Onset Resolution Last Treating Co mments Source Name Details Category Date Date Treatment Clinician Date 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 Chronic Chronic Disease Active [facility] systolic systolic 11-20 [facility] - CHF CHF 00:00: Medical (congestiv (congestiv 00 Ce nter e heart e heart failure), failure), NYHA class NYHA class 2 2 Bacteremia Bacteremia Disease Active [facility] Leucocytos Leucocytos Disease Active [facility] is is 6 [facility] UTI UTI Disease Active [facility] (urinary (urinary 11-17 [facility] - tract tract 00:00: Medical infection) infection) 00 Ce nter Depression Depression Problem Active [facility] , , [facility] - unspecifie unspecifie Me moria d d l depression depression Ou tpati type type ent Clinics Hydrocepha Hydrocepha Problem Active [facility] vitor in vitor in [facility] - adult adult Memoria [facility] Clin[facility] Lack of Lack of Problem Active [facility] [employer] [facility] Seasonal Seasonal Problem [facility] allergies allergies [facility] - [facility] [employer] ent [facility] COPD COPD Problem Active [facility] (chronic (chronic [facility] - obstructiv obstructiv Me moria e e l pulmonary pulmonary Outp ati disease) disease) ent Clinics History of History of Problem Active [facility] 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 Memori a deficit deficit l [facility] ent Clinics Benign Benign Problem Active [facility] prostatic prostatic Luke s - hyperplasi hyperplasi Me moria a with a with l lower lower [facility] urinary urinary ent tract tract Clinics symptoms symptoms Decreased Decreased Problem Active [facility] hearing of hearing of [place] - both ears both ears Billy ross l [facility] Clinics Dementia Dementia Problem [facility] without without [facility] - behavioral behavioral Me moria disturbanc disturbanc l e, e, Outpati unspecifie unspecifie en t d dementia d dementia Cl inics type type BRICK SIDING APPLICATOR BRICK SIDING APPLICATOR Problem Active [facility] (ventricul (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 l) shunt l) shunt l status status [facility] Clinics Kidney Kidney Problem Active [facility] stones stones [facility] - [facility]ics Urinary Urinary Problem Active [facility] incontinen incontinen [place] [facility] - ce without ce without Me moria sensory sensory l awareness awareness Outp ati ent Clinics Heart Heart Problem Active [facility] disease disease [facility] - [facility] High High Problem Active [facility] cholestero cholestero [place] - l l Memoria l [facility] Clinics Coronary Coronary Problem [facility] artery artery [facility] - disease disease Memoria involving involving l coronary coronary Outpat i bypass bypass ent graft of graft of Clinic [facility] [place] heart without without angina angina pectoris pectoris Benign Benign Problem Active [facility] prostatic prostatic Luke s - hyperplasi hyperplasi Me moria a, a, l unspecifie unspecifie Ou tpati d whether d whether ent lower lower Clinics urinary urinary tract tract symptoms symptoms present present HTN HTN Problem Active [facility] (hypertens (hypertens [place] [facility] - ion) ion) Memoria l [facility] Clinics Weakness Weakness Problem [facility] Stroke Stroke Problem Active [facility] Dizziness Dizziness Problem Active [facility] Actinic Actinic Diagnosis Active [facility] keratosis keratosis [facility] - Memoria l [facility] Stroke Stroke Disease Active [facility] Coronary Coronary Disease Active [facility] artery artery [facility] - disease disease [facility] Allergies, Adverse Reactions, Alerts This patient has no known allergies or adverse reactions. Social History Social Habit Start Date Stop Date Quantity Comments Source Sex Assigned At [facility] Smoking Status Start Date Stop Date Source Current every day smoker 2015-11-18 00:00:00 [facility] Medications Ordered Filled Start Stop Current Ordering Indication Dosage Frequency Signature Comments Components Source Medication Medication Date Date Medication? Clinician (SIG) Name Name pantoprazol Yes 40mg QD Take [address] [facility] e 6-15 tablet (40 [facility] - (PROTONIX) 00:00: mg total) Me dical 40 MG 00 by mouth Center tablet daily. Flonase Flonase Yes Na Nielson [address] [facility] each [facility] - nostril Memoria l [facility] Clinics - Yes Na Nielson [address] [facility] Losartan Losartan Yes Na Nielson [address] [facility] Potassium Potassium [facility] Colace Colace Yes Na Nielson [address] [facility] as needed [facility] - [facility] Lipitor Lipitor Yes Na Nielson [address] [facility] Plavix Plavix Yes Na Nielson [address] [facility] Cetirizine Cetirizine Yes Na Nielson [address] [facility] HCl HCl [facility] - [facility] Meclizine Meclizine Yes Na Nielson [address] [facility] HCl HCl as needed [facility] - [facility] Hydrocortis Hydrocortis Yes Na Nielson [address] [facility] one one applicatio [facility] - n Memoria l [facility] Ketoconazol Ketoconazol Yes Na Nielson [address] e e [facility] Bisoprolol Bisoprolol Yes Na Nielson [address] [facility] Fumarate Fumarate [facility] - [facility] Tamsulosin Tamsulosin Yes Na Nielson [address] [facility] HCl HCl [facility] - [facility] Aricept Aricept Yes Na Nielson [address] at bedtime [facility] - [facility] Ketoconazol Ketoconazol Yes Na Nielson [address] [facility] [facility] e e applicatio [facility] - n Memoria l Outpati ent Clinics Procedures This patient has no known procedures. Encounters Start End Encounter Admission Attending Care Care Encounter Source Date/Time Date/Time Type Type Clinicians Facility Department ID 2019-12-08 2019-12-08 [facility] [id number] [facility] 15:12:00 15:12:00 [employer] [facility] Outpati ent Clinics 2019-11-25 2019-11-25 [facility] [id number] 02:36:00 02:36:00 [employer] [facility] Medicine Outpati ent Clinics 2019-11-23 2019-11-23 [facility] [id number] 10:40:00 10:40:00 [employer] [facility] Outpati ent Clinics 2019-11-10 2019-11-10 [facility] [id number] 16:31:00 16:31:00 [facility] Outpat[facility] ent Clinics 2019-10-14 2019-10-14 [facility] [id number] [address] 11:15:00 11:15:00 t Specialty/U [place] k[facility] - Specialty rology [facility] a /Urology [facility] l Clinic Outpati ent Clinics 2019-08-23 2019-08-23 [facility] [id number] 15:20:00 15:20:00 [employer] [facility] Outpat[facility] ent Clinics 2019-05-25 2019-05-25 [facility] [id number] 13:40:00 13:40:00 [employer] [facility] Outpati ent Clinics 2018-12-30 2018-12-30 Outpatient [id number] 12:18:00 12:18:00 2018-12-17 2018-12-17 Outpatient [id number] 10:25:00 10:25:00 2018-12-04 2018-12-03 Inpatient E [facility] [id number] [facility] 03:20:00 23:06:00 2018-11-10 2018-11-10 Emergency E [facility] [id number] [facility] 18:32:00 18:32:00 Results This patient has no known results.
--- OUTSIDE RECORDS SUMMARY | 2020-01-21 15:28 | XMS REPORT ---
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 Problem Bilateral hearing loss, unspecified H91.93 Active hearing loss type Problem Seasonal allergic rhinitis, J30.2 Active unspecified trigger Problem COPD (chronic obstructive pulmonary J44.9 Active disease) Problem AIR CHIPPER (ventriculoperitoneal) shunt Z98.2 Active status Problem Decreased hearing of both ears H91.93 Active Problem Coronary artery disease involving I25.810 Active coronary bypass graft of [place] heart without angina pectoris Problem Urinary incontinence without N39.42 Active sensory awareness Problem Dementia without behavioral F03.90 Active disturbance, unspecified dementia type Problem History of CVA with residual I69.30 Active deficit Problem Kidney stones N20.0 Active Problem HTN (hypertension) I10 Active Problem Stroke I63.9 Active Problem Heart disease I51.9 Active Problem High cholesterol E78.00 Active Problem Benign prostatic hyperplasia, N40.0 Active unspecified whether lower urinary tract symptoms present Problem Weakness R53.1 Active Problem Seasonal allergies J30.2 Active Problem Benign prostatic hyperplasia with N40.1 Active lower urinary tract symptoms Medications No Known Medications Results No Known Results Summary Purpose [employer] Submission
--- OUTSIDE RECORDS SUMMARY | 2020-01-21 15:28 | XMS REPORT ---
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
--- OUTSIDE RECORDS SUMMARY | 2020-01-21 15:28 | XMS REPORT ---
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
[2020-01-21] MEDS ORDERED: RSI MEDICATION KIT IV ONE (15:36)
[2020-01-21] MEDS ORDERED: NA CHLORIDE 0.9% 2,000 ML ONE (15:37)
[2020-01-21 16:04] LABS: Basophils % 0.5 % (0-1.3); Hematocrit 42.7 % (39.6-49.0); Lymphocytes % 37.4 % (15.3-44.8); MPV 11.6 fL (7.6-11.3); RBC Red Blood Cell Count 5.11 M/uL (4.33-5.43)
[2020-01-21 16:06] LABS: Protime INR 1.11
--- NOTE | 2020-01-21 16:12 | RAD REPORT ---
EXAM DESCRIPTION: CT - CTHCSPWOC - 01/21/2020 4:01 pm CLINICAL HISTORY: Trauma, head and neck injury. AMS COMPARISON: Neck Angio dated 02/14/2019; Neck Angio dated 11/13/2018; Head C Spine Mpr Wo Con dated 07/26; Head C Spine Mpr Wo Con dated 04/19/2018 TECHNIQUE: Axial 5 mm thick images of the head were obtained. Axial 2 mm thick images of the cervical spine were obtained with sagittal and coronal reconstruction images generated and reviewed. All CT scans are performed using dose optimization technique as appropriate and may include automated exposure control or mA/KV adjustment according to patient size. FINDINGS: CT HEAD WITHOUT CONTRAST: No acute hemorrhage, hydrocephalus or extra-axial collection is identified.Advanced generalized brain atrophy is present with advanced periventricular and deep white matter chronic microvascular ischemi c changes.No areas of brain edema or midline shift. Right-sided ventriculostomy tube is in place. Mild multifocal paranasal sinus thickening.The calvarium is intact. CT CERVICAL SPINE WITHOUT CONTRAST: No fracture or subluxation.Mild lower cervical degenerative changes.No prevertebral soft tissues swel ling is identified. Endotracheal intubation noted. IMPRESSION: No acute intracranial or cervical spine findings.
[2020-01-21 16:23] LABS: Albumin 3.5 g/dL (3.4-5.0); Bilirubin Direct 0.1 mg/dL (0-0.2); Bilirubin Total 0.4 mg/dL (0.2-1.0); Magnesium 2.1 mg/dL (1.8-2.4); Potassium 3.8 mmol/L (3.5-5.1); Protein, Total 8.1 g/dL (6.4-8.2)
[2020-01-21] MEDS ORDERED: propofoL 1,000 MG/100 ML VIAL IV ONE (16:24)
[2020-01-21 16:29] LABS: Troponin (Emerg Dept Use Only) 1.23 ng/mL (0.0-0.045)
--- NOTE | 2020-01-21 16:35 | RAD REPORT ---
EXAM DESCRIPTION: RAD - Chest Single View - 01/21/2020 4:13 pm CLINICAL HISTORY: UNRESPONSIVE Chest pain. COMPARISON: Chest Single View dated 02/14/2019; Chest Pa And Lat (2 Views) dated 01/09/2019; Chest Singl e View dated 12/03/2018; Chest Single View dated 11/13/2018 FINDINGS: Portable technique limits examination quality. The lungs are grossly clear. The heart is normal in size. Changes of prior CABG noted.ET tube tip joshua ears above the level of the clavicular heads. Right-sided shunt tubing noted.
--- NOTE | 2020-01-21 16:55 | EDPHYS ---
Physician Documentation [facility] Name: Joey Ramsey Age: 84 yrs Sex: Male : 1935 Arrival Date: 01/21/2020 Time: 15:32 Bed 3 Private MD: ED Physician David Person HPI: 01/20 16:55 This 84 yrs old Male presents to ER via EMS with complaints of Unresponsive. kdr 16:55 The patient presents with decreased responsiveness. Onset: The symptoms/episode kdr began/occurred at an unknown time. The patient had been out on his tractor for about 2..5 hours and apparently had gotten off his tractor and started walking back to his house when he collapsed. It is not known exactly how long he had been down on the ground. Possible causes: CVA or TIA, sepsis. Associated signs and symptoms: The patient has no apparent associated signs or symptoms, Pertinent positives:. Current symptoms: In the emergency department the patient's symptoms are unchanged from the initial presentation, despite EMS interventions. Patient's baseline: Neuro: alert and fully oriented, Motor: no deficits, Ambulation: walks without assistance, Speech: normal for age, The patient has a previous history of CVA, TIA, Cardiac. The patient has not experienced similar symptoms in the past. The patient has not recently seen a physician. 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 - Social history:: Smoking status: Patient denies any tobacco usage or history of. ROS: 16:55 Constitutional: The patinet is unresponsive to stimuli kdr 16:55 Unable to obtain ROS due to altered mental status, obtunded state, patient being uncooperative. Exam: 16:55 Constitutional: This is a well developed, well nourished patient who is obtunded and kdr in moderate distress Head/Face: Normocephalic, atraumatic. Eyes: Pupils equal round and reactive to light, extra-ocular motions intact. Lids and lashes normal. Conjunctiva and sclera are non-icteric and not injected. Cornea within normal limits. Periorbital areas with no swelling, redness, or edema. Neck: Trachea midline, no thyromegaly or masses palpated, and no cervical lymphadenopathy. Supple, full range of motion without nuchal rigidity, or vertebral point tenderness. No Meningismus. Chest/axilla: Normal chest wall appearance and motion. Nontender with no deformity. No lesions are appreciated. Respiratory: Lungs have equal breath sounds bilaterally, clear to auscultation and percussion. No rales, rhonchi or wheezes noted. No increased work of breathing, no retractions or nasal flaring. Abdomen/GI: Soft, non-tender, with normal bowel sounds. No distension or tympany. No guarding or rebound. No evidence of tenderness throughout. Back: No spinal tenderness. No costovertebral tenderness. Full range of motion. Skin: Warm, dry with normal turgor. Normal color with no rashes, no lesions, and no evidence of cellulitis. MS/ Extremity: Pulses equal, no cyanosis. Neurovascular intact. Full, normal range of motion. 16:55 Cardiovascular: Rate: tachycardic, actual rate is 150 bpm, Rhythm: regular, Pulses: no pulse deficits are appreciated, Heart sounds: normal, Edema: is not appreciated. 16:55 ECG was reviewed by the Attending Physician. Vital Signs: 15:35 BP 133 / 75; Pulse 150; Resp 37; Temp 105.6; Pulse Ox 97% ; bp 15:40 Weight 72.57 kg; em 16:08 BP 159 / 82; Pulse 131; Resp 26 A; Pulse Ox 98% on ETT ambu; em 16:17 BP 152 / 84; Pulse 131; Resp 22; Pulse Ox 99% on ETT ambu; em 16:20 BP 131 / 84; Pulse 129; Resp 22; Pulse Ox 95% on ETT ambu; em 16:25 BP 136 / 91; Pulse 131; Resp 26; Pulse Ox 95% on ETT ambu; em 16:40 BP 127 / 91; Pulse 117; Resp 26 S; Pulse Ox 100% on Nebulizer Mask; em 16:56 Temp 100.9(C); em 17:02 BP 102 / 61; Pulse 97; Resp 25; Pulse Ox 100% on Nebulizer Mask; em 17:32 BP 105 / 67; Pulse 92; Resp 22 S; Temp 100.3(C); Pulse Ox 100% on Non-rebreather mask; em 17:47 BP 141 / 66; Pulse 92; Resp 20; Temp 100.1(C); Pulse Ox 100% on Nebulizer Mask; em 18:09 BP 135 / 69; Pulse 94; Resp 24; Temp 99.8(C); Pulse Ox 99% on 2 lpm NC; em 18:53 BP 94 / 51; Pulse 82; Resp 20; Temp 99.9(C); Pulse Ox 100% on 2 lpm NC; em Procedures: 16:15 Intubation: Ventilated with 100% NRB prior to procedure. O2 saturation prior to snw procedure was 98 %. Intubated orally using # 4 Bethany blade with 7.5 mm ETT. Successful on third attempt. Ventilated with Ambu bag. Cricoid pressure applied during procedure. Tube secured with ETT thurman measured 23 cm at lip. Placement verified by CO2 detector with (+) color change, auscultating bilateral breath sounds, O2 saturation after procedure was 98 %. Patient tolerated well. MDM: 16:55 Patient medically screened. kdr 01/20 15:33 Order name: Basic Metabolic Panel; Complete Time: 16:45 bp 01/20 15:33 Order name: CBC with Diff; Complete Time: 16:16 bp 01/20 15:33 Order name: LFT's; Complete Time: 16:45 bp 01/20 15:33 Order name: Magnesium; Complete Time: 16:45 bp 01/20 15:33 Order name: NT PRO-BNP; Complete Time: 16:45 bp 01/20 15:33 Order name: PT-INR; Complete Time: 16:16 bp 01/20 15:33 Order name: Troponin (emerg Dept Use Only); Complete Time: 16:45 bp 01/20 15:33 Order name: CPK; Complete Time: 16:45 bp 01/20 16:04 Order name: Procalcitonin; Complete Time: 19:43 kdr 01/20 16:04 Order name: Lactate; Complete Time: 19:43 kdr 01/20 17:01 Order name: Urine Dipstick--Ancillary (enter results); Complete Time: 19:43 eb 01/20 17:52 Order name: Lactate EDMS 01/20 17:52 Order name: CBC with Automated Diff EDMS 01/20 17:52 Order name: CBC with Automated Diff EDMS 01/20 17:52 Order name: Comprehensive Metabolic Panel EDMS 01/20 17:52 Order name: Comprehensive Metabolic Panel EDMS 01/20 17:52 Order name: Lactate EDMS 01/20 17:52 Order name: Lactate EDMS 01/20 17:52 Order name: Lipid Profile EDMS 01/20 17:52 Order name: Lipid Profile EDMS 01/20 17:52 Order name: Magnesium EDMS 01/20 17:52 Order name: Magnesium EDMS / 17:52 Order name: NT PRO-BNP EDMS 01/20 17:52 Order name: NT PRO-BNP EDMS 01/20 17:52 Order name: Phosphorus EDMS 01/20 17:52 Order name: Phosphorus EDMS 01/20 17:52 Order name: T4 Free EDMS 01/20 17:52 Order name: T4 Free EDMS 01/20 17:52 Order name: Thyroid Stimulating Hormone EDMS 01/20 17:52 Order name: Thyroid Stimulating Hormone EDMS 01/20 15:33 Order name: XRAY Chest (1 view); Complete Time: 16:45 bp 01/20 15:33 Order name: EKG; Complete Time: 15:34 bp 01/20 15:33 Order name: Cardiac monitoring; Complete Time: 15:33 bp 01/20 15:33 Order name: EKG - Nurse/Tech; Complete Time: 15:33 bp 01/20 15:33 Order name: IV Saline Lock; Complete Time: 15:34 bp 01/20 15:33 Order name: Labs collected and sent; Complete Time: 15:35 bp 01/20 15:47 Order name: CT Head C Spine; Complete Time: 16:16 bp 01/20 17:52 Order name: CONS Physician Consult EDMS 01/20 17:52 Order name: CONS Physician Consult EDMS 01/20 17:52 Order name: NPO EDMS 01/20 17:52 Order name: EKG Electrocardiogram EDMS 01/20 17:52 Order name: EKG Electrocardiogram EDMS 01/20 17:52 Order name: EKG Electrocardiogram EDMS 01/20 17:52 Order name: EKG Electrocardiogram EDMS 01/20 17:52 Order name: Troponin I EDGA 01/20 17:52 Order name: Troponin I; Complete Time: 00:14 EDMS 01/20 17:52 Order name: Troponin I EDGA 01/20 20:50 Order name: Lactate Sepsis 2 HR Follow-up; Complete Time: 00:14 EDGA 01/21 00:03 Order name: Troponin I; Complete Time: 00:14 EDGA 01/21 03:37 Order name: Troponin I EDGA 01/21 03:38 Order name: Comprehensive Metabolic Panel EDGA 01/21 03:38 Order name: CKMB Creatine Kinase MB EDGA 01/21 07:07 Order name: Troponin I EDGA 01/20 15:33 Order name: O2 Per Protocol; Complete Time: 15:33 bp 01/20 15:33 Order name: O2 Sat Monitoring; Complete Time: 15:33 bp 01/20 15:59 Order name: Urine Dipstick-Ancillary (obtain specimen); Complete Time: 17:20 kdr EC:55 Rate is 143 beats/min. Rhythm is regular, Sinus tachycardia with No ectopy. QRS Elim is kdr Normal. TX interval is normal. Clinical impression: Cardiac ischemia and Sinus tachycardia. 16:55 Rate is 97 beats/min. Rhythm is regular, Sinus tachycardia with Occasional PVCs, PACs. kdr QRS Elim is Normal. TX interval is normal. QRS interval is prolonged. QT interval is normal. Clinical impression: Cardiac ischemia. Administered Medications: 15:36 Drug: Etomidate 20 mg Route: IVP; Site: right forearm; em 15:40 Follow up: Response: No adverse reaction em 15:37 Drug: Rocuronium 20 mg Route: IVP; Site: right forearm; em 15:40 Follow up: Response: No adverse reaction em 15:39 Drug: Rocuronium 30 mg Route: IVP; Site: right forearm; em 15:40 Follow up: Response: No adverse reaction em 15:40 Drug: NS 0.9% 1000 ml Route: IV; Rate: 1 bolus; Site: right forearm; em 17:17 Follow up: IV Status: Completed infusion; IV Intake: 1000ml em 15:40 Drug: NS 0.9% 1000 ml Route: IV; Rate: 1 bolus; Site: right forearm; em 19:04 Follow up: IV Status: Completed infusion; IV Intake: 1000ml em 16:20 Drug: Propofol 5 mcg/kg/min {Note: started propofol at 10 mcg/min.} Route: IV; Rate: em calculated rate; Site: right forearm; 16:35 Follow up: Response: No adverse reaction; IV Status: Order to discontinue infusion em 19:09 Not Given (Physician Discretion): Aspirin Suppository 300 mg [place] once jb4 19:09 Not Given (Physician Discretion): Tylenol Suppository 650 mg [place] once jb4 Disposition: 01/21/20 16:55 Hospitalization ordered by Summer Ku for Observation. Preliminary diagnosis are Heatstroke and sunstroke, Syncope and collapse, Dehydration. - Bed requested for [facility] ER HOLD. - Status is Observation. hb - Condition is Fair. - Problem is new. - Symptoms have improved. Addendum: 01/24/2020 08:19 Co-signature as Attending Physician, David Person MD I agree with the assessment and k dr plan of care. Signatures: Dispatcher [employer] [facility] Kari Leung RN RN dw Rittger, Kevin, MD MD [facility] Zoë Gamboa, RETORT KILN BURNER-C RETORT KILN BURNER-Csnw Parker Viera, RN RN em Lilian Hyde RN RN Harsh Hicks, Mary Winchester RN, James RN jb4 Corrections: (The following items were deleted from the chart) 08 15:52 15:34 Head Brain Wo Cont+CT.RAD.BRZ ordered. [facility] EDGA 18:07 16:55 Hospitalization Ordered by Summer Ku MD for Observation. Preliminary dw diagnosis is Heatstroke and sunstroke; Syncope and collapse; Dehydration. Bed requested for Telemetry/MedSurg (observation). Status is Observation. Condition is Fair. Problem is new. Symptoms have improved. kdr 18:12 18:07 01/21/2020 16:55 Hospitalization Ordered by Summer Ku MD for Observation. dw Preliminary diagnosis is Heatstroke and sunstroke; Syncope and collapse; Dehydration. Bed requested for [facility] ER HOLD. Status is Observation. Condition is Fair. Problem is new. Symptoms have improved. dw 18:14 18:12 01/21/2020 16:55 Hospitalization Ordered by Summer Ku MD for Observation. eb Preliminary diagnosis is Heatstroke and sunstroke; Syncope and collapse; Dehydration. Bed requested for [facility] ER HOLD. Status is Observation. Condition is Fair. Problem is new. Symptoms have improved. dw 01/21 07:09 01/20 18:14 01/21/2020 16:55 Hospitalization Ordered by Summer Ku MD for hb Observation. Preliminary diagnosis is Heatstroke and sunstroke; Syncope and collapse; Dehydration. Bed requested for [facility] ER HOLD. Status is Observation. Condition is Fair. Problem is new. Symptoms have improved. eb
--- NOTE | 2020-01-21 16:55 | ER ---
Nurse's Notes [facility] Name: Joey Ramsey Age: 84 yrs Sex: Male : 1935 Arrival Date: 01/21/2020 Time: 15:32 Bed 3 Private MD: Diagnosis: Heatstroke and sunstroke;Syncope and collapse;Dehydration Presentation: 01/20 15:32 Acuity: VINAY 1 hb 15:35 Chief complaint: EMS states: FOUND UNRESPONSIVE AND TACHYCARDIC AFTER UNKNOWN LENGTH OF bp TIME EXPOSED TO ELEMENTS. Coronavirus screen: At this time, the client does not indicate any symptoms associated with coronavirus-19. Ebola Screen: No symptoms or risks identified at this time. Initial Sepsis Screen: Does the patient meet any 2 criteria? Altered Mental Status. HR > 90 bpm. Yes Does the patient have a suspected source of infection? No. Patient's initial sepsis screen is negative. Risk Assessment: Do you want to hurt yourself or someone else? Patient reports no desire to harm self or others. Onset of symptoms is unknown. Care prior to arrival: Medication(s) given: Normal saline infusion, 1000 mL, IV initiated. 20 GA, in the left antecubital area, Glucose check: 125 Oxygen administered. via AMBU bag. 15:35 Method Of Arrival: EMS: [facility] bp 15:35 Acuity: VINAY 1 bp Triage Assessment: 15:39 General: Appears distressed, unkempt, Behavior is unresponsive. Pain: Unable to use bp pain scale. Patient is unresponsive. EENT: No deficits noted. Neuro: Level of Consciousness is unresponsive. Cardiovascular: Rhythm is sinus tachycardia. Respiratory: Airway is patent Respiratory effort is even, shallow. GI: No signs and/or symptoms were reported involving the gastrointestinal system. : No signs and/or symptoms were reported regarding the genitourinary system. Derm: Skin is moist, Skin is red, Skin temperature is hot. Musculoskeletal: No deficits noted. 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 - Social history:: Smoking status: Patient denies any tobacco usage or history of. Screenin:40 Abuse screen: no apparent signs noted. em Assessment: 15:39 General: SEE TRIAGE NOTE. bp 15:45 Reassessment: COOLING BLANKET APPLIED. ETT PLACED. bp 15:57 Reassessment: wheeled to CT by me. em 16:15 Reassessment: pt starting to wake up, bucking the vent, provider notified, received new em verbal orders. 16:35 Reassessment: pt pushed ET tube out with tongue, provider at bedside, placed on em nonrebreather, will continue to monitor. 16:35 Reassessment: Dr. Person at bedside with . em 16:40 Reassessment: removed ice packs and cooling blanket. em 17:12 General: Appears in no apparent distress. Neuro: Level of Consciousness is awake, em lethargic. Cardiovascular: Rhythm is sinus rhythm. Respiratory: Airway is patent Respiratory effort is even, unlabored, Respiratory pattern is regular. Derm: Skin is intact, is thin, Skin is clammy, Skin is pale, Skin temperature is cool. 17:47 Reassessment: Patient appears in no apparent distress at this time. pt awake and alert, em able to follow some commands. 18:53 Reassessment: Patient appears in no apparent distress at this time. No changes from em previously documented assessment. 23:14 Reassessment: primary nurse noted of elevated trop of 28.8. primary nurse called jd3 hospitalist at this time. Vital Signs: 15:35 BP 133 / 75; Pulse 150; Resp 37; Temp 105.6; Pulse Ox 97% ; bp 15:40 Weight 72.57 kg; em 16:08 BP 159 / 82; Pulse 131; Resp 26 A; Pulse Ox 98% on ETT ambu; em 16:17 BP 152 / 84; Pulse 131; Resp 22; Pulse Ox 99% on ETT ambu; em 16:20 BP 131 / 84; Pulse 129; Resp 22; Pulse Ox 95% on ETT ambu; em 16:25 BP 136 / 91; Pulse 131; Resp 26; Pulse Ox 95% on ETT ambu; em 16:40 BP 127 / 91; Pulse 117; Resp 26 S; Pulse Ox 100% on Nebulizer Mask; em 16:56 Temp 100.9(C); em 17:02 BP 102 / 61; Pulse 97; Resp 25; Pulse Ox 100% on Nebulizer Mask; em 17:32 BP 105 / 67; Pulse 92; Resp 22 S; Temp 100.3(C); Pulse Ox 100% on Non-rebreather mask; em 17:47 BP 141 / 66; Pulse 92; Resp 20; Temp 100.1(C); Pulse Ox 100% on Nebulizer Mask; em 18:09 BP 135 / 69; Pulse 94; Resp 24; Temp 99.8(C); Pulse Ox 99% on 2 lpm NC; em 18:53 BP 94 / 51; Pulse 82; Resp 20; Temp 99.9(C); Pulse Ox 100% on 2 lpm NC; em ED Course: 15:30 Initial lab(s) drawn, by me, sent to lab. Inserted saline lock: 20 gauge in right em forearm, using aseptic technique. Blood collected. 15:32 Patient arrived in ED. bp 15:35 Patient has correct armband on for positive identification. Placed in gown. Bed in low em position. Call light in reach. Side rails up X 1. Side rails up X2. alarm security or surveillance monitor on. Pulse ox on. NIBP on. 15:38 Triage completed. hb 15:39 Arm band placed on. bp 15:40 Parker Viera, RN is Primary Nurse. em 15:42 Assisted provider with intubation using 7.5 mm ETT via oral route. ET tube secured at em 22cm at the lips. Set up intubation tray. Intubated by David Person MD Placement verified by CO2 detector w/ + color change, auscultating bilateral breath sounds, CXR, Patient tolerated well. 15:50 David Person MD is Attending Physician. eb 15:50 Joyce cath inserted, using sterile technique, 18 Fr., by me, balloon inflated, returned em clear yellow urine. Patient tolerated well. 16:01 CT Head C Spine In Process Unspecified. EDMS 16:14 XRAY Chest (1 view) In Process Unspecified. EDMS 16:36 Initial lab(s) drawn, by me, sent to lab. Inserted saline lock: 20 gauge in left em forearm, using aseptic technique. Blood collected. 16:54 Summer Ku MD is Hospitalizing Provider. kdr Administered Medications: 15:36 Drug: Etomidate 20 mg Route: IVP; Site: right forearm; em 15:40 Follow up: Response: No adverse reaction em 15:37 Drug: Rocuronium 20 mg Route: IVP; Site: right forearm; em 15:40 Follow up: Response: No adverse reaction em 15:39 Drug: Rocuronium 30 mg Route: IVP; Site: right forearm; em 15:40 Follow up: Response: No adverse reaction em 15:40 Drug: NS 0.9% 1000 ml Route: IV; Rate: 1 bolus; Site: right forearm; em 17:17 Follow up: IV Status: Completed infusion; IV Intake: 1000ml em 15:40 Drug: NS 0.9% 1000 ml Route: IV; Rate: 1 bolus; Site: right forearm; em 19:04 Follow up: IV Status: Completed infusion; IV Intake: 1000ml em 16:20 Drug: Propofol 5 mcg/kg/min {Note: started propofol at 10 mcg/min.} Route: IV; Rate: em calculated rate; Site: right forearm; 16:35 Follow up: Response: No adverse reaction; IV Status: Order to discontinue infusion em 19:09 Not Given (Physician Discretion): Aspirin Suppository 300 mg [place] once jb4 19:09 Not Given (Physician Discretion): Tylenol Suppository 650 mg [place] once jb4 Intake: 17:17 IV: 1000ml; Total: 1000ml. em 19:04 IV: 1000ml; Total: 2000ml. em Outcome: 16:55 Decision to Hospitalize by Provider. kdr 01/21 07:09 Patient left the ED. Signatures: Dispatcher [employer] EDMS David Person MD MD kdr Parker Viera RN RN em Lilian Hyde RN RN Javier Jang RN RN jd3 Peltier, Brian, RN RN bp Botello, Elizabeth eb Bryson, James RN jb4 Corrections: (The following items were deleted from the chart) 01/20 17:19 17:12 Derm: Skin is intact, is thin, Skin is pale, Skin temperature is cool em em
[2020-01-21] MEDS ORDERED: ASPIRIN 600 MG/SUPP PR ONE (17:33)
[2020-01-21] MEDS ORDERED: ACETAMINOPHEN 650MG/RECT SUPP PR ONE (17:33)
[2020-01-21] MEDS ORDERED: ONDANSETRON 4 MG/2 ML VIAL IV PRN (17:42)
[2020-01-21 18:55] LABS: Urine Blood 1+ (NEG); Urine Glucose NEGATIVE (NEG); Urine Protein NEGATIVE (NEG); Urine pH 5.5 (5.0-7.0)
[2020-01-21] MEDS ORDERED: ROCURONIUM 50 MG/5 ML VIAL IV ONE (19:31)
[2020-01-21] MEDS ORDERED: ETOMIDATE 20 MG/10 ML VIAL IV ONE (19:31)
[2020-01-21] MEDS ORDERED: ENOXAPARIN 40 MG/0.4 ML SQ ONE (19:59)
[2020-01-21] MEDS ORDERED: NA CHLORIDE 0.9% 1,000 ML ONE (19:59)
[2020-01-21] MEDS ORDERED: ENOXAPARIN 40 MG/0.4 ML SQ SCH (20:00)
[2020-01-21] MEDS: NA CHLORIDE 0.9% 1,000 ML IV SCH (20:00)
[2020-01-21] MEDS: ACETAMINOPHEN 500 MG TAB PO PRN (21:01)
[2020-01-21] MEDS ORDERED: ACETAMINOPHEN 500 MG TAB ONE (21:04)
--- NOTE | 2020-01-22 00:18 | P.PN ---
Date of Service: 01/22/20 (12:17am) Patient's repeat troponin significantly elevated at 28.8 with a repeat at 29. Evaluated patient. Patient is more alert and oriented. Denies chest pain. Telemetry is unchanged. Will order EKG. Will order updated lab work. Patient is alert and oriented x3 and in no distress.
--- NOTE | 2020-01-22 00:59 | P.PN ---
Subjective Date of Service: 01/22/20 Chief Complaint: Heat stroke/unresponsiveness Subjective: Improving, Doing well Review of Systems General: As per HPI Eyes: Unremarkable ENT: Unremarkable Respiratory: As per HPI Cardiovascular: Unremarkable Gastrointestinal: Unremarkable Genitourinary: Unremarkable Musculoskeletal: Unremarkable Integumentary: Unremarkable Neurological: Weakness Lymphatics: Unremarkable Physical Examination - Vital Signs Temperature: 100.0 F Blood Pressure: 91/50 Pulse: 71 Respirations: 16 Pulse Ox (%): 96 - Physical Exam General: Alert, In no apparent distress, Oriented x2 HEENT: Atraumatic, Normocephalic, PERRLA Neck: Supple, Other (Trachea midline) Respiratory: Clear to auscultation bilaterally, Normal air movement Cardiovascular: No edema, Normal pulses, Regular rate/rhythm, Normal S1 S2 Capillary refill: <2 Seconds Gastrointestinal: Normal bowel sounds, Soft and benign, Non-distended Musculoskeletal: No clubbing, No swelling, No contractures, No erythema Integumentary: No breakdown, No significant lesion, No tenderness/swelling Neurological: Normal speech, Normal tone, Normal affect - Studies Laboratory Data (last 24 hrs) 01/21/20 15:34: PT 13.1 H, INR 1.11 01/21/20 15:34: WBC 7.9, Hgb 14.1, Hct 42.7, Plt Count 173 01/21/20 15:34: Sodium 146 H, Potassium 3.8, BUN 16, Creatinine 1.45 H, Glucose 130 H, Magnesium 2.1, Total Bilirubin 0.4, AST 18, ALT 18, Alkaline Phosphatase 61 Assessment And Plan - Plan Impression: Heat stroke/unresponsiveness: Elevation in cardiac enzymes: Plan: Heat stroke/unresponsiveness: Patient was found by EMS unresponsive and unknown length of time. He was intubated in the ER on admission. He is also noted to have a high temperature. Patient eventually extubated himself. His temperature is improved. He responded well to IV fluids. He is alert and oriented x2 than much improved from original admission. He is calm alert and oriented and in no distress. Elevation in cardiac enzymes: Original cardiac enzymes were 1.23 on arrival. On redraw troponins significantly elevated to 28.8. Recheck troponins elevated to 29. Patient is not having any cardiac issues. Telemetry is stable. Repeat EKG is improved from original admitting EKG. Patient is on full-dose Lovenox. Discharge Plan: Home Plan to discharge in: Greater than 2 days - Code Status/Comfort Care Code Status Assessed: Yes Time Spent Managing PTS Care (In Minutes): 45
[2020-01-22] MEDS ORDERED: ENOXAPARIN 40 MG/0.4 ML SQ ONE ×2 (01:10→01:22)
[2020-01-22 03:36] LABS: Albumin 2.7 g/dL (3.4-5.0); Bilirubin Total 0.5 mg/dL (0.2-1.0); Potassium 3.9 mmol/L (3.5-5.1); Protein, Total 6.4 g/dL (6.4-8.2)
[2020-01-22 03:38] LABS: CKMB Creatine Kinase MB 109.5 ng/mL (0.3-3.6)
[2020-01-22] MEDS: NA CHLORIDE 0.9% 1,000 ML IV SCH ×3 (06:00→21:27)
[2020-01-22] MEDS ORDERED: NA CHLORIDE 0.9% 0 ML ONE (06:18)
[2020-01-22 06:28] LABS: Absolute Lymphocytes (CBC) 2.1 K/uL (0.7-4.9); Basophils % 0.3 % (0-1.3); Hematocrit 34.9 % (39.6-49.0); Lymphocytes % 13.8 % (15.3-44.8); MPV 10.6 fL (7.6-11.3)
[2020-01-22 06:51] LABS: Albumin 2.7 g/dL (3.4-5.0); Bilirubin Total 0.6 mg/dL (0.2-1.0); Magnesium 2.1 mg/dL (1.8-2.4); Phosphorus 2.4 mg/dL (2.5-4.9); Potassium 3.5 mmol/L (3.5-5.1); Protein, Total 6.4 g/dL (6.4-8.2); Thyroid Stimulating Hormone 1.55 uIU/mL (0.360-3.740)
--- NOTE | 2020-01-22 08:09 | EKG ---
Test Date: 2020-01-22 Test Time: 00:19:26 [facility] Director: MEASUREMENT RESULTS: Intervals: Rate: 73 VA: 184 QRSD: 84 QT: 454 QTc: 500 [place]: P: 63 VA: 184 QRS: 47 T: 83 INTERPRETIVE STATEMENTS: Normal sinus rhythm Nonspecific ST and T wave abnormality Prolonged QT Abnormal ECG Compared to ECG 01/21/2020 17:01:22 Atrial premature complex(es) no longer present Aberrant conduction of supraventricular beat(s) no longer present Possible ischemia no longer present ST (T wave) deviation still present Electronically Signed On 01-22-20 08:09:09 CDT by Nick Stubbs
--- NOTE | 2020-01-22 08:10 | EKG ---
Test Date: 2020-01-21 Test Time: 17:01:22 Material Carrier: HB MEASUREMENT RESULTS: Intervals: Rate: 97 OR: 172 QRSD: 88 QT: 382 QTc: 485 [place]: P: 43 OR: 172 QRS: 18 T: 101 INTERPRETIVE STATEMENTS: Sinus rhythm with premature atrial complexes with aberrant conduction ST & T wave abnormality, consider inferolateral ischemia Prolonged QT Abnormal ECG Compared to ECG 02/14/2019 17:00:19 Atrial premature complex(es) now present Aberrant conduction of supraventricular beat(s) now present ST (T wave) deviation now present Possible ischemia now present Prolonged QT interval now present Myocardial infarct finding no longer present Electronically Signed On 01-22-20 08:09:24 CDT by Nick Stubbs
[2020-01-22] MEDS ORDERED: ENOXAPARIN 60 MG/0.6 ML SQ ONE (08:34)
[2020-01-22] MEDS: ENOXAPARIN 60 MG/0.6 ML SQ SCH ×2 (08:52→21:00)
[2020-01-22] MEDS ORDERED: POTASSIUM PHOS IN 0.9 % NACL 15 MMOL/250 ML BAG IV ONE (09:00)
[2020-01-22 09:11] LABS: Blood Morphology Comment NOT SEEN (NOT SEEN); Platelet Estimate DECR; Platelets, Giant FEW; Urine White Blood Cell Casts OK
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
[2020-01-22] MEDS: NA CHLORIDE 0.9% 500 ML IV ONE ×2 (10:03→11:00)
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
[2020-01-22] MEDS ORDERED: NA CHLORIDE 0.9% 1,000 ML ONE (15:02)
[2020-01-22 19:10] VITALS: BMI 23.2
[2020-01-23 06:07] LABS: Phosphorus 1.8 mg/dL (2.5-4.9); Potassium 4.2 mmol/L (3.5-5.1)
[2020-01-23] MEDS: NA CHLORIDE 0.9% 1,000 ML IV SCH ×4 (07:13→20:00)
[2020-01-23] MEDS: ENOXAPARIN 60 MG/0.6 ML SQ SCH ×2 (09:00→21:00)
[2020-01-23] MEDS ORDERED: POTASSIUM PHOS IN 0.9 % NACL 15 MMOL/250 ML BAG IV ONE (09:00)
--- NOTE | 2020-01-23 15:36 | EKG ---
Test Date: 2020-01-21 Test Time: 15:31:08 Admissions Clerk: MEASUREMENT RESULTS: Intervals: Rate: 143 [place]: 158 QRSD: 92 QT: 304 QTc: 469 [place]: P: 52 [place]: 158 QRS: 5 T: 138 INTERPRETIVE STATEMENTS: Sinus tachycardia Marked ST abnormality, possible inferior subendocardial injury Marked ST abnormality, possible anteroseptal subendocardial injury Abnormal ECG Compared to ECG 02/14/2019 17:00:19 ST (T wave) deviation now present Sinus rhythm no longer present Myocardial infarct finding no longer present Electronically Signed On 01-23-20 15:34:52 CDT by Nick Stubbs
--- NOTE | 2020-01-23 20:29 | PN ---
Date of Progress Note: 01/23/2020 History Of Present Illness: Mr. Ramsey was admitted on 01/21/2020 with syncope, unresponsiveness, tr oponin that was elevated at 34.1. He was dehydrated and initial creatinine was elevated, now his cre atinine is 0.91. The patient really denies any chest pain, but has a history of CABG and has classic aortic stenosis by examination. Case was discussed with the family and apparently they agreed to pr oceed with the catheterization, which will be scheduled for 01/24/2020. Today, he is feeling better. He is alert and oriented to person and place, slightly confused, which is his baseline. Physical Examination: Vital Signs: Stable. He is afebrile. Chest: Clear. Cardiac: Revealed aortic stenosis. Regular rhythm and rate. Abdomen: Unremarkable. Extremity: Unremarkable. Diagnostic Data: Today does show elevated sodium and chloride, creatinine of 0.91. Rest is unremark able. Chest x-ray is negative. White count was 15,000. Impression And Plan: 1.Syncope. 2.History of coronary artery bypass graft. 3.Aortic stenosis by physical examination. We will do a heart catheterization tomorrow to define his coronary anatomy and graft his SYKES and try to cross the aortic valve to see if he has any significant gradient. The case will be done by _ in the morning. BANG/FATIMAH Voice ID: [id number] Report ID: [id number]
[2020-01-23] MEDS ORDERED: METOPROLOL XL 25 MG TAB PO SCH (21:00)
[2020-01-23] MEDS: ACETAMINOPHEN 500 MG TAB PO PRN (22:55)
[2020-01-24] MEDS ORDERED: FUROSEMIDE 20 MG/ 2ML VIAL IV ONE (04:27)
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
[2020-01-24] MEDS: D5W 1,000 ML IV SCH ×2 (05:00→21:37)
[2020-01-24] MEDS: PIPER/TAZO/NS 3.375gm 3.375 GM/100 ML BAG IVPB SCH ×4 (05:00→16:57)
[2020-01-24 05:58] LABS: Absolute Lymphocytes (CBC) 1.6 K/uL (0.7-4.9); Basophils % 0.1 % (0-1.3); Hematocrit 34.7 % (39.6-49.0); Lymphocytes % 10.5 % (15.3-44.8); MPV 11.2 fL (7.6-11.3); RBC Red Blood Cell Count 4.16 M/uL (4.33-5.43)
[2020-01-24] MEDS ORDERED: PIPER/TAZO/NS 3.375gm 3.375 GM/100 ML BAG IVPB SCH (06:00)
[2020-01-24] MEDS: SILVER SULFADIAZINE 1% 50 GM TOP SCH ×3 (06:00→20:46)
[2020-01-24 06:01] LABS: Phosphorus 1.6 mg/dL (2.5-4.9); Potassium 3.6 mmol/L (3.5-5.1)
[2020-01-24] MEDS ORDERED: LIDOCAINE 1% MPF 30 ML VIAL ONE (07:33)
[2020-01-24] MEDS ORDERED: HEPA 1000U/500MLS 2,000 UNIT/1,000 ML BAG IV ONE (07:33)
[2020-01-24] MEDS: METOPROLOL XL 50 MG TAB PO SCH ×2 (07:33→16:58)
[2020-01-24] MEDS ORDERED: NA CHLORIDE 0.9% 500 ML ONE (07:43)
[2020-01-24] MEDS ORDERED: MIDAZOLAM HCL 2 MG/2 ML INJ ONE (07:43)
[2020-01-24] MEDS ORDERED: ATROPINE SULF 1 MG/10 ML SYR IV ONE (07:44)
[2020-01-24] MEDS ORDERED: HEPARIN 10,000 UNIT/10 ML VIAL IV ONE ×2 (07:44→09:17)
[2020-01-24] MEDS ORDERED: FENTANYL CITR 100 MCG/2 ML ONE (07:44)
[2020-01-24] MEDS: DONEPEZIL HCL 5 MG TAB PO SCH (08:52)
[2020-01-24] MEDS: ATORVASTATIN 10 MG TAB PO SCH (08:53)
[2020-01-24] MEDS: ENOXAPARIN 60 MG/0.6 ML SQ SCH (08:53)
[2020-01-24] MEDS: VITAMIN B COMPLEX 1 CAP PO SCH (08:53)
[2020-01-24] MEDS: TAMSULOSIN 0.4 MG SR CAP PO SCH (08:53)
[2020-01-24] MEDS: ASPIRIN EC 81 MG TAB PO SCH (08:53)
[2020-01-24] MEDS ORDERED: CLOPIDOGREL 75 MG TABLET PO SCH (09:00)
[2020-01-24] MEDS ORDERED: SILVER SULFADIAZINE 1% 50 GM TOP SCH (09:00)
[2020-01-24] MEDS ORDERED: POTASSIUM 25 MEQ EFFERV TAB PO ONE (09:00)
[2020-01-24] MEDS ORDERED: HEPA 1000U/500MLS 1,000 UNIT/500 ML BAG IV ONE (09:08)
[2020-01-24] MEDS ORDERED: TICAGRELOR 90 MG TABLET PO ONE ×3 (09:32→12:00)
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
[2020-01-24] MEDS: VANCOMYCIN 1.25 GM in NA CHLORIDE 0.9% 250 ML IVPB SCH (11:23)
[2020-01-24] MEDS ORDERED: FUROSEMIDE 40 MG/4 ML VIAL IV ONE (16:00)
[2020-01-24] MEDS: ALBUTEROL 2.5 MG/3 ML NEB SOL NEB SCH ×2 (16:54→19:45)
--- NOTE | 2020-01-24 17:38 | RAD REPORT ---
EXAM DESCRIPTION: RAD - Chest Single View - 01/24/2020 5:06 pm CLINICAL HISTORY: SOB Chest pain. COMPARISON: Chest Single View dated 01/21/2020; Chest Single View dated 02/14/2019; Chest Pa And Lat (2 Views) dated 01/09/2019; Chest Single View dated 12/03/2018 FINDINGS: Portable technique limits examination quality. Since comparative study dated 01/21/2020, there has been development of moderate bilateral pulmonary interstitial lung opacities. This may indicate pulmonary edema or interstitial pneumonia. The heart i s normal in size. Sternotomy wires present.
[2020-01-24] MEDS: TICAGRELOR 90 MG TABLET PO SCH (20:23)
[2020-01-25] MEDS: ALBUTEROL 2.5 MG/3 ML NEB SOL NEB SCH ×7 (00:50→23:30)
[2020-01-25] MEDS: PIPER/TAZO/NS 3.375gm 3.375 GM/100 ML BAG IVPB SCH ×3 (01:31→18:30)
[2020-01-25] MEDS: VANCOMYCIN 1.25 GM in NA CHLORIDE 0.9% 250 ML IVPB SCH ×2 (04:13→22:21)
[2020-01-25 05:23] LABS: Potassium 2.6 mmol/L (3.5-5.1)
[2020-01-25] MEDS: METOPROLOL XL 50 MG TAB PO SCH ×2 (06:00→18:30)
[2020-01-25] MEDS: KCL 20 MEQ/100 mL IVPB 20 MEQ/100 ML BAG IV SCH ×4 (06:19→22:25)
[2020-01-25] MEDS: VITAMIN B COMPLEX 1 CAP PO SCH (09:00)
[2020-01-25] MEDS: FUROSEMIDE 40 MG/4 ML VIAL IV SCH ×2 (09:00→18:30)
[2020-01-25] MEDS: TAMSULOSIN 0.4 MG SR CAP PO SCH (09:00)
[2020-01-25] MEDS: ATORVASTATIN 10 MG TAB PO SCH (09:00)
[2020-01-25] MEDS: DONEPEZIL HCL 5 MG TAB PO SCH (09:00)
[2020-01-25] MEDS: POTASS/SODIUM PHOSPHATE 1 PKT POWD.PACK PO SCH ×3 (09:00→13:42)
[2020-01-25] MEDS ORDERED: KCL 20 MEQ/100 mL IVPB 20 MEQ/100 ML BAG IV SCH (09:00)
[2020-01-25] MEDS: ASPIRIN EC 81 MG TAB PO SCH (09:00)
[2020-01-25] MEDS: TICAGRELOR 90 MG TABLET PO SCH ×3 (09:01→20:29)
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
[2020-01-25] MEDS ORDERED: MAGNESIUM SULFATE 1 gm IVPB 1 GM/100 ML BAG IV ONE (10:38)
[2020-01-25] MEDS ORDERED: KCL 20 MEQ/100 mL IVPB 20 MEQ/100 ML BAG IV ONE (11:00)
--- NOTE | 2020-01-25 11:32 | ECHO ---
HEIGHT: 5 ft 8 in WEIGHT: 153 lb 0 oz DATE OF STUDY: 01/15/[address]: Niko Campos 2-DIMENSIONAL: YES M.MODE: YES DOPPLER: YES COLOR FLOW: YES TDS: NO PORTABLE: NO DEFINITY: NO BUBBLE STUDY: NO DIAGNOSIS: FOLLOW UP CARDIAC HISTORY: CATHERIZATION: YES SURGERY: YES PROSTHETIC VALVE: NO PACEMAKER: NO MEASUREMENTS (cm) DIASTOLIC (NORMALS) SYSTOLIC (NORMALS) IVSd 1.1 (0.6-1.2) LA Diam 3.7 (1.9-4.0) LVEF 59% LVIDd 3.7 (3.5-5.7) LVIDs 2.6 (2.0-3.5) %FS 31% LVPWd 1.1 (0.6-1.2) Ao Diam 3.2 (2.0-3.7) 2 DIMENSIONAL ASSESSMENT: RIGHT ATRIUM: NORMAL LEFT ATRIUM: NORMAL RIGHT VENTRICLE: NORMAL LEFT VENTRICLE: NORMAL TRICUSPID VALVE: NORMAL MITRAL VALVE: MITRAL ANNULAR CALCIFICATION PULMONIC VALVE: NORMAL AORTIC VALVE: STENOTIC PERICARDIAL EFFUSION: NONE AORTIC ROOT: NORMAL LEFT VENTRICULAR WALL MOTION: NORMAL. DOPPLER/COLOR FLOW: AORTIC STENOSIS - MODERATE 1.3 CENTIMETERS SQUARED. COMMENTS: MODERATE AORTIC STENOSIS - AREA 1.3 CENTIMETERS SQUARED. NO WALL MOTION ABNORMALITY. NORMAL LEFT VENTRICULAR SIZE AND FUNCTION. MITRAL ANNULAR CALCIFICATION. TECHNOLOGIST: DIAMOND MCALLISTER
[2020-01-25] MEDS: SILVER SULFADIAZINE 1% 50 GM TOP SCH ×2 (16:35→20:44)
[2020-01-25] MEDS: D5W 1,000 ML IV SCH (18:31)
[2020-01-26] MEDS: PIPER/TAZO/NS 3.375gm 3.375 GM/100 ML BAG IVPB SCH ×3 (00:44→17:48)
[2020-01-26] MEDS: KCL 20 MEQ/100 mL IVPB 20 MEQ/100 ML BAG IV SCH (01:50)
[2020-01-26] MEDS: ALBUTEROL 2.5 MG/3 ML NEB SOL NEB SCH ×6 (04:15→23:50)
[2020-01-26] MEDS: METOPROLOL XL 50 MG TAB PO SCH ×2 (06:00→17:54)
[2020-01-26 08:52] LABS: Magnesium 2.2 mg/dL (1.8-2.4); Phosphorus 2.3 mg/dL (2.5-4.9); Potassium 3.3 mmol/L (3.5-5.1)
[2020-01-26] MEDS: DONEPEZIL HCL 5 MG TAB PO SCH (08:57)
[2020-01-26] MEDS: ASPIRIN EC 81 MG TAB PO SCH (08:57)
[2020-01-26] MEDS: TICAGRELOR 90 MG TABLET PO SCH ×2 (08:57→20:42)
[2020-01-26] MEDS: TAMSULOSIN 0.4 MG SR CAP PO SCH (08:57)
[2020-01-26] MEDS: ATORVASTATIN 10 MG TAB PO SCH (08:58)
[2020-01-26] MEDS: SILVER SULFADIAZINE 1% 50 GM TOP SCH ×2 (08:58→20:42)
[2020-01-26] MEDS: VITAMIN B COMPLEX 1 CAP PO SCH (08:58)
[2020-01-26] MEDS ORDERED: POTASSIUM CL SA 10 MEQ TAB PO ONE (10:00)
[2020-01-26] MEDS: POTASS/SODIUM PHOSPHATE 1 PKT POWD.PACK PO SCH ×3 (10:23→12:55)
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
[2020-01-26] MEDS: D5W 1,000 ML IV SCH ×2 (15:25→17:00)
[2020-01-26] MEDS: VANCOMYCIN 1.25 GM in NA CHLORIDE 0.9% 250 ML IVPB SCH (15:26)
[2020-01-27] MEDS: PIPER/TAZO/NS 3.375gm 3.375 GM/100 ML BAG IVPB SCH ×3 (01:18→17:08)
[2020-01-27] MEDS: ALBUTEROL 2.5 MG/3 ML NEB SOL NEB SCH ×5 (03:30→20:45)
[2020-01-27] MEDS: METOPROLOL XL 50 MG TAB PO SCH ×2 (06:00→17:09)
[2020-01-27 08:06] LABS: Absolute Lymphocytes (CBC) 1.3 K/uL (0.7-4.9); Basophils % 0.3 % (0-1.3); Hematocrit 30.5 % (39.6-49.0); Lymphocytes % 13.5 % (15.3-44.8); MPV 11.2 fL (7.6-11.3); RBC Red Blood Cell Count 3.74 M/uL (4.33-5.43)
[2020-01-27] MEDS: DONEPEZIL HCL 5 MG TAB PO SCH (08:20)
[2020-01-27] MEDS: VITAMIN B COMPLEX 1 CAP PO SCH (08:20)
[2020-01-27] MEDS: TICAGRELOR 90 MG TABLET PO SCH ×2 (08:20→21:31)
[2020-01-27] MEDS: ASPIRIN EC 81 MG TAB PO SCH (08:20)
[2020-01-27] MEDS: ATORVASTATIN 10 MG TAB PO SCH (08:21)
[2020-01-27] MEDS: TAMSULOSIN 0.4 MG SR CAP PO SCH (08:21)
[2020-01-27 08:22] LABS: Albumin 2.5 g/dL (3.4-5.0); Bilirubin Total 0.5 mg/dL (0.2-1.0); Potassium 3.9 mmol/L (3.5-5.1); Protein, Total 6.8 g/dL (6.4-8.2)
[2020-01-27] MEDS: SILVER SULFADIAZINE 1% 50 GM TOP SCH ×2 (08:22→21:34)
--- NOTE | 2020-01-27 08:46 | EKG ---
Test Date: 2020-01-25 Test Time: 00:37:21 Pool Nurse: RT-O MEASUREMENT RESULTS: Intervals: Rate: 91 AL: 166 QRSD: 86 QT: 442 QTc: 543 [place]: P: 41 AL: 166 QRS: 20 T: 70 INTERPRETIVE STATEMENTS: Normal sinus rhythm Nonspecific ST abnormality Prolonged QT Abnormal ECG Compared to ECG 01/23/2020 22:22:35 Prolonged QT interval now present Atrial fibrillation no longer present Ventricular premature complex(es) no longer present T-wave abnormality no longer present ST (T wave) deviation still present Electronically Signed On 01-27-20 08:39:03 CDT by Nick Stubbs
[2020-01-27] MEDS: VANCOMYCIN 1.25 GM in NA CHLORIDE 0.9% 250 ML IVPB SCH (09:14)
--- NOTE | 2020-01-27 09:51 | PN ---
Date of Progress Note: 01/26/2020 Mr. Ramsey is a patient status post CABG, status post angioplasty of the RCA graft on 01/24/2020. He has done well from a cardiovascular standpoint. He is feeling better. No pain. He is ambulatory. He remains hypokalemic at 2.6. I recommend that he stop his Lasix. Supplement his potassium. He r eally should be mainly on aspirin, low-dose metoprolol Plavix, and statin. Again I suggest physical therapy, ambulation, and send him home and I will see him in the office in the next week or 2. He is pain free today. He remained in sinus rhythm. Case was discussed with the patient and with the wif jil. His was available in the room. BANG/FATIMAH Voice ID: [id number] Report ID: [id number]
--- NOTE | 2020-01-27 09:56 | PN ---
Date of Progress Note: 01/25/2020 Mr. Ramsey had undergone heart catheterization with an angioplasty at the ostium of the RCA graft by Dr. Campos. It was a SYKES to the LAD that was patent. The circumflex system completely occluded júnior ng with an OM graft completely occluded. Overnight, he did very well. His catheterization insertion site was in fact without any hematoma. He had good distal pulses and he denied any chest pain. Den ied any shortness of breath. Continues to be rather weak and fatigued. He was still getting Lasix. His potassium was 2.6. I suggest we supplement his potassium, supplement his magnesium. Continue p resent regimen. I suggest physical therapy and maybe send him home in the next day or so. From our standpoint, he is on beta-blockers, statin, aspirin, Plavix. BANG/FATIMAH Voice ID: [id number] Report ID: [id number]
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
[2020-01-27] MEDS: D5W 1,000 ML IV SCH (12:50)
[2020-01-28] MEDS: ALBUTEROL 2.5 MG/3 ML NEB SOL NEB SCH ×7 (00:10→23:50)
[2020-01-28] MEDS: PIPER/TAZO/NS 3.375gm 3.375 GM/100 ML BAG IVPB SCH ×3 (00:55→17:01)
[2020-01-28] MEDS: VANCOMYCIN 1.25 GM in NA CHLORIDE 0.9% 250 ML IVPB SCH ×2 (03:21→20:39)
[2020-01-28 04:42] LABS: Potassium 3.9 mmol/L (3.5-5.1)
[2020-01-28] MEDS: METOPROLOL XL 50 MG TAB PO SCH ×2 (06:00→16:59)
[2020-01-28] MEDS: D5W 1,000 ML IV SCH (08:41)
[2020-01-28] MEDS: TICAGRELOR 90 MG TABLET PO SCH ×2 (08:44→20:44)
[2020-01-28] MEDS: VITAMIN B COMPLEX 1 CAP PO SCH (08:44)
[2020-01-28] MEDS: TAMSULOSIN 0.4 MG SR CAP PO SCH (08:45)
[2020-01-28] MEDS: ASPIRIN EC 81 MG TAB PO SCH (08:45)
[2020-01-28] MEDS: DONEPEZIL HCL 5 MG TAB PO SCH (08:46)
[2020-01-28] MEDS: ATORVASTATIN 10 MG TAB PO SCH (08:46)
[2020-01-28] MEDS: SILVER SULFADIAZINE 1% 50 GM TOP SCH ×2 (08:47→20:45)
[2020-01-28] MEDS ORDERED: POTASSIUM CL SA 10 MEQ TAB PO ONE (09:00)
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
[2020-01-28] MEDS: ENSURE ENLIVE 237 ML CAN PO SCH (20:44)
[2020-01-29] MEDS: PIPER/TAZO/NS 3.375gm 3.375 GM/100 ML BAG IVPB SCH ×3 (00:22→16:53)
--- NOTE | 2020-01-29 01:34 | OP ---
Date of Procedure: 01/24/2020 Surgeon: FERNANDO FARRELL Procedures Performed: 1.Selective coronary angiogram. 2.Left heart catheterization. 3.Balloon angioplasty of severe ostial saphenous vein graft to right coronary artery in-stent resten osis, 95% stenosis using 4.0 x 12 mm NC balloon. Access: The access is left femoral artery 6-Polish, closed with 6-Polish Angio-Seal. Indication: [id number] myocardial infarction. Anesthesia: Total sedation time was 55 minutes. Description Of Procedure: After risks, benefits, and alternatives were explained to the patient, the patient agreed to procedure and signed informed consent. We took the patient back to the cardiac ca theterization laboratory, prepped and draped in usual sterile fashion. We used fentanyl and Versed i n incremental doses to achieve adequate moderate sedation. Then, we accessed the right femoral arter y using the ultrasound and the fluoroscopic guidance and inserted a 6-Polish [place] sheath and we t ook a 6-Polish JL4 catheter over a J-wire into the aortic root, engaged left main, took standard view s and exchanged to 6-Polish JR4 catheter, engaged the right coronary artery, and took standard views. Then, we also engaged the SVG to the OM and SVG to RCA and then the JR catheter also was navigated into the left subclavian, engaged the SYKES and took standard views. Then, we proceeded to the interv ention part. We gave systemic heparin to assure ACT level above 250 and we took a 6-Polish JR4 guide into the aort ic root, engaged the SVG to the RCA, and took the run-through wire across the stenotic lesions and th en initially took 3.0 x 12 mm NC balloon and pre-dilated the lesion and then took a 4.0 x 12 mm NC ba lloon and dilated the ISR very well and had 0% residual stenosis post balloon angioplasty. Then, we took the JR4 catheter into the aortic root and we crossed the aortic valve and we obtained a gradient across the aortic valve, it was 26 mm and we obtained the LVEDP as well. Findings: 1.Left main is occluded. 2.The LAD has mid [employer]INA [employer]NAGER with patent SYKES to distal LAD. 3.Diffuse mid to distal LAD disease, 23% stenosis. 4.SVG to OM is occluded. 5.RCA has proximal [employer]INA [employer] DOCK MANAGER. 6.SVG to RCA has 95% ostial in-stent restenosis, status post successful balloon angioplasty using 4. 0 X 12 mm NC balloon. 7.Mean gradient across the aortic valve is 26 mm indicative of mild aortic valve stenosis. Conclusion: Severe coronary artery disease as above with culprit being ostial SVG to RCA in-stent re stenosis, status post successful balloon angioplasty as above. Recommendations: 1.Given 180 mg of Brilinta, continue 90 mg q.12 hours and aspirin 81 mg daily, high dose statin. 2.Aggressive cardiac risk factor modification. SR/MODL Voice ID: [id number] Report ID: [id number]
[2020-01-29] MEDS: ALBUTEROL 2.5 MG/3 ML NEB SOL NEB SCH (03:00)
[2020-01-29] MEDS: D5W 1,000 ML IV SCH (04:36)
[2020-01-29] MEDS: METOPROLOL XL 50 MG TAB PO SCH ×2 (05:46→17:14)
[2020-01-29 06:30] LABS: Phosphorus 3.3 mg/dL (2.5-4.9); Potassium 3.7 mmol/L (3.5-5.1)
[2020-01-29] MEDS ORDERED: ALBUTEROL 2.5 MG/3 ML NEB SOL NEB PRN (07:43)
[2020-01-29] MEDS: VITAMIN B COMPLEX 1 CAP PO SCH (08:22)
[2020-01-29] MEDS: ATORVASTATIN 10 MG TAB PO SCH (08:22)
[2020-01-29] MEDS: TICAGRELOR 90 MG TABLET PO SCH ×2 (08:22→20:46)
[2020-01-29] MEDS: ASPIRIN EC 81 MG TAB PO SCH (08:23)
[2020-01-29] MEDS: DONEPEZIL HCL 5 MG TAB PO SCH (08:23)
[2020-01-29] MEDS: TAMSULOSIN 0.4 MG SR CAP PO SCH (08:23)
[2020-01-29] MEDS: SILVER SULFADIAZINE 1% 50 GM TOP SCH ×2 (08:27→20:48)
[2020-01-29] MEDS: ENSURE ENLIVE 237 ML CAN PO SCH ×2 (08:28→20:46)
[2020-01-29] MEDS ORDERED: POTASSIUM CL SA 10 MEQ TAB PO ONE (09:00)
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
[2020-01-29] MEDS ORDERED: VANCOMYCIN 1.25 GM in NA CHLORIDE 0.9% 250 ML IVPB SCH (15:00)
[2020-01-30] MEDS: D5W 1,000 ML IV SCH ×3 (00:57→05:40)
[2020-01-30] MEDS: PIPER/TAZO/NS 3.375gm 3.375 GM/100 ML BAG IVPB SCH ×2 (00:57→09:04)
[2020-01-30] MEDS: METOPROLOL XL 50 MG TAB PO SCH (05:32)
[2020-01-30 06:11] LABS: Potassium 4.2 mmol/L (3.5-5.1)
[2020-01-30 08:44] VITALS: O2SAT 97
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
[2020-01-30] MEDS: ENSURE ENLIVE 237 ML CAN PO SCH (09:00)
[2020-01-30] MEDS: SILVER SULFADIAZINE 1% 50 GM TOP SCH (09:03)
[2020-01-30] MEDS: VITAMIN B COMPLEX 1 CAP PO SCH (09:04)
[2020-01-30] MEDS: ATORVASTATIN 10 MG TAB PO SCH (09:05)
[2020-01-30] MEDS: TICAGRELOR 90 MG TABLET PO SCH (09:05)
[2020-01-30] MEDS: DONEPEZIL HCL 5 MG TAB PO SCH (09:05)
[2020-01-30] MEDS: TAMSULOSIN 0.4 MG SR CAP PO SCH (09:05)
[2020-01-30] MEDS: ASPIRIN EC 81 MG TAB PO SCH (09:05)
[2020-01-30 10:05] VITALS: BP 112/55; TEMP 97.4
== END 2020-01-30 10:48 | disposition home health service (06) | DRG 981 ==
LOC: ER 15:25 → ERHOLD 17:43 → 2ND 01-22 18:42
PROVIDERS: ADMIT Hospitalist; ATTEND Family Medicine
PROC: 02703ZZ Dilation of Coronary Artery, One Artery, Percutaneous Approach (ICD-10-PCS; principal; 2020-01-21)
PROC: 4A023N7 Measurement of Cardiac Sampling and Pressure, Left Heart, Percutaneous Approach (ICD-10-PCS; 2020-01-24)
PROC: B2111ZZ Fluoroscopy of Multiple Coronary Arteries using Low Osmolar Contrast (ICD-10-PCS; 2020-01-24)
PROC: B2181ZZ Fluoroscopy of Left Internal Mammary Bypass Graft using Low Osmolar Contrast (ICD-10-PCS; 2020-01-24)
DX: T67.01XA Heatstroke and sunstroke, initial encounter (principal); I21.4 Non-ST elevation (NSTEMI) myocardial infarction; J81.1 Chronic pulmonary edema; M62.82 Rhabdomyolysis; I10 Essential (primary) hypertension; E78.5 Hyperlipidemia, unspecified; F03.90 Unspecified dementia, unspecified severity, without behavioral disturbance, psychotic disturbance, mood disturbance, and anxiety; N40.0 Benign prostatic hyperplasia without lower urinary tract symptoms; I25.10 Atherosclerotic heart disease of native coronary artery without angina pectoris; E86.0 Dehydration; I95.1 Orthostatic hypotension; I35.0 Nonrheumatic aortic (valve) stenosis; E87.6 Hypokalemia; E83.42 Hypomagnesemia; F17.200 Nicotine dependence, unspecified, uncomplicated; T20.20XA Burn of second degree of head, face, and neck, unspecified site, initial encounter; T21.21XA Burn of second degree of chest wall, initial encounter; R79.89 Other specified abnormal findings of blood chemistry; R50.9 Fever, unspecified; Z95.1 Presence of aortocoronary bypass graft; Z86.73 Personal history of transient ischemic attack (TIA), and cerebral infarction without residual deficits; Z79.899 Other long term (current) drug therapy; Z79.82 Long term (current) use of aspirin; Z90.49 Acquired absence of other specified parts of digestive tract; Z11.59 Encounter for screening for other viral diseases
CPT/HCPCS: 31500; 36415; 51702; 70450; 71045; 72125; 80048; 80053; 80061; 80076; 80202; 81003; 82550; 82553; 82565; 83605; 83735; 83880; 84100; 84132; 84145; 84439; 84443; 84484; 85025; 85347; 85610; 92937; 93005; 93306; 93459; 94002; 94640; 96361; 96374; 96375; 97112; 97116; 97161; 97530; 99291; C1725; C1760; C1893; J1644; J1650; J1940; J2250; J2543; J2704; J3010; J3370; J3475; J3480; J7030; J7040; J7050; U0002

== ENCOUNTER 2020-03-03 18:25 | Emergency (ER) | payer OTHER ==
--- OUTSIDE RECORDS SUMMARY | 2020-03-03 18:28 | XMS REPORT | Clinical Summary ---
:1935 Author Organization [facility] Address [address] [place] [address] Care Team Providers Name Role Phone Shalom [...] Not on file Results Not on fileafter 03/03/2019 Insurance Payer Benefit Plan / Group Subscriber ID Type Phone A ddress CARE IMPROVEMENT MEDICARE MGD CARE IMPROVEMENT PLUS xxxxxxxxx CARE Advance Directives For more information, please contact:[address] [phone] Code Status Date Activated Date Inactivated Comments Full Code 11/18/2015 6:45 PM 11/22/2015 7:33 PM This code status was determined by: Patient
--- OUTSIDE RECORDS SUMMARY | 2020-03-03 18:29 | XMS REPORT ---
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
--- OUTSIDE RECORDS SUMMARY | 2020-03-03 18:29 | XMS REPORT | Continuity of Care Document ---
:1935 Author Organization [facility] t Address [address] [place] [address] Care Team Providers Name Role Phone Shalom [...] Bacteremia Bacteremia Disease Active [facility] Leucocytos [...] vitor in [facility] - adult adult [facility] Lack of Lack of Problem Active [facility] Seasonal Seasonal Problem Active [facility] allergies allergies [facility] - [facility] COPD COPD Problem Active [facility] (chronic (chronic [facility] - obstructiv obstructiv Me moria e e l pulmonary pulmonary Outp ati disease) disease) ent Clinics History of History of Problem Active [facility] 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 Memori a deficit deficit l [facility] Benign Benign Problem Active [facility] prostatic prostatic Luke s - hyperplasi hyperplasi Me moria a with a with l lower lower [facility] urinary urinary ent tract tract Clinics symptoms symptoms Decreased Decreased Problem Active [facility] hearing of hearing of [place] k[place] - both ears both ears Billy ross l [facility] ent Clinics Dementia Dementia Problem [facility] without without [facility] - behavioral behavioral Me moria disturbanc disturbanc l e, e, Outpati unspecifie unspecifie en t d dementia d dementia 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 [facility] (ventricul (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 l) shunt l) shunt l status status [facility] Kidney Kidney Problem Active [facility] stones stones [facility] - [facility] ent Clinics Urinary Urinary Problem Active [facility] incontinen incontinen [place] k[facility] - ce without ce without Me moria sensory sensory l awareness awareness Outp ati ent Clinics Heart Heart Problem Active [facility] disease disease [facility] - [facility] ent [facility] High High Problem Active [facility] cholestero cholestero [place] kes - l l Memoria l [facility] ent [facility] Coronary Coronary Diagnosis Active [facility] artery artery [facility] - disease disease Memoria involving involving l coronary coronary Outpat i bypass bypass ent graft of graft of Clinic s [place] [facility] heart without without angina angina pectoris pectoris Benign Benign Problem Active [facility] prostatic prostatic Luke s - hyperplasi hyperplasi Me moria a, a, l unspecifie unspecifie Ou tpati d whether d whether ent lower lower Clinics urinary urinary tract tract symptoms symptoms present present HTN HTN Problem Active [facility] (hypertens (hypertens [place] k[facility] - ion) ion) [facility] Weakness Weakness Problem [facility] Stroke Stroke Problem Active [facility] ent Clinics Dizziness Dizziness Problem Active [facility] ent [facility] Stroke Stroke Disease Active [facility] Coronary Coronary Disease [facility] artery artery [facility] Allergies, Adverse Reactions, Alerts This patient has no known allergies or adverse reactions. Social History Social Habit Start Date Stop Date Quantity Comments Source Sex Assigned At [facility] Smoking Status Start Date Stop Date Source Current every day smoker 2015-11-18 00:00:00 [facility] Medications Ordered Filled Start Stop Current Ordering [...] St each [facility] - nostril [facility] Aspir-81 Aspir-81 Yes Na Nielson [address] [facility] Losartan Losartan Yes Na Nielson [address] [facility] Potassium Potassium [facility] Colace Colace Yes Na Nielson [address] [facility] as needed [facility] Lipitor Lipitor Yes Na Nielson [address] [facility] Plavix Plavix Yes Na Nielson [address] [facility] Cetirizine Cetirizine Yes Na Nielson [address] [facility] HCl HCl [facility] Meclizine Meclizine Yes Na Nielson [address] [facility] HCl HCl as needed [facility] Hydrocortis Hydrocortis Yes Na Nielson [address] [facility] one one applicatio [facility] Ketoconazol Ketoconazol Yes Na Nielson [address] [address] e e [facility] Bisoprolol Bisoprolol Yes Na Nielson [address] [facility] [address] Fumarate Fumarate [facility] Tamsulosin Tamsulosin Yes Na Nielson [address] [address] HCl HCl [facility] Aricept Aricept Yes Na Nielson [address] at bedtime [facility] - [facility] ent Clinics Ketoconazol Ketoconazol Yes Na Nielson [address] [facility] [facility] e e applicatio [facility] Procedures This patient has no known procedures. Encounters Start End Encounter Admission Attending Care Care Encounter Source Date/Time Date/Time Type Type Clinicians Facility Department ID 2020-02-07 2020-02-07 [facility] [id number] [facility] 16:32:00 16:32:00 t [employer] [facility] Medicine Outpati ent Clinics 2019-12-08 2019-12-08 [facility] [id number] 15:12:00 15:12:00 t [employer] [facility] l Medicine Outpati ent Clinics 2019-11-25 2019-11-25 [facility] [id number] 02:36:00 02:36:00 t [employer] [facility] l Medicine Outpati ent Clinics 2019-11-23 2019-11-23 [facility] [id number] 10:40:00 10:40:00 t [employer] [facility] l Medicine Outpati ent Clinics 2019-11-10 2019-11-10 [facility] [id number] [address] 16:31:00 16:31:00 t [facility] l Medicine Outpati ent Clinics 2019-10-14 2019-10-14 [facility] [id number] 11:15:00 11:15:00 t Specialty/U [place]ona kes - Specialty rology [facility] l Clinic Outpati ent Clinics 2019-08-23 2019-08-23 [facility] [id number] 15:20:00 15:20:00 t [employer] [facility] Medicine Outpati ent Clinics 2019-05-25 2019-05-25 [facility] [id number] [address] 13:40:00 13:40:00 t [employer] [facility] Medicine Outpati ent Clinics 2018-12-30 2018-12-30 Outpatient [facility] [id number] [facility] 12:18:00 12:18:00 2018-12-17 2018-12-17 Outpatient [facility] [id number] [facility] 10:25:00 10:25:00 2018-12-04 2018-12-03 Inpatient E [facility] [id number] [facility] 03:20:00 23:06:00 2018-11-10 2018-11-10 Emergency E [facility] [id number] [facility] 18:32:00 18:32:00 Results This patient has no known results.
--- OUTSIDE RECORDS SUMMARY | 2020-03-03 18:29 | XMS REPORT ---
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 Problem Coronary artery disease involving I25.810 Active coronary bypass graft of [facility] without angina pectoris Problem Decreased hearing [...] symptoms present Problem Weakness R53.1 Active Assessment Coronary artery disease involving I25.810 Active coronary bypass graft of [facility] heart without angina pectoris Problem Seasonal allergies J30.2 Active Problem Dizziness R42 Active Problem Benign prostatic hyperplasia with N40.1 Active lower urinary tract symptoms Problem Lack of appetite R63.0 Active Medications No Known Medications Results No Known Results Summary Purpose eClinicalDime Submission
--- NOTE | 2020-03-03 20:10 | RAD REPORT ---
EXAM DESCRIPTION: CT - Head Brain Wo Cont - 03/03/2020 7:47 pm CLINICAL HISTORY: CONFUSED, transient alteration of awareness COMPARISON: Ct Stroke Brain Wo Cont dated 02/14/2019 TECHNIQUE: Axial 5 mm thick images of the head were obtained without IV contrast. All CT scans are performed using dose optimization technique as appropriate and may include automated exposure control or mA/KV adjustment according to patient size. FINDINGS: No intracranial hemorrhage, mass, edema or shift of mid-line structures. No acute cortical based infarction. Atrophy changes are mild for age. Patient has advanced white matter chronic ischem ic change which extends into the basal ganglia and thalamus. Patchy brainstem chronic ischemic change s are evident as well. Right parietal shunt tube is in place with the tip at the trigone right latera l ventricle. No abnormal extra-axial fluid collections. Ventricles are in proportion to volume loss. Mastoid air cells and visualized portions of the paranasal sinuses are clear. No acute bony findings. IMPRESSION: Atrophy changes are present along with advanced chronic ischemic change. No acute intrac ranial finding. No significant change from the February 2018 study.
--- NOTE | 2020-03-03 20:11 | RAD REPORT ---
EXAM DESCRIPTION: RAD - Chest Single View - 03/03/2020 7:56 pm CLINICAL HISTORY: AMS COMPARISON: January 23 TECHNIQUE: AP portable chest image was obtained 03/03/2020 7:56 pm . FINDINGS: Lung volumes are low. No peripheral mass or consolidation. No acute infiltrative process s een. No failure or volume overload. Shunt tubing overlies the right-side of the chest. Heart and vasc ulature are normal. No measurable pleural effusion and no pneumothorax. No acute bony abnormality see n. No acute aortic findings suspected. IMPRESSION: No acute cardiopulmonary process. No worrisome change from prior imaging.
[2020-03-03 20:46] LABS: Absolute Lymphocytes (CBC) 1.8 K/uL (0.7-4.9); Basophils % 0.3 % (0-1.3); Hematocrit 37.4 % (39.6-49.0); Lymphocytes % 16.7 % (15.3-44.8); MPV 10.6 fL (7.6-11.3); RBC Red Blood Cell Count 4.54 M/uL (4.33-5.43)
[2020-03-03 20:57] LABS: ALT/SGPT 14 U/L (12-78); AST/SGOT 6 U/L (15-37); Albumin 3.6 g/dL (3.4-5.0); Alkaline Phosphatase 83 U/L (45-117); BUN Blood Urea Nitrogen 16 mg/dL (7-18); Bicarbonate 25 mmol/L (21-32); Bilirubin Direct 0.1 mg/dL (0-0.2); Bilirubin Total 0.4 mg/dL (0.2-1.0); Glucose Level 111 mg/dL (74-106); Magnesium 2.6 mg/dL (1.8-2.4); NT PRO-BNP 1161 pg/mL (<450); Protein, Total 8.6 g/dL (6.4-8.2); Sodium Level 141 mmol/L (136-145); Troponin (Emerg Dept Use Only) < 0.02 ng/mL (0.0-0.045)
[2020-03-03 22:08] LABS: Urine Bacteria <20 /HPF (NONE SEEN); Urine Culture Reflex Order NOT NEEDED; Urine Mucus 1+ /HPF (NONE SEEN); Urine RBC <5 /HPF (NONE SEEN)
[2020-03-03 22:08] LABS: Urine Blood NEGATIVE (NEG); Urine Glucose NEGATIVE (NEG); Urine Protein NEGATIVE (NEG); Urine Specific Gravity >1.030 (1.005-1.030); Urine pH 5.5 (5.0-7.0)
[2020-03-03] MEDS ORDERED: NA CHLORIDE 0.9% 500 ML ONE (23:09)
--- NOTE | 2020-03-03 23:36 | ER ---
Nurse's Notes [facility] Name: Joey Ramsey Age: 84 yrs Sex: Male : 1935 Arrival Date: 03/03/2020 Time: 18:29 Bed 7 Private MD: Marcie Nielson Diagnosis: Dizziness and giddiness;Altered mental status, unspecified Presentation: 03/03 18:36 Chief complaint: Patient states: Patient states he is dizzy, started yesterday. Spouse ll1 and/or significant other states: Slightly altered, shuffling (strange) walk today. Reports dizziness still. Coronavirus screen: Client denies travel out of the [place] in the last 14 days. At this time, the client does not indicate any symptoms associated with coronavirus-19. Ebola Screen: Patient denies travel to an Ebola-affected area in the 21 days before illness onset. Initial Sepsis Screen: Does the patient meet any 2 criteria? No. Patient's initial sepsis screen is negative. Risk Assessment: Do you want to hurt yourself or someone else? Patient reports no desire to harm self or others. Onset of symptoms was March 02, 2020. 18:36 Method Of Arrival: Wheelchair ll1 18:36 Acuity: VINAY 2 ll1 18:57 Note Symptoms started yesterday. 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 - Social history:: Smoking status: Patient reports the use of cigarette tobacco products, denies chronic smoking, but will smoke occasionally. Screenin:39 Abuse screen: Denies threats or abuse. Denies injuries from another. Nutritional rr5 screening: No deficits noted. Tuberculosis screening: No symptoms or risk factors identified. Fall Risk IV access (20 points). Mental Status- Overestimates/Forgets Limitations (15 pts.). Total Quezada Fall Scale indicates Low Risk Score (25-44 pts). Fall prevention measures have been instituted. Side Rails Up X 2 Frequent Obs/Assesments occuring Family Present and informed to notify staff if they need to leave bedside As available Patient and Family Educated on Fall Prevention Program and strategies. Assessment: 19:35 General: Appears in no apparent distress. comfortable, Behavior is calm, cooperative. rr5 Pain: Unable to use pain scale. Patient appears confused. Neuro: Level of Consciousness is awake, confused, Oriented to person, place, Reports dizziness. Cardiovascular: Capillary refill < 3 seconds Patient's skin is warm and dry. Respiratory: Airway is patent Respiratory effort is even, unlabored, Respiratory pattern is regular, symmetrical. GI: No signs and/or symptoms were reported involving the gastrointestinal system. : No signs and/or symptoms were reported regarding the genitourinary system. EENT: No signs and/or symptoms were reported regarding the EENT system. Derm: Skin is fragile, is thin, Skin temperature is warm. Musculoskeletal: Circulation, motion, and sensation intact. Capillary refill < 3 seconds. 20:30 Reassessment: Patient appears in no apparent distress at this time. Patient and/or rr5 family updated on plan of care and expected duration. Pain level reassessed. awaiting for results. 21:30 Reassessment: Patient appears in no apparent distress at this time. No changes from rr5 previously documented assessment. Patient and/or family updated on plan of care and expected duration. Pain level reassessed. hemodynamically stable, no complaints made. 22:30 Reassessment: Patient appears in no apparent distress at this time. Patient and/or rr5 family updated on plan of care and expected duration. Pain level reassessed. 23:30 Reassessment: Patient appears in no apparent distress at this time. Patient and/or rr5 family updated on plan of care and expected duration. Pain level reassessed. review done by ED provider discuss the result. patient is for discharge. 23:49 Reassessment: Patient appears in no apparent distress at this time. discharge rr5 instruction given and explained without complaints made. Vital Signs: 18:36 BP 125 / 56; Pulse 74; Resp 18; Temp 98.2; Pulse Ox 96% ; Pain 0/10; ll1 21:00 BP 121 / 62; Pulse 70; Resp 16; Pulse Ox 100% ; rr5 22:00 BP 126 / 89; Pulse 60; Resp 17; Pulse Ox 100% ; rr5 23:18 BP 132 / 64; Pulse 69; Resp 16; Pulse Ox 99% ; rr5 23:44 BP 136 / 69; Pulse 70; Resp 17; Pulse Ox 98% ; rr5 ED Course: 18:29 Patient arrived in ED. mr 18:29 Marcie Nielson MD is Private Physician. mr 18:38 Triage completed. ll1 18:39 Arm band placed on Patient placed in an exam room, on a stretcher. ll1 19:13 Tod Farris, RN is Primary Nurse. rr5 19:13 Arun Lizarraga MD is Attending Physician. mh7 19:40 Patient has correct armband on for positive identification. Placed in gown. Bed in low rr5 position. Call light in reach. Side rails up X2. radiation monitor on. Pulse ox on. NIBP on. 19:46 CT Head Brain wo Cont In Process Unspecified. EDMS 19:54 XRAY Chest (1 view) In Process Unspecified. EDMS 20:24 Inserted saline lock: 20 gauge in right forearm, using aseptic technique. rr5 22:12 Neck Soft Tissue XRAY In Process Unspecified. EDMS 23:50 No provider procedures requiring assistance completed. IV discontinued, intact, rr5 bleeding controlled, No redness/swelling at site. Pressure dressing applied. Administered Medications: 23:02 Drug: NS 0.9% 500 ml Route: IV; Rate: bolus; Site: right forearm; rr5 23:35 Follow up: Response: No adverse reaction; IV Status: Completed infusion; IV Intake: rr5 500ml Intake: 23:35 IV: 500ml; Total: 500ml. rr5 Outcome: 23:36 Discharge ordered by MD. 7 23:50 Discharged to home via wheelchair, with family. rr5 23:50 Condition: stable 23:50 Discharge instructions given to family, Instructed on discharge instructions, follow up and referral plans. Demonstrated understanding of instructions, follow-up care. 23:51 Patient left the ED. rr5 Signatures: Dispatcher [employer] EDDE Wendy Ross Tod Farris RN RN rr5 Sterling Coats RN RN ll1 Arun Lizarraga MD MD 7 Corrections: (The following items were deleted from the chart) 18:58 18:36 Chief complaint: Patient states: Patient states he is dizzy today. Spouse and/or ll1 significant other states: Slightly altered, shuffling (strange) walk today. ll1 18:58 18:36 Onset of symptoms was March 03, 2020 [place] [id number]
--- NOTE | 2020-03-03 23:37 | EDPHYS ---
Physician Documentation [facility] Name: Joey Ramsey Age: 84 yrs Sex: Male : 1935 Arrival Date: 03/03/2020 Time: 18:29 Bed 7 Private MD: Marcie Nielson ED Physician Arun Lizarraga HPI: 03/03 19:52 This 84 yrs old Male presents to ER via Wheelchair with complaints of Altered mh7 Mental Status, Dizziness. 19:52 The patient presents with confusion, shuffling gait, dizziness. Onset: The mh7 symptoms/episode began/occurred 2 day(s) ago. Possible causes: unknown. Associated signs and symptoms: Pertinent positives: confusion, dizziness, gait abnormality, fall today. Current symptoms: In the emergency department the patient's symptoms are unchanged from the initial presentation. Patient's baseline: Neuro: alert and fully oriented, Motor: no deficits, Ambulation: walks with assist only, uses walker, Speech: normal, The patient has a previous history of CVA, TIA. 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 - Social history:: Smoking status: Patient reports the use of cigarette tobacco products, denies chronic smoking, but will smoke occasionally. ROS: 19:52 Constitutional: Negative for fever, chills, and weight loss, Eyes: Negative for injury, mh7 pain, redness, and discharge, ENT: Negative for injury, pain, and discharge, Neck: Negative for injury, pain, and swelling, Cardiovascular: Negative for chest pain, palpitations, and edema, Respiratory: Negative for shortness of breath, cough, wheezing, and pleuritic chest pain, Abdomen/GI: Negative for abdominal pain, nausea, vomiting, diarrhea, and constipation, Back: Negative for injury and pain, : Negative for injury, bleeding, discharge, and swelling, MS/Extremity: Negative for injury and deformity, Skin: Negative for injury, rash, and discoloration, Psych: Negative for depression, anxiety, suicide ideation, homicidal ideation, and hallucinations, Allergy/Immunology: Negative for hives, rash, and allergies, Endocrine: Negative for neck swelling, polydipsia, polyuria, polyphagia, and marked weight changes, Hematologic/Lymphatic: Negative for swollen nodes, abnormal bleeding, and unusual bruising. Exam: 19:52 Constitutional: This is a well developed, well nourished patient who is awake, alert, mh7 and in no acute distress. Head/Face: Normocephalic, atraumatic. 19:52 ENT: Nares patent. No nasal discharge, no septal abnormalities noted. Tympanic membranes are normal and external auditory canals are clear. Oropharynx with no redness, swelling, or masses, exudates, or evidence of obstruction, uvula midline. Mucous membranes moist. Neck: Trachea midline, no thyromegaly or masses palpated, and no cervical lymphadenopathy. Supple, full range of motion without nuchal rigidity, or vertebral point tenderness. No Meningismus. Chest/axilla: Normal chest wall appearance and motion. Nontender with no deformity. No lesions are appreciated. 19:52 Respiratory: Lungs have equal breath sounds bilaterally, clear to auscultation and percussion. No rales, rhonchi or wheezes noted. No increased work of breathing, no retractions or nasal flaring. Abdomen/GI: Soft, non-tender, with normal bowel sounds. No distension or tympany. No guarding or rebound. No evidence of tenderness throughout. Back: No spinal tenderness. No costovertebral tenderness. Full range of motion. Skin: Warm, dry with normal turgor. Normal color with no rashes, no lesions, and no evidence of cellulitis. MS/ Extremity: Pulses equal, no cyanosis. Neurovascular intact. Full, normal range of motion. 19:52 Head/face: 19:52 Eyes: Periorbital structures: appear normal, Pupils: pinpoint, bilaterally, Extraocular movements: intact throughout, Conjunctiva: normal, Sclera: no appreciated abnormality, Lids and lashes: appear normal, bilaterally, Nystagmus: is not appreciated. 19:52 Cardiovascular: Rate: normal, Rhythm: regular, Pulses: no pulse deficits are appreciated, Heart sounds: murmur, systolic, heard in the aortic area, Edema: is not appreciated, JVD: is not appreciated. 19:52 Neuro: Orientation: is normal, Mentation: is normal, Memory: is normal, Cranial nerves: grossly normal, Cerebellar function: is grossly normal, Motor: is normal, Sensation: is normal, Gait: is unsteady, Deep tendon reflexes are normal, Babinski testing is normal, seizure activity, is not displayed by the patient, Abnormal movements: there are no abnormal movements. 19:52 Psych: Awake, alert, with orientation to person, place and time. Behavior, mood, and [facility] affect are within normal limits. Vital Signs: 18:36 BP 125 / 56; Pulse 74; Resp 18; Temp 98.2; Pulse Ox 96% ; Pain 0/10; ll1 21:00 BP 121 / 62; Pulse 70; Resp 16; Pulse Ox 100% ; rr5 22:00 BP 126 / 89; Pulse 60; Resp 17; Pulse Ox 100% ; rr5 23:18 BP 132 / 64; Pulse 69; Resp 16; Pulse Ox 99% ; rr5 23:44 BP 136 / 69; Pulse 70; Resp 17; Pulse Ox 98% ; rr5 MDM: 19:47 Patient medically screened. 7 23:33 Differential Diagnosis: CVA, electrolyte abnormality, hypoglycemia, intracranial bleed, 7 pneumonia, TIA, UTI, volume depletion. Data reviewed: vital signs, nurses notes, lab test result(s), cardiac enzymes, CBC, drug level(s), electrolytes, urinalysis, EKG, radiologic studies, CT scan, plain films. Data interpreted: Pulse oximetry: on room air is 99 %. Interpretation: normal. Counseling: I had a detailed discussion with the patient and/or guardian regarding: the historical points, exam findings, and any diagnostic results supporting the discharge/admit diagnosis, lab results, radiology results, the need for outpatient follow up, to return to the emergency department if symptoms worsen or persist or if there are any questions or concerns that arise at home. Response to treatment: the patient's symptoms have resolved after treatment, the patient's blood pressure is in an acceptable range, mental status has returned to baseline, the patient no longer shows bradycardia, the patient is not short of breath, the patient is not tachycardic, the patient's pain is gone, the patient's temperature has normalized. 03/04 07:02 Refusal of service: The patient/guardian displays adequate decision making capability [facility] and despite a detailed discussion of alternatives, benefits, risks, and consequences refuses: Admission to the hospital for further work-up and treatment. 03/03 19:43 Order name: Basic Metabolic Panel; Complete Time: 21:34 rr03/03 19:43 Order name: CBC with Diff; Complete Time: 21:34 rr03/03 19:43 Order name: LFT's; Complete Time: 21:34 rr5 03/03 19:43 Order name: Magnesium; Complete Time: 21:34 rr5 03/03 19:43 Order name: NT PRO-BNP; Complete Time: 21:34 rr5 03/03 19:43 Order name: PT-INR; Complete Time: 21:34 rr5 03/03 18:55 Order name: CT Head Brain wo Cont; Complete Time: 20:56 sv 03/03 19:43 Order name: Troponin (emerg Dept Use Only); Complete Time: 21:34 rr5 03/03 19:43 Order name: XRAY Chest (1 view); Complete Time: 20:56 rr5 03/03 19:43 Order name: EKG; Complete Time: 19:44 rr03/03 19:44 Order name: Urine Microscopic Only; Complete Time: 22:16 rr03/03 21:38 Order name: Neck Soft Tissue XRAY 7 03/03 22:01 Order name: Urine Dipstick--Ancillary (enter results); Complete Time: 22:16 wy5 03/03 19:43 Order name: Cardiac monitoring; Complete Time: 20:24 03/03 19:43 Order name: EKG - Nurse/Tech; Complete Time: 20:24 rr03/03 19:43 Order name: IV Saline Lock; Complete Time: 20:24 rr03/03 19:43 Order name: Labs collected and sent; Complete Time: 20:24 rr03/03 19:43 Order name: O2 Per Protocol; Complete Time: 20:25 rr03/03 19:43 Order name: O2 Sat Monitoring; Complete Time: 20:25 rr03/03 19:44 Order name: Urine Dipstick-Ancillary (obtain specimen); Complete Time: 21:59 rr5 Administered Medications: 03/03 23:02 Drug: NS 0.9% 500 ml Route: IV; Rate: bolus; Site: right forearm; rr5 23:35 Follow up: Response: No adverse reaction; IV Status: Completed infusion; IV Intake: rr5 500ml Disposition: 03/03/20 23:36 Discharged to Home. Impression: Dizziness and giddiness, Altered mental status, unspecified. - Condition is Stable. - Discharge Instructions: Dizziness, [id number]. - Medication Reconciliation Form, Thank You Letter, Antibiotic Education, Prescription Opioid Use form. - Follow up: Private Physician; When: 1 - 2 days; Reason: Worsening of condition, Recheck today's complaints, Continuance of care, Re-evaluation by your physician. - Problem is new. - Symptoms have improved. Signatures: Dispatcher [employer] EDMS Tod Farris RN RN rr5 Sterling Coats RN RN ll1 Arun Lizarraga MD MD mh7 Corrections: (The following items were deleted from the chart) 23:51 23:36 03/03/2020 23:36 Discharged to Home. Impression: Dizziness and giddiness; Altered rr5 mental status, unspecified. Condition is Stable. Forms are Medication Reconciliation Form, Thank You Letter, Antibiotic Education, Prescription Opioid Use. Follow up: Private Physician; When: 1 - 2 days; Reason: Worsening of condition, Recheck today's complaints, Continuance of care, Re-evaluation by your physician. Problem is new. Symptoms have improved. mh7
[2020-03-04 00:26] VITALS: TEMP 98.2
[2020-03-04 00:31] VITALS: BP 136/69; O2SAT 98
--- NOTE | 2020-03-04 12:10 | RAD REPORT ---
EXAM DESCRIPTION: RAD - Neck Soft Tissue - 03/03/2020 10:11 pm CLINICAL HISTORY: Neck pain FINDINGS: Airway appears grossly normal Normal prevertebral soft tissue [id number] spondylosis cervical spine Right HEALTH INFORMATION TECH shunt appears intact without kink
--- NOTE | 2020-03-04 12:25 | EKG ---
Test Date: 2020-03-03 Test Time: 20:07:00 Track Laminating Machine Tender: LANDEN MEASUREMENT RESULTS: Intervals: Rate: 67 CT: 200 QRSD: 84 QT: 438 QTc: 462 Hammond: P: 51 CT: 200 QRS: 10 T: 64 INTERPRETIVE STATEMENTS: Normal sinus rhythm Normal ECG Compared to ECG 01/25/2020 00:37:21 ST (T wave) deviation no longer present Prolonged QT interval no longer present Electronically Signed On 03-04-20 12:24:16 CDT by Nick Stubbs
== END 2020-03-03 23:51 | disposition home or self-care (01) ==
LOC: ER 18:25
DX: R41.82 Altered mental status, unspecified (principal); F17.210 Nicotine dependence, cigarettes, uncomplicated; Z86.73 Personal history of transient ischemic attack (TIA), and cerebral infarction without residual deficits; Z95.818 Presence of other cardiac implants and grafts
CPT/HCPCS: 93005; 85025; 80048; 36415; 83735; 85610; 80076; 84484; 83880; 70450; 71045; 70360; 96360; 99284; J7040; 81003; 81015

== ENCOUNTER 2020-03-05 17:07 | Inpatient (IN) | payer OTHER ==
--- OUTSIDE RECORDS SUMMARY | 2020-03-05 17:13 | XMS REPORT ---
:1935 Author Organization [facility] Address [address] 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 031240025 britton shunt status Problem Seasonal J30.2 Active 302006100 allergies Problem Stroke I63.9 Active 497228606 Problem Benign prostatic N40.0 Active 636033887 hyperplasia, unspecified whether lower urinary tract symptoms present Problem Benign prostatic N40.1 Active 833094249 hyperplasia with lower urinary tract symptoms Problem Dizziness R42 Active 300686598 Problem Weakness R53.1 Active 35542476 Problem Depression, F32.9 Active 57019768 unspecified depression type Problem Lack of appetite R63.0 Active 24035755 Problem Dementia without F03.90 Active 31826821 behavioral disturbance, unspecified dementia type Problem Urinary N39.42 Active 738105954 incontinence without sensory awareness Problem Kidney stones N20.0 Active 10175070 Problem History of Z95.5 Active 725192065 coronary artery stent placement Problem High cholesterol E78.00 Active 78028306 Problem Vascular F01.50 Active [id number] dementia without behavioral disturbance Problem Heart disease I51.9 Active 90444355 Problem HTN I10 Active 38453411 (hypertension) Problem History of CVA I69.30 Active 419596320 with residual deficit Problem Seasonal J30.2 Active 685196618 allergic rhinitis, unspecified trigger Problem Bilateral H91.93 Active 63717705 hearing loss, unspecified hearing loss type Problem Decreased H91.93 Active 336437374 hearing of both ears ALLERGIES No Known Allergies ENCOUNTERS from 1935 to 2020-03-03 Encounter Location Date Provider Diagnosis [facility] [employer] [address] [place], [place] on[facility] artery disease [facility] [address] [place] [address] bypass graft o f kiana heart without a ngina pectoris I25.81 0 ; HTN (hypertension) I10 ; High cholestero l E78.00 ; Benign prosta tic hyperplasia, unspecified whe ther lower urinary t ract symptoms presen t N40.0 ; COPD (chronic obstructive pul monary disease) J44.9 ; Depression, uns pecified depression type F32.9 ; Seasonal allerg ic rhinitis, unspe cified trigger J30.2 ; SUPERCHARGER MECHANIC (ventriculoperi toneal) shunt status Z9 8.2 ; Renal insuffici ency N28.9 ; Weaknes s R53.1 ; History of CV A with residual defici t I69.30 ; History of co ronary artery bypass g raft Z95.1 ; History of coronary artery stent placement Z95.5 and Vascular federico [place] without behavio ral disturbance F01 .50 IMMUNIZATIONS No Information SOCIAL HISTORY Tobacco Use: Social History Observation Description Date Details (start date - stop date) Current Smoker Sex Assigned At : Social History Observation Description Sex Assigned At Unknown PHQ9 Question Answer Notes Little interest or pleasure in doing things Not at all Feeling down, depressed, or hopeless Not at all Trouble falling or staying asleep or sleeping too much Not a t all Feeling tired or having little energy Several days Poor appetite or overeating Not at all Feeling bad about yourself, or that you are a failure, or No t at all have let yourself or your family down Trouble concentrating on things, such as reading the Not at all newspaper or watching television Moving or speaking so slowly that other people could have No t at all noticed; or the opposite, being so fidgety or restless that you have been moving around a lot more than usual Total Score 1 Interpretation Minimal Depression Thoughts that you would be better off or of hurting Not at all yourself in some way Alcohol Screen Question Answer Notes Did you have a drink containing alcohol in the past year? No Points 0 Interpretation Negative Tobacco Use/Smoking Question Answer Notes Are you a current smoker How many cigarettes a day do you smoke? 5 or less REASON FOR REFERRAL No Information VITAL SIGNS Height 68.00 in Feb, Weight 144 lbs Feb, BMI 21.89 kg/m2 Feb, Blood pressure systolic 110 mm Hg Feb, Blood pressure diastolic 60 mm Hg Feb, MEDICATIONS Medication SIG (Take, Route, Frequency, Start Date End Date Status Duration) Tamsulosin HCl 0.4 MG 1 capsule Orally Once a day Active Flonase 50 MCG/ACT 2 spray in each nostril Nasally Active Once a day for 30 day(s) Lipitor 10 MG 1 tablet Orally Once a day for Active 90 days Tamsulosin HCl 0.4 MG 1 capsule Orally Once a day Active Meclizine HCl 25 MG 1 tablet as needed Orally every Active 8 hours as needed for dizziness for 10 days Aspirin 81 81 MG 1 tablet Orally Once a day Active Aricept 10 MG 1 tablet at bedtime Orally Once Active a day Metoprolol Succinate 50 MG 1/2 tab Orally twice a day Active Brilinta 90 MG 1 tablet Orally Twice a day Active Cetirizine HCl 10 MG 1 tablet Orally Once a day for Active 90 day(s) PROCEDURES No Information RESULTS No Results REASON FOR VISIT hospital followup s/p coronary artery stent placement SD/heatstroke, 3 month follow up, htn,hld, copd MEDICAL (GENERAL) HISTORY Type Description Date Medical History High cholesterol Medical History Stroke Medical History HTN (hypertension) Medical History COPD (chronic obstructive pulmonary dise ase) Medical History Heart disease Surgical History triple bypass 1998 Surgical History prostate 2012 Surgical History brain 1990 Goals Section No Information Health Concerns No Information MEDICAL EQUIPMENT No Information MENTAL STATUS No Information FUNCTIONAL STATUS No Information ASSESSMENTS Encounter Date Diagnosis Notes Feb, History of CVA with residual deficit (IC D-10 - I69.30) Feb, Weakness (ICD-10 - R53.1) Feb, HTN (hypertension) (ICD-10 - I10) Feb, History of coronary artery stent placeme nt (ICD-10 - Z95.5) Feb, Coronary artery disease involving siegel ry bypass graft of kiana heart without angina pectoris (IC D-10 - I25.810) Feb, History of coronary artery bypass graft (ICD-10 - Z95.1) Feb, Seasonal allergic rhinitis, unspecified trigger (ICD-10 - J30.2) Feb, Depression, unspecified depression type (ICD-10 - F32.9) Feb, Renal insufficiency (ICD-10 - N28.9) Feb, SUPERCHARGER MECHANIC (ventriculoperitoneal) shunt status ( ICD-10 - Z98.2) Feb, Benign prostatic hyperplasia, unspecifie d whether lower urinary tract symptoms present (ICD-10 - N40.0) Feb, High cholesterol (ICD-10 - E78.00) Feb, Vascular dementia without behavioral dis turbance (ICD-10 - F01.50) Feb, COPD (chronic obstructive pulmonary dise ase) (ICD-10 - J44.9) PLAN OF TREATMENT Medication Medication Name Sig Start Date Stop Date Tamsulosin HCl 0.4 MG 1 capsule Orally Once a day Metoprolol Succinate 50 MG 1/2 tab Orally twice a day Brilinta 90 MG 1 tablet Orally Twice a day Aricept 10 MG 1 tablet at bedtime Orally Once a day Cetirizine HCl 10 MG 1 tablet Orally Once a day for 90 day(s) Meclizine HCl 25 MG 1 tablet as needed Orally every 8 hours as needed for dizziness for 10 days Lipitor 10 MG 1 tablet Orally Once a day for 90 days Flonase 50 MCG/ACT 2 spray in each nostril Nasally Once a day for 30 day(s) Treatment Notes Assessment Notes Clinical Notes Coronary artery disease involving - need to f/u with cardiol ogy -cont coronary bypass graft of kiana aspirin 81mg daily and Brili nta 90mg heart without angina pectoris po bid and stop plavix. -Need to control blood pressure, blood glucose and cholesterol, take baby asa 81mg daily. - Maintain low fat diet, decrease fast food and fried foods. Exercise as tolerated 30minutes per day at least 3 days a week. HTN (hypertension) -- Maintian a low salt DASH diet, exercise, weight loss and decrease stress recommended. Keep BP log and will review next visit. If blood pressure consistently above 140/90 return to clinic for adjustment of meds. Try to quit smoking if you currently smoke. Decrease caffeine intake if possible. - - advised to avoid phenylephrine and pseudoephedrine in otc sinus/cold meds containing these decongestants which work by vasoconstricting blood vessels to help decrease congestion however may cause your BP to rise. -- If you have a cold may take Coricidin brand of cold medicines safe for high blood pressure patients. High cholesterol low fat diet, decrease fast food and fried foods. Increase fruit and vegetable intake. exercise as tolerated 30minutes per day at least 3 days a week. May take fish oil 1000mg twice daily to help increase good cholesterol (HDL). Benign prostatic hyperplasia, f/u with urology unspecified whether lower urinary tract symptoms present COPD (chronic obstructive if you develop sob or cough with pulmonary disease) increase phlegm or sputum changes from clear to yellow or green or develop fever above 100.4F call PCP or go to ER. Quit smoking and avoid exacerbating factors including second hand smoke or fumes. Depression, unspecified depression continue current meds jose ly. Avoid type caffeine. Make sure to exercise daily, take deep breaths, meditate, take frequent breaks. Take yourself away from the situation causing anxiety and stress by going for a 10-15 minute walk. Seasonal allergic rhinitis, Allergies- avoid triggers. Use unspecified trigger zyrtec or claritin otc once daily in AM to help control watery itchy eyes and runny nose. Use Flonase nasal spray two sprays once a day to help decrease inflammation and decrease nasal drainage/post nasal drip. Use saline nasal mist or irrigation as directed. SUPERCHARGER MECHANIC (ventriculoperitoneal) shunt followup with neurology status Renal insufficiency Renal insuff- GFR advised to avoid NSAIDS and increase water intake to hydrate kidneys. will monitor kidney function GFR and creatinine. Weakness activities as tolerated and take fall precautions History of CVA with residual adhere to plavix as previously got deficit off it and had stroke. Treatment Notes Test Name Order Date COMPREHENSIVE METABOLIC PANEL(CMP) 2020-03-03 LIPID PANEL WITH REFLEX TO DIRECT LDL 2020-03-03 TSH W/REFLEX TO FT4 2020-03-03 CBC (INCLUDES DIFF/PLT) 2020-03-03 Next Appt Details 3 Months Reason: Provider Name:Maia Schmitt, 10:00:00 AM, [address], [address], [place], [address], Provider Name:Marcie Jan Nielson, 2020-05-24 11:0 0:00 AM, [address], [place], [address], Insurance Providers Payer Name Payer Payer Insured Patient Coverage Coverage End Address Phone Name Relationship to Start Date Kvng e Insured [employer] [phone] Joey Ramsey self 2020 [facility] [id number] [place] Replace [phone]
--- OUTSIDE RECORDS SUMMARY | 2020-03-05 17:13 | XMS REPORT ---
[...] allergic rhinitis, J30.2 Active unspecified trigger Problem CHICKEN DRESSER (ventriculoperitoneal) shunt Z98.2 Active status Problem Coronary artery disease involving I25.810 Active coronary bypass graft of [place] heart without angina pectoris Problem Decreased hearing [...] involving I25.810 Active coronary bypass graft of [place] heart without angina pectoris Problem Seasonal allergies J30.2 Active Problem Dizziness R42 Active Problem Benign prostatic hyperplasia with N40.1 Active lower urinary tract symptoms Problem Lack of appetite R63.0 Active Medications No Known Medications Results No Known Results Summary Purpose [employer] Submission
--- OUTSIDE RECORDS SUMMARY | 2020-03-05 17:13 | XMS REPORT | Clinical Summary ---
:1935 Author Organization [facility] Address [address] [place] [address] Care Team Providers Name Role Phone Shalom [...] Not on file Results Not on fileafter 03/05/2019 Insurance Payer Benefit Plan / Group Subscriber ID Type Phone A ddress CARE IMPROVEMENT MEDICARE MGD CARE IMPROVEMENT PLUS xxxxxxxxx CARE Advance Directives For more information, please contact:[address] [phone] Code Status Date Activated Date Inactivated Comments Full Code 11/18/2015 6:45 PM 11/22/2015 7:33 PM This code status was determined by: Patient
--- OUTSIDE RECORDS SUMMARY | 2020-03-05 17:13 | XMS REPORT | Continuity of Care Document ---
:1935 Author Organization [facility] t Address [address] [place] [address] Care Team Providers Name Role Phone Shalom Fernandes Primary Care Physician Problems Condition Condition Condition Status Onset Resolution Last Treating Co mments Source Name Details Category Date Date Treatment Clinician Date 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 00 [place] Chronic Chronic Disease Active [facility] systolic systolic 14 [facility] CHF CHF 00[facility]00: Medical (congestiv (congestiv 00 Ce nter e heart e heart failure), failure), NYHA class NYHA class 2 2 Bacteremia Bacteremia Disease Active [facility] Medical 00 [place] Leucocytos Leucocytos Disease Active [facility] is is 6[facility]11 [facility] Medical [address] [place] [address] UTI UTI Disease Active [facility] (urinary (urinary 6-11 [facility] - tract tract 00:00: Medical infection) infection) 00 Ce nter Stroke Stroke Disease Active [facility] Coronary Coronary Disease Active [facility] artery artery [facility] disease [facility] Allergies, Adverse Reactions, Alerts This patient has no known allergies or adverse reactions. Social History Social Habit Start Date Stop Date Quantity Comments Source Sex Assigned At [facility] Smoking Status Start Date Stop Date Source Current every day smoker 2015-11-18 00:00:[address] [facility] Medications Ordered Filled Start Stop Current Ordering [...] [facility] Aspir-81 Aspir-81 Yes Na Nielson [address] [facility] Losartan Losartan Yes Na Nielson [address] [facility] Potassium Potassium [facility] Colace Colace Yes Na Nielson [address] [facility] as needed [facility] Lipitor Lipitor Yes Na Nielson [address] [facility] Plavix Plavix Yes Na Nielson [address] [facility] Cetirizine Cetirizine Yes Na Nielson [address] [facility] HCl HCl [facility] Meclizine Meclizine Yes Na Nielson [address] [facility] HCl HCl as needed [facility] Hydrocortis Hydrocortis Yes Na Nielson [address] [facility] one one applicatio [facility] Ketoconazol Ketoconazol Yes Na Nielson [address] [facility] e [facility] Bisoprolol Bisoprolol Yes Na Nielson [address] [facility] Fumarate Fumarate [facility] Tamsulosin Tamsulosin Yes Na Nielson [address] [facility] [address] HCl HCl [facility] Aricept Aricept Yes Na Nielson [address] at bedtime [facility] Ketoconazol Ketoconazol Yes Na Nielson [address] [facility] [facility] e e applicatio [facility] Procedures This patient has no known procedures. Encounters Start End Encounter Admission Attending Care Care Encounter Source Date/Time Date/Time Type Type Clinicians Facility Department ID 2020-02-28 2020-02-28 Outpatient [facility] [id number]00 [facility] l Outpati ent Clinics 2020-02-07 2020-02-07 [facility] [id number] [address] 16:32:00 16:32:00 t [place] [employer] s - [address] [facility] l Medicine Outpati ent Clinics 2019-12-08 2019-12-08 [facility] [id number] 15:12:00 15:12:00 t [place] [employer] [facility] - [address] [facility] l Medicine Outpati ent Clinics 2019-11-25 2019-11-25 [facility] [id number] 02:36:00 02:36:00 t [place] [employer] [facility] - [address] [facility] l Medicine Outpati ent Clinics 2019-11-23 2019-11-23 [facility] [id number] [address] 10:40:00 10:40:00 t [place] [employer] s - [address] [facility] Medicine Outpati ent Clinics 2019-11-10 2019-11-10 [facility] [id number] [address] 16:31:00 16:31:[address] t [facility] [address] [facility] Medicine Outpati ent Clinics 2019-10-14 2019-10-14 [facility] [id number] [address] 11[facility]15:00 11:15:00 t Specialty/[facility] - Specialty [facility] l Clinic Outpati ent Clinics 2019-08-23 2019-08-23 [facility] [id number] 15:20:00 15:20:00 t [place] [employer] [facility] - [address] [facility] Medicine Outpati ent Clinics 2019-05-25 2019-05-25 [facility] [id number] 13:40:00 13:40:00 t [place] [employer] [facility] - [address] [facility] Medicine Outpati ent Clinics 2018-12-30 2018-12-30 Outpatient [facility] [id number] [facility] 12:18:00 12:18:00 2018-12-17 2018-12-17 Outpatient [facility] [id number] [facility] 10:25:00 10:25:00 2018-12-04 2018-12-03 Inpatient [facility] [id number] [facility] 03:20:00 23:06:00 2018-11-10 2018-11-10 Emergency [facility] [id number] [facility] 18:32:00 18:32:00 Results This patient has no known results.
--- OUTSIDE RECORDS SUMMARY | 2020-03-05 17:13 | XMS REPORT ---
[...] allergic rhinitis, J30.2 Active unspecified trigger Problem CELL PREPARER (ventriculoperitoneal) shunt Z98.2 Active status Problem Coronary artery disease involving I25.810 Active coronary bypass graft of [place] heart without angina pectoris Problem Decreased hearing [...]
[2020-03-05] MEDS ORDERED: NA CHLORIDE 0.9% 500 ML ONE (17:56)
[2020-03-05] MEDS ORDERED: ALTEPLASE 100 ML IV ONE (17:56)
[2020-03-05 17:57] LABS: Absolute Lymphocytes (CBC) 1.8 K/uL (0.7-4.9); Basophils % 0.1 % (0-1.3); Hematocrit 38.3 % (39.6-49.0); MPV 10.7 fL (7.6-11.3); RBC Red Blood Cell Count 4.64 M/uL (4.33-5.43)
--- NOTE | 2020-03-05 17:57 | RAD REPORT ---
EXAM DESCRIPTION: CT - Ct Stroke Brain Wo Cont - 03/05/2020 5:29 pm CLINICAL HISTORY: Confused;Slurred speech;Aphasia COMPARISON: CT head March 03 TECHNIQUE: Axial 5 millimeter thick images of the head were obtained without IV contrast. All CT scans are performed using dose optimization technique as appropriate and may include automated exposure control or mA/KV adjustment according to patient size. FINDINGS: No intracranial hemorrhage, mass, or cerebral edema. No acute cortical based infarction id entified. No cortical edema or sulcal effacement. Patient has very pronounced chronic ischemic change throughout the cerebral white matter and involving each basal ganglia, the bilateral thalamus tissue s and the brainstem. Moderate severity atrophy present. Ventricles are in proportion to the volume lo ss. Patient has a right parietal shunt tube with the tip near the atria of the right lateral ventricl e. Mcnamara matter-white matter differentiation is preserved.Intracranial findings are similar to the Feb study. No globe or orbital content abnormality. Visualized portions of the mastoid air cells, paranasal sinuses, and orbits are unremarkable. Findings telephoned to the referring physician 1749 hours IMPRESSION: No intracranial hemorrhage. No acute cortical based infarction identified. Very pronounced chronic ischemic changes are present in the cerebral white matter, basal ganglia, trinity lamus and brainstem tissues. Moderate severity atrophy with ventricles in proportion. Right parietal shunt tube is in place with v entricular size stable. Overall, intracranial findings are similar to comparison. Chronic ischemic changes can mask nonhemorr hagic CVA.
--- NOTE | 2020-03-05 17:59 | RAD REPORT ---
EXAM DESCRIPTION: RAD - Chest Single View - 03/05/2020 5:44 pm CLINICAL HISTORY: CVA, Stroke protocol chest film COMPARISON: March 03 TECHNIQUE: AP portable chest image was obtained 03/05/2020 5:44 pm . FINDINGS: No acute lung parenchymal process. Interstitial pattern matches comparison. Sternotomy wir es are in place. Shunt tubing overlies the right-side of the chest. Heart and vasculature are normal. No measurable pleural effusion and no pneumothorax. No acute bony abnormality seen. No acute aortic findings suspected. IMPRESSION: No acute cardiopulmonary process. Above detailed findings are similar to the comparison study of March 03.
[2020-03-05 18:01] LABS: Protime INR 1.17
[2020-03-05 18:09] LABS: Potassium 3.7 mmol/L (3.5-5.1)
[2020-03-05 18:31] LABS: Blood Morphology Comment NOT SEEN (NOT SEEN); Platelet Estimate ADEQ
--- NOTE | 2020-03-05 19:31 | RAD REPORT ---
EXAM DESCRIPTION: CT - Head angio - 03/05/2020 7:22 pm CLINICAL HISTORY: facial droop TECHNIQUE: During dynamic enhancement using nonionic IV contrast, axial 1 millimeter thick images of the head were obtained. Sagittal and axial reconstruction images were generated using MIP technique and reviewed. All CT scans are performed using dose optimization technique as appropriate and may include automated exposure control or mA/KV adjustment according to patient size. COMPARISON: CT head same date FINDINGS: No aneurysm or vascular malformation identified. Major venous sinuses are patent. No named branch occlusion or vasculitis. The anterior, middle and posterior cerebral artery distribut ion show no significant degree of atherosclerotic change. The cavernous portion of each internal klein tid artery shows atherosclerotic calcification. Right internal carotid artery supraclinoid portion sh ows approximately 50% stenosis. Left supraclinoid stenosis is estimated at 30%. Left vertebral artery is dominant. Distal right vertebral artery is small as a normal variant. No basilar artery abnormali ty. . IMPRESSION: Atherosclerotic calcifications cause approximately 50% stenosis of the distal most righ t internal carotid artery and 30% stenosis on the left supraclinoid ICA. Remainder the examination shows no named branch occlusion, vasculitis or significant atherosclerotic change.
[2020-03-05] MEDS ORDERED: CEFTRIAXONE/SWI 1gm 1 GM/10 ML SYR ONE (19:32)
--- NOTE | 2020-03-05 19:34 | ER ---
Nurse's Notes [facility] Name: Joey Ramsey Age: 84 yrs Sex: Male : 1935 Arrival Date: 03/05/2020 Time: 17:12 Bed 4 Private MD: Marcie Nielson Diagnosis: CVA, weakness, leukocytosis Presentation: 03/05 17:15 Chief complaint: Spouse and/or significant other states: pt started having difficulty iw speaking and right sided facial droop around 2:30 today, also appeared to have weakness in BLE, left was more weak than right, also was incontinent, has hx of CVA, was seen here Friday for drooling and weakness, CT was negative. 17:20 Chief complaint:. Coronavirus screen: At this time, the client does not indicate any ph symptoms associated with coronavirus-19. Ebola Screen: No symptoms or risks identified at this time. An acute neurological deficit is present. The patient has been moved to a treatment area. 17:20 Method Of Arrival: Wheelchair ph 17:21 Chief complaint:. iw 17:50 Initial Sepsis Screen: Does the patient meet any 2 criteria? No. Patient's initial ph sepsis screen is negative. Does the patient have a suspected source of infection? No. Patient's initial sepsis screen is negative. Risk Assessment: Do you want to hurt yourself or someone else? Patient reports no desire to harm self or others. 17:50 Acuity: VINAY 2 ph 17:58 The patients blood glucose was checked before arriving to the hospital and was found to iw be normal. Onset of symptoms was March 05, 2020 at 14:30. Stroke Activation: Symptom onset < 3 hours Physician: Stroke Attending; Name: ; Notified At: ; Arrived At: Physician: Chief Stroke Resident; Name: ; Notified At: ; Arrived At: Physician: Stroke Resident; Name: ; Notified At: ; Arrived At: Physician: ED Attending; Name: ; Notified At: ; Arrived At: Physician: ED Resident; Name: ; Notified At: ; Arrived At: Historical: - Allergies: 17:58 No Known Allergies; iw - Home Meds: 17:57 aspirin 81 mg Oral chew 1 tab once daily [Active]; BRILINTA 90 mg oral tab 1 tab 2 iw times per day [Active]; metoprolol succinate 25 mg oral Tb24 twice a day [Active]; - PMHx: 17:57 CVA; High Cholesterol; TIA; iw - PSHx: 17:57 CABG; Heart stents; 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 - Social history:: Smoking status: Patient reports the use of cigarette tobacco products, denies chronic smoking, but will smoke occasionally. Screenin:17 Abuse screen: Denies threats or abuse. Denies injuries from another. Nutritional iw screening: No deficits noted. Tuberculosis screening: No symptoms or risk factors identified. Fall Risk IV access (20 points). Assessment: 17:20 Reassessment: pt transported to CT via stretcher, with ALEXIS GORDILLO. iw 17:38 VAN Scoring: Arm Drift: Patients demonstrates NO arm weakness. Patient is VAN Negative. ph Patient has been NPO before screening. The patient is alert, and able to follow commands. The patient does not exhibit slurred or garbled speech. The patient is exhibiting difficulty speaking. The patient does not exhibit difficulty understanding words. The patient is unable to swallow own secretions without drooling or the need for suction. Bedside swallow screening discontinued. Patient kept NPO until cleared by Speech Therapy or Physician. The patient failed the bedside swallow screening. The patient will be kept NPO until cleared by Speech Therapy or Physician. Provider notified of bedside swallow screening results: David Person MD. Reassessment: Xray at bedside. General: Appears in no apparent distress. comfortable, slender, Behavior is cooperative, quiet. Neuro: Level of Consciousness is awake, alert, obeys commands, Oriented to person, place, Moves all extremities. 17:40 General: Appears in no apparent distress. comfortable, slender, Behavior is calm, ph cooperative, drowsy. Pain: Denies pain. Neuro: Level of Consciousness is awake, obeys commands, Oriented to person, place, Script Coordinator are equal bilaterally Moves all extremities. Speech is slurred, Facial droop on right, Intact Reports weakness bilateral legs. Cardiovascular: Capillary refill < 3 seconds in bilateral fingers Patient's skin is warm and dry. Respiratory: Airway is patent Respiratory effort is even, unlabored. Derm: Skin is fragile, is thin, Skin is pink, warm \T\ dry. Musculoskeletal: Circulation, motion, and sensation intact. 17:51 T-PA (Activase) Screening: Indications: No evidence of intracranial hemorrhage or CT of iw head and no evidence of peripheral hemorrhage or recent CVA: Yes. 18:16 Patient has been NPO before screening. The patient is alert, and able to follow iw commands. The patient exhibits slurred or garbled speech. The patient is exhibiting difficulty speaking. The patient is exhibiting difficulty understanding words. The patient is unable to swallow own secretions without drooling or the need for suction. Bedside swallow screening discontinued. Patient kept NPO until cleared by Speech Therapy or Physician. The patient failed the bedside swallow screening. The patient will be kept NPO until cleared by Speech Therapy or Physician. Provider notified of bedside swallow screening results: David Person MD. 18:30 Reassessment: Patient appears in no apparent distress at this time. Patient and/or ph family updated on plan of care and expected duration. Pain level reassessed. TPA infusing, symptoms noted to be improving, VSS, see TPA Flowsheet. 19:05 Reassessment: Patient appears in no apparent distress at this time. Patient and/or ph family updated on plan of care and expected duration. Pain level reassessed. Patient is alert, oriented x 3, equal unlabored respirations, skin warm/dry/pink. Pt taken to CT via stretcher Patient denies pain at this time. Patient states feeling better. 19:30 General: Appears comfortable, Behavior is calm, cooperative. Neuro: Level of rv Consciousness is awake, alert, obeys commands, Oriented to person, place, time, situation. Cardiovascular: Patient's skin is warm and dry. Respiratory: Airway is patent Respiratory effort is even, unlabored. 19:32 Pain: Denies pain. Neuro: Level of Consciousness is awake, alert, obeys commands, rv Oriented to person, place, time, situation. Respiratory: Airway is patent Respiratory effort is even, unlabored. Vital Signs: 17:30 BP 114 / 47; Pulse 105; Resp 18; Temp 97.2(TE); Pulse Ox 99% ; ph 17:53 Weight 65.77 kg; ph 18:14 BP 111 / 55; Pulse 99; Resp 18 S; Pulse Ox 98% on R/A; iw 18:30 BP 107 / 60; Pulse 99; Resp 18; Pulse Ox 100% on R/A; ph 19:00 BP 119 / 57; Pulse 94; Resp 16; Pulse Ox 99% on R/A; ph [place] Coma Score: 18:30 Eye Response: spontaneous(4). Verbal Response: oriented(5). Motor Response: obeys ph commands(6). Total: 15. NIH Stroke Scale Scores: 17:40 NIHSS Score: 8 ph 18:07 NIHSS Score: 8 kdr ED Course: 17:12 Patient arrived in ED. mr 17:12 Marcie Nielson MD is Private Physician. mr 17:17 David Person MD is Attending Physician. kdr 17:37 Alison Verdugo, ALEXIS is Primary Nurse. ph 17:39 X-ray(s) taken. sv 17:45 Patient has correct armband on for positive identification. Placed in gown. Bed in low ph position. Call light in reach. Side rails up X2. secured entrance monitor on. Pulse ox on. NIBP on. 17:49 Initial lab(s) drawn, by me, sent to lab. Inserted saline lock: 22 gauge in right iw forearm, using aseptic technique. Blood collected. 17:53 Triage completed. ph 17:58 Arm band placed on. iw 18:06 Notified ED physician of a critical lab result(s). WBC 30.5. ll1 19:21 No provider procedures requiring assistance completed. Patient admitted, IV remains in ph place. 19:33 Summer Ku MD is Hospitalizing Provider. kdr 21:00 Inserted saline lock: 20 gauge in right antecubital area, using aseptic technique. rv Administered Medications: 18:00 Drug: ACTIvase {Co-Signature: sv (Meri Molina RN).} {Note: bolus of 5.9 mg, ph infusion of 53.1 mg.} Route: IV Thrombolytics; Rate: calculated rate; Infused Over: 60 mins; 19:00 Follow up: Response: No adverse reaction ph 19:32 Drug: Rocephin - (cefTRIAXone) 1 grams Route: IVPB; Infused Over: 30 mins; Site: left rv forearm; 21:00 Follow up: Response: No adverse reaction rv Point of Care Testing: Blood Glucose: 17:53 Blood Glucose: 80 mg/dL; ph Ranges: Outcome: 19:34 Decision to Hospitalize by Provider. kdr 21:00 Admitted to accompanied by nurse, via stretcher, on monitor. rv 21:00 Condition: improved 21:00 Instructed on the need for admit. 21:34 Patient left the ED. mw2 NIH Stroke Scale - NIH Stroke Score Date: 03/05/2020 Time: 17:40 Total Score = 8 1a. Level of Consciousness (LOC) - 1(Not Alert) 1b. Level of Consciousness (LOC) (Year \T\ Age) - 1(One) 1c. LOC Commands (Open \T\ Closes Eyes/Conditioning Machine Operator) - 0(Both) 2. Best Gaze (Lateral Gaze Paresis) - 0(Normal) 3. Visual Field Loss - 0(No visual loss) 4. Facial Palsy - 2(Partial paralysis) 5a. Left Arm: Motor (10-second hold) - 0(No drift) 5b. Right Arm: Motor (10-second hold) - 0(No drift) 6a. Left Leg: Motor (5-second hold - always test supine) - 0(No drift) 6b. Right Leg: Motor (5-second hold - always test supine) - 0(No drift) 7. Limb Ataxia (finger/nose \T\ heel/mcgrath - test with eyes open) - 1(Present in one limb) 8. Sensory Loss (pinprick arms/legs/face) - 0(Normal) 9. Best Language: Aphasia (description/naming/reading) - 2(Severe aphasia) 10. Dysarthria (speech clarity - read or repeat words) - 1(Mild to Moderate) 11. Extinction and Inattention (visual/tactile/auditory/spatial/personal) - 0(No abnormality) Initials: ph NIH Stroke Scale - NIH Stroke Score Date: 03/05/2020 Time: 18:07 Total Score = 8 1a. Level of Consciousness (LOC) - 1(Not Alert) 1b. Level of Consciousness (LOC) (Year \T\ Age) - 1(One) 1c. LOC Commands (Open \T\ Closes Eyes/Conditioning Machine Operator) - 0(Both) 2. Best Gaze (Lateral Gaze Paresis) - 0(Normal) 3. Visual Field Loss - 0(No visual loss) 4. Facial Palsy - 2(Partial paralysis) 5a. Left Arm: Motor (10-second hold) - 0(No drift) 5b. Right Arm: Motor (10-second hold) - 0(No drift) 6a. Left Leg: Motor (5-second hold - always test supine) - 0(No drift) 6b. Right Leg: Motor (5-second hold - always test supine) - 0(No drift) 7. Limb Ataxia (finger/nose \T\ heel/mcgrath - test with eyes open) - 1(Present in one limb) 8. Sensory Loss (pinprick arms/legs/face) - 0(Normal) 9. Best Language: Aphasia (description/naming/reading) - 2(Severe aphasia) 10. Dysarthria (speech clarity - read or repeat words) - 1(Mild to Moderate) 11. Extinction and Inattention (visual/tactile/auditory/spatial/personal) - 0(No abnormality) Initials: kdr Signatures: Meri Molina, RN RN sv David Person MD MD [facility], Wendy mr Tika Myers RN ALEXIS Alison Verdugo RN RN Veronika, Chantell 2 Saroj Villarreal RN ALEXIS Sterling Coats RN RN ll1 Meri Molina RN Corrections: (The following items were deleted from the chart) 18:26 17:15 Chief complaint: Spouse and/or significant other states: pt started iw having difficulty speaking around 2:30 today, also appeared to have weakness in BLE, left was more weak than right, also was incontinent, has hx of CVA, was seen here Friday for drooling and weakness, CT was negative iw 19:23 17:30 BP 114 / 47; Pulse 105bpm; Resp 18bpm; Pulse Ox 99%; sv ph
--- NOTE | 2020-03-05 19:35 | EDPHYS ---
Physician Documentation [facility] Name: Joey Ramsey Age: 84 yrs Sex: Male : 1935 Arrival Date: 03/05/2020 Time: 17:12 Bed 4 Private MD: Marcie Nielson ED Physician David Person HPI: 03/05 18:11 This 84 yrs old Male presents to ER via Wheelchair with complaints of Facial kdr Droop, Trouble Talking. 18:11 The patient presents to the emergency department with weakness of the left upper kdr extremity, right side of the face, that is moderate, a speech or higher order brain function problem, aphasia, difficulty standing, difficult walking. Onset: The symptoms/episode began/occurred The patient was noted to have weakness in his legs (L > R) at about 2:00 PM then at 2:30 - 3:00, was noted to have right facial droop. At 5:00 PM he was unable to speak.. 19:25 Context: occurred at home, occurred while the patient was at rest. Associated signs and kdr symptoms: Pertinent positives: altered mental status, weakness. Severity of symptoms: At their worst the symptoms were mild moderate just prior to arrival, in the emergency department the symptoms are unchanged. Patient's baseline: Neuro: alert and fully oriented, Motor: no deficits, Ambulation: walks without assistance, Speech: normal for age, The patient has a previous history of CVA, TIA. Current symptoms: Aphasia, right facial droop and left sided weakness, upper greater than lower. The patient has not experienced similar symptoms in the past. The patient has been recently seen by a physician: The patient was seen here on Friday night for possible CVA/TIA. It resolved and he was discharged. 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 - Social history:: Smoking status: Patient reports the use of cigarette tobacco products, denies chronic smoking, but will smoke occasionally. ROS: 19:25 Constitutional: Negative for fever, chills, and weight loss, Eyes: Negative for injury, kdr pain, redness, and discharge, ENT: Negative for injury, pain, and discharge, Neck: Negative for injury, pain, and swelling, Cardiovascular: Negative for chest pain, palpitations, and edema, Respiratory: Negative for shortness of breath, cough, wheezing, and pleuritic chest pain, Abdomen/GI: Negative for abdominal pain, nausea, vomiting, diarrhea, and constipation, Back: Negative for injury and pain, : Negative for injury, bleeding, discharge, and swelling, MS/Extremity: Negative for injury and deformity, Skin: Negative for injury, rash, and discoloration, Psych: Negative for depression, anxiety, suicide ideation, homicidal ideation, and hallucinations, Allergy/Immunology: Negative for hives, rash, and allergies, Endocrine: Negative for neck swelling, polydipsia, polyuria, polyphagia, and marked weight changes, Hematologic/Lymphatic: Negative for swollen nodes, abnormal bleeding, and unusual bruising. 19:25 Neuro: Positive for altered mental status, speech changes, weakness. Exam: 19:25 Constitutional: This is a well developed, well nourished patient who is awake, alert, kdr and in no acute distress. Head/Face: Normocephalic, atraumatic. Eyes: Pupils equal round and reactive to light, extra-ocular motions intact. Lids and lashes normal. Conjunctiva and sclera are non-icteric and not injected. Cornea within normal limits. Periorbital areas with no swelling, redness, or edema. Neck: Trachea midline, no thyromegaly or masses palpated, and no cervical lymphadenopathy. Supple, full range of motion without nuchal rigidity, or vertebral point tenderness. No Meningismus. Chest/axilla: Normal chest wall appearance and motion. Nontender with no deformity. No lesions are appreciated. Cardiovascular: Regular rate and rhythm with a normal S1 and S2. No gallops, murmurs, or rubs. Normal PMI, no JVD. No pulse deficits. Respiratory: Lungs have equal breath sounds bilaterally, clear to auscultation and percussion. No rales, rhonchi or wheezes noted. No increased work of breathing, no retractions or nasal flaring. Abdomen/GI: Soft, non-tender, with normal bowel sounds. No distension or tympany. No guarding or rebound. No evidence of tenderness throughout. Back: No spinal tenderness. No costovertebral tenderness. Full range of motion. Skin: Warm, dry with normal turgor. Normal color with no rashes, no lesions, and no evidence of cellulitis. MS/ Extremity: Pulses equal, no cyanosis. Neurovascular intact. Full, normal range of motion. Psych: Awake, alert, with orientation to person, place and time. Behavior, mood, and affect are within normal limits. 19:25 Neuro: Orientation: unable to test, Poorly responsive/confused, Mentation: inappropriate for stated age, slow to respond, confused, patient intermittently follows commands - better with upper extremity than lower, Memory: unable to test, Cranial nerves: facial droop noted on right, with forehead involved. Speech is dysarthric, slowed, slurred, Tongue strength is normal. 19:35 ECG was reviewed by the Attending Physician. kdr Vital Signs: 17:30 BP 114 / 47; Pulse 105; Resp 18; Temp 97.2(TE); Pulse Ox 99% ; ph 17:53 Weight 65.77 kg; ph 18:14 BP 111 / 55; Pulse 99; Resp 18 S; Pulse Ox 98% on R/A; iw 18:30 BP 107 / 60; Pulse 99; Resp 18; Pulse Ox 100% on R/A; ph 19:00 BP 119 / 57; Pulse 94; Resp 16; Pulse Ox 99% on R/A; ph NIH Stroke Scale Scores: 17:40 NIHSS Score: 8 ph 18:07 NIHSS Score: 8 kdr [place] Coma Score: 18:30 Eye Response: spontaneous(4). Verbal Response: oriented(5). Motor Response: obeys ph commands(6). Total: 15. MDM: 19:25 Data reviewed: vital signs, nurses notes, lab test result(s), EKG, radiologic studies. kdr Counseling: I had a detailed discussion with the patient and/or guardian regarding: the historical points, exam findings, and any diagnostic results supporting the discharge/admit diagnosis, lab results, radiology results, the need for further work-up and treatment in the hospital. Physician consultation: Jonathan Fenton MD regarding consult, patient's condition, need to evaluate the patient as soon as possible, and will see patient in inpatient room, tomorrow. Physician consultation: Summer Ku MD regarding admission, and will see patient tomorrow. 19:34 Patient medically screened. [facility] 19:34 ED course: The patient had significant improvement post tPA. See nursing notes. The [facility] patient tolerated well and without complication. 03/05 17:18 Order name: Basic Metabolic Panel [facility] 03/05 17:18 Order name: CBC with Diff [facility] 03/05 17:18 Order name: Protime (+inr) [facility] 03/05 17:18 Order name: Ptt, Activated [facility] 03/05 17:50 Order name: Glucose, Ancillary Testing [facility] 03/05 18:01 Order name: Protime (+INR) [facility] 03/05 18:01 Order name: PTT, Activated Partial Thromb [facility] 03/05 18:05 Order name: CBC with Automated Diff [facility] 03/05 18:09 Order name: Basic Metabolic Panel [facility] 03/05 18:31 Order name: Manual Differential [facility] 03/05 19:33 Order name: Blood Culture Adult (2) [facility] 03/05 19:33 Order name: Urine Culture [facility] 03/05 19:33 Order name: Procalcitonin [facility] 03/05 19:33 Order name: Lactate [facility] 03/05 17:18 Order name: CT Stroke Brain w/o Contrast [facility] 03/05 17:18 Order name: Stroke CXR 1 View [facility] 03/05 17:18 Order name: EKG; Complete Time: 17:19 [facility] 03/05 17:18 Order name: Accucheck; Complete Time: 18:15 [facility] 03/05 17:18 Order name: Cardiac monitoring; Complete Time: 18:15 [facility] 03/05 17:18 Order name: EKG - Nurse/Tech; Complete Time: 19:32 [facility] 03/05 17:18 Order name: IV Saline Lock; Complete Time: 18:16 [facility] 03/05 17:18 Order name: Labs collected and sent; Complete Time: 18:16 [facility] 03/05 17:18 Order name: NPO; Complete Time: 18:16 [facility] 03/05 17:18 Order name: O2 Per Protocol; Complete Time: 18:16 [facility] 03/05 17:57 Order name: CT [facility] 03/05 17:59 Order name: RAD [facility] 09/27 19:32 Order name: CT EDMS 03/05 20:44 Order name: C-Reactive Protein [facility] 03/05 17:18 Order name: O2 Sat Monitoring; Complete Time: 18:16 kdr 03/05 17:18 Order name: Stroke Swallow Screen; Complete Time: 19:23 kdr 03/05 19:33 Order name: Urine Dipstick-Ancillary (obtain specimen) kdr EC:35 Rate is 100 beats/min. Rhythm is regular, Sinus Rhythm with No ectopy. QRS [place] is kdr Normal. NM interval is normal. QRS interval is normal. QT interval is prolonged at 508 msec. Q waves are Present in lead III. Clinical impression: NSR w/ Non-specific ST/T Changes. Administered Medications: 18:00 Drug: ACTIvase {Co-Signature: sv (Meri Molina RN).} {Note: bolus of 5.9 mg, ph infusion of 53.1 mg.} Route: IV Thrombolytics; Rate: calculated rate; Infused Over: 60 mins; 19:00 Follow up: Response: No adverse reaction ph 19:32 Drug: Rocephin - (cefTRIAXone) 1 grams Route: IVPB; Infused Over: 30 mins; Site: left rv forearm; 21:00 Follow up: Response: No adverse reaction rv Point of Care Testing: Blood Glucose: 17:53 Blood Glucose: 80 mg/dL; ph Ranges: Critical Glucose Levels:Adult <50 mg/dl or >400 mg/dl <40 mg/dl or >180 mg/dl Disposition: 03/05/20 19:34 Hospitalization ordered by Summer Ku for Inpatient Admission. Preliminary diagnosis is CVA, weakness, leukocytosis. - Bed requested for Intensive Care Unit. - Status is Inpatient Admission. mw2 - Condition is Serious. - Problem is new. - Symptoms have improved. Critical care time excluding procedures: 19:35 Critical care time: Bedside Care: 45 minutes, Consultation: 15 minutes, Family kdr Intervention: 10 minutes. Total time: 70 minutes NIH Stroke Scale - NIH Stroke Score Date: 03/05/2020 Time: 17:40 Total Score = 8 1a. Level of Consciousness (LOC) - 1(Not Alert) 1b. Level of Consciousness (LOC) (Year \T\ Age) - 1(One) 1c. LOC Commands (Open \T\ Closes Eyes/Makeup Artist) - 0(Both) 2. Best Gaze (Lateral Gaze Paresis) - 0(Normal) 3. Visual Field Loss - 0(No visual loss) 4. Facial Palsy - 2(Partial paralysis) 5a. Left Arm: Motor (10-second hold) - 0(No drift) 5b. Right Arm: Motor (10-second hold) - 0(No drift) 6a. Left Leg: Motor (5-second hold - always test supine) - 0(No drift) 6b. Right Leg: Motor (5-second hold - always test supine) - 0(No drift) 7. Limb Ataxia (finger/nose \T\ heel/mcgrath - test with eyes open) - 1(Present in one limb) 8. Sensory Loss (pinprick arms/legs/face) - 0(Normal) 9. Best Language: Aphasia (description/naming/reading) - 2(Severe aphasia) 10. Dysarthria (speech clarity - read or repeat words) - 1(Mild to Moderate) 11. Extinction and Inattention (visual/tactile/auditory/spatial/personal) - 0(No abnormality) Initials: NIH Stroke Scale - NIH Stroke Score Date: 03/05/2020 Time: 18:07 Total Score = 8 1a. Level of Consciousness (LOC) - 1(Not Alert) 1b. Level of Consciousness (LOC) (Year \T\ Age) - 1(One) 1c. LOC Commands (Open \T\ Closes Eyes/Makeup Artist) - 0(Both) 2. Best Gaze (Lateral Gaze Paresis) - 0(Normal) 3. Visual Field Loss - 0(No visual loss) 4. Facial Palsy - 2(Partial paralysis) 5a. Left Arm: Motor (10-second hold) - 0(No drift) 5b. Right Arm: Motor (10-second hold) - 0(No drift) 6a. Left Leg: Motor (5-second hold - always test supine) - 0(No drift) 6b. Right Leg: Motor (5-second hold - always test supine) - 0(No drift) 7. Limb Ataxia (finger/nose \T\ heel/mcgrath - test with eyes open) - 1(Present in one limb) 8. Sensory Loss (pinprick arms/legs/face) - 0(Normal) 9. Best Language: Aphasia (description/naming/reading) - 2(Severe aphasia) 10. Dysarthria (speech clarity - read or repeat words) - 1(Mild to Moderate) 11. Extinction and Inattention (visual/tactile/auditory/spatial/personal) - 0(No abnormality) Initials: kdr Signatures: Dispatcher [employer] David Swan MD MD kdr Tika Myers RN RN Alison Verdugo RN RN Chantell Banda mw2 Saroj Villarreal RN RN Meri Molina RN Corrections: (The following items were deleted from the chart) 21:34 19:34 Hospitalization Ordered by Summer Ku MD for Inpatient Admission. mw2 Preliminary diagnosis is CVA, weakness, leukocytosis. Bed requested for Intensive Care Unit. Status is Inpatient Admission. Condition is Serious. Problem is new. Symptoms have improved. kdr
--- NOTE | 2020-03-05 19:55 | P.HP ---
Certification for Inpatient Patient admitted to: Observation With expected LOS: <2 Midnights Patient will require the following post-hospital care: None Practitioner: I am a practitioner with admitting privileges, knowledge of patient current condition, hospital course, and medical plan of care. Services: Services provided to patient in accordance with Admission requirements found in Title 42 Section 412.3 of the Code of Federal Regulations <Stephen Gilbert - Last Filed: 03/05/20 21:10> Patient History Date of Service: 03/05/20 Reason for admission: CVA s/p TPA History of Present Illness: 84-year-old male with past medical history of CABG, prior CVA, hyperlipidemia and history of TIA presents to the emergency room brought in by wheelchair with complaints of facial drooping and difficulty speaking. On arrival to the emergency room patient was noted to have facial drooping and difficulty speaking. Neurology was consulted and patient was in the window for tPA. TPA was administered and patient's symptoms improved shortly after administration. Patient was seen in the ER 2 days ago for complaints of dizziness and altered mental status. Workup in the emergency room was benign with no acute pathology found. Patient was discharged home and was doing fine until today. states that about 2:00 p.m. patient was noted to have some weakness in his left leg greater than right. At around 2:30 a.m. to 3:00 p.m. he was noted to have some right facial drooping and at 5:00 p.m. he was unable to speak. This is when he was brought to the emergency room. This event was witnessed by his at home and when the patient was at rest. On physical exam patient is alert and oriented x3. He is pleasant and coope rative. In no distress. He has a history of difficulty hearing bed is at his baseline for the most part except for some general weakness. His vitals are 119/57, pulse rate of 94, respiratory rate of 16 with a pulse oxygen of 99% on room air. Temperature was 97.2. It is noted that he has a white cell count of 30,000. Spoke with the and patient has had no signs or symptoms of infection. No fever at home. Rest of blood work shows a creatinine of 1.18, GFR 59, chest x-ray with no acute cardiopulmonary process, CT of the head shows no intracranial hemorrhage, no acute cortical based infarction identified. There are some very pronounced chronic ischemic changes present in the cerebral white matter, basal ganglia, thalamus and brain stem tissues. Moderate severity atrophy in the ventricles in proportion. Right parietal shunt tube is in place with ventricular size stable. Overall the intracranial findings are similar to comparison. Patient is had shunt for decades. He was evaluated late last year and told by physician that everything looked fine. Intact neurologic exam. Patient denies any neck rigidity or neck pain. Patient has a negative Kernig and Brudzinski evaluations. Soft tissue neck CT done 2 days ago showed an intact UNDERCUTTER OPERATOR shunt, mild to moderate spondylosis, normal preventricular soft tissue and airway appears grossly normal. Physical exam is benign. No acute abdomen noted. Electrocardiogram with no acute pathology. CTA head shows atherosclerotic calcification of approximately 50% stenosis of the right most distal internal carotid artery and 30% stenosis on the left supraclinoid internal carotid artery. UA is pending. Patient had a UA 2 days ago which did not show an infection. Patient will be placed in ICU and further evaluated. Home medications list reviewed: No - Past Medical/Surgical History Diabetic: No -: stroke -: Congestive heart failure -: Coronary artery bypass grafting -: brain surgery -: sx -: Rotator cuff -: Cholecystectomy - Family History Father -: Heart disease Mother Notes: alzhiemers - Social History Smoking Status: Never smoker Alcohol use: Yes CD- Drugs: No Caffeine use: No Place of Residence: Home <Stephen Gilbert - Last Filed: 03/05/20 21:10> Date of Service: 03/05/20 <Summer Ku - Last Filed: 03/08/20 09:25> Allergies No Known Allergies Allergy (Verified 11/25/15 06:15) Home Medications: Tamsulosin HCl 0.4 mg PO DAILY 01/21/20 Aspirin [Aspirin EC 81 MG] 81 mg PO DAILY #30 tablet. 01/26/20 Metoprolol Succinate [Toprol Xl*] 25 mg PO BID 6AM 6PM #60 tab 01/26/20 Ticagrelor [Brilinta*] 90 mg PO BID #60 tablet 01/26/20 Review of Systems General: As per HPI ENT: Unremarkable Respiratory: Unremarkable Cardiovascular: Unremarkable Gastrointestinal: Unremarkable Genitourinary: Unremarkable Musculoskeletal: Unremarkable Integumentary: Unremarkable Neurological: Weakness, As per HPI Lymphatics: Unremarkable <Stephen Gilbert - Last Filed: 03/05/20 21:10> Physical Examination - Vital Signs Temperature: 97.2 F Blood Pressure: 119/57 Pulse: 94 Respirations: 16 Pulse Ox (%): 99 (RA) - Physical Exam General: Alert, In no apparent distress, Oriented x3, Cooperative HEENT: Atraumatic, Normocephalic, PERRLA, Mucous membr. moist/pink Neck: Supple, No Thyromegaly, Other (Trachea midline) Respiratory: Clear to auscultation bilaterally, Normal air movement Cardiovascular: No edema, Normal pulses Capillary refill: <2 Seconds Gastrointestinal: Normal bowel sounds, Soft and benign, Non-distended, No tenderness, No rebound, No guarding (Negative Kernig negative Brudzinski examination) Musculoskeletal: No clubbing, No swelling, No contractures, No erythema, No tenderness Integumentary: No rashes, No breakdown, No significant lesion, No tenderness/swelling Neurological: Normal gait (Uses walker at home), Normal speech, Normal tone, Sensation intact, Cranial nerves 3-12 intact - Studies Laboratory Data (last 24 hrs) 03/05/20 17:50: PT 13.8 H, INR 1.17, APTT 29.5 03/05/20 17:50: WBC 30.5 H* D, Hgb 12.8 L, Hct 38.3 L, Plt Count 217 03/05/20 17:50: Sodium 140, Potassium 3.7, BUN 14, Creatinine 1.18, Glucose 85 <Stephen Gilbert - Last Filed: 03/05/20 21:10> - Studies Microbiology Data (last 24 hrs): 03/06/20 01:30 Clean Catch Urine Vera Count - Final No growth. 03/06/20 01:30 Clean Catch Urine - Final No growth. <Summer Ku - Last Filed: 03/08/20 09:25> Assessment and Plan - Plan Impression: Cerebrovascular accident: Leukocytosis: History of UNDERCUTTER OPERATOR shunt: History of Coronary artery bypass graft with heart stents: Plan: Cerebrovascular accident: Patient's presentation to ED were likely the CVA in progress. Patient's facial drooping and difficulty speaking have resolved after tPA. Will place patient in ICU, continuous telemetry, gentle IV hydration, monitor vitals. Consult Neurology Dr. Fenton. PT and speech evaluations. Keep NPO for now. Leukocytosis: The to have a white cell count of 30 K. no indications of infection at this time. Vitals are stable. No fever and no history of fever. No acute abdomen. No nuchal rigidity. Negative Kernig and Brudzinski's. Will cover with Rocephin 2 g q.12 hr. Will order follow-up labs. Monitor white cell count. History of UNDERCUTTER OPERATOR shunt: Patient's UNDERCUTTER OPERATOR shunt was evaluated late last year and was told everything was working fine. Patient is had UNDERCUTTER OPERATOR shunt for decades. CT head with no acute intracranial finding. Ventricles are similar in size to prior imaging. History of Coronary artery bypass graft with heart stents: Patient had a cardiac catheterization last year with stent placement x1. Will hold off on restarting patient's Brilinta for at least 24 hr due to administration of tPA today. Continuous telemetry. Patient had an echocardiogram done a month ago which showed a normal EF, mild mod moderate aortic stenosis. Discharge Plan: Home Plan to discharge in: 48 Hours - Advance Directives Does patient have a Living Will: Yes Does patient have a Durable POA for Healthcare: Yes - Code Status/Comfort Care Code Status Assessed: Yes Time Spent Managing Pts Care (In Minutes): 55 <Stephen Gilbert - Last Filed: 03/05/20 21:10> Date of Service: 03/06/20 Continue with current plan of care. Agree with the findings as above. Patient's symptoms were pretty much resolving. He will get further imaging study in the morning. Neurology consultation has been obtained as well. Continue with antiplatelet therapy, statin therapy, DVT prophylaxis, physical therapy and speech therapy evaluation. <Summer Ku - Last Filed: 03/08/20 09:25>
[2020-03-05] MEDS ORDERED: NA CHLORIDE 0.9% 1,000 ML IV SCH (20:00)
[2020-03-05] MEDS ORDERED: CEFTRIAXONE 2,000 MG in NA CHLORIDE 0.9% 100 ML IV SCH (21:00)
[2020-03-05] MEDS ORDERED: CEFTRIAXONE/SWI 1gm 1 GM/10 ML SYR IV SCH ×2 (21:00)
[2020-03-05 22:00] VITALS: BMI 22.7
[2020-03-05] MEDS: NA CHLORIDE 0.9% 1,000 ML IV SCH (22:06)
[2020-03-05] MEDS ORDERED: NA CHLORIDE 0.9% 1,000 ML ONE (22:18)
[2020-03-06] MEDS ORDERED: KCL 20 MEQ/100 mL IVPB 20 MEQ/100 ML BAG IV ONE ×2 (00:22→06:46)
[2020-03-06] MEDS ORDERED: KCL 20 MEQ/100 mL IVPB 20 MEQ/100 ML BAG IV SCH ×2 (01:00→07:00)
[2020-03-06 02:43] LABS: Urine Appearance CLEAR; Urine Bilirubin NEGATIVE (NEG); Urine Blood TRACE (NEG); Urine Color YELLOW; Urine Glucose NEGATIVE (NEG); Urine Protein TRACE (NEG); Urine Specific Gravity >=1.030 (1.005-1.030)
[2020-03-06 02:44] LABS: Urine Microscopic Reflex ORDER UMIC
[2020-03-06 03:41] LABS: Urine Culture Reflex Order NOT NEEDED
[2020-03-06 03:44] LABS: Urine Bacteria <20 /HPF (NONE SEEN); Urine RBC <5 /HPF (NONE SEEN)
[2020-03-06 05:55] LABS: Absolute Lymphocytes (CBC) 2.1 K/uL (0.7-4.9); Basophils % 0.2 % (0-1.3); Hematocrit 32.5 % (39.6-49.0); Lymphocytes % 8.9 % (15.3-44.8); MPV 10.7 fL (7.6-11.3); RBC Red Blood Cell Count 3.95 M/uL (4.33-5.43)
[2020-03-06 06:01] LABS: Protime INR 1.25
[2020-03-06 06:15] LABS: Albumin 2.9 g/dL (3.4-5.0); Bilirubin Total 0.7 mg/dL (0.2-1.0); Potassium 3.7 mmol/L (3.5-5.1); Protein, Total 7.3 g/dL (6.4-8.2)
[2020-03-06] MEDS: FOLIC ACID 1 MG TABLET PO SCH (08:03)
[2020-03-06] MEDS: TICAGRELOR 90 MG TABLET PO SCH ×2 (08:03→21:44)
[2020-03-06] MEDS: TAMSULOSIN 0.4 MG SR CAP PO SCH (08:03)
[2020-03-06] MEDS: ASPIRIN EC 81 MG TAB PO SCH (08:03)
[2020-03-06] MEDS ORDERED: RSI MEDICATION KIT IV ONE (08:58)
[2020-03-06] MEDS ORDERED: CEFTRIAXONE 2,000 MG in NA CHLORIDE 0.9% 100 ML IV SCH (09:00)
[2020-03-06] MEDS ORDERED: CEFTRIAXONE/SWI 2gm 2 GM/20 ML SYR IV SCH (09:00)
[2020-03-06] MEDS: NA CHLORIDE 0.9% 1,000 ML IV SCH ×2 (09:51→22:40)
[2020-03-06] MEDS ORDERED: NA CHLORIDE 0.9% 1,000 ML ONE ×2 (10:02→23:06)
--- NOTE | 2020-03-06 15:00 | P.PN ---
Subjective Date of Service: 03/06/20 Chief Complaint: CVA s/p TPA Subjective: Other (patient improved. patient appears at baseline.) Physical Examination - Vital Signs Temperature: 100.1 F Blood Pressure: 113/55 Pulse: 96 Respirations: 22 Pulse Ox (%): 96 - Physical Exam General: Alert, In no apparent distress, Cooperative HEENT: Atraumatic Neck: Supple Respiratory: Clear to auscultation bilaterally, Normal air movement Cardiovascular: Normal pulses, Regular rate/rhythm Gastrointestinal: Normal bowel sounds, Soft and benign, Non-distended Neurological: Normal speech, Other (patient appears at his baseline. Good strength overall to the upper and lower ext. ) - Studies Laboratory Data (last 24 hrs) 03/06/20 05:38: Sodium 140, Potassium 3.7, BUN 14, Creatinine 1.03, Glucose 85, Magnesium 2.0 D, Total Bilirubin 0.7, AST 6 L, ALT 11 L, Alkaline Phosphatase 69, Triglycerides 58, Cholesterol 84, HDL Cholesterol 47, Cholesterol/HDL Ratio 1.79 03/06/20 05:38: PT 14.7 H, INR 1.25, APTT 25.2 03/06/20 05:38: WBC 23.7 H* D, Hgb 11.1 L, Hct 32.5 L D, Plt Count 188 03/05/20 17:50: PT 13.8 H, INR 1.17, APTT 29.5 03/05/20 17:50: WBC 30.5 H* D, Hgb 12.8 L, Hct 38.3 L, Plt Count 217 03/05/20 17:50: Sodium 140, Potassium 3.7, BUN 14, Creatinine 1.18, Glucose 85 Microbiology Data (last 24 hrs): 03/05/20 19:52 Blood - Blood Anaerobic Blood Culture - Final 03/05/20 20:01 Blood - Blood Anaerobic Blood Culture - Final Assessment & Plan Discharge Plan: Other (Inpatient Rehab) Plan to discharge in: 48 Hours Physician Review Additional Text: Impression: Right sided facial droop with aphasia with 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 Spoke to Speech, suspect dysphagia, MDS to be obtained. Await recommendation by Speech. MRI brain to be obtained to monitor for hemorrhagic conversion. Restart ASA/Brilinta 24 hours after TPA. Spoke to PT, patient would be a good candidate for inpatient rehab. Patient was active prior to event. Will continue with PT. No need for Statin medication due to normal LDL. Continue to hold HTN medication. Await further recommendations by Neurology. Continue with IV antibiotics for UTI. Blood and urine culture obtained. Shunt will need to be reassessed by his Neurosurgeon as outpatient since he will have MRI. Time Spent Managing Pts Care (In Minutes): 55
--- NOTE | 2020-03-06 15:18 | RAD REPORT ---
EXAM DESCRIPTION: RAD - Barium Swallow Modified - 03/06/2020 3:08 pm CLINICAL HISTORY: CVA, cough, dysphagia FINDINGS: Nineteen fluoroscopic spot images obtained. Fluoroscopy time 4.2 minutes ASPIRATION: NO COUGH WITH THIN LIQUID PHARYNGEAL RESIDUE: VALLECULAR WITH THIN PROLONGED ORAL HOLD WITH ALL CONSISTENCIES
[2020-03-06] MEDS: CEFTRIAXONE/SWI 2gm 2 GM/20 ML SYR IV SCH (21:45)
[2020-03-06] MEDS ORDERED: TICAGRELOR 90 MG TABLET PO ONE (21:52)
[2020-03-07 06:03] LABS: Absolute Lymphocytes (CBC) 1.2 K/uL (0.7-4.9); Basophils % 0.3 % (0-1.3); Hematocrit 30.5 % (39.6-49.0); MPV 10.6 fL (7.6-11.3)
[2020-03-07 06:16] LABS: Potassium 3.8 mmol/L (3.5-5.1)
--- NOTE | 2020-03-07 08:04 | P.PN ---
Subjective Date of Service: 03/07/20 Chief Complaint: CVA s/p TPA Subjective: Improving, Doing well Physical Examination - Vital Signs Temperature: 99.4 F Blood Pressure: 130/61 Pulse: 99 Respirations: 23 Pulse Ox (%): 97 - Physical Exam General: Alert, Cooperative HEENT: Atraumatic Neck: Supple Respiratory: Clear to auscultation bilaterally, Normal air movement Cardiovascular: Normal pulses, Regular rate/rhythm Gastrointestinal: Normal bowel sounds, No masses, No rebound, No guarding Neurological: Normal speech, Normal strength at 5/5 x4 extr, Normal tone, Normal affect - Studies Microbiology Data (last 24 hrs): 03/05/20 20:01 Blood - Blood Anaerobic Blood Culture - Final 03/05/20 19:52 Blood - Blood Anaerobic Blood Culture - Final Medications List Reviewed: Yes Assessment & Plan Discharge Plan: Other (Inpatient rehab) Plan to discharge in: 48 Hours Physician Review Additional Text: Impression: Right sided facial droop with aphasia with 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 MRI cannot be done yesterday due to recent heart stents. Will check CT scan brain to monitor for any hemorrhagic conversion. Continue aspirin and Brilinta. Speech evaluated patient for possible dysphagia. Patient on mechanical diet. Continue with physical therapy and occupational therapy. Physical therapy evaluated patient. Patient still on steady. Physical therapy recommends inpatient rehab. Case also discuss with Neurology. No need for statin medication due to normal LDL. Leukocytosis secondary to UTI: So far blood and urine cultures negative. Leukocytosis has improved with antibiotic therapy. Will continue with antibio tic therapy at this time. Await final results of cultures. If negative will continue with oral antibiotic therapy for at least 7 days. 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 HTN: Continue to hold blood pressure medication. Will consider restarting medication if blood pressure increases. Anemia likely of chronic disease: Will check iron and B12 studies. Patient with history of B12 deficiency. Time Spent Managing Pts Care (In Minutes): 55
[2020-03-07] MEDS: ASPIRIN EC 81 MG TAB PO SCH (09:00)
[2020-03-07] MEDS: CEFTRIAXONE/SWI 2gm 2 GM/20 ML SYR IV SCH (10:11)
[2020-03-07] MEDS: TAMSULOSIN 0.4 MG SR CAP PO SCH (10:14)
[2020-03-07] MEDS: TICAGRELOR 90 MG TABLET PO SCH ×2 (10:15→23:47)
[2020-03-07] MEDS: FOLIC ACID 1 MG TABLET PO SCH (10:15)
[2020-03-07] MEDS ORDERED: TAMSULOSIN 0.4 MG SR CAP ONE (10:26)
[2020-03-07] MEDS ORDERED: TICAGRELOR 90 MG TABLET PO ONE ×2 (10:26→23:57)
[2020-03-07] MEDS ORDERED: ASPIRIN 81 MG CHEWABLE TABLET ONE (10:26)
[2020-03-07] MEDS ORDERED: FOLIC ACID 1 MG TABLET ONE (10:26)
[2020-03-07] MEDS ORDERED: NA CHLORIDE 0.9% 250 ML IV ONE (11:35)
[2020-03-07] MEDS: NACHLORIDE 0.45% 1,000 ML IV SCH ×2 (11:59→23:47)
[2020-03-07] MEDS ORDERED: AMIODARONE HCL 900 MG in Dextrose 5%-Water 482 ML IV SCH (12:00)
--- NOTE | 2020-03-07 12:26 | RAD REPORT ---
EXAM DESCRIPTION: CT - Head Brain Wo Cont - 03/07/2020 7:36 am CLINICAL HISTORY: Follow up TPA TECHNIQUE: Axial computed tomography images of the head/brain without intravenous contrast. Sagitt al and coronal reformatted images were created and reviewed. This CT exam was performed using one o r more of the following dose reduction techniques: automated exposure control, adjustment of the mA and/or kV according to patient size, and/or use of iterative reconstruction technique. COMPARISON: No relevant prior studies available. FINDINGS: Limitations: None. Brain: Bilateral periventricular hypodensity most consistent with chronic small vessel ischemia. Old infarct left basal ganglia. No evidence of acute infarct. No hemorrhage. Midline shift: None. Ventricles: No abnormality noted. Bones/joints: No acute fracture or osseous destruction. Soft tissues: Visualized portions appear normal. Vasculature: No acute abnormality noted. Sinuses: No layering fluid in the visualized portions of the paranasal sinuses. Mastoid air cells: No mastoid effusion. Orbits: Visualized portions appear normal. Tubes, lines and devices: Stable catheter in the right occipital horn. Stable ventricular prom inence. IMPRESSION: Chronic changes as above. No acute disease. Small acute infarcts could be masked by chronic small vessel ischemic changes. Electronically signed by: Jimena Hernandez MD 03/07/2020 7:23 AM CDT Due to temporary technical issues with the PACS/Fluency reporting system, reports are being signed by the in house radiologist without review as a courtesy to ensure prompt reporting. The interpreting r adiologist is fully responsible for the content of the report.
[2020-03-07] MEDS ORDERED: NACHLORIDE 0.45% 1,000 ML IV ONE ×2 (15:36→23:58)
[2020-03-07] MEDS: AMOX/K CLAV 500 MG TAB PO SCH (21:00)
[2020-03-08 05:37] LABS: Absolute Lymphocytes (CBC) 1.3 K/uL (0.7-4.9); Basophils % 0.5 % (0-1.3); Hematocrit 31.2 % (39.6-49.0); Lymphocytes % 14.2 % (15.3-44.8); MPV 10.3 fL (7.6-11.3); RBC Red Blood Cell Count 3.82 M/uL (4.33-5.43)
[2020-03-08 05:56] LABS: Magnesium 2.1 mg/dL (1.8-2.4); Potassium 3.3 mmol/L (3.5-5.1)
[2020-03-08] MEDS: TICAGRELOR 90 MG TABLET PO SCH ×2 (08:47→21:19)
[2020-03-08] MEDS: TAMSULOSIN 0.4 MG SR CAP PO SCH (08:48)
[2020-03-08] MEDS: FOLIC ACID 1 MG TABLET PO SCH (08:48)
[2020-03-08] MEDS: ASPIRIN EC 81 MG TAB PO SCH (08:48)
[2020-03-08] MEDS: AMOX/K CLAV 500 MG TAB PO SCH ×2 (08:49→21:19)
[2020-03-08] MEDS ORDERED: POTASSIUM CL SA 10 MEQ TAB PO ONE ×2 (08:55→18:00)
[2020-03-08] MEDS ORDERED: ASPIRIN 81 MG CHEWABLE TABLET ONE (08:58)
[2020-03-08] MEDS ORDERED: FOLIC ACID 1 MG TABLET ONE (08:59)
[2020-03-08] MEDS ORDERED: TICAGRELOR 90 MG TABLET PO ONE (08:59)
[2020-03-08] MEDS ORDERED: TAMSULOSIN 0.4 MG SR CAP ONE (08:59)
[2020-03-08] MEDS: METOPROLOL XL 25 MG TAB PO SCH ×2 (10:33→21:19)
--- NOTE | 2020-03-08 13:50 | P.PN ---
Subjective Date of Service: 03/08/20 Chief Complaint: CVA s/p TPA Subjective: Improving, Doing well Physical Examination - Vital Signs Temperature: 99.0 F Blood Pressure: 137/75 Pulse: 90 Respirations: 18 Pulse Ox (%): 98 - Physical Exam General: Alert, In no apparent distress, Oriented x3, Cooperative HEENT: Atraumatic Neck: Supple Respiratory: Clear to auscultation bilaterally, Normal air movement Cardiovascular: Normal pulses, Regular rate/rhythm Gastrointestinal: Normal bowel sounds Neurological: Normal speech, Normal strength at 5/5 x4 extr, Normal tone, Normal affect - Studies Medications List Reviewed: Yes Assessment & Plan Discharge Plan: Other (Inpatient rehab) Plan to discharge in: 24 Hours Physician Review Additional Text: Impression: Right sided facial droop with aphasia with 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 Repeat CT scan shows no hemorrhagic conversion. Continue physical therapy. Physical therapy recommends inpatient rehab. Will continue to pursue inpatient rehab. This was discussed in detail with who agrees.. Continue aspirin and Brilinta. Speech evaluated patient for possible dysphagia. Patient on mechanical diet. Case also discuss with Neurology. No need for statin medication due to normal LDL. Leukocytosis secondary to UTI: So far blood and urine cultures negative. Leukocytosis has improved with antibiotic therapy. Will continue with oral antibiotic therapy at this time. 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 HTN: Metoprolol restarted Anemia likely of chronic disease: Will check iron and B12 studies. Patient with history of B12 deficiency. Paroxysmally atrial fibrillation now in normal sinus rhythm: Case discussed in detail with cardiology. Patient was to start amiodarone drip but the patient converted into normal sinus rhythm. Patient continues to be in normal sinus rhythm. Will restart beta-max. Not able to do any chronic anti coalition therapy since the patient recently received tPA. Time Spent Managing Pts Care (In Minutes): 55
[2020-03-08] MEDS ORDERED: ENSURE ENLIVE 237 ML CAN PO SCH (14:00)
[2020-03-08 16:12] LABS: Ferritin 58.6 ng/mL (26-388)
[2020-03-08] MEDS ORDERED: METOPROLOL XL 25 MG TAB PO SCH (18:00)
--- NOTE | 2020-03-09 01:15 | CON ---
Reason For Consultation: Consultation called because of a stroke versus TIA. History Of Present Illness: Mr. Ramsey is an 84-year-old right-handed patient with history of hypert ension and dyslipidemia with prior transient ischemic attack and also coronary artery bypass grafting with cardiac stents and ventriculoperitoneal shunt, who comes to [facility] within a 3-hour window of onset of stroke symptoms. He had difficulty speaking followed by right facial drooping an d dysarthria, with left lower extremity more than right-sided weakness. His head CT scan was negativ e for an acute ischemic or hemorrhagic change and his NIH Stroke Scale was 8. He received tPA per pr otocol and was kept in ICU for observation overnight with neuro checks at 15 minutes intervals. His repeat CT scan shows no hemorrhagic conversion. Today, the patient still has significant dysarthria and aphasia, but does follow commands with repeated instructions. He had a barium swallow study, hasmukh real found aspiration with no cough with thin liquids. There was a vallecular residue with thin liquid s on a prolonged oral hold with all consistencies. The patient is doing speech therapy in addition t o his physical and occupational therapy. Past Medical History: As indicated. Past Surgical History: As indicated. Family History: Noncontributory. Allergies: NO KNOWN DRUG ALLERGIES. Home Medications: Aspirin 81 mg daily, Brilinta 90 mg daily, metoprolol 25 mg twice daily. Review of Systems: Unable to complete effective review of systems, however, there is report of prior dizziness and diffi culty with weakness along with drooling when the patient was seen 1 week ago at [facility], then discharged. Social History: The patient does smoke cigarettes. Physical Examination: Vital Signs: Blood pressure 137/66, pulse 89, respiratory rate 16, temperature 97.4, T-max 99, oxyge n saturation 98%, weight 145 pounds, height 5 feet 4 inches. General: Mr. Ramsey is resting comfortably in bed. He is in no acute distress. HEENT: He is normocephalic and atraumatic. His sclerae are anicteric. His oropharynx is moist and pink. Neck: Supple. Chest: Clear. Heart: Regular. Extremities: Show no significant edema, cyanosis, or clubbing. Neurological: He is alert and oriented to his name but very difficult to determine if he is oriented to place as he has significant dysarthria and very slow speech. His face does appear symmetric with good excursions bilaterally. In terms of motor examination, there is diffuse weakness, difficult to assess right from left, although at one point he did seem to pull very strongly on both upper extrem ities. His lower extremities show diffuse weakness bilaterally. Sensory exam decreased to light lokesh ch and temperature bilaterally. Reflexes depressed bilaterally. For gait, he does have significant retropulsion on standing. Laboratory Studies: Complete blood count with differential on his admission showed a white count of 30.5 and neutrophils 82.6 three days ago. Today, white count 9.1 with neutrophils 70.9. Coagulation panel shows INR 1.25. Chemistries show slightly elevated chloride of 110, potassium now 3.9, calciu m low at 8.0, magnesium 2.1. Iron studies are low. AST and ALT are slightly low. HDL cholesterol 4 7, LDL cholesterol 25, B12 slightly low at 309. His lactic acid on admission was 1.5 and procalciton in 0.06. Urinalysis showed 1+ ketones, trace blood, 1+ esterase, 20-50 bacteria. Assessment: Mr. Ramsey is an 84-year-old patient with apparent stroke-like symptoms, who has had an NIH stroke scale of 8 and has received tPA, stroke scale is 6 at this point. He has multiple stroke risk factors with medications on board for modification. He did have an apparent very elevated white blood cell count, which is now normal. His cultures have been negative. Test for coronavirus has b een negative and the cultures are blood x2. Plan: 1.Mr. Ramsey will have an EEG done at some point. 2.Folic acid 1 mg daily. 3.Allow for permissive hypertension over the next 3 to 5 days. 4.Aspirin 81 mg daily. 5.Okay to restart Brilinta. 6.Continue his Flomax. 7.Physical, speech and occupational therapy. LB/FATIMAH Voice ID: [id number] Report ID: [id number]
[2020-03-09 04:18] LABS: Absolute Lymphocytes (CBC) 1.6 K/uL (0.7-4.9); Basophils % 0.3 % (0-1.3); Hematocrit 36.8 % (39.6-49.0); Lymphocytes % 18.2 % (15.3-44.8); MPV 10.2 fL (7.6-11.3); RBC Red Blood Cell Count 4.49 M/uL (4.33-5.43)
[2020-03-09 04:26] LABS: Magnesium 2.2 mg/dL (1.8-2.4); Potassium 3.2 mmol/L (3.5-5.1)
--- NOTE | 2020-03-09 09:23 | P.PN ---
Subjective Date of Service: 03/09/20 Chief Complaint: CVA s/p TPA Subjective: Improving, Doing well Physical Examination - Vital Signs Temperature: 97.1 F Blood Pressure: 129/71 Pulse: 93 Respirations: 17 Pulse Ox (%): 98 - Physical Exam General: Alert, Cooperative HEENT: Atraumatic Neck: Supple Respiratory: Clear to auscultation bilaterally, Normal air movement Cardiovascular: Normal pulses, Regular rate/rhythm Gastrointestinal: Normal bowel sounds, Soft and benign, No masses, No rebound, No guarding Neurological: Normal speech, Normal strength at 5/5 x4 extr, Normal tone, Normal affect - Studies Medications List Reviewed: Yes Assessment & Plan Discharge Plan: Other (Inpatient rehab) Plan to discharge in: 24 Hours Physician Review Additional Text: Impression: Right sided facial droop with aphasia with history of FOREST AIDE shunt status post TPA suspect CVA Leukocytosis secondary to UTI 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 Repeat CT scan shows no hemorrhagic conversion. Continue physical therapy/occupational therapy. Physical therapy and Neurology recommends inpatient rehab.. Will continue to pursue inpatient rehab. This was discussed in detail with who agrees.. Continue aspirin and Brilinta. Speech evaluated patient for possible dysphagia. Patient on mechanical diet. No need for statin medication due to normal LDL. Folic acid to be continued. Await approval for inpatient rehab. Possible discharge to inpatient rehab if approved today. Leukocytosis secondary to UTI: So far blood and urine cultures negative. Leukocytosis has improved with antibiotic therapy. Will continue with oral antibiotic therapy at this time. 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 HTN: Metoprolol restarted Anemia likely of chronic disease with iron and B12 deficiency: Iron and B12 slightly low. Will provide supplementation.. Patient with history of B12 deficiency. Paroxysmally atrial fibrillation now in normal sinus rhythm: Case discussed in detail with cardiology. Patient was to start amiodarone drip but the patient converted into normal sinus rhythm. Patient continues to be in normal sinus rhyt hm. Patient now back on beta-max therapy. No need for chronic anti coagulation therapy due to recent tPA an outpatient in sinus rhythm. Time Spent Managing Pts Care (In Minutes): 55
[2020-03-09] MEDS: ASPIRIN EC 81 MG TAB PO SCH (09:38)
[2020-03-09] MEDS: TICAGRELOR 90 MG TABLET PO SCH ×2 (09:39→20:48)
[2020-03-09] MEDS: AMOX/K CLAV 500 MG TAB PO SCH ×2 (09:39→20:48)
[2020-03-09] MEDS: TAMSULOSIN 0.4 MG SR CAP PO SCH (09:40)
[2020-03-09] MEDS: FOLIC ACID 1 MG TABLET PO SCH (09:41)
[2020-03-09] MEDS: METOPROLOL XL 25 MG TAB PO SCH ×2 (09:49→20:47)
[2020-03-09] MEDS: KCL 20 MEQ/100 mL IVPB 20 MEQ/100 ML BAG IV SCH ×2 (09:50→12:16)
[2020-03-09] MEDS ORDERED: NA CHLORIDE 0.9% 250 ML ONE (10:12)
[2020-03-09 22:01] VITALS: O2SAT 96
[2020-03-10 06:07] LABS: Magnesium 2.4 mg/dL (1.8-2.4); Potassium 3.9 mmol/L (3.5-5.1)
[2020-03-10] MEDS ORDERED: POTASSIUM 25 MEQ EFFERV TAB PO ONE (09:00)
[2020-03-10] MEDS: TAMSULOSIN 0.4 MG SR CAP PO SCH (09:00)
[2020-03-10] MEDS: METOPROLOL XL 25 MG TAB PO SCH ×2 (09:00→20:51)
[2020-03-10] MEDS: TICAGRELOR 90 MG TABLET PO SCH ×2 (09:01→20:51)
[2020-03-10] MEDS: ASPIRIN EC 81 MG TAB PO SCH (09:02)
[2020-03-10] MEDS: FOLIC ACID 1 MG TABLET PO SCH (09:02)
[2020-03-10] MEDS: AMOX/K CLAV 500 MG TAB PO SCH ×2 (09:02→20:51)
[2020-03-10] MEDS ORDERED: CYANOCOBALAMIN 1000MCG/ML INJ IM ONE (11:46)
--- NOTE | 2020-03-10 11:54 | P.PN ---
Subjective Date of Service: 03/10/20 Chief Complaint: CVA s/p TPA Subjective: Doing well Physical Examination - Vital Signs Temperature: 96.8 F Blood Pressure: 103/58 Pulse: 77 Respirations: 16 Pulse Ox (%): 97 - Physical Exam General: Alert, In no apparent distress, Cooperative HEENT: Atraumatic Neck: Supple Respiratory: Clear to auscultation bilaterally, Normal air movement Cardiovascular: Normal pulses, Regular rate/rhythm Gastrointestinal: Normal bowel sounds, Soft and benign, Non-distended Neurological: Normal strength at 5/5 x4 extr, Normal tone, Normal affect - Studies Medications List Reviewed: Yes Assessment & Plan Discharge Plan: Other (inpatient rehab) Plan to discharge in: 24 Hours Physician Review Additional Text: Impression: Right sided facial droop with aphasia with 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 Repeat CT scan shows no hemorrhagic conversion. Continue physical therapy/occupational therapy. Physical therapy and Neurology recommends inpatient rehab.. Will continue to pursue inpatient rehab. This was discussed in detail with who agrees.. Continue aspirin and Brilinta. Speech evaluated patient for possible dysphagia. Patient on mechanical diet. No need for statin medication due to normal LDL. Continue folic acid. Will add vitamin-B 12 due to deficiency. Will decrease metoprolol. Will consult dietary for evaluation of daily needs and treatment. Continue to wait approval for inpatient rehab. I will turn the service over to the hospitalist team tomorrow. I will go over the plan of care with him. Leukocytosis secondary to UTI: So far blood and urine cultures negative. Leukocytosis has improved with antibiotic therapy. Will continue with oral antibiotic therapy at this time for a total of 7 days. 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 HTN: Metoprolol restarted. Will decrease metoprolol to 12.5 mg 1 pill twice daily. May need to hold medication if blood pressure systolic less than 110. Anemia likely of chronic disease with iron and B12 deficiency: Iron and B12 slightly low. Will provide supplementation.. Patient with history of B12 deficiency. Will have dietary evaluate daily needs. Paroxysmally atrial fibrillation now in normal sinus rhythm: Case discussed in detail with cardiology. Patient was to start amiodarone drip but the patient converted into normal sinus rhythm. Patient continues to be in normal sinus rhythm. Patient now back on beta-max therapy. But will decrease beta- max therapy. Parameters in place. No need for chronic anti coagulation therapy due to recent tPA an outpatient in sinus rhythm. Time Spent Managing Pts Care (In Minutes): 55
[2020-03-10] MEDS: ENSURE ENLIVE 237 ML CAN PO SCH (20:53)
[2020-03-11] MEDS: ENSURE ENLIVE 237 ML CAN PO SCH ×2 (09:00→21:13)
[2020-03-11] MEDS: AMOX/K CLAV 500 MG TAB PO SCH ×2 (09:37→21:12)
[2020-03-11] MEDS: CYANOCOBALAMIN 1,000 MCG TAB PO SCH (09:37)
[2020-03-11] MEDS: ASPIRIN EC 81 MG TAB PO SCH (09:37)
[2020-03-11] MEDS: TAMSULOSIN 0.4 MG SR CAP PO SCH (09:37)
[2020-03-11] MEDS: METOPROLOL XL 25 MG TAB PO SCH ×2 (09:38→21:12)
[2020-03-11] MEDS: FOLIC ACID 1 MG TABLET PO SCH (09:38)
[2020-03-11] MEDS: TICAGRELOR 90 MG TABLET PO SCH ×2 (09:38→21:12)
--- NOTE | 2020-03-11 10:40 | P.PN ---
Subjective Date of Service: 03/12/20 Chief Complaint: CVA s/p TPA Subjective: Improving (Patient is improving condition stable) Review of Systems is unable to be obtained Physical Examination - Vital Signs Temperature: 97.5 F Blood Pressure: 102/59 Pulse: 86 Respirations: 18 Pulse Ox (%): 97 - Physical Exam General: Alert, Cooperative Respiratory: Clear to auscultation bilaterally Cardiovascular: No edema, Normal S1 S2 Neurological: Other (Moving all his extremities) - Studies Microbiology Data (last 24 hrs): 03/05/20 20:01 Blood - Blood Aerobic Blood Culture - Final No growth in 5 days. 03/05/20 20:01 Blood - Blood Anaerobic Blood Culture - Final 03/05/20 19:52 Blood - Blood Aerobic Blood Culture - Final No growth in 5 days. 03/05/20 19:52 Blood - Blood Anaerobic Blood Culture - Final Medications List Reviewed: Yes Assessment & Plan - Problems (Diagnosis) (1) Stroke Current Visit: No Status: Chronic Plan: Patient has stroke less symptoms seen by neurology although there is no acute changes on the CT scan status post t-PA doing well condition stable waiting transfer to a rehab facility white count is normal patient is on Augmentin vital signs stable stable for transfer Qualifiers: CVA mechanism: occlusion Laterality of affected vessel: unspecified
--- NOTE | 2020-03-11 11:03 | CON ---
Date of Consultation: 03/07/[address] The patient admitted to Dr. Salas' service on 03/06/2020. I saw the patient on 03/07/2020. Reason For Consultation: Atrial fibrillation. History Of Present Illness: Mr. Ramsey is an 84-year-old white male. He is known to us from recent consultation and catheterization. Dr. Campos did a heart catheterization on January 27, 2020. He und erwent a stent of the ostium of the RCA graft. The rest of his graft appeared to be patent. He was found to have an aortic stenosis of 1.3 sq cm considered to be moderate. He is known to have a carot id Doppler that was unremarkable. He came in with a stroke. He is status post tPA. He is also on a spirin and Brilinta. He has had paroxysmal atrial fibrillation since he has been in the hospital. Pari ley is supposed to be on metoprolol at home. He is in sinus rhythm when I saw him. Denied any coronar y artery disease symptoms. No chest pain. No syncope. No palpitations. Denies nausea, vomiting, o r diaphoresis. As stated earlier, he came in with a stroke. Past Medical History: Includes CABG, CVA, dyslipidemia, and a DOG OR ANIMAL SITTER shunt. Social History: Positive for him being a DNR. Allergies: NONE. Family History: Noncontributory. Medications: At home include aspirin, Brilinta, and metoprolol. Physical Examination: General: When I saw him, he was in a sinus rhythm. VITAL SIGNS: O2 saturation was 98%. He was afebrile. HEENT: Negative. Neck: Supple. No bruit. Chest: Clear. Cardiac: Revealed an aortic stenosis murmur. No gallops or rubs. Abdomen: Benign. Extremities: Revealed no clubbing, cyanosis, or edema. Diagnostic Data: As stated earlier. Also, he has a white count of 12,000, O2 saturation 98%. Impression And Plan: 1.Patient with coronary artery disease, status post CABG, status post recent stent of the ostium of the RCA graft that is stable. He should continue the aspirin and Brilinta. 2.Paroxysmal atrial fibrillation. He is status post tPA for the stroke. I think we need to continu e the aspirin and Brilinta, wait 6 weeks, stop the aspirin then and put him on Eliquis or Xarelto. 3.Dyslipidemia. 4.Ventriculoperitoneal shunt. We will continue to follow him as needed. BANG/FATIMAH Voice ID: [id number] Report ID: [id number]
[2020-03-12] MEDS: ENSURE ENLIVE 237 ML CAN PO SCH (09:00)
[2020-03-12] MEDS: METOPROLOL XL 25 MG TAB PO SCH (09:11)
[2020-03-12] MEDS: AMOX/K CLAV 500 MG TAB PO SCH (09:11)
[2020-03-12] MEDS: ASPIRIN EC 81 MG TAB PO SCH (09:11)
[2020-03-12] MEDS: CYANOCOBALAMIN 1,000 MCG TAB PO SCH (09:11)
[2020-03-12] MEDS: TAMSULOSIN 0.4 MG SR CAP PO SCH (09:11)
[2020-03-12] MEDS: TICAGRELOR 90 MG TABLET PO SCH (09:11)
[2020-03-12] MEDS: FOLIC ACID 1 MG TABLET PO SCH (09:12)
--- NOTE | 2020-03-12 09:24 | P.PN ---
Subjective Date of Service: 03/12/20 Chief Complaint: CVA s/p TPA No change in patient's condition is very stable still a phasic following commands Review of Systems is unable to be obtained Physical Examination - Vital Signs Temperature: 97.8 F Blood Pressure: 105/56 Pulse: 80 Respirations: 18 Pulse Ox (%): 95 - Physical Exam General: Alert, Cooperative Respiratory: Clear to auscultation bilaterally Cardiovascular: No edema, Regular rate/rhythm Neurological: Other (Patient following commands moving all his extremities) - Studies Medications List Reviewed: Yes Assessment & Plan - Problems (Diagnosis) (1) Stroke Current Visit: No Status: Chronic Plan: Doing well stable no change awaiting transfer to a rehab facility white count is now normal Dc antibiotics Qualifiers: CVA mechanism: occlusion Laterality of affected vessel: unspecified
[2020-03-12 17:59] VITALS: BP 113/59; TEMP 97
--- NOTE | 2020-03-15 12:14 | P.DS ---
Admission Date: 03/06/20 (Hospitalist) Discharge Date: 03/15/20 Disposition: TRANSFER TO INPATIENT REHAB Discharge Condition: FAIR Reason for Admission: CVA s/p TPA - Problems (1) Stroke Status: Chronic Qualifiers: CVA mechanism: occlusion Laterality of affected vessel: unspecified Brief History of Present Illness: Patient is 84 years of age came to the emergency room with evidence of an acute stroke-like symptoms he was given tPA and developed expressive dysphagia was seen by neurologist Hospital Course: Patient's condition remains stable he received tPA seen by neurology was history of possible UTIs white count was normal at the time of discharge patient was alert cooperative for found expressive dysphagia was eating and drinking mechanical soft diet white count normal vital signs stable patient had a swallow study done in his diet was modified accordingly on examination alert cooperative unable to speak cardiovascular system os sounds normal. Lungs clear abdomen soft extremities no edema he is able to move all his extremities appears to have diffuse weakness stable condition for transfer to a rehab facility Vital Signs/Physical Exam: Temp Pulse Resp BP Pulse Ox 97 F 80 18 113/59 L 98 03/12/20 16:00 03/12/20 16:00 03/12/20 16:00 03/12/20 16:00 03/12/20 16:00 Laboratory Data at Discharge: WBC 9.0 K/uL (4.3-10.9) 03/09/20 04:03 Hgb 12.6 g/dL (13.6-17.9) L 03/09/20 04:03 Hct 36.8 % (39.6-49.0) L D 03/09/20 04:03 Plt Count 228 K/uL (152-406) D 03/09/20 04:03 PT 14.7 SECONDS (9.5-12.5) H 03/06/20 05:38 INR 1.25 03/06/20 05:38 APTT 25.2 SECONDS (24.3-36.9) 03/06/20 05:38 Sodium 143 mmol/L (136-145) 03/11/20 05:46 Potassium 4.0 mmol/L (3.5-5.1) 03/11/20 05:46 BUN 21 mg/dL (7-18) H 03/11/20 05:46 Creatinine 0.99 mg/dL (0.55-1.3) 03/11/20 05:46 Glucose 92 mg/dL (74-106) 03/11/20 05:46 Magnesium 2.4 mg/dL (1.8-2.4) 03/10/20 05:33 Total Bilirubin 0.7 mg/dL (0.2-1.0) 03/06/20 05:38 AST 6 U/L (15-37) L 03/06/20 05:38 ALT 11 U/L (12-78) L 03/06/20 05:38 Alkaline Phosphatase 69 U/L (45-117) 03/06/20 05:38 Triglycerides 58 mg/dL (<150) 03/06/20 05:38 Cholesterol 84 mg/dL (<200) 03/06/20 05:38 HDL Cholesterol 47 mg/dL (40-60) 03/06/20 05:38 Cholesterol/HDL Ratio 1.79 03/06/20 05:38 Home Medications: Tamsulosin HCl 0.4 mg PO DAILY 01/21/20 Aspirin [Aspirin EC 81 MG] 81 mg PO DAILY #30 tablet. 01/26/20 Metoprolol Succinate [Toprol Xl*] 25 mg PO BID 6AM 6PM #60 tab 01/26/20 Ticagrelor [Brilinta*] 90 mg PO BID #60 tablet 01/26/20 Followup: Jonathan Fenton MD [ASSOCIATE-ACTIVE - CAN ADMIT] -
== END 2020-03-12 18:25 | DRG 62 ==
LOC: ER 17:07 → ERHOLD 19:32 → OBSVTOIN 03-06 12:03 → 2ND 03-08 10:21
PROVIDERS: ADMIT Hospitalist; ATTEND Internal Medicine Sleep Medicine
DX: I63.50 Cerebral infarction due to unspecified occlusion or stenosis of unspecified cerebral artery (principal); G81.94 Hemiplegia, unspecified affecting left nondominant side; G81.91 Hemiplegia, unspecified affecting right dominant side; N39.0 Urinary tract infection, site not specified; D72.829 Elevated white blood cell count, unspecified; E78.5 Hyperlipidemia, unspecified; I10 Essential (primary) hypertension; D63.8 Anemia in other chronic diseases classified elsewhere; I48.0 Paroxysmal atrial fibrillation; D51.9 Vitamin B12 deficiency anemia, unspecified; I25.10 Atherosclerotic heart disease of native coronary artery without angina pectoris; R53.1 Weakness; R47.01 Aphasia; R29.810 Facial weakness; R47.1 Dysarthria and anarthria; R29.708 NIHSS score 8; R13.10 Dysphagia, unspecified; Z86.73 Personal history of transient ischemic attack (TIA), and cerebral infarction without residual deficits; Z79.899 Other long term (current) drug therapy; Z95.5 Presence of coronary angioplasty implant and graft; Z98.2 Presence of cerebrospinal fluid drainage device; Z90.49 Acquired absence of other specified parts of digestive tract; Z95.1 Presence of aortocoronary bypass graft; Z79.82 Long term (current) use of aspirin; Z20.828 Contact with and (suspected) exposure to other viral communicable diseases
CPT/HCPCS: 36415; 70450; 70496; 71045; 74230; 80048; 80053; 80061; 81003; 81015; 82607; 82728; 82947; 83540; 83605; 83735; 84132; 84145; 84466; 85025; 85610; 85730; 86140; 87040; 87086; 87088; 92610; 92611; 92977; 93005; 96374; 97112; 97116; 97161; 97530; 99291; 99292; G0378; J0696; J2997; J3420; J3480; J7030; J7040; J7050; Q9967; U0003

== ENCOUNTER 2020-12-27 21:49 | Inpatient (IN) | payer OTHER ==
--- OUTSIDE RECORDS SUMMARY | 2020-12-27 21:52 | XMS REPORT | Continuity of Care Document ---
:1935 Author Organization [facility] t Address [address] [place] [address] Care Team Providers Name Role Phone Shalom Fernandes Primary Care Physician CHINO Attending Clinician Unavailable ARTEM Admitting Clinician Unavailable Payers Payer Name Policy Type Policy Number Effective Date Expiration Date S ource Problems Condition Condition Condition Status Onset Resolution [...] 6-13 [facility] UTI UTI Disease Active [facility] ([facility]inary (urinary 11-17 [facility] - tract tract 00:00: Medical infection) infection) 00 Ce nter Cerebrovas Cerebrovas Disease Active [facility] cular cular 6- [facility] - accident accident 00:00: Medica l (CVA), (CVA), 00 Center unspecifie unspecifie d d mechanism mechanism Leucocytos Leucocytos Disease Active 2016-[address] is is 6-11 [facility] Coronary Coronary Disease Active [facility] S t artery artery [facility] Allergies, Adverse Reactions, Alerts This patient has no known allergies or adverse reactions. Social History Social Habit Start Date Stop Date Quantity Comments Source Sex Assigned At [facility] Alcohol intake 2015-11-18 2015-11-18 Current [facility] es - 00:00:00 00:00:00 non-drinker of Medical Ce nter alcohol (finding) Smoking Status Start Date Stop Date Source Current every day smoker 2015-11-18 00:00:00 [facility] Medications Ordered Filled Start Stop Current Ordering Indication Dosage Frequency Signature Comments Components Source Medication Medication Date Date Medication? Clinician (SIG) Name Name pantoprazol Yes 40mg QD Take [address] [facility] e 6-15 tablet (40 [facility] - (PROTONIX) 00:00: mg total) Me dical 40 MG 00 by mouth Center tablet daily. Flonase Flonase Yes Na Magana [address] [facility] each [facility] - nostril [facility] Aspir-81 Aspir-81 Yes Na Magana [address] [facility] Losartan Losartan Yes Na Magana [address] [facility] Potassium Potassium [facility] Colace Colace Yes Na Magana [address] [facility] as needed [facility] Lipitor Lipitor Yes Na Magana [address] [facility] Plavix Plavix Yes Na Magana [address] [facility] Cetirizine Cetirizine Yes Na Magana [address] [facility] HCl HCl [facility] Meclizine Meclizine Yes Na Magana [address] [facility] HCl HCl as needed [facility] Hydrocortis Hydrocortis Yes Na Magana [address] [facility] one one applicatio [facility] Ketoconazol Ketoconazol Yes Na Magana [address] e [facility] Bisoprolol Bisoprolol Yes Na Magana [address] [facility] Fumarate Fumarate [facility] Tamsulosin Tamsulosin Yes Na Magana [address] HCl HCl [facility] Aricept Aricept Yes Na Magana [address] [facility]time [facility] Ketoconazol Ketoconazol Yes Na Magana [address] [facility] e applicatio [facility] Procedures This patient has no known procedures. Encounters Start End Encounter Admission Attending Care Care Encounter Source Date/Time Date/Time Type Type Clinicians Facility Department ID 2020-03-22 Outpatient READISABELLA MAGANAFAM [facility] [id number] [facility] 11:20:19 N 2020-11-17 2020-11-17 Out[facility] [id number] [facility] 2020-09-13 2020-09-13 [facility] [id number] [facility] 2020-08-23 2020-08-23 [facility] [id number] [facility] 2020-07-20 2020-07-20 [facility] [id number] [facility] 2020-05-26 2020-05-26 Out[facility] [id number] [facility] 2020-05-19 2020-05-19 Out[facility] [id number] [facility] 2020-04-17 2020-04-17 Out[facility] [id number] [facility] 2020-04-14 2020-04-14 Out[facility] [id number] [facility] 2020-02-28 2020-02-28 [facility] [id number] [facility] 2020-02-07 2020-02-07 [facility] [id number] [facility] 16[facility]32:00 16:32:[address] [facility] - [facility] 2019-12-08 2019-12-08 [facility] [id number] 15:12:00 15:12:[address] [facility] - Drive [facility] 2019-11-25 2019-11-25 [facility] [id number] 02:36:00 02:36:[address] [facility] - Drive [facility] 2019-11-23 2019-11-23 [facility] [id number] 10:40:00 10:40:00 t [place] [address] [employer] s - Drive [facility] 2019-11-10 2019-11-10 [facility] [id number] 16:31:00 16:31:00 [facility] [address] [place] s - Road [facility] 2019-10-14 2019-10-14 [facility] [id number] 11:15:00 11:15:00 t Specialty/U Alona kes - Specialty rology [facility] l Clinic Outpati ent Clinics 2019-08-23 2019-08-23 [facility] [id number] 15:20:00 15:20:00 t [place] [address] [employer] Luke s - Drive [facility] 2019-05-25 2019-05-25 [facility] [id number] 13:40:00 13:40:00 t [place] [employer] - Drive [facility] 2018-12-30 2018-12-30 Outpatient [facility] [id number] [facility] 12:18:00 12:18:00 2018-12-17 2018-12-17 Outpatient [facility] [id number] [facility] 10:25:00 10:25:00 2018-12-04 2018-12-03 Inpatient [facility] [id number] [facility] 03:20:00 23:06:00 2018-11-10 2018-11-10 Emergency [facility] [id number] [facility] 18:32:00 18:32:00 Results This patient has no known results.
[2020-12-27] MEDS ORDERED: MEPERIDINE HCL 25 MG/ML SYR ONE (22:57)
[2020-12-27] MEDS ORDERED: ONDANSETRON 4 MG/2 ML VIAL ONE (22:57)
[2020-12-27 23:23] LABS: Absolute Lymphocytes (CBC) 1.6 K/uL (0.7-4.9); Basophils % 0.4 % (0-1.3); Hematocrit 35.4 % (39.6-49.0); Lymphocytes % 13.5 % (15.3-44.8); MPV 10.2 fL (7.6-11.3); RBC Red Blood Cell Count 4.53 M/uL (4.33-5.43)
[2020-12-27 23:56] LABS: Protime INR 1.08
[2020-12-28 00:12] LABS: Potassium 3.9 mmol/L (3.5-5.1); Troponin (Emerg Dept Use Only) 0.16 ng/mL (0.0-0.045)
--- NOTE | 2020-12-28 00:44 | EDPHYS ---
Physician Documentation [facility] Name: Joey Ramsey Age: 85 yrs Sex: Male : 1935 Arrival Date: 12/27/2020 Time: 21:56 Bed 19 Private MD: ED Physician Fuad Hickey HPI: 12/27 22:32 This 85 yrs old Male presents to ER via EMS with complaints of fall. rn 22:32 Details of fall: The patient fell from an upright position, while walking. Onset: The rn symptoms/episode began/occurred at an unknown time. Associated injuries: The patient sustained Right leg. Severity of symptoms: At their worst the symptoms were mild, in the emergency department the symptoms are unchanged. The patient has not experienced similar symptoms in the past. The patient has not recently seen a physician. . 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 - Social history:: Smoking status: Patient denies any tobacco usage or history of. - Family history:: not pertinent. - Hospitalizations: : No recent hospitalization is reported. ROS: 22:33 Constitutional: Negative for fever, chills, and weight loss, Eyes: Negative for injury, rn pain, redness, and discharge, Neck: Negative for injury, pain, and swelling, Cardiovascular: Negative for chest pain, palpitations, and edema, Respiratory: Negative for shortness of breath, cough, wheezing, and pleuritic chest pain, Abdomen/GI: Negative for abdominal pain, nausea, vomiting, diarrhea, and constipation, Back: Negative for injury and pain, MS/Extremity: Positive right leg injury and pain Skin: Negative for injury, rash, and discoloration, Neuro: Negative for headache, weakness, numbness, tingling, and seizure. Exam: 22:33 Constitutional: This is a well developed, well nourished patient who is awake, alert, rn and in no acute distress. Head/Face: Normocephalic, atraumatic. Eyes: Periorbital areas with no swelling, redness, or edema. Neck: No midline cervical tenderness Chest/axilla: Nontender ribs Cardiovascular: Regular rate and rhythm. No pulse deficits. Respiratory: No increased work of breathing, no retractions or nasal flaring. Abdomen/GI: Soft nontender nondistended Skin: Warm, dry MS/ Extremity: Pulses equal, no cyanosis. Neurovascular intact. Mild painful range of motion of right hip with tenderness proximal mid and distal right femur, no gross deformity or shortening noted Neuro: Awake and alert, GCS 15, oriented to person, place, time, and situation. Motor strength 4/5 in all extremities. Sensory grossly intact. Positive for mild slurred speech but in room and states he is at his neurological baseline, and has had multiple strokes in the past Vital Signs: 22:01 BP 141 / 88; Pulse 85; Resp 19; Temp 98.3(O); Pulse Ox 99% on R/A; Weight 68.04 kg; ld1 Height 5 ft. 9 in. (175.26 cm); Pain 0/10; 23:16 BP 139 / 80; Pulse 98; Resp 19; Pulse Ox 99% on R/A; ld1 12/28 02:10 BP 112 / 70; Pulse 112; Resp 19; Temp 98.6(O); Pulse Ox 93% ; Pain 3/10; bs2 02:43 BP 122 / 78; Pulse 117; Resp 19; Temp 98.6; Pulse Ox 95% on R/A; bs2 12/27 22:01 Body Mass Index 22.15 (68.04 kg, 175.26 cm) ld1 MDM: 12/27 22:01 Patient medically screened. rn 12/28 00:42 Differential diagnosis: closed head injury, contusion, fracture, sprain, strain. Data rn reviewed: vital signs, nurses notes, lab test result(s), radiologic studies, CT scan, plain films, and as a result, I will admit patient. Counseling: I had a detailed discussion with the patient and/or guardian regarding: the historical points, exam findings, and any diagnostic results supporting the discharge/admit diagnosis, lab results, radiology results, the need for further work-up and treatment in the hospital. Response to treatment: the patient's symptoms have mildly improved after treatment, and as a result, I will admit patient. Admission orders: after a detailed discussion of the patient's condition and case, the admit orders are written by me. ED course: Improved after pain medication. Positive intertrochanteric fracture of the right hip. Will admit to the hospitalist service for orthopedic consult. Patient on anticoagulation, will require anticoagulation to be held prior to orthopedic intervention.. 12/27 22:02 Order name: CBC with Diff; Complete Time: 00:14 rn 12/27 22:02 Order name: Basic Metabolic Panel 12/27 23:25 Order name: PT-INR; Complete Time: 00:14 12/27 23:25 Order name: Ptt, Activated; Complete Time: 00:14 12/27 23:28 Order name: Troponin (Emerg Dept Use Only) EDAR 12/27 22:02 Order name: CT Head Brain wo Cont 12/27 22:02 Order name: XRAY Pelvis 12/27 22:02 Order name: XRAY Hip RIGHT 2 view rn 12/28 00:42 Order name: Creatine Phosphokinase EDAR 12/28 01:21 Order name: SARS-COV-2 RT PCR EDAR 12/28 01:49 Order name: Urine Dipstick-Ancillary EDAR 12/27 22:02 Order name: IV Start; Complete Time: 22:22 rn 12/27 22:02 Order name: XRAY Femur RIGHT rn 12/27 22:02 Order name: EKG; Complete Time: 22:03 rn 12/27 22:02 Order name: EKG - Nurse/Tech; Complete Time: 22:22 rn Administered Medications: 12/27 22:41 Drug: Demerol (meperidine) 12.5 mg Route: IVP; Site: right antecubital; ld1 22:42 Follow up: Response: No adverse reaction ld1 22:41 Drug: Zofran (Ondansetron) 4 mg Route: IVP; Site: right antecubital; ld1 22:42 Follow up: Response: No adverse reaction [facility] 12/28 01:28 Drug: morphine 2 mg Route: IVP; Site: left hand; bs2 03:41 Follow up: Response: No adverse reaction bs2 03:00 Drug: fentaNYL (PF) 25 mcg Route: IVP; Site: left hand; bs2 03:41 Follow up: Response: No adverse reaction bs2 Disposition Summary: 12/28/20 00:43 Hospitalization Ordered Hospitalization Status: Inpatient Admission rn Provider: Esvin Salas rn Location: Telemetry/MedSurg (Inpatient) rn Condition: Stable rn Problem: new rn Symptoms: have improved rn Bed/Room Type: Standard rn Room Assignment: 231(12/28/20 01:44) tl1 Diagnosis - Displaced intertrochanteric fracture of right femur rn Forms: - Medication Reconciliation Form rn - SBAR form rn Signatures: Dispatcher [employer] EDMS Fuad Hickey MD MD rn Lasagna, Tonya RN RN tl1 Delia Contreras RN RN ld1 Lisa Winters RN RN bs2 Corrections: (The following items were deleted from the chart) 12/27 23:27 23:26 TROPONIN (EMERG DEPT USE ONLY)+C.LAB.BRZ ordered. EDAR EDMS 23:52 23:37 CORONAVIRUS+MR.LAB.BRZ ordered. EDAR EDMS 12/28 00:42 00:33 CREATINE PHOSPHOKINASE+C.LAB.BRZ ordered. EDAR EDMS 00:44 00:42 ED course: Improved after pain medication. Positive intratrochanteric fracture of rn the right hip. Will admit to the hospitalist service for orthopedic consult. Patient on anticoagulation, will require anticoagulation to be held prior to orthopedic intervention.. rn 01:44 00:43 rn tl1
--- NOTE | 2020-12-28 00:44 | ER ---
Nurse's Notes [facility] Name: Joey Ramsey Age: 85 yrs Sex: Male : 1935 Arrival Date: 12/27/2020 Time: 21:56 Bed 19 Private MD: Diagnosis: Displaced intertrochanteric fracture of right femur Presentation: 12/27 22:01 Chief complaint: EMS states: toned out for fall. Daughter found pt on ground. Pt ld1 unaware of how long he was laying there. Coronavirus screen: At this time, the client does not indicate any symptoms associated with coronavirus-19. Ebola Screen: No symptoms or risks identified at this time. Initial Sepsis Screen: Does the patient meet any 2 criteria? No. Patient's initial sepsis screen is negative. Does the patient have a suspected source of infection? No. Patient's initial sepsis screen is negative. Risk Assessment: Do you want to hurt yourself or someone else? Patient reports no desire to harm self or others. Onset of symptoms was December 27, 2020. 22:01 Method Of Arrival: EMS: [facility] ld1 22:01 Acuity: VINAY 3 ld1 Triage Assessment: 22:07 General: Appears in no apparent distress. comfortable, Behavior is calm, cooperative, ld1 appropriate for age. Pain: Complains of pain in pelvis Pain does not radiate. Pain currently is 8 out of 10 on a pain scale. Quality of pain is described as throbbing, Pain began 2 hours ago. Is continuous. EENT: No signs and/or symptoms were reported regarding the EENT system. Neuro: Level of Consciousness is awake, alert, obeys commands, Oriented to person, place, time, situation. Cardiovascular: Capillary refill < 3 seconds Patient's skin is warm and dry. Respiratory: Airway is patent Respiratory effort is even, unlabored, Respiratory pattern is regular, symmetrical. GI: Abdomen is flat, non-distended. : No signs and/or symptoms were reported regarding the genitourinary system. Derm: No signs and/or symptoms reported regarding the dermatologic system. Musculoskeletal: No signs and/or symptoms reported regarding the musculoskeletal system. Historical: - Allergies: 22:07 No Known Allergies; ld1 - Home Meds: 22:07 aspirin 81 mg Oral chew 1 tab once daily [Active]; atorvastatin 10 mg Oral tab 1 tab ld1 once daily [Active]; bisoprolol fumarate 5 mg Oral tab once daily [Active]; BRILINTA 90 mg Oral tab 1 tab 2 times per day [Active]; clopidogrel 75 mg Oral tab once daily [Active]; metoprolol succinate 25 mg Oral Tb24 twice a day [Active]; - PMHx: 22:07 cardia by barrett; CVA; High Cholesterol; TIA; ld1 - Immunization history:: Adult Immunizations up to date. - Social history:: Smoking status: Patient denies any tobacco usage or history of. - Family history:: not pertinent. - Hospitalizations: : No recent hospitalization is reported. Screenin:13 Abuse screen: Denies threats or abuse. Denies injuries from another. Nutritional ld1 screening: No deficits noted. Tuberculosis screening: No symptoms or risk factors identified. Fall Risk None identified. Assessment: 22:13 Reassessment: See triage assessment. ld1 23:16 Reassessment: Patient appears in no apparent distress at this time. No changes from ld1 previously documented assessment. Patient and/or family updated on plan of care and expected duration. Pain level reassessed. 23:48 Reassessment: Patient appears in no apparent distress at this time. No changes from ld1 previously documented assessment. Patient and/or family updated on plan of care and expected duration. Pain level reassessed. Laying in bed resting. RR 17. No signs of distress at this time. Pt denies concerns. Vital Signs: 22:01 BP 141 / 88; Pulse 85; Resp 19; Temp 98.3(O); Pulse Ox 99% on R/A; Weight 68.04 kg; ld1 Height 5 ft. 9 in. (175.26 cm); Pain 0/10; 23:16 BP 139 / 80; Pulse 98; Resp 19; Pulse Ox 99% on R/A; ld1 12/28 02:10 BP 112 / 70; Pulse 112; Resp 19; Temp 98.6(O); Pulse Ox 93% ; Pain 3/10; bs2 02:43 BP 122 / 78; Pulse 117; Resp 19; Temp 98.6; Pulse Ox 95% on R/A; bs2 12/27 22:01 Body Mass Index 22.15 (68.04 kg, 175.26 cm) ld1 ED Course: 12/27 21:56 Patient arrived in ED. ld1 22:01 Delia Contreras, ALEXIS is Primary Nurse. ld1 22:01 Fuad Hickey MD is Attending Physician. rn 22:07 Triage completed. ld1 22:07 Arm band placed on right wrist. ld1 22:13 Patient has correct armband on for positive identification. Placed in gown. Bed in low ld1 position. Call light in reach. Side rails up X2. equipment monitor phototypesetting on. Pulse ox on. NIBP on. 22:13 No provider procedures requiring assistance completed. Maintain EMS IV. Dressing ld1 intact. Good blood return noted. Site clean \T\ dry. Gauge \T\ site: 20 G RFA. 22:51 CT Head Brain wo Cont In Process Unspecified. EDMS 22:51 XRAY Pelvis In Process Unspecified. EDMS 22:51 XRAY Hip RIGHT 2 view In Process Unspecified. EDMS 22:51 XRAY Femur RIGHT In Process Unspecified. EDMS 23:38 IV discontinued, bleeding controlled, Pressure dressing applied, EMS 20G to the left jb5 forearm was discontinued, the catheter wouldn't pull blood or flush. A 22G IV catheter was inserted in replace of the removed IV in the left wrist, blood obtained and the liter of normal saline was connected, patent line. 12/28 00:43 Esvin Salas DO is Hospitalizing Provider. rn 02:11 Patient admitted, IV remains in place. bs2 02:12 Joyce cath inserted, using sterile technique, 18 Fr., by manager engagement, balloon inflated, to bs2 gravity drainage, urine specimen collected. Administered Medications: 12/27 22:41 Drug: Demerol (meperidine) 12.5 mg Route: IVP; Site: right antecubital; ld1 22:42 Follow up: Response: No adverse reaction ld1 22:41 Drug: Zofran (Ondansetron) 4 mg Route: IVP; Site: right antecubital; ld1 22:42 Follow up: Response: No adverse reaction ld1 12/28 01:28 Drug: morphine 2 mg Route: IVP; Site: left hand; bs2 03:41 Follow up: Response: No adverse reaction bs2 03:00 Drug: fentaNYL (PF) 25 mcg Route: IVP; Site: left hand; bs2 03:41 Follow up: Response: No adverse reaction bs2 Outcome: 00:43 Decision to Hospitalize by Provider. rn 03:00 Admitted to Med/surg accompanied by tech, via stretcher, room 231, with chart, Report bs2 called to Isela ESPINOZA 03:00 Condition: stable 03:00 Instructed on the need for admit. 03:43 Patient left the ED. bs2 Signatures: Dispatcher [employer] EDMS Fuad Hickey MD MD rn Broussard, Jennifer jb5 Delia Contreras RN RN ld1 Lisa Winters RN RN bs2 Corrections: (The following items were deleted from the chart) 03:43 03:00 Admitted to Med/surg accompanied by tech, via stretcher, room 230, with chart, bs2 Report called to Isela ESPINOZA bs2
--- NOTE | 2020-12-28 00:55 | P.HP ---
Certification for Inpatient Patient admitted to: Inpatient With expected LOS: >2 Midnights Patient will require the following post-hospital care: None Practitioner: I am a practitioner with admitting privileges, knowledge of patient current condition, hospital course, and medical plan of care. Services: Services provided to patient in accordance with Admission requirements found in Title 42 Section 412.3 of the Code of Federal Regulations Patient History Date of Service: 12/28/20 Primary Care Provider: Dr. Nielson Reason for admission: Left intertrochanteric femur fracture History of Present Illness: 85-year-old male with history of CAD status post CABG, multiple CVAs, hypertension, hyperlipidemia presents emergency department after unwitnessed fall complaining of right hip pain. Patient was at home reports that he walked out to the garage and fell for an unknown reason, patient was on the floor for an unknown amount of time, last seen approximately 3 hours prior to this by family. Patient was evaluated in the emergency department, labs significant for white blood cell count 11.7 hemoglobin 11.5 adequate 35.4 chloride 116 BUN 19 GFR 63 troponin 0 0.[address] head negative for any acute findings x-ray of the pelvis/hip demonstrate nondisplaced left intertrochanteric femur fracture. ED provider wishes to admit for further evaluation and management. When I saw the patient in the ER he was awake, alert, oriented x2, patient was slurred speech. This is baseline due to previous strokes. Vital signs stable, will admit for further evaluation and management. Allergies No Known Allergies Allergy (Verified 11/25/15 06:15) Home Medications: Tamsulosin HCl 0.4 mg PO DAILY 01/21/20 Aspirin [Aspirin EC 81 MG] 81 mg PO DAILY #30 tablet. 01/26/20 Metoprolol Succinate [Toprol Xl*] 25 mg PO BID 6AM 6PM #60 tab 01/26/20 Ticagrelor [Brilinta*] 90 mg PO BID #60 tablet 01/26/20 - Past Medical/Surgical History Diabetic: No -: Multiple CVA -: CAD status post CABG/stents -: Hypertension -: Hyperlipidemia -: Coronary artery bypass grafting -: brain surgery -: Rotator cuff -: Cholecystectomy Psychosocial/ Personal History: Patient lives at home with family - Family History Father -: Heart disease Mother Notes: alzhiemers - Social History Smoking Status: Former smoker Alcohol use: No CD- Drugs: No Caffeine use: No Place of Residence: Home Review of Systems 10-point ROS is otherwise unremarkable Musculoskeletal: Leg Pain, As per HPI Physical Examination - Physical Exam General: Alert, In no apparent distress, Oriented x2 HEENT: Atraumatic, PERRLA, Other (Mucous membranes dry), EOMI, Sclerae nonicteric Neck: Supple, 2+ carotid pulse no bruit, No LAD, Without JVD or thyroid abnormality Respiratory: Clear to auscultation bilaterally, Normal air movement Cardiovascular: Regular rate/rhythm, Normal S1 S2 Gastrointestinal: Normal bowel sounds, No tenderness Musculoskeletal: No tenderness Integumentary: No rashes Neurological: Normal tone, Normal affect, Abnormal speech (Speech slowed, slurred from previous CVA), Abnormal strength (Strength 4 out of 5 in all extremities) - Studies Laboratory Data (last 24 hrs) 12/27/20 23:33: PT 12.4, INR 1.08, APTT 27.1 12/27/20 23:07: Sodium 143, Potassium 3.9, BUN 19 H, Creatinine 1.10, Glucose 82 12/27/20 23:07: WBC 11.70 H, Hgb 11.5 L, Hct 35.4 L, Plt Count 157 Assessment and Plan - Plan Assessment: Left nondisplaced intertrochanteric femur fracture CAD status post CABG with elevated troponin History of multiple CVA Hypertension Hyperlipidemia Plan: Left nondisplaced intertrochanteric femur fracture: Orthopedics consulted, patient currently takes aspirin, Brilinta last taken yesterday. Patient will also need cardiac clearance prior to surgery. Will maintain n.p.o. status for possible intervention although this will likely take place in the following days. As needed pain medications, Joyce catheter. Appreciate further input from Ortho CAD status post CABG with elevated troponin: Monitor on telemetry, trend troponins, cardiology consulted. No acute changes on EKG, no chest pain noted. History of multiple CVA: Patient at baseline mental status, alert, oriented x2, speech is slowed and slurred. Moves all extremities. Hypertension: Continue medications, adjust as necessary Hyperlipidemia: Continue medications, adjust as necessary. DVT PPX: SCDs Code status: DNR - Advance Directives Does patient have a Living Will: Yes Does patient have a Durable POA for Healthcare: No Time Spent Managing Pts Care (In Minutes): 55
[2020-12-28] MEDS ORDERED: MORPHINE 2 MG/ML SYR ONE (01:46)
[2020-12-28 01:49] LABS: Urine Blood Negative (Negative); Urine Glucose Negative (Negative); Urine Protein Negative (Negative)
[2020-12-28] MEDS ORDERED: FENTANYL CITR 100 MCG/2 ML ONE (03:08)
[2020-12-28] MEDS ORDERED: D5.45NS W/KCL 20MEQ 1,000 ML IV SCH (03:29)
[2020-12-28] MEDS ORDERED: ONDANSETRON 4 MG/2 ML VIAL IV PRN (03:29)
[2020-12-28 05:42] LABS: Absolute Lymphocytes (CBC) 1.4 K/uL (0.7-4.9); Basophils % 0.4 % (0-1.3); Lymphocytes % 12.8 % (15.3-44.8); MPV 10.4 fL (7.6-11.3); RBC Red Blood Cell Count 4.53 M/uL (4.33-5.43)
--- NOTE | 2020-12-28 06:11 | P.PN ---
Subjective Date of Service: 12/28/20 Primary Care Provider: Dr. Nielson Chief Complaint: Left intertrochanteric femur fracture Subjective: Doing well Physical Examination - Vital Signs Temperature: 98.6 F Blood Pressure: 122/78 Pulse: 117 Respirations: 19 - Studies Laboratory Data (last 24 hrs) 12/27/20 23:33: PT 12.4, INR 1.08, APTT 27.1 12/27/20 23:07: Sodium 143, Potassium 3.9, BUN 19 H, Creatinine 1.10, Glucose 82 12/27/20 23:07: WBC 11.70 H, Hgb 11.5 L, Hct 35.4 L, Plt Count 157 Assessment & Plan Discharge Plan: Other (Inpatient rehab) Plan to discharge in: Greater than 2 days Physician Review Additional Text: Xray: COMPARISON: None. FINDINGS: 2 X-ray views of the Right femur were performed. There is an area of linear fracture right intratrochanteric area with no significant displacement and/or angulation. Minimal early vascular calcification. There are no retained opaque foreign bodies. Limited evaluation of the knee demonstrate minimal degenerative changes. No significant joint effusion. IMPRESSION: Nondisplaced right intratrochanteric fracture. Pelvic Xray: COMPARISON: None. FINDINGS: 1 single frontal view of the pelvis was obtained. There is mild diffuse bony osteopenia. There is a fracture nondisplaced fracture along the intertrochanteric area right hip. Minimal vascular calcifications are noted within the femoral vessels. The visualized gas pattern is nondiagnostic. The pelvic brim is intact. There are no gross intraosseous lesions. No periosteal reaction were seen. Minimal degenerative changes lower lumbar spine. IMPRESSION: Nondisplaced fracture along the intertrochanteric area right hip. CT scan: COMPARISON: 03/07/2020. FINDINGS: Multiple transaxial tomograms of the brain were obtained from the base of the skull to the vertex without contrast. 2-D multiplanar reformats and the coronal and sagittal plane were performed and reviewed. This exam was performed according to our departmental dose-optimization protocol, which includes automated exposure control, adjustment of the mA and/or kV according to patient size and/or use of iterative reconstruction technique. Brain parenchyma demonstrate the presence of mild brain atrophy with minimal periventricular white matter changes of microvascular ischemia. Again there is a small lacunar infarct within the left basal ganglia and questionable right capsular external. Again there is noted the presence of a right occipital ventriculoperitoneal shunt with the tip ending along the inferior right posterior lateral ventricle. There is no evidence for hydrocephalus. There is no midline shift and/or mass effect. There is no evidence for acute hemorrhage. Lateral ventricles and cisterns displace normal appearance. No intra or extra axial fluid collections were seen. The calvarium is intact with no evidence for fracture. The visualized portions of the paranasal sinuses and orbits demonstrate to be clear. IMPRESSION: No evidence for acute intracranial hemorrhage. Mild brain atrophy with periventricular white matter changes of microvascular ischemia. Stable right occipital ventriculoperitoneal shunt. No significant interval change. Hip xray: COMPARISON: None. FINDINGS: 2 views of the hip (frontal view of the left hip and frogleg view of the left hip) were obtained. As described in previous film there is a nondisplaced right intertrochanteric fracture with minimal involvement along the lesser trochanter. Vascular calcifications are seen within the femoral vessels. The right hip joint demonstrate very minimal increase sclerosis. There is no evidence for significant fractures within the right hemipelvis. No gross soft tissue abnormality is identified. There are no gross intraosseous lesions. No periosteal reaction were seen. IMPRESSION: Nondisplaced right intertrochanteric fracture. Physical exam: General: Alert, In no apparent distress, Oriented x2 HEENT: Atraumatic, PERRLA, Other (Mucous membranes dry), EOMI, Sclerae nonicteric Neck: Supple, 2+ carotid pulse no bruit, No LAD, Without JVD or thyroid abnormality Respiratory: Clear to auscultation bilaterally, Normal air movement Cardiovascular: Regular rate/rhythm, Normal S1 S2 Gastrointestinal: Normal bowel sounds, No tenderness Musculoskeletal: Pain to the right hip noted Integumentary: No rashes Neurological: Normal tone, Normal affect, Abnormal speech (Speech slowed, slurred from previous CVA), Abnormal strength (Strength 4 out of 5 in all extremities) Medical problem list: Right nondisplaced intertrochanteric femur fracture CAD status post CABG with elevated troponin History of multiple CVA Hypertension Hyperlipidemia UTI Plan: Right nondisplaced intertrochanteric femur fracture: Case discussed with orthopedics. Orthopedics plans for surgery tomorrow since the patient has been on aspirin and Brilinta. This is currently on hold in preparation for surgery. Case discussed with cardiology. Cardiology has cleared patient for surgery. Continue IV medication for pain. Await surgery intervention tomorrow. Likely inpatient rehab after surgery. CAD status post CABG with elevated troponin: Overall stable. Case discussed with cardiology. Cardiology has cleared patient for surgery tomorrow. History of multiple CVA: Patient at baseline mental status, alert, oriented x2, speech is slowed and slurred. Moves all extremities. Hypertension: Continue with metoprolol BPH: Continue with Flomax UTI: UTI identified on urine. Culture sent out. Will start Rocephin DVT PPX: Heparin Code status: DNR Advance care [id number] minutes: Will recommend inpatient rehab. Time Spent Managing Pts Care (In Minutes): 55
[2020-12-28 06:12] LABS: Albumin 2.9 g/dL (3.4-5.0); Bilirubin Total 0.6 mg/dL (0.2-1.0); Magnesium 2.2 mg/dL (1.8-2.4)
[2020-12-28 06:13] LABS: Troponin I 0.61 ng/mL (0.0-0.045)
[2020-12-28 08:11] LABS: Urine Appearance CLEAR (Clear); Urine Bilirubin NEGATIVE (Negative); Urine Blood 3+ (Negative); Urine Color YELLOW (Yellow); Urine Glucose NEGATIVE (Negative); Urine Protein NEGATIVE (Negative); Urine Specific Gravity 1.015 (1.005-1.030); Urine pH 5.5 (5.0-7.0)
[2020-12-28 08:12] LABS: Urine Microscopic Reflex ORDER UMIC
[2020-12-28 08:33] LABS: Urine Bacteria 20-50 /HPF (NONE SEEN); Urine RBC >50 /HPF (NONE SEEN)
--- NOTE | 2020-12-28 11:00 | EKG ---
Test Date: 2020-12-27 Test Time: 21:55:31 State Manager: ROYAL MEASUREMENT RESULTS: Intervals: Rate: 86 NH: 186 QRSD: 104 QT: 402 QTc: 481 Pass Christian: P: 35 NH: 186 QRS: 37 T: -38 INTERPRETIVE STATEMENTS: Normal sinus rhythm T wave abnormality, consider inferior ischemia Abnormal ECG Compared to ECG 03/05/2020 19:30:20 T-wave abnormality now present ST (T wave) deviation no longer present Prolonged QT interval no longer present Possible ischemia still present Electronically Signed On 12-28-20 10:58:24 CDT by Nick Stubbs
[2020-12-28] MEDS: MORPHINE 2 MG/ML SYR IV PRN (12:34)
[2020-12-28] MEDS: ACETAMINOPHEN 500 MG TAB PO PRN (12:38)
[2020-12-28] MEDS: METOPROLOL XL 25 MG TAB PO SCH (12:38)
[2020-12-28] MEDS: TAMSULOSIN 0.4 MG SR CAP PO SCH (12:39)
--- NOTE | 2020-12-28 13:05 | RAD REPORT ---
EXAM DESCRIPTION: CT - Head Brain Wo Cont - 12/28/2020 6:45 am CLINICAL HISTORY: 85 years, Male, fall, unknown if head injury COMPARISON: 03/07/2020. FINDINGS: Multiple transaxial tomograms of the brain were obtained from the base of the skull to the vertex without contrast. 2-D multiplanar reformats and the coronal and sagittal plane were performed and reviewed. This exam was performed according to our departmental dose-optimization protocol, which includes auto mated exposure control, adjustment of the mA and/or kV according to patient size and/or use of iterat nieves reconstruction technique. Brain parenchyma demonstrate the presence of mild brain atrophy with minimal periventricular white ma tter changes of microvascular ischemia. Again there is a small lacunar infarct within the left basal ganglia and questionable right capsular external. Again there is noted the presence of a right occipi luis eduardo ventriculoperitoneal shunt with the tip ending along the inferior right posterior lateral ventric le. There is no evidence for hydrocephalus. There is no midline shift and/or mass effect. There is no evidence for acute hemorrhage. Lateral ventricles and cisterns displace normal appearance. No in tra or extra axial fluid collections were seen. The calvarium is intact with no evidence for fracture . The visualized portions of the paranasal sinuses and orbits demonstrate to be clear. IMPRESSION: No evidence for acute intracranial hemorrhage. Mild brain atrophy with periventricular white matter changes of microvascular ischemia. Stable right occipital ventriculoperitoneal shunt. No significant interval change. Electronically signed by: Lebron El MD 12/27/2020 11:08 PM CDT Due to temporary technical issues with the PACS/Fluency reporting system, reports are being signed by the in house radiologists without review as a courtesy to insure prompt reporting. The interpreting radiologist is fully responsible for the content of the report.
--- NOTE | 2020-12-28 13:16 | RAD REPORT ---
EXAM DESCRIPTION: RAD - Femur Right - 12/27/2020 10:51 pm CLINICAL HISTORY: 85 years, Male, PAIN Femur Right COMPARISON: None. FINDINGS: 2 X-ray views of the Right femur were performed. There is an area of linear fracture right intratrochanteric area with no significant displacement and /or angulation. Minimal early vascular calcification. There are no retained opaque foreign bodies. Limited evaluation of the knee demonstrate minimal degenerative changes. No significant joint effusio n. IMPRESSION: Nondisplaced right intratrochanteric fracture. Electronically signed by: Lerbon El MD 12/27/2020 11:58 PM CDT Due to temporary technical issues with the PACS/Fluency reporting system, reports are being signed by the in house radiologists without review as a courtesy to insure prompt reporting. The interpreting radiologist is fully responsible for the content of the report.
--- NOTE | 2020-12-28 13:17 | RAD REPORT ---
EXAM DESCRIPTION: RAD - Hip Right 2 View - 12/27/2020 10:51 pm CLINICAL HISTORY: 85 years, Male, PAIN Hip Right 2 View COMPARISON: None. FINDINGS: 2 views of the hip (frontal view of the left hip and frogleg view of the left hip) were ob tained. As described in previous film there is a nondisplaced right intertrochanteric fracture with m inimal involvement along the lesser trochanter. Vascular calcifications are seen within the femoral v essels. The right hip joint demonstrate very minimal increase sclerosis. There is no evidence for sig nificant fractures within the right hemipelvis. No gross soft tissue abnormality is identified. The re are no gross intraosseous lesions. No periosteal reaction were seen. IMPRESSION: Nondisplaced right intertrochanteric fracture. Electronically signed by: Lebron El MD 12/28/2020 12:00 AM CDT Due to temporary technical issues with the PACS/Fluency reporting system, reports are being signed by the in house radiologists without review as a courtesy to insure prompt reporting. The interpreting radiologist is fully responsible for the content of the report.
--- NOTE | 2020-12-28 13:39 | RAD REPORT ---
EXAM DESCRIPTION: RAD - Pelvis - 12/27/2020 10:51 pm CLINICAL HISTORY: 85 years, Male, BLUNT TRAUMA COMPARISON: None. FINDINGS: 1 single frontal view of the pelvis was obtained. There is mild diffuse bony osteopenia. There is a fracture nondisplaced fracture along the intertrochanteric area right hip. Minimal vascul ar calcifications are noted within the femoral vessels. The visualized gas pattern is nondiagnostic. The pelvic brim is intact. There are no gross intraosseous lesions. No periosteal reaction were see n. Minimal degenerative changes lower lumbar spine. IMPRESSION: Nondisplaced fracture along the intertrochanteric area right hip. Electronically signed by: Lebron El MD 12/27/2020 11:57 PM CDT Due to temporary technical issues with the PACS/Fluency reporting system, reports are being signed by the in house radiologists without review as a courtesy to insure prompt reporting. The interpreting radiologist is fully responsible for the content of the report.
[2020-12-28] MEDS ORDERED: HYDROCODONE/APAP 7.5/325 MG TAB PO PRN (14:03)
[2020-12-28] MEDS ORDERED: TRAMADOL HCL 50 MG TAB PO PRN (14:03)
[2020-12-28] MEDS: D5.45NS W/KCL 20MEQ 1,000 ML IV SCH (17:31)
[2020-12-28 18:06] LABS: Troponin I 1.61 ng/mL (0.0-0.045)
--- NOTE | 2020-12-28 19:55 | CON ---
Date of Consultation: 12/28/2020 History Of Present Illness: This is my first time seeing this patient to my knowledge. He is an 85- year-old male, who unfortunately was trying to close his garage and fell injuring his right lower ext remity. He was seen and examined in the emergency department, was ruled out for other injuries; yenifer ivey, x-rays demonstrated a nondisplaced fracture of the intertrochanteric region of the right hip. Physical Examination: His long bones and joints are palpated without pain or crepitation with the exception of his right hi p. He has difficulty hearing me. He also is not very verbal and poor historian; however, his i s at the bedside and gives a lot of the information. Assessment: This is an 85-year-old gentleman, unfortunately with an intertrochanteric fracture on th e right. Risks, benefits, and alternatives of procedure were discussed with the patient and family. They understand things as presented and apparently he has been cleared by Cardiology for surgery [facility] and we will most likely proceed with this at one. He will otherwise be n.p.o. after midnight. DESHAWN Voice ID: [id number] Report ID: [id number]
[2020-12-28] MEDS: HEPARIN 5000 UNIT/ML 1 ML VIAL SQ SCH (21:00)
[2020-12-28] MEDS: FAMOTIDINE 20 MG TAB PO SCH (22:05)
[2020-12-29 04:23] LABS: Absolute Lymphocytes (CBC) 1.6 K/uL (0.7-4.9); Basophils % 0.4 % (0-1.3); Hematocrit 34.9 % (39.6-49.0); Lymphocytes % 20.1 % (15.3-44.8); MPV 10.1 fL (7.6-11.3); RBC Red Blood Cell Count 4.56 M/uL (4.33-5.43)
[2020-12-29 04:35] LABS: Albumin 2.8 g/dL (3.4-5.0); Bilirubin Total 0.5 mg/dL (0.2-1.0); Magnesium 2.1 mg/dL (1.8-2.4); Potassium 4.1 mmol/L (3.5-5.1)
--- NOTE | 2020-12-29 05:59 | P.PN ---
Subjective Date of Service: 12/29/20 Primary Care Provider: Dr. Nielson Chief Complaint: Left intertrochanteric femur fracture Subjective: Improving, Doing well Physical Examination - Vital Signs Temperature: 97.7 F Blood Pressure: 104/55 Pulse: 68 Respirations: 18 Pulse Ox (%): 95 Assessment & Plan Discharge Plan: Other (inpatient rehab) Plan to discharge in: 72 Hours Physician Review Additional Text: Xray: COMPARISON: None. FINDINGS: 2 X-ray views of the Right femur were performed. There is an area of linear fracture right intratrochanteric area with no significant displacement and/or angulation. Minimal early vascular calcification. There are no retained opaque foreign bodies. Limited evaluation of the knee demonstrate minimal degenerative changes. No significant joint effusion. IMPRESSION: Nondisplaced right intratrochanteric fracture. Pelvic Xray: COMPARISON: None. FINDINGS: 1 single frontal view of the pelvis was obtained. There is mild d iffuse bony osteopenia. There is a fracture nondisplaced fracture along the intertrochanteric area right hip. Minimal vascular calcifications are noted within the femoral vessels. The visualized gas pattern is nondiagnostic. The pelvic brim is intact. There are no gross intraosseous lesions. No periosteal reaction were seen. Minimal degenerative changes lower lumbar spine. IMPRESSION: Nondisplaced fracture along the intertrochanteric area right hip. CT scan: COMPARISON: 03/07/2020. FINDINGS: Multiple transaxial tomograms of the brain were obtained from the base of the skull to the vertex without contrast. 2-D multiplanar reformats and the coronal and sagittal plane were performed and reviewed. This exam was performed according to our departmental dose-optimization protocol, which includes automated exposure control, adjustment of the mA and/or kV according to patient size and/or use of iterative reconstruction technique. Brain parenchyma demonstrate the presence of mild brain atrophy with minimal periventricular white matter changes of microvascular ischemia. Again there is a small lacunar infarct within the left basal ganglia and questionable right c apsular external. Again there is noted the presence of a right occipital ventriculoperitoneal shunt with the tip ending along the inferior right posterior lateral ventricle. There is no evidence for hydrocephalus. There is no midline shift and/or mass effect. There is no evidence for acute hemorrhage. Lateral ventricles and cisterns displace normal appearance. No intra or extra axial fluid collections were seen. The calvarium is intact with no evidence for fracture. The visualized portions of the paranasal sinuses and orbits demonstrate to be clear. IMPRESSION: No evidence for acute intracranial hemorrhage. Mild brain atrophy with periventricular white matter changes of microvascular ischemia. Stable right occipital ventriculoperitoneal shunt. No significant interval change. Hip xray: COMPARISON: None. FINDINGS: 2 views of the hip (frontal view of the left hip and frogleg view of the left hip) were obtained. As described in previous film there is a nondisplaced right intertrochanteric fracture with minimal involvement along the lesser trochanter. Vascular calcifications are seen within the femoral vessels. The right hip joint demonstrate very minimal increase sclerosis. There is no evidence for significant fractures within the right hemipelvis. No gross soft tissue abnormality is identified. There are no gross intraosseous lesions. No periosteal reaction were seen. IMPRESSION: Nondisplaced right intertrochanteric fracture. Physical exam: General: Alert, In no apparent distress, Oriented x2 HEENT: Atraumatic, PERRLA, Other (Mucous membranes dry), EOMI, Sclerae nonicteric Neck: Supple, 2+ carotid pulse no bruit, No LAD, Without JVD or thyroid abnormality Respiratory: Clear to auscultation bilaterally, Normal air movement Cardiovascular: Regular rate/rhythm, Normal S1 S2 Gastrointestinal: Normal bowel sounds, No tenderness Musculoskeletal: Pain to the right hip improved Integumentary: No rashes Neurological: Normal tone, Normal affect, Abnormal speech (Speech slowed, slurred from previous CVA), Abnormal strength (Strength 4 out of 5 in all extremities) Medical problem list: Right nondisplaced intertrochanteric femur fracture CAD status post CABG with elevated troponin History of multiple CVA Hypertension Hyperlipidemia UTI Plan: Right nondisplaced intertrochanteric femur fracture: Case discussed with orthopedics yesterday. Orthopedics plans for surgery today since the patient has been on aspirin and Brilinta. This is currently on hold in preparation for surgery. Case discussed with cardiology. Cardiology has cleared patient for surgery. Continue IV medication for pain. Likely inpatient rehab after surgery. CAD status post CABG with elevated troponin: Overall stable. Case discussed with cardiology. Cardiology has cleared patient for surgery tomorrow. History of multiple CVA: Patient at baseline mental status, alert, oriented x2, speech is slowed and slurred. Moves all extremities. Hypertension: Continue with metoprolol BPH: Continue with Flomax UTI: UTI identified on urine. Culture sent out. continue Rocephin DVT PPX: Heparin Code status: DNR Advance care [id number] minutes: Will recommend inpatient rehab. Time Spent Managing Pts Care (In Minutes): 55
[2020-12-29] MEDS: THIAMINE HCL 100 MG TABLET PO SCH (08:39)
[2020-12-29] MEDS: FAMOTIDINE 20 MG TAB PO SCH (08:39)
[2020-12-29] MEDS: FOLIC ACID 1 MG TABLET PO SCH (08:39)
[2020-12-29] MEDS: TAMSULOSIN 0.4 MG SR CAP PO SCH (08:39)
[2020-12-29] MEDS ORDERED: CEFAZOLIN/SWI 1gm 1 GM/10 ML SYR ONE (12:38)
[2020-12-29] MEDS ORDERED: Ringers Lactate 1,000 ML IV ONE (12:53)
[2020-12-29] MEDS ORDERED: TRANEXAMIC ACID 1,000 MG in NA CHLORIDE 0.9% 50 ML IV ONE (13:00)
[2020-12-29] MEDS ORDERED: LIDOCAINE 2% MPF 5 ML VIAL ONE (13:11)
[2020-12-29] MEDS ORDERED: FENTANYL CITR 100 MCG/2 ML ONE (13:11)
[2020-12-29] MEDS ORDERED: propofoL 200 MG/20 ML VIAL IV ONE (13:11)
--- NOTE | 2020-12-29 14:23 | RAD REPORT ---
EXAM DESCRIPTION: RAD - Hip In Or - 12/29/2020 2:10 pm CLINICAL HISTORY: RIGHT NAILING COMPARISON: Pelvis dated 12/27/2020 FINDINGS: Eighteen intraoperative fluoroscopic images were submitted demonstrating placement of an i ntramedullary harpreet with cephalomedullary screw in the right femoral neck. IMPRESSION: Intraoperative radiographs demonstrating ORIF of a right intertrochanteric hip fracture.
[2020-12-29] MEDS ORDERED: Phenylephrine HCl 10 MG/ML 1 ML VIAL ONE (14:31)
--- NOTE | 2020-12-29 14:38 | OP ---
Date of Procedure: 12/29/2020 Surgeon: Bimal Hudson MD Preoperative Diagnosis: Right intertrochanteric fracture. Postoperative Diagnosis: Right intertrochanteric fracture. Procedures: Right hip closed reduction, intramedullary harpreet fixation using the Biomet Affixus nail. Estimated Blood Loss: 50 mL. Complications: There no complications. Pathology Specimens: No pathology specimens sent. Indications For Operation: Mr. Ramsey is an 85-year-old male, who unfortunately fell injuring his [facility] lower extremity. He is not a great historian; however, family is there and we were able to discu ss the risks, benefits, and alternatives of different methods of treating this as well as his diagnos is. All of their questions have been answered and they agreed to proceed. Description Of Procedure: The patient was taken to the operating room and placed in supine position. General anesthesia was obtained by the staff. Following this, he was then placed on the fracture t able with his bony prominences being checked. After this, he was placed in the appropriate position for use of the C-arm. The C-arm was brought in and a good reduction demonstrated on both AP and late ral views. After this, the right hip was then prepped and draped in usual sterile fashion. A C-arm was brought in again and position of the greater trochanter was marked. A vertical incision was made just above this down through the fascia. Meticulous hemostasis was being maintained using Bovie oleg ctrocautery. The greater trochanter was palpated. After this, the starting awl was then placed and the guide pin was placed down the femur. A insole tack puller hand was then used down to the level of lesser tro chanter. This was followed by placement of the nail on appropriate depth. Cephalomedullary screws w ere placed in standard fashion as well as the distal interlocking screws. The wounds were then copio usly irrigated and closed with heavy Vicryl suture for the fascia, registered nurse float pool Vicryl suture for the skin followed by stapling and Aquacel dressing. The patient was then awakened and taken to recovery room . /FATIMAH Voice ID: [id number] Report ID: [id number]
[2020-12-29] MEDS: METOPROLOL XL 25 MG TAB PO SCH (17:23)
[2020-12-29] MEDS: D5.45NS W/KCL 20MEQ 1,000 ML IV SCH (17:24)
[2020-12-29] MEDS: MORPHINE 2 MG/ML SYR IV PRN (17:28)
--- NOTE | 2020-12-29 19:44 | CON ---
Date of Consultation: 12/28/2020 Reason For Consultation: Cardiac clearance for hip surgery. History Of Present Illness: Mr. Ramsey is 85. He is a do not resuscitate. He came in with left hip fracture. Has a history of CABG, CVA, TIA, dyslipidemia. He takes aspirin, Toprol, Brilinta, and t amsulosin. Has not had any cardiac symptoms recently. His most recent cardiac workup in the office had been unremarkable. He does not have chest pain, nausea, vomiting, diaphoresis, PND, orthopnea, p edal edema, palpitations, or syncope. Past Medical History: As stated above. Allergies: NONE. Review of Systems: Negative. Social History: Negative. Family History: Noncontributory. Physical Examination: Vital Signs: Stable. He was afebrile. He was in sinus rhythm. HEENT: Negative. Neck: Supple with no bruit. Chest: Clear to auscultation and percussion. Cardiac: Revealed a regular rhythm and rate without any gallops or rubs. He had an aortic sclerosis murmur. Abdomen: Benign. Extremities: No clubbing, cyanosis, edema. Diagnostic Data: EKG was unremarkable. Chest x-ray is negative. Troponin was 0.61. BNP was 2415. Impression And Plan: This is a patient, who has a history of coronary artery bypass graft. He is a do not resuscitate. Has had a left hip fracture. He does not have any symptoms from a cardiac stand point. Most recent cardiac workup was unremarkable. His EKG is unremarkable. Chest x-ray is unrema rkable. He has no cardiac symptoms. I think he is at low risk for perioperative mortality. His oleg vated troponin and BNP are nonspecific and are secondary to chronic coronary artery disease. I am co mfortable with him stopping the Brilinta. Continue aspirin, Toprol, and tamsulosin and he can have t he surgery whenever it is okay with orthopedic surgeon. His other problems including cerebrovascular accident and dyslipidemia are stable at this point. I will continue to follow Mr. Ramsey postoperat ivstormy. I will see him in the office in the near future. BANG/FATIMAH Voice ID: [id number] Report ID: [id number]
[2020-12-29] MEDS: ENSURE ENLIVE 237 ML CAN PO SCH (21:40)
[2020-12-30] MEDS: ACETAMINOPHEN 500 MG TAB PO PRN (02:45)
--- NOTE | 2020-12-30 06:03 | P.PN ---
Subjective Date of Service: 12/30/20 Primary Care Provider: Dr. Nielson Chief Complaint: Left intertrochanteric femur fracture Subjective: Other (Patient stable. Slight confusion but appropriate. Patient follows commands) Physical Examination - Vital Signs Temperature: 99.0 F Blood Pressure: 111/64 Pulse: 89 Respirations: 18 Pulse Ox (%): 94 Assessment & Plan Discharge Plan: Other (inpatient rehab) Plan to discharge in: 48 Hours Physician Review Additional Text: Xray: COMPARISON: None. FINDINGS: 2 X-ray views of the Right femur were performed. There is an area of linear fracture right intratrochanteric area with no significant displacement and/or angulation. Minimal early vascular calcification. There are no retained opaque foreign bodies. Limited evaluation of the knee demonstrate minimal degenerative changes. No significant joint effusion. IMPRESSION: Nondisplaced right intratrochanteric fracture. Pelvic Xray: COMPARISON: None. FINDINGS: 1 single frontal view of the pelvis was obtained. There is mild diffuse bony osteopenia. There is a fracture nondisplaced fracture along the intertrochanteric area right hip. Minimal vascular calcifications are noted within the femoral vessels. The visualized gas pattern is nondiagnostic. The pelvic brim is intact. There are no gross intraosseous lesions. No periosteal reaction were seen. Minimal degenerative changes lower lumbar spine. IMPRESSION: Nondisplaced fracture along the intertrochanteric area right hip. CT scan: COMPARISON: 03/07/2020. FINDINGS: Multiple transaxial tomograms of the brain were obtained from the base of the skull to the vertex without contrast. 2-D multiplanar reformats and the coronal and sagittal plane were performed and reviewed. This exam was performed according to our departmental dose-optimization protocol, which includes automated exposure control, adjustment of the mA and/or kV according to patient size and/or use of iterative reconstruction technique. Brain parenchyma demonstrate the presence of mild brain atrophy with minimal periventricular white matter changes of microvascular ischemia. Again there is a small lacunar infarct within the left basal ganglia and questionable right capsular external. Again there is noted the presence of a right occipital ventriculoperitoneal shunt with the tip ending along the inferior right posterior lateral ventricle. There is no evidence for hydrocephalus. There is no midline shift and/or mass effect. There is no evidence for acute hemorrhage. Lateral ventricles and cisterns displace normal appearance. No intra or extra axial fluid collections were seen. The calvarium is intact with no evidence for fracture. The visualized portions of the paranasal sinuses and orbits de monstrate to be clear. IMPRESSION: No evidence for acute intracranial hemorrhage. Mild brain atrophy with periventricular white matter changes of microvascular ischemia. Stable right occipital ventriculoperitoneal shunt. No significant interval change. Hip xray: COMPARISON: None. FINDINGS: 2 views of the hip (frontal view of the left hip and frogleg view of the left hip) were obtained. As described in previous film there is a nondisplaced right intertrochanteric fracture with minimal involvement along the lesser trochanter. Vascular calcifications are seen within the femoral vessels. The right hip joint demonstrate very minimal increase sclerosis. There is no evidence for significant fractures within the right hemipelvis. No gross soft tissue abnormality is identified. There are no gross intraosseous lesions. No periosteal reaction were seen. IMPRESSION: Nondisplaced right intertrochanteric fracture. Surgery: Date of Procedure: 12/29/2020 Surgeon: Bimal Hudson MD Preoperative Diagnosis: Right intertrochanteric fracture. Postoperative Diagnosis: Right intertrochanteric fracture. Procedures: Right hip closed reduction, intramedullary harpreet fixation using the Biomet Affixus nail. Estimated Blood Loss: 50 mL. Complications: There no complications. Pathology Specimens: No pathology specimens sent. Physical exam: General: Alert, In no apparent distress, oriented x1. Slight confusion noted. HEENT: Atraumatic, PERRLA, Other (Mucous membranes dry), EOMI, Sclerae nonicteric Neck: Supple, 2+ carotid pulse no bruit, No LAD, Without JVD or thyroid abnormality Respiratory: Clear to auscultation bilaterally, Normal air movement Cardiovascular: Regular rate/rhythm, Normal S1 S2 Gastrointestinal: Normal bowel sounds, No tenderness Musculoskeletal: Pain to the right hip improved. Postop changes noted Integumentary: No rashes Neurological: Normal tone, Normal affect, Abnormal speech (Speech slowed, slurred from previous CVA), Abnormal strength (Strength 4 out of 5 in all extremities) Medical problem list: Right nondisplaced intertrochanteric femur fracture status post right hip closed reduction, intramedullary harpreet fixation using Biomet Affixus nail CAD status post CABG with elevated troponin History of multiple CVA Hypertension Hyperlipidemia UTI Plan: Right nondisplaced intertrochanteric femur fracture status post right hip closed reduction, intramedullary harpreet fixation using Biomet Affixus nail: Patient had surgery yesterday. Physical therapy ordered. Await recommendation. Anticipate need for inpatient rehab. Restart aspirin and Brilinta. Provide medication for pain. Once taking good oral intake will discontinue IV fluids. Encourage incentive spirometer. Encourage physical therapy. Await physical therapy recommendations on whether patient will require inpatient rehab versus skilled placement. Will discuss with family about plan of care. CAD status post CABG with elevated troponin: Overall stable. Case discussed with cardiology. Restart aspirin and Plavix. Continue DVT prophylaxis. History of multiple CVA: Slight confusion noted. Likely from anesthesia. Continue the part of the patient closely. Patient with residual difficulty with speech. Await recommendations by physical therapy. Hypertension: Continue with metoprolol BPH: Continue with Flomax UTI: UTI identified on urine. Urine culture negative. White count elevated. Continue Rocephin. Will check procalcitonin. DVT PPX: Heparin Code status: DNR Advance care [id number] minutes: Will recommend inpatient rehab. But await recommendations by physical therapy Time Spent Managing Pts Care (In Minutes): 55
[2020-12-30 06:27] LABS: Absolute Lymphocytes (CBC) 1.7 K/uL (0.7-4.9); Basophils % 0.4 % (0-1.3); Lymphocytes % 13.4 % (15.3-44.8); MPV 9.8 fL (7.6-11.3); RBC Red Blood Cell Count 4.72 M/uL (4.33-5.43)
[2020-12-30 06:47] LABS: Albumin 2.8 g/dL (3.4-5.0); Bilirubin Total 0.6 mg/dL (0.2-1.0); Magnesium 2.1 mg/dL (1.8-2.4); Potassium 3.9 mmol/L (3.5-5.1); Protein, Total 7.4 g/dL (6.4-8.2)
[2020-12-30] MEDS ORDERED: POTASSIUM CL SA 10 MEQ TAB PO ONE (08:00)
[2020-12-30] MEDS: METOPROLOL XL 25 MG TAB PO SCH (09:18)
[2020-12-30] MEDS: FOLIC ACID 1 MG TABLET PO SCH (09:18)
[2020-12-30] MEDS: FAMOTIDINE 20 MG TAB PO SCH (09:19)
[2020-12-30] MEDS: THIAMINE HCL 100 MG TABLET PO SCH (09:19)
[2020-12-30] MEDS: TAMSULOSIN 0.4 MG SR CAP PO SCH (09:19)
[2020-12-30 09:23] LABS: Blood Morphology Comment NOT SEEN (NOT SEEN); Platelet Estimate ADEQ; Platelets, Giant FEW; White Blood Cell Scan OK (OK)
[2020-12-30] MEDS: TICAGRELOR 90 MG TABLET PO SCH ×2 (09:23→20:59)
[2020-12-30] MEDS: ASPIRIN EC 81 MG TAB PO SCH (09:23)
[2020-12-30] MEDS: ENSURE ENLIVE 237 ML CAN PO SCH ×2 (09:24→20:59)
[2020-12-30] MEDS: MORPHINE 2 MG/ML SYR IV PRN (09:26)
[2020-12-30] MEDS: D5.45NS W/KCL 20MEQ 1,000 ML IV SCH (09:31)
[2020-12-31] MEDS: D5.45NS W/KCL 20MEQ 1,000 ML IV SCH ×3 (03:00→23:00)
[2020-12-31 05:52] LABS: Absolute Lymphocytes (CBC) 1.5 K/uL (0.7-4.9); Basophils % 0.5 % (0-1.3); Hematocrit 34.8 % (39.6-49.0); Lymphocytes % 12.8 % (15.3-44.8); MPV 9.6 fL (7.6-11.3); RBC Red Blood Cell Count 4.61 M/uL (4.33-5.43)
--- NOTE | 2020-12-31 06:00 | P.PN ---
Subjective Date of Service: 12/31/20 Primary Care Provider: Dr. Nielson Chief Complaint: Left intertrochanteric femur fracture Subjective: Doing well Physical Examination - Vital Signs Temperature: 97.7 F Blood Pressure: 112/68 Pulse: 94 Respirations: 17 Pulse Ox (%): 97 Assessment & Plan Discharge Plan: Other (Inpatient rehab) Plan to discharge in: 48 Hours Physician Review Additional Text: Xray: COMPARISON: None. FINDINGS: 2 X-ray views of the Right femur were performed. There is an area of linear fracture right intratrochanteric area with no significant displacement and/or angulation. Minimal early vascular calcification. There are no retained opaque foreign bodies. Limited evaluation of the knee demonstrate minimal degenerative changes. No significant joint effusion. IMPRESSION: Nondisplaced right intratrochanteric fracture. Pelvic Xray: COMPARISON: None. FINDINGS: 1 single frontal view of the pelvis was obtained. There is mild diffuse bony osteopenia. There is a fracture nondisplaced fracture along the intertrochanteric area right hip. Minimal vascular calcifications are noted within the femoral vessels. The visualized gas pattern is nondiagnostic. The pelvic brim is intact. There are no gross intraosseous lesions. No periosteal reaction were seen. Minimal degenerative changes lower lumbar spine. IMPRESSION: Nondisplaced fracture along the intertrochanteric area right hip. CT scan: COMPARISON: 03/07/2020. FINDINGS: Multiple transaxial tomograms of the brain were obtained from the base of the skull to the vertex without contrast. 2-D multiplanar reformats and the coronal and sagittal plane were performed and reviewed. This exam was performed according to our departmental dose-optimization rsoalio col, which includes automated exposure control, adjustment of the mA and/or kV according to patient size and/or use of iterative reconstruction technique. Brain parenchyma demonstrate the presence of mild brain atrophy with minimal periventricular white matter changes of microvascular ischemia. Again there is a small lacunar infarct within the left basal ganglia and questionable right capsular external. Again there is noted the presence of a right occipital ventriculoperitoneal shunt with the tip ending along the inferior right posterior lateral ventricle. There is no evidence for hydrocephalus. There is no midline shift and/or mass effect. There is no evidence for acute hemorrhage. Lateral ventricles and cisterns displace normal appearance. No intra or extra axial fluid collections were seen. The calvarium is intact with no evidence for fracture. The visualized portions of the paranasal sinuses and orbits demonstrate to be clear. IMPRESSION: No evidence for acute intracranial hemorrhage. Mild brain atrophy with periventricular white matter changes of microvascular ischemia. Stable right occipital ventriculoperitoneal shunt. No significant interval change. Hip xray: COMPARISON: None. FINDINGS: 2 views of the hip (frontal view of the left hip and frogleg view of the left hip) were obtained. As described in previous film there is a non displaced right intertrochanteric fracture with minimal involvement along the lesser trochanter. Vascular calcifications are seen within the femoral vessels. The right hip joint demonstrate very minimal increase sclerosis. There is no evidence for significant fractures within the right hemipelvis. No gross soft tissue abnormality is identified. There are no gross intraosseous lesions. No periosteal reaction were seen. IMPRESSION: Nondisplaced right intertrochanteric fracture. Surgery: Date of Procedure: 12/29/2020 Surgeon: Bimal Hudson MD Preoperative Diagnosis: Right intertrochanteric fracture. Postoperative Diagnosis: Right intertrochanteric fracture. Procedures: Right hip closed reduction, intramedullary harpreet fixation using the Biomet Affixus nail. Estimated Blood Loss: 50 mL. Complications: There no complications. Pathology Specimens: No pathology specimens sent. Physical exam: General: Alert, In no apparent distress, oriented x1. Slight confusion noted. HEENT: Atraumatic, PERRLA, Other (Mucous membranes dry), EOMI, Sclerae nonicteric Neck: Supple, 2+ carotid pulse no bruit, No LAD, Without JVD or thyroid abn ormality Respiratory: Clear to auscultation bilaterally, Normal air movement Cardiovascular: Regular rate/rhythm, Normal S1 S2 Gastrointestinal: Normal bowel sounds, No tenderness Musculoskeletal: Pain to the right hip improved. Postop changes noted Integumentary: No rashes Neurological: Normal tone, Normal affect, Abnormal speech (Speech slowed, slurred from previous CVA), Abnormal strength (Strength 4 out of 5 in all extremities) Medical problem list: Right nondisplaced intertrochanteric femur fracture status post right hip closed reduction, intramedullary harpreet fixation using Biomet Affixus nail CAD status post CABG with elevated troponin History of multiple CVA Hypertension Hyperlipidemia UTI Plan: Right nondisplaced intertrochanteric femur fracture status post right hip closed reduction, intramedullary harpreet fixation using Biomet Affixus nail: Patient doing well postoperatively. Overall stable. Discontinue IV fluids if taking good oral intake. Encourage ambulation with physical therapy. Encourage incentive spirometer. Physical therapy recommends inpatient rehab versus skilled. Will place inpatient rehab consult. Still waiting to get accurate number to discuss with family about plan of care. Aspirin and Brilinta restarted. Continue DVT prophylaxisLovenox. Will turn to service over to the hospitalist team tomorrow. Will go over plan of care with him. CAD status post CABG with elevated troponin: Overall stable. Case discussed with cardiology. Continue aspirin and Brilinta continue DVT prophylaxis. History of multiple CVA: Slight confusion noted but improved. Likely from anesthesia. Continue the part of the patient closely. Patient with residual difficulty with speech. Await recommendations by physical therapy. Hypertension: Continue with metoprolol BPH: Continue with Flomax UTI: Urine culture negative. White count elevated. Procalcitonin negative. Rocephin discontinued. No evidence of infection. DVT PPX: Heparin Code status: DNR Advance care [id number] minutes: We will place inpatient rehab consultation. Await approval. If denied will need to consider skilled placement. Time Spent Managing Pts Care (In Minutes): 55
[2020-12-31 06:03] LABS: Potassium 4.1 mmol/L (3.5-5.1)
[2020-12-31] MEDS: TICAGRELOR 90 MG TABLET PO SCH ×2 (09:43→20:04)
[2020-12-31] MEDS: ASPIRIN EC 81 MG TAB PO SCH (09:43)
[2020-12-31] MEDS: METOPROLOL XL 25 MG TAB PO SCH (09:44)
[2020-12-31] MEDS: FAMOTIDINE 20 MG TAB PO SCH (09:44)
[2020-12-31] MEDS: TAMSULOSIN 0.4 MG SR CAP PO SCH (09:44)
[2020-12-31] MEDS: THIAMINE HCL 100 MG TABLET PO SCH (09:44)
[2020-12-31] MEDS: FOLIC ACID 1 MG TABLET PO SCH (09:44)
[2020-12-31] MEDS: ENSURE ENLIVE 237 ML CAN PO SCH ×2 (09:45→20:04)
[2020-12-31 10:38] LABS: Blood Morphology Comment NOT SEEN (NOT SEEN); Platelet Estimate ADEQ
[2020-12-31] MEDS: ENOXAPARIN 40 MG/0.4 ML SQ SCH (17:00)
[2021-01-01] MEDS: D5.45NS W/KCL 20MEQ 1,000 ML IV SCH ×2 (02:28→19:00)
[2021-01-01 07:08] LABS: Absolute Lymphocytes (CBC) 1.6 K/uL (0.7-4.9); Basophils % 0.6 % (0-1.3); Hematocrit 33.1 % (39.6-49.0); Lymphocytes % 14.5 % (15.3-44.8); MPV 9.6 fL (7.6-11.3); RBC Red Blood Cell Count 4.39 M/uL (4.33-5.43)
[2021-01-01 07:20] LABS: Magnesium 2.3 mg/dL (1.8-2.4); Potassium 4.1 mmol/L (3.5-5.1)
[2021-01-01] MEDS: FAMOTIDINE 20 MG TAB PO SCH (09:19)
[2021-01-01] MEDS: ASPIRIN EC 81 MG TAB PO SCH (09:19)
[2021-01-01] MEDS: TAMSULOSIN 0.4 MG SR CAP PO SCH (09:20)
[2021-01-01] MEDS: TICAGRELOR 90 MG TABLET PO SCH ×2 (09:22→21:12)
[2021-01-01] MEDS: ENSURE ENLIVE 237 ML CAN PO SCH ×2 (09:22→21:12)
[2021-01-01] MEDS: THIAMINE HCL 100 MG TABLET PO SCH (09:22)
[2021-01-01] MEDS: METOPROLOL XL 25 MG TAB PO SCH (09:22)
[2021-01-01] MEDS: FOLIC ACID 1 MG TABLET PO SCH (09:22)
--- NOTE | 2021-01-01 09:35 | PN ---
Date of Progress Note: 12/29/2020 Subjective: The patient was seen for cardiac clearance before left hip fracture. He has a history o f CABG, CVA, dyslipidemia. Underwent a closed hip right reduction with intramedullary harpreet fixation grace Hudson and has done very well postoperatively. He has no arrhythmias. Objective: His blood pressure was 112/68 and sinus rhythm. His pulse rate was 94. He was afebrile. Laboratory Data: His last creatinine was 0.98. White count is 11.6. Assessment And Plan: No evidence of coronary artery disease exacerbation or congestive heart failure . We will continue his present regimen, which does include aspirin, metoprolol and Brilinta and we w ill sign off his case. We will see him in the office down the road. BANG/FATIMAH Voice ID: [id number] Report ID: [id number]
[2021-01-01] MEDS: ENOXAPARIN 40 MG/0.4 ML SQ SCH (17:02)
[2021-01-02] MEDS: D5.45NS W/KCL 20MEQ 1,000 ML IV SCH ×3 (00:51→20:47)
[2021-01-02 05:53] LABS: Absolute Lymphocytes (CBC) 1.5 K/uL (0.7-4.9); Basophils % 0.5 % (0-1.3); Hematocrit 31.4 % (39.6-49.0); Lymphocytes % 16.2 % (15.3-44.8); MPV 10.1 fL (7.6-11.3); RBC Red Blood Cell Count 4.16 M/uL (4.33-5.43)
[2021-01-02 06:05] LABS: Magnesium 2.4 mg/dL (1.8-2.4); Potassium 3.9 mmol/L (3.5-5.1)
[2021-01-02] MEDS ORDERED: POTASSIUM CL SA 10 MEQ TAB PO ONE (09:00)
[2021-01-02] MEDS: METOPROLOL XL 25 MG TAB PO SCH (09:00)
[2021-01-02] MEDS: ASPIRIN EC 81 MG TAB PO SCH (09:49)
[2021-01-02] MEDS: TICAGRELOR 90 MG TABLET PO SCH ×2 (09:49→20:49)
[2021-01-02] MEDS: FOLIC ACID 1 MG TABLET PO SCH (09:49)
[2021-01-02] MEDS: THIAMINE HCL 100 MG TABLET PO SCH (09:49)
[2021-01-02] MEDS: TAMSULOSIN 0.4 MG SR CAP PO SCH (09:49)
[2021-01-02] MEDS: FAMOTIDINE 20 MG TAB PO SCH (09:49)
[2021-01-02] MEDS: ENSURE ENLIVE 237 ML CAN PO SCH ×2 (09:50→20:50)
[2021-01-02] MEDS: ENOXAPARIN 40 MG/0.4 ML SQ SCH (16:42)
[2021-01-03 04:12] LABS: Potassium 4.3 mmol/L (3.5-5.1)
[2021-01-03] MEDS: ASPIRIN EC 81 MG TAB PO SCH (08:57)
[2021-01-03] MEDS: TAMSULOSIN 0.4 MG SR CAP PO SCH (08:57)
[2021-01-03] MEDS: FOLIC ACID 1 MG TABLET PO SCH (08:57)
[2021-01-03] MEDS: TICAGRELOR 90 MG TABLET PO SCH ×2 (08:57→20:48)
[2021-01-03] MEDS: THIAMINE HCL 100 MG TABLET PO SCH (08:58)
[2021-01-03] MEDS: FAMOTIDINE 20 MG TAB PO SCH (08:58)
[2021-01-03] MEDS: ENSURE ENLIVE 237 ML CAN PO SCH ×2 (08:58→20:48)
[2021-01-03] MEDS: METOPROLOL XL 25 MG TAB PO SCH (08:58)
--- NOTE | 2021-01-03 13:52 | P.PN ---
Subjective Date of Service: 01/01/21 Subjective: No new changes, No C/O voiced, Improving, New changes Pain control. Patient difficult communicate with but his is at bedside. Review of Systems 10-point ROS is otherwise unremarkable Physical Examination - Vital Signs Temperature: 97 F Blood Pressure: 121/60 Pulse: 98 Respirations: 15 Pulse Ox (%): 98 - Physical Exam General: Alert, In no apparent distress Respiratory: Clear to auscultation bilaterally, Normal air movement Cardiovascular: Regular rate/rhythm, Normal S1 S2, No murmurs Gastrointestinal: Normal bowel sounds, Soft and benign, Non-distended, No tenderness, No rebound, No guarding Musculoskeletal: No clubbing, No swelling, No tenderness Neurological: Sensation intact, Cranial nerves 3-12 intact - Studies Medications List Reviewed: Yes Assessment & Plan - Problems (Diagnosis) (1) Hip fracture, right Current Visit: Yes Status: Acute (2) History of CVA (cerebrovascular accident) Current Visit: No Status: Acute (3) History of coronary artery disease Current Visit: No Status: Acute (4) Status post fall Current Visit: Yes Status: Acute - Plan Plan: 1. Continue with pain control 2. Continue with physical therapy 3. Await for inpatient rehab/[facility] facility placement 4. Continue with cardiac meds 5. Diet as tolerated 6. GI and DVT prophylaxis - Advance Directives Does patient have a Living Will: Yes Does patient have a Durable POA for Healthcare: Yes
--- NOTE | 2021-01-03 13:54 | P.PN ---
Date of Service: 01/02/21 Subjective Patient continues to do well with no new complaints. Clinically symptoms are improving. Continue with therapy at this time Review of Systems 10-point ROS is otherwise unremarkable Physical Examination - Vital Signs Reviewed - Physical Exam General: Alert, In no apparent distress, Respiratory: Clear to auscultation bilaterally, Normal air movement Cardiovascular: Regular rate/rhythm, Normal S1 S2, No murmurs Gastrointestinal: Normal bowel sounds, Soft and benign, Non-distended, No tenderness, No rebound, No guarding Musculoskeletal: No clubbing, No swelling, pain on movement Neurological: Sensation intact, Cranial nerves 3-12 intact Assessment & Plan - Problems (Diagnosis) (1) History of CVA (cerebrovascular accident) Current Visit: No Status: Acute (2) History of coronary artery disease Current Visit: No Status: Acute (3) Hip fracture, right Current Visit: Yes Status: Acute (4) Status post fall Current Visit: Yes Status: Acute - Plan Continue with plan of care as mentioned below: 1. Continue with pain control 2. Continue with physical therapy 3. Await for inpatient rehab/[facility] facility placement 4. Continue with cardiac meds 5. Diet as tolerated 6. GI and DVT prophylaxis
[2021-01-03] MEDS: ENOXAPARIN 40 MG/0.4 ML SQ SCH (16:18)
[2021-01-04] MEDS: METOPROLOL XL 25 MG TAB PO SCH (09:18)
[2021-01-04] MEDS: ASPIRIN EC 81 MG TAB PO SCH (09:18)
[2021-01-04] MEDS: FOLIC ACID 1 MG TABLET PO SCH (09:18)
[2021-01-04] MEDS: TICAGRELOR 90 MG TABLET PO SCH ×2 (09:18→20:21)
[2021-01-04] MEDS: FAMOTIDINE 20 MG TAB PO SCH (09:18)
[2021-01-04] MEDS: THIAMINE HCL 100 MG TABLET PO SCH (09:18)
[2021-01-04] MEDS: TAMSULOSIN 0.4 MG SR CAP PO SCH (09:18)
[2021-01-04] MEDS: ENSURE ENLIVE 237 ML CAN PO SCH ×2 (09:19→20:21)
[2021-01-04] MEDS: ACETAMINOPHEN 500 MG TAB PO PRN (14:20)
[2021-01-04] MEDS: ENOXAPARIN 40 MG/0.4 ML SQ SCH (16:50)
--- NOTE | 2021-01-04 20:40 | RAD REPORT ---
EXAM DESCRIPTION: US - Scrotum Testicles - 01/04/2021 8:02 pm CLINICAL HISTORY: pain COMPARISON: Hip In Or dated 12/29/2020 FINDINGS: The right testicle measures 3.2 x 2 x 2.3 centimeters with volume of 7.8 cc. The left test icle measures 3.1 x 1.6 x 2.3 centimeters with volume of 6 cc. 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 The echotexture of the test icles is normal. Vascular flow is present bilaterally. No appreciable hydroceles. IMPRESSION: Bilateral testicular blood flow. No acute findings.
--- NOTE | 2021-01-05 08:20 | P.PN ---
Date of Service: 01/03/21 Subjective No significant changes. Waiting for placement Review of Systems 10-point ROS is otherwise unremarkable Physical Examination - Vital Signs Reviewed - Physical Exam General: Patient altered but follows some commands. Difficulty hearing. at bedside and she pretty much talks for him. Respiratory: Clear to auscultation bilaterally, Normal air movement Cardiovascular: Regular rate/rhythm, Normal S1 S2, No murmurs Gastrointestinal: Normal bowel sounds, Soft and benign, Non-distended, No tenderness, No rebound, No guarding Musculoskeletal: No clubbing, No swelling, No tenderness Neurological: Sensation intact, Cranial nerves 3-12 intact Assessment & Plan - Problems (Diagnosis) (1) Hip fracture, right status post open reduction internal fixation Current Visit: No Status: Acute (2) History of coronary artery disease Current Visit: No Status: Acute (3) History of CVA (cerebrovascular accident) Current Visit: Yes Status: Acute (4) Status post fall Current Visit: Yes Status: Acute - Plan Continue with plan of care as mentioned below: 1. Continue with pain control 2. Continue with physical therapy 3. Await for longterm facility placement 4. Continue with cardiac meds 5. Diet as tolerated 6. GI and DVT prophylaxis
--- NOTE | 2021-01-05 08:24 | P.PN ---
Date of Service: 01/04/21 Subjective Spoke with insurance [employer]. They did not approve rehabilitation. They did not feel patient had the medical complexity to go to rehab. They recommended a correction facility. Review of Systems 10-point ROS is otherwise unremarkable Physical Examination - Vital Signs Reviewed - Physical Exam General: Patient altered but follows some commands. Difficulty hearing. at bedside and she pretty much talks for him. Respiratory: Clear to auscultation bilaterally, Normal air movement Cardiovascular: Regular rate/rhythm, Normal S1 S2, No murmurs Gastrointestinal: Normal bowel sounds, Soft and benign, Non-distended, No tenderness, No rebound, No guarding Musculoskeletal: No clubbing, No swelling, No tenderness Neurological: Upper airway noise Assessment & Plan - Problems (Diagnosis) (1) Hip fracture, right status post open reduction internal fixation Current Visit: No Status: Acute (2) History of coronary artery disease Current Visit: No Status: Acute (3) History of CVA (cerebrovascular accident) Current Visit: Yes Status: Acute (4) Status post fall Current Visit: Yes Status: Acute - Plan Continue with plan of care as mentioned below: 1. Continue with pain control 2. Continue with physical therapy 3. Rejected by rehab been awaiting correction facility placement 4. Continue with cardiac meds 5. Diet as tolerated 6. GI and DVT prophylaxis
--- NOTE | 2021-01-05 08:25 | P.PN ---
Date of Service: 01/05/21 Subjective Patient had his heart rate up he said he was not feeling as well today. No significant pain. Repeat his labs. Review of Systems 10-point ROS is otherwise unremarkable Physical Examination - Vital Signs Reviewed - Physical Exam General: Patient answers questions appropriately Respiratory: Clear to auscultation bilaterally, Normal air movement Cardiovascular: Regular rate/rhythm, Normal S1 S2, No murmurs Gastrointestinal: Normal bowel sounds, Soft and benign, Non-distended, No tenderness, No rebound, No guarding Musculoskeletal: No clubbing, No swelling, No tenderness Neurological: Upper airway noise Assessment & Plan - Problems (Diagnosis) (1) Hip fracture, right status post open reduction internal fixation Current Visit: No Status: Acute (2) History of coronary artery disease Current Visit: No Status: Acute (3) History of CVA (cerebrovascular accident) Current Visit: Yes Status: Acute (4) Status post fall Current Visit: Yes Status: Acute - Plan Continue with plan of care as mentioned below: 1. IV hydration and IV antibiotics pending cultures 2. Continue with pain control; continue with physical therapy; awaiting rehab placement 3. has appealed rehab decision by insurance company 4. Continue with cardiac meds 5. Diet as tolerated 6. GI and DVT prophylaxis
[2021-01-05] MEDS: TAMSULOSIN 0.4 MG SR CAP PO SCH (08:31)
[2021-01-05] MEDS: ENSURE ENLIVE 237 ML CAN PO SCH ×2 (08:31→20:42)
[2021-01-05] MEDS: FAMOTIDINE 20 MG TAB PO SCH (08:31)
[2021-01-05] MEDS: THIAMINE HCL 100 MG TABLET PO SCH (08:31)
[2021-01-05] MEDS: METOPROLOL XL 25 MG TAB PO SCH (08:31)
[2021-01-05] MEDS: TICAGRELOR 90 MG TABLET PO SCH ×2 (08:31→20:42)
[2021-01-05] MEDS: FOLIC ACID 1 MG TABLET PO SCH (08:31)
[2021-01-05] MEDS: ASPIRIN EC 81 MG TAB PO SCH (08:31)
[2021-01-05] MEDS: ENOXAPARIN 40 MG/0.4 ML SQ SCH (16:55)
[2021-01-06 07:02] LABS: Absolute Lymphocytes (CBC) 1.4 K/uL (0.7-4.9); Basophils % 0.3 % (0-1.3); Hematocrit 26.5 % (39.6-49.0); Lymphocytes % 8.2 % (15.3-44.8); MPV 10.1 fL (7.6-11.3); RBC Red Blood Cell Count 3.52 M/uL (4.33-5.43)
[2021-01-06 07:10] LABS: Magnesium 2.5 mg/dL (1.8-2.4); Phosphorus 3.7 mg/dL (2.5-4.9); Potassium 4.4 mmol/L (3.5-5.1)
[2021-01-06] MEDS: TICAGRELOR 90 MG TABLET PO SCH ×2 (07:53→20:11)
[2021-01-06] MEDS: FOLIC ACID 1 MG TABLET PO SCH (07:53)
[2021-01-06] MEDS: TAMSULOSIN 0.4 MG SR CAP PO SCH (07:53)
[2021-01-06] MEDS: THIAMINE HCL 100 MG TABLET PO SCH (07:53)
[2021-01-06] MEDS: FAMOTIDINE 20 MG TAB PO SCH (07:53)
[2021-01-06] MEDS: ENSURE ENLIVE 237 ML CAN PO SCH ×2 (07:54→20:12)
[2021-01-06] MEDS: ASPIRIN EC 81 MG TAB PO SCH (07:54)
[2021-01-06] MEDS: METOPROLOL XL 25 MG TAB PO SCH (08:03)
[2021-01-06] MEDS ORDERED: NA CHLORIDE 0.9% 500 ML IV STA (09:34)
[2021-01-06] MEDS: NA CHLORIDE 0.9% 1,000 ML IV SCH ×2 (09:45→20:14)
[2021-01-06 11:23] LABS: Absolute Lymphocytes (CBC) 1.1 K/uL (0.7-4.9); Basophils % 0.3 % (0-1.3); Hematocrit 24.8 % (39.6-49.0); Lymphocytes % 5.6 % (15.3-44.8); MPV 9.9 fL (7.6-11.3)
[2021-01-06 11:25] LABS: Magnesium 2.5 mg/dL (1.8-2.4); Phosphorus 2.9 mg/dL (2.5-4.9); Potassium 4.3 mmol/L (3.5-5.1)
[2021-01-06 11:54] LABS: Blood Morphology Comment NOT SEEN (NOT SEEN); Platelet Estimate ADEQ; White Blood Cell Scan OK (OK)
[2021-01-06] MEDS: Levofloxacin500mg IV 500 MG/100 ML BAG IV SCH (16:00)
[2021-01-06] MEDS: ENOXAPARIN 40 MG/0.4 ML SQ SCH (16:11)
[2021-01-06] MEDS: PIPER TAZO 3.375 GM in NA CHLORIDE 0.9% 100 ML IV SCH (17:00)
[2021-01-06] MEDS ORDERED: PIPERACIL/TAZO 3.375 GM VIAL IV ONE (17:11)
[2021-01-06] MEDS ORDERED: NA CHLORIDE 0.9% 100 ML ONE (17:15)
[2021-01-06] MEDS ORDERED: PIPER/TAZO/NS 3.375gm 3.375 GM/100 ML BAG IVPB SCH (18:00)
[2021-01-07] MEDS ORDERED: PIPERACIL/TAZO 3.375 GM VIAL IV ONE ×2 (00:14→00:45)
[2021-01-07] MEDS: PIPER TAZO 3.375 GM in NA CHLORIDE 0.9% 100 ML IV SCH ×4 (00:29→16:00)
[2021-01-07] MEDS: NA CHLORIDE 0.9% 1,000 ML IV SCH (05:18)
[2021-01-07 06:53] LABS: Urine Appearance CLOUDY (Clear); Urine Bilirubin NEGATIVE (Negative); Urine Blood TRACE (Negative); Urine Color YELLOW (Yellow); Urine Glucose NEGATIVE (Negative); Urine Protein 1+ (Negative); Urine pH 6.5 (5.0-7.0)
[2021-01-07] MEDS: THIAMINE HCL 100 MG TABLET PO SCH (07:27)
[2021-01-07] MEDS: TICAGRELOR 90 MG TABLET PO SCH ×2 (07:28→20:24)
[2021-01-07] MEDS: FAMOTIDINE 20 MG TAB PO SCH (07:28)
[2021-01-07] MEDS: TAMSULOSIN 0.4 MG SR CAP PO SCH (07:28)
[2021-01-07] MEDS: ENSURE ENLIVE 237 ML CAN PO SCH ×2 (07:28→20:32)
[2021-01-07] MEDS: ASPIRIN EC 81 MG TAB PO SCH (07:28)
[2021-01-07] MEDS: FOLIC ACID 1 MG TABLET PO SCH (07:28)
[2021-01-07] MEDS: METOPROLOL XL 25 MG TAB PO SCH (07:28)
[2021-01-07 07:37] LABS: Urine Bacteria <20 /HPF (NONE SEEN); Urine RBC <5 /HPF (NONE SEEN)
--- NOTE | 2021-01-07 10:17 | RAD REPORT ---
EXAM DESCRIPTION: RAD - Chest Single View - 01/07/2021 6:02 am CLINICAL HISTORY: pneumonia Chest pain. COMPARISON: Chest Single View dated 03/05/2020; Chest Single View dated 03/03/2020; Chest Single View dated 01/24/2020; Chest Single View dated 01/21/2020 FINDINGS: Portable technique limits examination quality. The lungs are grossly clear. The heart is normal in size. Postsurgical changes of a prior CABG.Right- sided shunt tubing noted. IMPRESSION: No acute intrathoracic process suspected.
[2021-01-07] MEDS: ACETAMINOPHEN 500 MG TAB PO PRN (11:45)
[2021-01-07 12:21] LABS: Absolute Lymphocytes (CBC) 0.8 K/uL (0.7-4.9); Basophils % 0.1 % (0-1.3); Hematocrit 21.3 % (39.6-49.0); Lymphocytes % 3.8 % (15.3-44.8); MPV 10.3 fL (7.6-11.3); Potassium 4.1 mmol/L (3.5-5.1); RBC Red Blood Cell Count 2.74 M/uL (4.33-5.43)
[2021-01-07 12:41] LABS: Anisocytosis 1+; Blood Morphology Comment NOTED (NOT SEEN); Platelet Estimate ADEQ
[2021-01-07 12:42] LABS: Polychromasia SLIGHT
[2021-01-07] MEDS ORDERED: NA CHLORIDE 0.9% 0 ML ONE (13:19)
[2021-01-07] MEDS ORDERED: D5W 1,000 ML with NA BICARB 8.4% 50 MEQ IV SCH ×4 (14:00→16:00)
[2021-01-07] MEDS: Levofloxacin500mg IV 500 MG/100 ML BAG IV SCH (16:00)
--- NOTE | 2021-01-07 16:00 | P.PN ---
Date of Service: 01/06/21 Subjective Patient continues to do about the same. Continue with antibiotic therapy and with gentle hydration. Monitor labs. Hemoglobin has decreased somewhat. Repeat H&H as well. Continue monitoring renal function closely. BUN has increased and will hydrate gently. White blood cell count is also elevated. UA is pending blood cultures pending chest x-ray is pending. Review of Systems 10-point ROS is otherwise unremarkable Physical Examination - Vital Signs Reviewed - Physical Exam General: Patient answers questions appropriately Respiratory: Clear to auscultation bilaterally, Normal air movement Cardiovascular: Regular rate/rhythm, Normal S1 S2, No murmurs Gastrointestinal: Normal bowel sounds, Soft and benign, Non-distended, No tenderness, No rebound, No guarding Musculoskeletal: No clubbing, No swelling, No tenderness Neurological: Upper airway noise Assessment & Plan - Problems (Diagnosis) (1) Hip fracture, right status post open reduction internal fixation Current Visit: No Status: Acute (2) History of coronary artery disease/history of CABG Current Visit: No Status: Chronic (3) History of CVA (cerebrovascular accident)/h/o of intracranial surgery/aphasia Current Visit: Yes Status: Chronic (4) Status post fall Current Visit: Yes Status: Acute - Plan Continue with plan of care as mentioned below: 1. Continue with IV hydration and IV antibiotics; pending cultures 2. Continue with pain control; continue with physical therapy; rehab appeal has gone through and insurance has approved rehab after the has appealed 3. Monitor cardiac rhythm on telemetry 4. Continue with cardiac meds 5. Diet as tolerated 6. GI and DVT prophylaxis
--- NOTE | 2021-01-07 16:03 | P.PN ---
Date of Service: 01/07/21 Subjective Patient is doing better today. BUN is improved. She appears to be better hydrated. However, creatinine is more elevated and patient was anemic and had a leukocytosis. Transfuse 2 units of packed red blood cells and continue with antibiotics and gentle hydration. Spoke with and we will try to get transferred to rehab in morning 01/06 Patient continues to do about the same. Continue with antibiotic therapy and with gentle hydration. Monitor labs. Hemoglobin has decreased somewhat. Repeat H&H as well. Continue monitoring renal function closely. BUN has increased and will hydrate gently. White blood cell count is also elevated. UA is pending blood cultures pending chest x-ray is pending. Review of Systems 10-point ROS is otherwise unremarkable Physical Examination - Vital Signs Reviewed - Physical Exam General: Patient answers questions appropriately Respiratory: Clear to auscultation bilaterally, Normal air movement Cardiovascular: Regular rate/rhythm, Normal S1 S2, No murmurs Gastrointestinal: Normal bowel sounds, Soft and benign, Non-distended, No tenderness, No rebound, No guarding Musculoskeletal: No clubbing, No swelling, No tenderness Neurological: Aphasia Assessment & Plan - Problems (Diagnosis) (1) Hip fracture, right status post open reduction internal fixation Current Visit: No Status: Acute (2) History of coronary artery disease/history of CABG Current Visit: No Status: Chronic (3) History of CVA (cerebrovascular accident)/h/o of intracranial surgery/aphasia Current Visit: Yes Status: Chronic (4) Status post fall Current Visit: Yes Status: Acute - Plan Continue with plan of care as mentioned below: 1. Continue with IV hydration and IV antibiotics; pending cultures; will t ransfuse 2 units of packed red blood cells; 1 more L of fluid but will add bicarb with last liter 2. Continue with pain control; continue with physical therapy; rehab appeal has gone through and insurance has approved rehab after the has appealed 3. Monitor cardiac rhythm on telemetry; EKG 4. Continue with cardiac meds 5. Diet as tolerated 6. Transfer to rehab in a.m. as long his labs are stable 7. GI and DVT prophylaxis
[2021-01-07] MEDS ORDERED: DIGOXIN 0.25 MG/ML AMP IV ONE (19:19)
[2021-01-07] MEDS ORDERED: NA CHLORIDE 0.9% 250 ML ONE (22:47)
[2021-01-08] MEDS: PIPER TAZO 3.375 GM in NA CHLORIDE 0.9% 100 ML IV SCH ×2 (01:08→09:24)
[2021-01-08 04:35] LABS: Absolute Lymphocytes (CBC) 1.3 K/uL (0.7-4.9); Basophils % 0.3 % (0-1.3); Hematocrit 25.1 % (39.6-49.0); Lymphocytes % 6.6 % (15.3-44.8)
[2021-01-08 04:51] LABS: Albumin 2.3 g/dL (3.4-5.0); Bilirubin Total 0.9 mg/dL (0.2-1.0); Magnesium 2.3 mg/dL (1.8-2.4); Phosphorus 2.5 mg/dL (2.5-4.9); Potassium 3.8 mmol/L (3.5-5.1); Protein, Total 6.4 g/dL (6.4-8.2)
[2021-01-08] MEDS ORDERED: POTASSIUM 25 MEQ EFFERV TAB PO ONE (05:39)
--- NOTE | 2021-01-08 06:02 | P.PN ---
Subjective Date of Service: 01/08/21 Primary Care Provider: Dr. Nielson Chief Complaint: Left intertrochanteric femur fracture Subjective: Other (No fever noted. Patient with poor appetite. at bedside. No cough, congestion or shortness of breath.) Physical Examination - Vital Signs Temperature: 99.2 F Blood Pressure: 96/60 Pulse: 110 Respirations: 16 Pulse Ox (%): 98 - Studies Medications List Reviewed: Yes Assessment & Plan Discharge Plan: Other (Inpatient rehab) Plan to discharge in: 24 Hours Physician Review Additional Text: Xray: COMPARISON: None. FINDINGS: 2 X-ray views of the Right femur were performed. There is an area of linear fracture right intratrochanteric area with no significant displacement and/or angulation. Minimal early vascular calcification. There are no retained opaque foreign bodies. Limited evaluation of the knee demonstrate minimal degenerative changes. No significant joint effusion. IMPRESSION: Nondisplaced right intratrochanteric fracture. Pelvic Xray: COMPARISON: None. FINDINGS: 1 single frontal view of the pelvis was obtained. There is mild diffuse bony osteopenia. There is a fracture nondisplaced fracture along the intertrochanteric area right hip. Minimal vascular calcifications are noted within the femoral vessels. The visualized gas pattern is nondiagnostic. The pelvic brim is intact. There are no gross intraosseous lesions. No periosteal reaction were seen. Minimal degenerative changes lower lumbar spine. IMPRESSION: Nondisplaced fracture along the intertrochanteric area right hip. CT scan: COMPARISON: 03/07/2020. FINDINGS: Multiple transaxial tomograms of the brain were obtained from the base of the skull to the vertex without contrast. 2-D multiplanar reformats and the coronal and sagittal plane were performed and reviewed. This exam was performed according to our departmental dose-optimization protocol, which includes automated exposure control, adjustment of the mA and/or kV according to patient size and/or use of iterative reconstruction technique. Brain parenchyma demonstrate the presence of mild brain atrophy with minimal periventricular white matter changes of microvascular ischemia. Again there is a small lacunar infarct within the left basal ganglia and questionable right capsular external. Again there is noted the presence of a right occipital ventriculoperitoneal shunt with the tip ending along the inferior right posterior lateral ventricle. There is no evidence for hydrocephalus. There is no midline shift and/or mass effect. There is no evidence for acute hemorrhage. Lateral ventricles and cisterns displace normal appearance. No intra or extra axial fluid collections were seen. The calvarium is intact with no evidence for fracture. The visualized portions of the paranasal sinuses and orbits demonstrate to be clear. IMPRESSION: No evidence for acute intracranial hemorrhage. Mild brain atrophy with periventricular white matter changes of microvascular ischemia. Stable right occipital ventriculoperitoneal shunt. No significant interval change. Hip xray: COMPARISON: None. FINDINGS: 2 views of the hip (frontal view of the left hip and frogleg view of the left hip) were obtained. As described in previous film there is a nondisplaced right intertrochanteric fracture with minimal involvement along the lesser trochanter. Vascular calcifications are seen within the femoral vessels. The right hip joint demonstrate very minimal increase sclerosis. There is no evidence for significant fractures within the right hemipelvis. No gross soft tissue abnormality is identified. There are no gross intraosseous lesions. No periosteal reaction were seen. IMPRESSION: Nondisplaced right intertrochanteric fracture. Surgery: Date of Procedure: 12/29/2020 Surgeon: Bimal Hudson MD Preoperative Diagnosis: Right intertrochanteric fracture. Postoperative Diagnosis: Right intertrochanteric fracture. Procedures: Right hip closed reduction, intramedullary harpreet fixation using the Biomet Affixus nail. Estimated Blood Loss: 50 mL. Complications: There no complications. Pathology Specimens: No pathology specimens sent. Physical exam: General: Alert, In no apparent distress, oriented x1. Slight confusion noted. HEENT: Atraumatic, PERRLA, Other (Mucous membranes dry), EOMI, Sclerae nonicteric Neck: Supple, 2+ carotid pulse no bruit, No LAD, Without JVD or thyroid abnormality Respiratory: Clear to auscultation bilaterally, Normal air movement Cardiovascular: Regular rate/rhythm, Normal S1 S2 Gastrointestinal: Normal bowel sounds, No tenderness Musculoskeletal: Pain to the right hip improved. Postop changes noted Integumentary: No rashes Neurological: Normal tone, Normal affect, Abnormal speech (Speech slowed, slurred from previous CVA), Abnormal strength (Strength 4 out of 5 in all extremities) Medical problem list: Right nondisplaced intertrochanteric femur fracture status post right hip closed reduction, intramedullary harpreet fixation using Biomet Affixus nail Leukocytosis etiology unknown CAD status post CABG with elevated troponin History of multiple CVA Orthostatic hypotension Hyperlipidemia Acute renal injury Postoperative anemia Paroxysmal atrial fibrillation Plan: Right nondisplaced intertrochanteric femur fracture status post right hip closed reduction, intramedullary harpreet fixation using Biomet Affixus nail: Patient continues to work with physical therapy. Patient approved for inpatient rehab. Still with orthostatic hypotension. Will provide IV fluid bolus. Continue IV fluids. Will discontinue Flomax. Will monitor patient on midodrine. Encourage incentive spirometer. Anticipate improvement over the next 24 hours with possible discharge. Leukocytosis etiology unknown: So far urine culture negative. Will check blood culture. Chest x-ray unremarkable. Patient afebrile. Continue with Levaquin. Discontinue Zosyn. Encourage incentive spirometer. CAD status post CABG with elevated troponin: Overall stable. Case discussed with cardiology. Continue aspirin and Brilinta continue DVT prophylaxis. History of multiple CVA: Overall stable. Continue with physical therapy. Orthostatic hypotension with hypertension: Will add midodrine. Hold if blood pressure greater than 120 systolic. Fluid bolus given. Restart IV fluids. Encourage oral intake. Will discontinue Flomax as this may be a cause of his orthostatic hypotension. Continue with metoprolol BPH: Discontinue Flomax due to orthostatic hypotension. Acute renal injury: Urine culture negative. White count elevated. Procalcitonin negative. Rocephin discontinued. No evidence of infection. Postoperative anemia: Patient received transfusion of blood. Maintain hemoglobin above 7.5. Paroxysmal atrial fibrillation: Continue aspirin and Plavix. Patient on metoprolol. Overall stable. Patient remains in normal sinus rhythm. No chronic anticoagulation therapy due to anemia. DVT PPX: Aspirin and Brilinta Code status: DNR Advance care [id number] minutes: Patient has been approved for inpatient rehab. Anticipate likely discharge tomorrow. Time Spent Managing Pts Care (In Minutes): 55
[2021-01-08] MEDS: ENSURE ENLIVE 237 ML CAN PO SCH ×2 (09:00→22:13)
--- NOTE | 2021-01-08 09:04 | EKG ---
Test Date: 2021-01-08 Test Time: 02:07:17 Instructor Programmable Controllers: YVON MEASUREMENT RESULTS: Intervals: Rate: 97 AL: QRSD: 108 QT: 352 QTc: 447 Burns: P: AL: QRS: 35 T: 186 INTERPRETIVE STATEMENTS: Atrial fibrillation ST & T wave abnormality, consider anterolateral ischemia or digitalis effect Abnormal ECG Compared to ECG 12/27/2020 21:55:31 ST (T wave) deviation now present Sinus rhythm no longer present T-wave abnormality no longer present Possible ischemia still present Electronically Signed On 01-08-21 09:03:51 CDT by Nick Stubbs
--- NOTE | 2021-01-08 09:05 | EKG ---
Test Date: 2021-01-07 Test Time: 16:24:05 Vocational Teacher: SAKSHI MEASUREMENT RESULTS: Intervals: Rate: 119 ME: QRSD: 104 QT: 386 QTc: 542 Worth: P: ME: QRS: 58 T: 194 INTERPRETIVE STATEMENTS: Accelerated Junctional rhythm ST & T wave abnormality, consider inferolateral ischemia Abnormal ECG Compared to ECG 12/27/2020 21:55:31 Accelerated junctional rhythm now present ST (T wave) deviation now present Sinus rhythm no longer present T-wave abnormality no longer present Possible ischemia still present Electronically Signed On 01-08-21 09:03:59 CDT by Nick Stubbs
[2021-01-08] MEDS: TAMSULOSIN 0.4 MG SR CAP PO SCH (09:23)
[2021-01-08] MEDS: ASPIRIN EC 81 MG TAB PO SCH (09:23)
[2021-01-08] MEDS: TICAGRELOR 90 MG TABLET PO SCH (09:23)
[2021-01-08] MEDS: FAMOTIDINE 20 MG TAB PO SCH (09:23)
[2021-01-08] MEDS: THIAMINE HCL 100 MG TABLET PO SCH (09:23)
[2021-01-08] MEDS: METOPROLOL XL 25 MG TAB PO SCH (09:23)
[2021-01-08] MEDS: FOLIC ACID 1 MG TABLET PO SCH (09:23)
[2021-01-08] MEDS ORDERED: NA CHLORIDE 0.9% 500 ML IV ONE ×2 (12:16→15:10)
[2021-01-08] MEDS: MIDODRINE HCL 5 MG TABLET PO SCH ×2 (12:35→22:13)
--- NOTE | 2021-01-08 14:03 | ECHO ---
HEIGHT: 5 ft 7 in WEIGHT: 128 lb 0 oz DATE OF STUDY: 01/08/[address]: Summer Ku MD 2-DIMENSIONAL: YES M.MODE: YES DOPPLER: YES COLOR FLOW: YES TDS: NO PORTABLE: NO DEFINITY: NO BUBBLE STUDY: NO DIAGNOSIS: TACHYARRHYTHMIA CARDIAC HISTORY: CATHERIZATION: NO SURGERY: NO PROSTHETIC VALVE: NO PACEMAKER: NO MEASUREMENTS (cm) DIASTOLIC (NORMALS) SYSTOLIC (NORMALS) IVSd 1.3 (0.6-1.2) LA Diam 3.4 (1.9-4.0) LVEF 32% LVIDd 4.7 (3.5-5.7) LVIDs 4.0 (2.0-3.5) %FS 15% LVPWd 1.3 (0.6-1.2) Ao Diam 3.4 (2.0-3.7) 2 DIMENSIONAL ASSESSMENT: RIGHT ATRIUM: NORMAL LEFT ATRIUM: NORMAL RIGHT VENTRICLE: NORMAL LEFT VENTRICLE: NORMAL SIZE TRICUSPID VALVE: NORMAL MITRAL VALVE: NORMAL PULMONIC VALVE: NORMAL AORTIC VALVE: NORMAL PERICARDIAL EFFUSION: NONE AORTIC ROOT: NORMAL LEFT VENTRICULAR WALL MOTION: SEVERE GLOBAL HYPOKINESIS. DOPPLER/COLOR FLOW: NORMAL COMMENTS: SEVERE GLOBAL HYPOKINESIS. LEFT VENTRICULAR EJECTION FRACTION 32%. NO EFFUSION. TECHNOLOGIST: Norma MCALLISTER
[2021-01-08] MEDS: NACHLORIDE 0.45% 1,000 ML IV SCH (14:27)
[2021-01-08] MEDS: Levofloxacin500mg IV 500 MG/100 ML BAG IV SCH (16:42)
[2021-01-08] MEDS: PANTOPRAZOLE INJ 80 MG in NA CHLORIDE 0.9% 250 ML IV SCH (18:44)
[2021-01-08 19:49] LABS: Hematocrit 22.6 % (39.6-49.0)
[2021-01-09] MEDS ORDERED: NA CHLORIDE 0.9% 250 ML ONE (00:10)
[2021-01-09 00:24] VITALS: O2SAT 97
[2021-01-09] MEDS: PANTOPRAZOLE INJ 80 MG in NA CHLORIDE 0.9% 250 ML IV SCH ×2 (04:08→13:47)
[2021-01-09 06:10] LABS: Absolute Lymphocytes (CBC) 1.3 K/uL (0.7-4.9); Basophils % 0.1 % (0-1.3); Lymphocytes % 8.2 % (15.3-44.8)
[2021-01-09 06:12] LABS: Magnesium 2.4 mg/dL (1.8-2.4); Potassium 3.6 mmol/L (3.5-5.1)
--- NOTE | 2021-01-09 06:14 | P.PN ---
Subjective Date of Service: 01/09/21 Primary Care Provider: Dr. Nielson Chief Complaint: Left intertrochanteric femur fracture Subjective: Other (Patient overall stable. Patient had melena yesterday. She was given transfusion with improvement of hemoglobin.) Physical Examination - Vital Signs Temperature: 98 F Blood Pressure: 108/60 Pulse: 105 Respirations: 18 Pulse Ox (%): 98 - Studies Medications List Reviewed: Yes Assessment & Plan Discharge Plan: Transfer Plan to discharge in: 24 Hours Physician Review Additional Text: Xray: COMPARISON: None. FINDINGS: 2 X-ray views of the Right femur were performed. There is an area of linear fracture right intratrochanteric area with no significant displacement and/or angulation. Minimal early vascular calcification. There are no retained opaque foreign bodies. Limited evaluation of the knee demonstrate minimal degenerative changes. No significant joint effusion. IMPRESSION: Nondisplaced right intratrochanteric fracture. Pelvic Xray: COMPARISON: None. FINDINGS: 1 single frontal view of the pelvis was obtained. There is mild diffuse bony osteopenia. There is a fracture nondisplaced fracture along the intertrochanteric area right hip. Minimal vascular calcifications are noted within the femoral vessels. The visualized gas pattern is nondiagnostic. The pelvic brim is intact. There are no gross intraosseous lesions. No periosteal reaction were seen. Minimal degenerative changes lower lumbar spine. IMPRESSION: Nondisplaced fracture along the intertrochanteric area right hip. CT scan: COMPARISON: 03/07/2020. FINDINGS: Multiple transaxial tomograms of the brain were obtained from the base of the skull to the vertex without contrast. 2-D multiplanar reformats and the coronal and sagittal plane were performed and reviewed. This exam was performed according to our departmental dose-optimization protocol, which includes automated exposure control, adjustment of the mA and/or kV according to patient size and/or use of iterative reconstruction technique. Brain parenchyma demonstrate the presence of mild brain atrophy with minimal periventricular white matter changes of microvascular ischemia. Again there is a small lacunar infarct within the left basal ganglia and questionable right capsular external. Again there is noted the presence of a right occipital ventriculoperitoneal shunt with the tip ending along the inferior right posterior lateral ventricle. There is no evidence for hydrocephalus. There is no midline shift and/or mass effect. There is no evidence for acute hemorrhage. Lateral ventricles and cisterns displace normal appearance. No intra or extra axial fluid collections were seen. The calvarium is intact with no evidence for fracture. The visualized portions of the paranasal sinuses and orbits demonstrate to be clear. IMPRESSION: No evidence for acute intracranial hemorrhage. Mild brain atrophy with periventricular white matter changes of microvascular ischemia. Stable right occipital ventriculoperitoneal shunt. No significant interval change. Hip xray: COMPARISON: None. FINDINGS: 2 views of the hip (frontal view of the left hip and frogleg view of the left hip) were obtained. As described in previous film there is a nondisplaced right intertrochanteric fracture with minimal involvement along the lesser trochanter. Vascular calcifications are seen within the femoral vessels. The right hip joint demonstrate very minimal increase sclerosis. There is no evidence for significant fractures within the right hemipelvis. No gross soft tissue abnormality is identified. There are no gross intraosseous lesions. No periosteal reaction were seen. IMPRESSION: Nondisplaced right intertrochanteric fracture. Surgery: Date of Procedure: 12/29/2020 Surgeon: Bimal Hudson MD Preoperative Diagnosis: Right intertrochanteric fracture. Postoperative Diagnosis: Right intertrochanteric fracture. Procedures: Right hip closed reduction, intramedullary harpreet fixation using the Biomet Affixus nail. Estimated Blood Loss: 50 mL. Complications: There no complications. Pathology Specimens: No pathology specimens sent. Physical exam: General: Alert, In no apparent distress, oriented x1. Slight confusion noted. HEENT: Atraumatic, PERRLA, Other (Mucous membranes dry), EOMI, Sclerae nonicteric Neck: Supple, 2+ carotid pulse no bruit, No LAD, Without JVD or thyroid abnormality Respiratory: Clear to auscultation bilaterally, Normal air movement Cardiovascular: Regular rate/rhythm, Normal S1 S2 Gastrointestinal: Normal bowel sounds, No tenderness Musculoskeletal: Pain to the right hip improved. Postop changes noted Integumentary: No rashes Neurological: Normal tone, Normal affect, Abnormal speech (Speech slowed, slurred from previous CVA), Abnormal strength (Strength 4 out of 5 in all e xtremities) Medical problem list: Melena suspect upper GI bleed with postoperative anemia Right nondisplaced intertrochanteric femur fracture status post right hip closed reduction, intramedullary harpreet fixation using Biomet Affixus nail Leukocytosis etiology unknown CAD status post CABG with elevated troponin History of multiple CVA Orthostatic hypotension with HTN due to GI Bleed Hyperlipidemia Acute renal injury Paroxysmal atrial fibrillation Plan: Melena suspect upper GI bleed with postoperative anemia: ASA and Brilinta cur rently on HOLD. Lovenox also on HOLD. Patient given multiple transfusions. H/H stable. Still with with melena. Currently on Protonix Drip IV. Continue to monitor the H/H. Transfer in process for GI evaluation. Right nondisplaced intertrochanteric femur fracture status post right hip closed reduction, intramedullary harpreet fixation using Biomet Affixus nail: Patient continues to work with physical therapy but limited due to GI bleed. Will discontinue Flomax. Will monitor patient on midodrine. Encourage incentive spirometer. He has been accepted to Inpatient Rehab. Leukocytosis etiology unknown: So far urine culture negative. Will check blood culture. Chest x-ray unremarkable. Patient afebrile. Continue with Levaquin. Encourage incentive spirometer. CAD status post CABG with elevated troponin: Overall stable. Case discussed with cardiology. Continue as above History of multiple CVA: Overall stable. Continue with physical therapy. Orthostatic hypotension with hypertension due to GI Bleed: Continue with midodrine. Continue with above Plan. Metoprolol with parameters. BPH: Discontinue Flomax due to orthostatic hypotension. Acute renal injury: Urine culture negative. White count elevated. Procalcitonin negative. Rocephin discontinued. No evidence of infection. Postoperative anemia: Patient received transfusion of blood. Maintain hemoglobin above 7.5. Paroxysmal atrial fibrillation: See above. DVT PPX: On hold Code status: DNR Advance care minutes: Transfer. Time Spent Managing Pts Care (In Minutes): 55
[2021-01-09] MEDS: METOPROLOL XL 25 MG TAB PO SCH (09:00)
[2021-01-09] MEDS: ENSURE ENLIVE 237 ML CAN PO SCH ×2 (09:00→20:31)
[2021-01-09] MEDS ORDERED: POTASSIUM CL SA 10 MEQ TAB PO ONE (09:00)
[2021-01-09] MEDS ORDERED: METOPROLOL XL 25 MG TAB PO SCH (09:40)
[2021-01-09 10:01] LABS: Hematocrit 25.8 % (39.6-49.0)
[2021-01-09] MEDS: MIDODRINE HCL 5 MG TABLET PO SCH ×3 (10:16→20:30)
[2021-01-09] MEDS: FAMOTIDINE 20 MG TAB PO SCH (10:17)
[2021-01-09] MEDS: FOLIC ACID 1 MG TABLET PO SCH (10:17)
[2021-01-09] MEDS: THIAMINE HCL 100 MG TABLET PO SCH (10:17)
[2021-01-09] MEDS: NACHLORIDE 0.45% 1,000 ML IV SCH (17:16)
[2021-01-09] MEDS: Levofloxacin500mg IV 500 MG/100 ML BAG IV SCH (17:16)
[2021-01-09 18:10] LABS: Hematocrit 27.5 % (39.6-49.0)
[2021-01-10] MEDS: NACHLORIDE 0.45% 1,000 ML IV SCH (05:00)
--- NOTE | 2021-01-10 05:35 | P.DS ---
Admission Date: 12/28/20 Discharge Date: 01/10/21 Primary Care Provider: Dr. Nielson Disposition: TRANSFER TO [facility] Discharge Condition: FAIR Reason for Admission: Left intertrochanteric femur fracture Consultations: Orthopedics-Dr. Hudson Procedures: Xray: COMPARISON: None. FINDINGS: 2 X-ray views of the Right femur were performed. There is an area of linear fracture right intratrochanteric area with no significant displacement and/or angulation. Minimal early vascular calcification. There are no retained opaque foreign bodies. Limited evaluation of the knee demonstrate minimal degenerative changes. No significant joint effusion. IMPRESSION: Nondisplaced right intratrochanteric fracture. Pelvic Xray: COMPARISON: None. FINDINGS: 1 single frontal view of the pelvis was obtained. There is mild diffuse bony osteopenia. There is a fracture nondisplaced fracture along the intertrochanteric area right hip. Minimal vascular calcifications are noted within the femoral vessels. The visualized gas pattern is nondiagnostic. The pelvic brim is intact. There are no gross intraosseous lesions. No periosteal reaction were seen. Minimal degenerative changes lower lumbar spine. IMPRESSION: Nondisplaced fracture along the intertrochanteric area right hip. CT scan: COMPARISON: 03/07/2020. FINDINGS: Multiple transaxial tomograms of the brain were obtained from the base of the skull to the vertex without contrast. 2-D multiplanar reformats and the coronal and sagittal plane were performed and reviewed. This exam was performed according to our departmental dose-optimization protocol, which includes automated exposure control, adjustment of the mA and/or kV according to patient size and/or use of iterative reconstruction technique. Brain parenchyma demonstrate the presence of mild brain atrophy with minimal periventricular white matter changes of microvascular ischemia. Again there is a small lacunar infarct within the left basal ganglia and questionable right capsular external. Again there is noted the presence of a right occipital ventriculoperitoneal shunt with the tip ending along the inferior right posterior lateral ventricle. There is no evidence for hydrocephalus. There is no midline shift and/or mass effect. There is no evidence for acute hemorrhage. Lateral ventricles and cisterns displace normal appearance. No intra or extra axial fluid collections were seen. The calvarium is intact with no evidence for fracture. The visualized portions of the paranasal sinuses and orbits demonstr ate to be clear. IMPRESSION: No evidence for acute intracranial hemorrhage. Mild brain atrophy with periventricular white matter changes of microvascular ischemia. Stable right occipital ventriculoperitoneal shunt. No significant interval change. Hip xray: COMPARISON: None. FINDINGS: 2 views of the hip (frontal view of the left hip and frogleg view of the left hip) were obtained. As described in previous film there is a nondisplaced right intertrochanteric fracture with minimal involvement along the lesser trochanter. Vascular calcifications are seen within the femoral vessels. The right hip joint demonstrate very minimal increase sclerosis. There is no evidence for significant fractures within the right hemipelvis. No gross soft tissue abnormality is identified. There are no gross intraosseous lesions. No periosteal reaction were seen. IMPRESSION: Nondisplaced right intertrochanteric fracture. Surgery: Date of Procedure: 12/29/2020 Surgeon: Bimal Hudson MD Preoperative Diagnosis: Right intertrochanteric fracture. Postoperative Diagnosis: Right intertrochanteric fracture. Procedures: Right hip closed reduction, intramedullary harpreet fixation using the [employer] Affixus nail. Estimated Blood Loss: 50 mL. Complications: There no complications. Pathology Specimens: No pathology specimens sent. Physical exam: General: Alert, In no apparent distress, oriented x1. Slight confusion noted. HEENT: Atraumatic, PERRLA, Other (Mucous membranes dry), EOMI, Sclerae nonicteric Neck: Supple, 2+ carotid pulse no bruit, No LAD, Without JVD or thyroid abnormality Respiratory: Clear to auscultation bilaterally, Normal air movement Cardiovascular: Regular rate/rhythm, Normal S1 S2 Gastrointestinal: Normal bowel sounds, No tenderness Musculoskeletal: Pain to the right hip improved. Postop changes noted Integumentary: No rashes Neurological: Normal tone, Normal affect, Abnormal speech (Speech slowed, slurred from previous CVA), Abnormal strength (Strength 4 out of 5 in all extremities) Medical problem list: Melena suspect upper GI bleed with postoperative anemia Right nondisplaced intertrochanteric femur fracture status post right hip closed reduction, intramedullary harpreet fixation using Biomet Affixus nail Leukocytosis etiology unknown CAD status post CABG with elevated troponin History of multiple CVA Orthostatic hypotension with HTN due to GI Bleed Hyperlipidemia Acute renal injury Paroxysmal atrial fibrillation Brief History of Present Illness: 85-year-old male with history of CAD status post CABG, multiple CVAs, hypertension, hyperlipidemia presents emergency department after unwitnessed fall complaining of right hip pain. Patient was at home reports that he walked out to the garage and fell for an unknown reason, patient was on the floor for an unknown amount of time, last seen approximately 3 hours prior to this by family. Patient was evaluated in the emergency department, labs significant for white blood cell count 11.7 hemoglobin 11.5 adequate 35.4 chloride 116 BUN 19 GFR 63 troponin 0 0[address] head negative for any acute findings x-ray of the pelvis/hip demonstrate nondisplaced left intertrochanteric femur fracture. ED provider wishes to admit for further evaluation and management. When I saw the patient in the ER he was awake, alert, oriented x2, patient was slurred speech. This is baseline due to previous strokes. Vital signs stable, will admit for further evaluation and management. 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 Patient was initiated on Protonix drip once melena was reported, aspirin, Brilinta, Lovenox were discontinued. Transfer was initiated, facilities in the area were at capacity, this morning [facility] accepted patient for transfer for GI evaluation/endoscopy. Case was di scussed with hospitalist and GI at receiving facility. Patient vital signs stable at this time, last hemoglobin 9.1. Patient was evaluated by cardiology as well and cleared for surgery prior to case. Patient will be transferred to [facility] for further acute care including GI evaluation for melena. Vital Signs/Physical Exam: Temp Pulse Resp BP Pulse Ox 97.5 F 106 H 18 112/58 L 98 01/10/21 02:15 01/10/21 02:15 01/10/21 02:15 01/10/21 02:15 01/10/21 02:15 General: Alert, In no apparent distress, Oriented x3 HEENT: Atraumatic, Normocephalic Neck: Supple Respiratory: Clear to auscultation bilaterally, Normal air movement Cardiovascular: No edema, Normal S1 S2 Capillary refill: <2 Seconds Gastrointestinal: Normal bowel sounds, Soft and benign Musculoskeletal: No swelling, No contractures, No erythema Integumentary: No significant lesion, No tenderness/swelling, No erythema Neurological: Normal speech, Normal tone, Sensation intact Laboratory Data at Discharge: WBC 16.00 K/uL (4.3-10.9) H D 01/09/21 05:23 Hgb 9.1 g/dL (13.6-17.9) L 01/09/21 17:54 Hct 27.5 % (39.6-49.0) L 01/09/21 17:54 Plt Count 227 K/uL (152-406) 01/09/21 05:23 PT 12.4 SECONDS (9.5-12.5) 12/27/20 23:33 INR 1.08 12/27/20 23:33 APTT 27.1 SECONDS (24.3-36.9) 12/27/20 23:33 Sodium 144 mmol/L (136-145) 01/09/21 05:23 Potassium 3.6 mmol/L (3.5-5.1) 01/09/21 05:23 BUN 30 mg/dL (7-18) H 01/09/21 05:23 Creatinine 0.99 mg/dL (0.55-1.3) 01/09/21 05:23 Glucose 81 mg/dL (74-106) 01/09/21 05:23 Phosphorus 2.5 mg/dL (2.5-4.9) 01/08/21 04:08 Magnesium 2.4 mg/dL (1.8-2.4) 01/09/21 05:23 Total Bilirubin 0.9 mg/dL (0.2-1.0) 01/08/21 04:08 AST 120 U/L (15-37) H D 01/08/21 04:08 ALT 36 U/L (12-78) 01/08/21 04:08 Alkaline Phosphatase 69 U/L (45-117) 01/08/21 04:08 Troponin I 1.61 ng/mL (0.0-0.045) H* D 12/28/20 10:44 Home Medications: Tamsulosin HCl 0.4 mg PO DAILY 01/21/20 Aspirin [Aspirin EC 81 MG] 81 mg PO DAILY #30 tablet. 01/26/20 Ticagrelor [Brilinta*] 90 mg PO BID #60 tablet 01/26/20 Metoprolol Succinate [Toprol Xl*] 1 tab PO DAILY 12/28/20 Physician Discharge Instructions: Please continue with care and GI evaluation at [facility] in [place]. Diet: N.p.o. Followup: Marcie Nielson DO [Primary Care Provider] - Time spent managing pt's care (in minutes): 30
[2021-01-10] MEDS: PANTOPRAZOLE INJ 80 MG in NA CHLORIDE 0.9% 250 ML IV SCH ×3 (05:45)
[2021-01-10 05:49] LABS: Absolute Lymphocytes (CBC) 1.3 K/uL (0.7-4.9); Basophils % 0.3 % (0-1.3); Hematocrit 26.9 % (39.6-49.0); Lymphocytes % 8.5 % (15.3-44.8); MPV 10.1 fL (7.6-11.3); RBC Red Blood Cell Count 3.27 M/uL (4.33-5.43)
[2021-01-10 05:54] LABS: Magnesium 2.2 mg/dL (1.8-2.4); Potassium 3.8 mmol/L (3.5-5.1)
[2021-01-10 06:18] VITALS: BP 122/58; TEMP 98.2
[2021-01-10] MEDS ORDERED: POTASSIUM CL SA 10 MEQ TAB PO ONE (09:00)
== END 2021-01-10 07:45 | disposition short-term general hospital (02) | DRG 481 ==
LOC: ER 21:49 → ERHOLD 12-28 00:37 → 2ND 12-28 02:43
PROVIDERS: ADMIT Family Medicine; ATTEND Family Medicine
PROC: 0QS636Z Reposition Right Upper Femur with Intramedullary Internal Fixation Device, Percutaneous Approach (ICD-10-PCS; principal; 2020-12-29 13:00)
PROC: 30233N1 Transfusion of Nonautologous Red Blood Cells into Peripheral Vein, Percutaneous Approach (ICD-10-PCS; 2021-01-07)
DX: S72.144A Nondisplaced intertrochanteric fracture of right femur, initial encounter for closed fracture (principal); N39.0 Urinary tract infection, site not specified; N17.9 Acute kidney failure, unspecified; K92.1 Melena; I25.10 Atherosclerotic heart disease of native coronary artery without angina pectoris; I69.328 Other speech and language deficits following cerebral infarction; I10 Essential (primary) hypertension; E78.5 Hyperlipidemia, unspecified; N40.0 Benign prostatic hyperplasia without lower urinary tract symptoms; W01.0XXA Fall on same level from slipping, tripping and stumbling without subsequent striking against object, initial encounter; Y92.009 Unspecified place in unspecified non-institutional (private) residence as the place of occurrence of the external cause; I95.1 Orthostatic hypotension; I48.0 Paroxysmal atrial fibrillation; D64.9 Anemia, unspecified; Z95.1 Presence of aortocoronary bypass graft; Z20.822 Contact with and (suspected) exposure to COVID-19; Z66 Do not resuscitate
CPT/HCPCS: 36415; 36430; 51702; 70450; 71045; 72170; 73530; 76870; 80048; 80053; 81001; 81003; 81015; 82550; 83605; 83735; 83880; 84100; 84145; 84484; 85014; 85018; 85025; 85610; 85730; 86850; 86900; 86901; 87040; 87086; 87088; 93005; 93306; 94010; 97110; 97116; 97163; 97530; 99285; C9113; J0690; J1160; J1644; J1650; J2175; J2270; J2370; J2405; J2543; J2704; J3010; J7030; J7040; J7050; J7120; P9016; U0003

== ENCOUNTER 2021-02-13 13:24 | Emergency (ER) | payer OTHER ==
--- OUTSIDE RECORDS SUMMARY | 2021-02-13 13:28 | XMS REPORT | Continuity of Care Document ---
:[address] [facility] t Address [address] [place] [address] Care Team Providers Name Role Phone Shalom Fernandes Primary Care Physician CHINO Attending Clinician Unavailable ARTEM Attending Clinician Unavailable Chacho WASHINGTON Attending Clinician Mari Acevedo MD Attending Clinician Delma WASHINGTON Attending Clinician Kulwinder WASHINGTON, B. Attending Clinician CHACHO Attending Clinician Unavailable ARTEM Admitting Clinician Unavailable MARI ACEVEDO Admitting Clinician Unavailable Payers Payer Name Policy Type Policy Number Effective Date Expiration Date S ource Problems Condition Condition Condition Status Onset Resolution Last Treating Co mments Source Name Details Category Date Date Treatment Clinician Date Upper GI Upper GI Disease [facility] 00 [facility] Melena Melena Disease Active Overview: [facility] - 00:[facility]: automatic Medical 00 ally from Center request for surgery [id number] 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 11-20 [facility] - [facility]: Medical 00 [facility] Chronic Chronic Disease Active [facility] systolic systolic 6-14 [facility] - CHF CHF 00:00: Medical (congestiv (congestiv 00 Ce nter e heart e heart failure), failure), NYHA class NYHA class 2 2 Bacteremia Bacteremia Disease Active [facility] 6[facility]13 [facility] - 00:[facility]: Medical 00 [place] Cerebrovas Cerebrovas Disease Active [facility] cular cular 6 [facility] - accident accident 00:00: Medica l (CVA), (CVA), 00 Center unspecifie unspecifie d d mechanism mechanism Leucocytos Leucocytos Disease Active [facility] is is 11-17 [facility] - 00:00: Medical 00 Center UTI UTI Disease Active [facility] (urinary (urinary 11-17 [facility] - tract tract 00:00: Medical infection) infection) 00 Ce nter 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 [facility] Allergies, Adverse Reactions, Alerts Allergy Allergy Status Severity Reaction(s) Onset Inactive Treating Comm ents Source Name Type Date Date Clinician NKA Allergy Active ENCCLR 01-31 10:08: 28 Social History Social Habit Start Date Stop Date Quantity Comments Source Sex Assigned At [facility] Alcohol intake 2021-01-12 2021-01-12 Current [facility]3] es - 00:00:00 00:00:00 non-drinker of Medical nter alcohol (finding) Smoking Status Start Date Stop Date Source Current every day smoker 2021-01-12 00:00:00 [facility] Medications Ordered Filled Start Stop Current Ordering Indication Dosage Frequency Signature Comments Components Source Medication Medication Date Date Medication? Clinician (SIG) Name Name aspirin 81 2020- Yes 81mg QD Take [address] [facility] MG EC 01-14 tablet (81 [facility] - tablet 00:00: 23:59 mg total) Medic al 00 :00 by mouth Farrell daily for 30 days. tamsulosin Yes .4mg QD Take 0.[address] [facility] [facility] (FLOMAX) 8-07 mg by [facility] - 0.4 mg Cap 17:38: mouth Medica l 24 hr 09 daily. Center capsule metoprolol Yes 25mg Q.5D Take [address] succinate 01-13 by mouth 2 Luke s - (TOPROL-XL) 17:38: (two) Medic al 25 MG 24 hr 09 times Center tablet daily. atorvastati Yes 10mg QD Take [address] n (LIPITOR) 01-13 by mouth Luke s - 10 MG 17:38: daily. Medical tablet 09 [facility]rell ticagrelor 2020- No Q.5D Take by [facility] (BRILINTA) 01-13 mouth 2 [facility] - 90 mg Tab 10:48: 00:00 (two) Medica l tablet 57 :00 times Center daily. aspirin 81 2020- No 81mg QD Take [address] [address] MG chewable 01-13 by mouth Dimitris es - tablet 10:48: 00:00 daily. Medical 57 :00 Farrell pantoprazol 2020- Yes 40mg QD Take [address] [facility] [facility] e 01-13 tablet (40 [facility] - (PROTONIX) 00:00: 23:59 mg total) M edical 40 MG 00 :00 by mouth Center tablet daily for 90 days. pantoprazol No 40mg QD Take [address] [facility] e 01-13 tablet (40 [facility] - (PROTONIX) 00:00: 00:00 mg total) M edical 40 MG 00 :00 by mouth Center tablet daily for 90 days. atorvastati No primary 40mg QD Take [address] [facility] n (LIPITOR) 01-10 0804 dysbetalipo by mouth [facility] - 40 MG 10:50: 00:00 proteinemia nightly. Medical tablet 23 :00 Farrell pantoprazol No 40mg QD Take [address] [facility] [facility] e 11-21 tablet (40 [facility] - (PROTONIX) 00:00: 00:00 mg total) M edical 40 MG 00 :00 by mouth Center tablet daily. Ketoconazol Ketoconazol Yes Na Nielson [address] [facility] e e [facility] Bisoprolol Bisoprolol Yes Na Nielson [address] Fumarate F[facility]ate [facility] Tamsulosin Tamsulosin Yes Na Nielson [address] HCl HCl [facility] Aricept Aricept Yes Na Nielson [address] [facility] bedtime [facility] Ketoconazol Ketoconazol Yes Na Nielson [address] [facility] e e applicatio [facility] n [facility] ent Clinics Flonase Flonase Yes Na Nielson [address] [facility] each [facility] - nostril [facility] Aspir-81 Aspir-81 Yes Na Nielson [address] [facility] Losartan Losartan Yes Na Nielson [address] Potassium Potassium [facility] Colace Colace Yes Na Nieslon [address] as needed [facility] Lipitor Lipitor Yes Na Nielson [address] [facility] Plavix Plavix Yes Na Nielson [address] [facility] Cetirizine Cetirizine Yes Na Nielson [address] HCl HCl [facility] ent Clinics Meclizine Meclizine Yes Na Nielson [address] HCl HCl as needed [facility] Hydrocortis Hydrocortis Yes Na Nielson [address] [facility] [facility] one one applicatio [facility]ics Vital Signs Vital Name Observation Time Observation Value Comments Source Systolic blood 2021-01-13 16:00:00 106 mm[Hg] [facility] Diastolic blood 2021-01-13 16:00:00 58 mm[Hg] [facility] S [facility] Heart rate 2021-01-13 16:00:00 88 /min [facility] Body temperature 2021-01-13 16:00:00 35.94 Francie [facility] Respiratory rate 2021-01-13 16:00:00 16 /min [facility] Oxygen saturation in 2021-01-13 16:00:00 98 /min [facility] Arterial blood by Medical Ce nter Pulse oximetry Body height 2021-01-10 10:26:00 172.7 cm [facility] Body weight 2021-01-10 10:26:00 65 kg [facility] BMI 2021-01-10 10:26:00 21.79 kg/m2 [facility] Procedures Procedure Date / Time Performing Source Performed Clinician XR CHEST 1 VIEW PORTABLE / BEDSIDE 2021-01-13 ElkeHunter arellano [facility] - 07:25:00 [facility] CBC W/PLT COUNT & AUTO DIFFERENTIAL 2021-01-13 Kristofer Acevedo [facility] - 04:30:00 [facility] BASIC METABOLIC PANEL (7) 2021-01-13 [facility], Isael [facility] - 04:30:00 [facility] CBC W/PLT COUNT & AUTO DIFFERENTIAL 2021-01-12 [facility]fer weiss [facility] - 04:46:00 [facility] BASIC METABOLIC PANEL (7) 2021-01-12 [facility], Isael [facility] - 04:46:00 [facility] TROPONIN I 2021-01-12 [facility], Isael [facility] - 04:46:00 [facility] MAGNESIUM 2021-01-12 FutalaReynold neely [facility] - 04:46:00 [facility] TROPONIN I 2021-01-11 Raegan Flor [facility] - 21:31:00 [facility] XR CHEST 1 VIEW PORTABLE / BEDSIDE 2021-01-11 Chrissie Hunter saba [facility] - 10:19:00 [facility] 2D ECHO W/ DOPPLER (CW/PW/COLOR) 2021-01-11 Jeremy Price [facility] - 09:34:55 [facility] SARS-COV2/RT-PCR ([facility]) 2021-01-11 Michelleanijuan pabloKathleen [facility] 07:30:00 [facility] TROPONIN I 2021-01-11 [facility] - 05:46:00 [facility] B-TYPE NATRIURETIC FACTOR (BNP) 2021-01-11 [facility] - 05:46:00 [facility] PROTHROMBIN TIME/INR 2021-01-11 [facility] - 05:46:00 [facility] TROPONIN I 2021-01-11 [facility], Cathryn [facility] - 02:56:00 [facility] CBC W/PLT COUNT & AUTO DIFFERENTIAL 2021-01-11 Pavel, Nne nna [facility] - 00:57:00 [facility] MAGNESIUM 2021-01-11 Onchristopher, Cathryn [facility] - 00:57:00 [facility] PHOSPHORUS 2021-01-11 Pavel, Cathryn [facility] - 00:57:00 [facility] BASIC METABOLIC PANEL (7) 2021-01-11 [facility] - 00:57:00 [facility] LIPID PANEL 2021-01-11 [facility], Cathryn [facility] - 00:57:00 [facility] ABORH, MANUAL 2021-01-[address] [facility] [facility] - 13:08:00 [facility] CBC W/PLT COUNT & AUTO DIFFERENTIAL 2021-01-[address] [facility] - 11:41:00 [facility] BASIC METABOLIC PANEL (7) 2021-01-[address] [facility] - 11:41:00 [facility] HEPATIC FUNCTION PANEL 2021-01-10 Isael Acevedo [facility] - 11:41:00 [facility] TYPE AND SCREEN, AUTOMATED 2021-01-10 Isael Acevedo [facility] - 11:41:00 [facility] REPORT OF PROCEDURE - ENDOSCOPY 2021-01-10 Provider, Patricia lopez [facility] - SCAN 00:00:00 [facility] ESOPHAGOGASTRODUODENOSCOPY Be Miramontes [facility] - (EGD),CONTROL HEMORRHAGE B. [facility] Plan of Care Planned Activity Planned Date Details Comments Source Future Scheduled 2021-02-[address] [facility] - Test 00:00:00 (#1) [code = [facility] INFLUENZA VACCINE (#1)] Future Scheduled 2020-06-[address] [facility] - Test 00:00:00 (12+) [code = Medical Center DEPRESSION SCREENING (12+)] Future Scheduled 2020-06-09 FALLS RISK SCREENING [facility] - Test 00:00:00 [code = FALLS RISK Medical C enter SCREENING] Future Scheduled 1983-09-10 SHINGLES VACCINES ([address] [facility] - Test 00:00:00 of 2) [code = Medical Center SHINGLES VACCINES (1 of 2)] Future Scheduled 1952 DTAP/TDAP/TD VACCINES [facility] Test 00:00:00 (1 - Tdap) [code = Medical C enter DTAP/TDAP/TD VACCINES (1 - Tdap)] Future Scheduled 1945 COVID-19 VACCINE (1) [facility] - Test 00:00:00 [code = COVID-[address] VACCINE (1)] Encounters Start End Encounter Admission Attending Care Care Encounter Source Date/Time Date/Time Type Type Clinicians Facility Department ID 2021-01-09 [facility] [id number] [facility] [place] [facility] 00:00:00 Encounter [facility] 2020-03-22 Outpatient READMISSFAM ARMIJO ENCCLR ENCCLR [id number] ENCCLR 11:20:19 N 2021-01-31 2021-01-31 Outpatient READMIKANDY MCGILL ENCCLR ENCCLR [id number] ENCCLR 00:00:00 00:00:00 N CELIA 2021-01-10 2021-01-13 [facility] [id number] [facility] St 09:15:00 17:37:00 Encounter Isael Acevedo [facility] 2021-01-11 2021-01-11 Anesthesia [facility] [id number] [facility] St 13:06:00 13:06:00 [facility] 2021-01-11 2021-01-11 Surgery Kulwinder [facility] [id number] 00:00[facility]00 00:00:00 [facility] 2020-11-17 2020-11-17 [facility] [id number] [facility] 00:00:00 00[facility]00[facility] 2020-09-13 2020-09-13 Outpatient STLMLC STLMLC [id number] [facility] 2020-08-23 2020-08-23 Outpatient STLMLC STLC [id number] [facility] 2020-07-20 2020-07-20 Outpatient STLMLC STLMLC [id number] [facility] 2020-05-26 2020-05-26 Outpatient STLMLC STLC [id number] [facility] 2020-05-19 2020-05-19 Outpatient STLMLC STLC [id number] [facility] 2020-04-17 2020-04-17 Outpatient STLMLC STLC [id number] [facility] 2020-04-14 2020-04-14 Outpatient STLMLC STLMLC [id number] [facility] 2020-02-28 2020-02-28 Outpatient STLMLC STLC [id number] [facility] 2020-02-07 2020-02-07 [facility] [id number] 16:32:00 16:32:[address] [facility] - Drive [facility] l Medicine Outpati ent Clinics 2019-12-08 2019-12-08 [facility] [id number] 15:12:00 15:12:[address] [employer] [facility] - Drive [facility] l Medicine Outpati ent Clinics 2019-11-25 2019-11-25 [facility] [id number] 02:36:00 02:36:[address] Luke s - Drive [facility] Medicine l Medicine Outpati ent Clinics 2019-11-23 2019-11-23 [facility] [id number] 10:40:00 10:40:00 t [place] [employer] [facility] - Drive [facility] Medicine Medicine Outpati ent Clinics 2019-11-10 2019-11-10 [facility] [id number] 16:31:00 16:31:[address] [facility] [address] Luke s - Road [facility] Medicine Outpati ent Clinics 2019-10-14 2019-10-14 [facility] [id number] 11:15:00 11:15:00 t Specialty/U Alona kes - Specialty rology Memori a /Urology Clinic l Clinic Outpati ent Clinics 2019-08-23 2019-08-23 [facility] [id number] 15:20:00 15:20:00 t [place] [employer] [address] - Drive [facility] Medicine Outpati ent Clinics 2019-05-25 2019-05-25 Outpatient [facility] [id number] 13:40:00 13:40:00 t [facility] [facility] - Drive [facility] Outpati ent Clinics 2018-12-30 2018-12-30 Outpatient [facility] [id number] [facility] 12:18:00 12:18:00 2018-12-17 2018-12-17 Outpatient [facility] [id number] [facility] 10:25:00 10:25:00 2018-12-04 2018-12-03 Inpatient E [facility] [id number] [facility] 03:20:00 23:06:00 2018-11-10 2018-11-10 Emergency E [facility] [id number] [facility] 18:32:00 18:32:00 Results Test Description Test Time Test Comments Results Result [facility] e Comments RAD, CHEST, 1 Reason for VIEW, NON DEPT 7 exam:->Pulmonary 07:58:00 edemaShould this be performed at [facility]: bedside?->Yes MATT MATT : 1935 Sex: M *FINAL REPORT INDICATION: Pulmonary edema COMPARISON: 01/11/2021 TECHNIQUE: Single frontal view of the chest. FINDINGS: Lungs and pleura: Lungs are clear. No effusion.Heart and mediastinum: Normal heart size. Mild atherosclerotic calcification along the aortic arch..Osseous structures: No acute abnormality.Other: Sternotomy wires. Reasonably be shunt descends along the right anterior thorax. IMPRESSION: No pulmonary edema. Lungs are clear. Signed: Noa Avina Verified Date/Time: 01/13/2021 07:58:48 chest 1 view Interface, External [facility] portable / 7 Ris In - 01/13/2021 [facility] - bedside 07:58:00 8:01 AM CDTFINAL Medical REPORT PATIENT ID: Farrell [id number] INDICATION: Pulmonary edema COMPARISON: 01/11/2021 TECHNIQUE: Single frontal view of the chest. FINDINGS: Lungs and pleura: Lungs are clear. No effusion.Heart and mediastinum: Normal heart size. Mild atherosclerotic calcification along the aortic arch..Osseous structures: No acute abnormality.Other: Sternotomy wires. Reasonably be shunt descends along the right anterior thorax. IMPRESSION: No pulmonary edema. Lungs are clear. Signed: Noa Avina Verified Date/Time: 01/13/2021 07:58:48 Basic Metabolic Panel 2021-01-13 06:15:00 Test Item Value Reference Range Interpretation Comme nts Sodium (test code = 138 meq/L 006-065 0595-2) Potassium (test code = 3.8 meq/L 3.6-5.5 2823-3) Chloride (test code = 108 meq/L 98-106 H 2074-0) CO2 (test code = 2028-02) 21 meq/L 20-29 BUN (test code = 3094-0) 15 mg/dL 10- Creatinine (test code = 0.86 mg/dL 0.5-1.2 2160-0) Glucose (test code = 87 mg/dL 70-110 2345-7) Calcium (test code = 8.7 mg/dL 8.5-10.5 33495-9) EGFR (test code = 36429-9) 84 mL/min/1.73 sq m ESTIMATED GFR IS NOT ACCURATE CREATININE ROBSON JOCE IN PREDICTING GLOMERULAR FILT RATION RATE. ESTIMATED GFR IS NOT APPLICAB LE FOR DIALYSIS PATIEN TS. KANU (test code = KANU) [employer] Helper ID - [id number] ID - [id number] ID - [id number] ID - [id number] ID - [id number] ID - [id number] ID - [id number] ID - [id number] ID - [id number] ID - [id number] ID - [id number] ID - [id number] Lab Interpretation (test Abnormal code = 25719-0) [facility] METABOLIC [id number] 06:15:00 Test Item Value Reference Range Interpretation Comments SODIUM (BEAKER) 138 meq/L 135-148 (test code = 381) POTASSIUM (BEAKER) 3.8 meq/L 3.6-5.5 (test code = 379) CHLORIDE (BEAKER) 108 meq/L 98-106 H (test code = 382) CO2 (BEAKER) (test 21 meq/L 20-29 code = 355) BLOOD UREA NITROGEN 15 mg/dL 10-26 (BEAKER) (test code = 354) CREATININE (BEAKER) 0.86 mg/dL 0.50-1.20 (test code = 358) GLUCOSE RANDOM 87 mg/dL 70-110 (BEAKER) (test code = 652) CALCIUM (BEAKER) 8.7 mg/dL 8.5-10.5 (test code = 697) EGFR (BEAKER) (test 84 mL/min/1.73 ESTIMA ARTI GFR IS code = 1092) sq m NOT ACCURATE CREATININE CLEARANCE IN PREDICTING GLOMERULAR FILTRATION RATE . ESTIMATED GFR I S NOT APPLICABLE FOR DIALYSIS PATIEN TS. [employer] Helper ID - [id number] ID - [id number] ID - [id number] ID - [id number] ID - [id number] ID - [id number] ID - [id number] ID - [id number] ID - [id number] ID - [id number] ID - [id number] ID - [id number] with platelet count + automated [id number] 06:02:00 Test Item Value Reference Range Interpretation Comments WBC (test code = 6690-2) 9.8 See_Comment [A utomated message] The system [employer] generated this result transmitted ref erence range: 4.0 - 10 .0 K/L. The refe rence range was not u sed to interpret this result as normal/abnor mal. RBC (test code = 789-8) 3.77 See_Comment L [Au tomated message] The system [employer] generated this result transmitted ref erence range: 4.20 - 5 .80 M/L. The refe rence range was not u sed to interpret this result as normal/abnor mal. MCHC (test code = 786-4) 32.3 See_Comment L [A utomated message] The system [employer] generated this result transmitted ref erence range: 32.0 - 3 6.0 GM/DL. The refe rence range was not u sed to interpret this result as normal/abnor mal. Hematocrit (test code = 31.0 % 36-50 L 4544-3) MCV (test code = 787-2) 82.2 fL 82-99 MCH (test code = 785-6) 26.5 pg 27-33 L RDW (test code = 788-0) 19.8 % 12-15 H Platelets (test code = 367 See_Comment [Aut omated message] 777-3) The system [employer] generated this result transmitted ref erence range: 150 - 43 0 K/CU MM. The referen ce range was not u sed to interpret this result as normal/abnor mal. MPV (test code = 12.3 fL 6-11.5 H 30082-1) nRBC (test code = 413) 0 See_Comment [Aut omated message] The system [employer] generated this result transmitted ref erence range: 0 - 0 /1 00 WBC. The refere nce range was not u sed to interpret this result as normal/abnor mal. % Neutros (test code = 66 % 429) % Lymphs (test code = 20 % 430) % Monos (test code = 11 % 431) % Eos (test code = 432) 1 % % Baso (test code = 437) 0 % # Neutros (test code = 6.52 See_Comment [Aut omated message] 670) The system [employer] generated this result transmitted ref erence range: 1.80 - 8 .00 K/L. The refe rence range was not u sed to interpret this result as normal/abnor mal. # Lymphs (test code = 1.96 See_Comment [Auto mated message] 414) The system [employer] generated this result transmitted ref erence range: 1.48 - 4 .50 K/L. The refe rence range was not u sed to interpret this result as normal/abnor mal. # Monos (test code = 1.09 See_Comment [Autom ated message] 415) The system [employer] generated this result transmitted ref erence range: 0.00 - 1 .30 K/L. The refe rence range was not u sed to interpret this result as normal/abnor mal. # Eos (test code = 416) 0.08 See_Comment [Au tomated message] The system [employer] generated this result transmitted ref erence range: 0.00 - 0 .50 K/L. The refe rence range was not u sed to interpret this result as normal/abnor mal. # Baso (test code = 417) 0.03 See_Comment [A utomated message] The system [employer] generated this result transmitted ref erence range: 0.00 - 0 .20 K/L. The refe rence range was not u sed to interpret this result as normal/abnor mal. Immature 2 % 0-0 H Granulocytes-Relative (test code = 2801) Lab Interpretation (test Abnormal code = 55622-1) [facility] W/PLT COUNT & AUTO [id number] 06:02:00 Test Item Value Reference Range Interpretation Comments WHITE BLOOD CELL COUNT (BEAKER) 9.8 K/ L 4.0-10.0 (test code = 775) RED BLOOD CELL COUNT (BEAKER) 3.77 M/ L 4.20-5.80 L (test code = 761) HEMOGLOBIN (BEAKER) (test code = 10.0 GM/DL 13.0-16.8 L 410) HEMATOCRIT (BEAKER) (test code = 31.0 % 36.0-50.0 L 411) MEAN CORPUSCULAR VOLUME (BEAKER) 82.2 fL 82.0-99.0 (test code = 753) MEAN CORPUSCULAR HEMOGLOBIN 26.5 pg 27.0-33.0 L (BEAKER) (test code = 751) MEAN CORPUSCULAR HEMOGLOBIN CONC 32.3 GM/DL 32.0-36.0 (BEAKER) (test code = 752) RED CELL DISTRIBUTION WIDTH 19.8 % 12.0-15.0 H (BEAKER) (test code = 412) PLATELET COUNT (BEAKER) (test 367 K/CU MM 150-430 code = 756) MEAN PLATELET VOLUME (BEAKER) 12.3 fL 6.0-11.5 H (test code = 754) NUCLEATED RED BLOOD CELLS 0 /100 WBC 0-0 (BEAKER) (test code = 413) NEUTROPHILS RELATIVE PERCENT 66 % (BEAKER) (test code = 429) LYMPHOCYTES RELATIVE PERCENT 20 % (BEAKER) (test code = 430) MONOCYTES RELATIVE PERCENT 11 % (BEAKER) (test code = 431) EOSINOPHILS RELATIVE PERCENT 1 % (BEAKER) (test code = 432) BASOPHILS RELATIVE PERCENT 0 % (BEAKER) (test code = 437) NEUTROPHILS ABSOLUTE COUNT 6.52 K/ L 1.80-8.00 (BEAKER) (test code = 670) LYMPHOCYTES ABSOLUTE COUNT 1.96 K/ L 1.48-4.50 (BEAKER) (test code = 414) MONOCYTES ABSOLUTE COUNT (BEAKER) 1.09 K/ L 0.00-1.30 (test code = 415) EOSINOPHILS ABSOLUTE COUNT 0.08 K/ L 0.00-0.50 (BEAKER) (test code = 416) BASOPHILS ABSOLUTE COUNT (BEAKER) 0.03 K/ L 0.00-0.20 (test code = 417) IMMATURE GRANULOCYTES-RELATIVE 2 % 0-0 H PERCENT (BEAKER) (test code = 2801) [id number] 08:37:00 Test Item Value Reference Range Interpretation Comments Magnesium (test code = 2.0 mg/dL 1.5-3 83254-7) KANU (test code = KANU) [employer] Helper ID - DSENSONOperator ID - DSENSONOperator ID - DSENSONOperator ID - DSENSON Lab Interpretation Normal (test code = 26495-0) [facility] Test Item Value Reference Range Interpretation Comments MAGNESIUM (BEAKER) (test code = 2.0 mg/dL 1.5-3.0 627) [employer] Helper ID - DSENSONOperator ID - DSENSONOperator ID - DSENSONOperator ID - DSENSONTroponin [id number] 06:15:00 Test Item Value Reference Range Interpretation Comments Troponin I (test code = 5.36 ng/mL 0-0.15 HH 70939-1) KANU (test code = KANU) Troponin I (TnI) levels must be interpreted in the context of the presenting symptoms and the clinical findings. Elevated TnI levels indicate myocardial damage, but are not specific for ischemic heart disease. Elevated TnI levels are seen in patients with other cardiac conditions (including myocarditis and congestive heart failure), and slight TnI elevations occur in patients with other conditions, including sepsis, renal failure, acidosis, acute neurological disease, and persistent tachyarrhythmia.Opera tor ID - [id number] Lab Interpretation (test Abnormal code = 83870-4) [id number] 06:15:00 Test Item Value Reference Range Interpretation Comments TROPONIN I (BEAKER) (test code = 5.36 ng/mL 0.00-0.15 HH 397) Troponin I (TnI) levels must be interpreted in the context of the presenting symptoms and the clinical findings. Elevated TnI levels indicate myocardial damage, but are not specific for ischemic heart disease. Elevated TnI levels are seen in patients with other cardiac conditions (including myocarditis and congestive heart failure), and slight TnI elevations occur in patients with other conditions, including sepsis, renal failure, acidosis, acute neurological disease, and persistent tachyarrhythmia.[employer] Lining Finisher Helper ID - [id number] METABOLIC [id number] 06:14:00 Test Item Value Reference Range Interpretation Comments SODIUM (BEAKER) 138 meq/L 135-148 (test code = 381) POTASSIUM (BEAKER) 3.3 meq/L 3.6-5.5 L (test code = 379) CHLORIDE (BEAKER) 109 meq/L 98-106 H (test code = 382) CO2 (BEAKER) (test 21 meq/L 20-29 code = 355) BLOOD UREA NITROGEN 14 mg/dL 10-26 (BEAKER) (test code = 354) CREATININE (BEAKER) 0.85 mg/dL 0.50-1.20 (test code = 358) GLUCOSE RANDOM 94 mg/dL 70-110 (BEAKER) (test code = 652) CALCIUM (BEAKER) 8.5 mg/dL 8.5-10.5 (test code = 697) EGFR (BEAKER) (test 85 mL/min/1.73 ESTIMA ARTI GFR IS code = 1092) sq m NOT ACCURATE CREATININE CLEARANCE IN PREDICTING GLOMERULAR FILTRATION RATE . ESTIMATED GFR I S NOT APPLICABLE FOR DIALYSIS PATIEN TS. [employer] Finisher Helper ID - [id number] ID - [id number] ID - [id number] ID - [id number] ID - [id number] ID - [id number] ID - [id number] ID - [id number] ID - ZSBC04Gngrolkz ID - [id number] ID - [id number] ID - [id number] ID - [id number] W/PLT COUNT & AUTO [id number] 05:52:00 Test Item Value Reference Range Interpretation Comments WHITE BLOOD CELL COUNT (BEAKER) 12.2 K/ L 4.0-10.0 H (test code = 775) RED BLOOD CELL COUNT (BEAKER) 3.31 M/ L 4.20-5.80 L (test code = 761) HEMOGLOBIN (BEAKER) (test code = 9.0 GM/DL 13.0-16.8 L 410) HEMATOCRIT (BEAKER) (test code = 27.5 % 36.0-50.0 L 411) MEAN CORPUSCULAR VOLUME (BEAKER) 83.1 fL 82.0-99.0 (test code = 753) MEAN CORPUSCULAR HEMOGLOBIN 27.2 pg 27.0-33.0 (BEAKER) (test code = 751) MEAN CORPUSCULAR HEMOGLOBIN CONC 32.7 GM/DL 32.0-36.0 (BEAKER) (test code = 752) RED CELL DISTRIBUTION WIDTH 19.8 % 12.0-15.0 H (BEAKER) (test code = 412) PLATELET COUNT (BEAKER) (test 304 K/CU MM 150-430 code = 756) MEAN PLATELET VOLUME (BEAKER) 12.1 fL 6.0-11.5 H (test code = 754) NUCLEATED RED BLOOD CELLS 0 /100 WBC 0-0 (BEAKER) (test code = 413) NEUTROPHILS RELATIVE PERCENT 69 % (BEAKER) (test code = 429) LYMPHOCYTES RELATIVE PERCENT 16 % (BEAKER) (test code = 430) MONOCYTES RELATIVE PERCENT 12 % (BEAKER) (test code = 431) EOSINOPHILS RELATIVE PERCENT 0 % (BEAKER) (test code = 432) BASOPHILS RELATIVE PERCENT 0 % (BEAKER) (test code = 437) NEUTROPHILS ABSOLUTE COUNT 8.33 K/ L 1.80-8.00 H (BEAKER) (test code = 670) LYMPHOCYTES ABSOLUTE COUNT 1.99 K/ L 1.48-4.50 (BEAKER) (test code = 414) MONOCYTES ABSOLUTE COUNT (BEAKER) 1.47 K/ L 0.00-1.30 H (test code = 415) EOSINOPHILS ABSOLUTE COUNT 0.04 K/ L 0.00-0.50 (BEAKER) (test code = 416) BASOPHILS ABSOLUTE COUNT (BEAKER) 0.03 K/ L 0.00-0.20 (test code = 417) IMMATURE GRANULOCYTES-RELATIVE 2 % 0-0 H PERCENT (BEAKER) (test code = 2801) TROPONIN [id number] 22:26:00 Test Item Value Reference Range Interpretation Comments TROPONIN I (BEAKER) (test code = 5.26 ng/mL 0.00-0.15 [facility]) Troponin I (TnI) levels must be interpreted in the context of the presenting symptoms and the clinical findings. Elevated TnI levels indicate myocardial damage, but are not specific for ischemic heart disease. Elevated TnI levels are seen in patients with other cardiac conditions (including myocarditis and congestive heart failure), and slight TnI elevations occur in patients with other conditions, including sepsis, renal failure, acidosis, acute neurological disease, and persistent tachyarrhythmia.[employer] L[employer] Finisher Helper ID - [id number], CHEST, 1 VIEW, NON [id number] 15:31:00Reason for exam:->Screen for pneumoniaShould this be performed at the bedside?->Yes [facility] 1935 Sex: MFINAL REPORT History: Pneumonia. FINDINGS: Compared with November 18, 2015 , the heart and mediastinum are stable. Diffuse bilateral predominantly perihilar airspace opacity is present, possibly pneumonia or edema. Lung volumes have decreased. No large pleural effusions. No pneumothorax. Bones are unremarkable. IMPRESSION: 1. Moderate bilateral predominantly perihilar airspace opacity, possibly pneumonia or edema. Signed: Raúl Ham Verified Date/Time: 01/11/2021 15:31:58 Reading Location: [facility] Radiology Reading Room 2D Echo W/Doppler(CW/PW/Color)2021-01-11 12:57:10Ejection 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 Procedure Type of Study TTE procedure:2DECHO W DOPPLER(CW/PW/COLOR) (Routine) Indications:Initial evaluation of valvular or structural heart disease.Clinical HistorystrokehtMoraimat: 68 inches Weight : 64.86 kg (143 lbs) BSA: 1.77 m^2 BMI: 21.74 kg/m^2HR: 96 bpm BP: 159/89 mmHg - Results reported to: Summary Technically difficult study with poor endocardial delineation. Severely reduced LV systolic function with an estimated LVEF of 25- 29%. The mid inferolateral wall appears aneurysmal. The base to mid inferolateral, base to mid inferior and inferoapical hay are akinetic. Grade 1 diastolic dysfunction (impaired relaxation). Grossly normal RV size and systolic function. No evidence of pulmonary hypertension; estimated PA systolic pressure of 35 mmHg, assuming an RA pressure of 3 mm Hg. No pericardial effusion. No previous study to compare from. Signature Findings Left Ventricle No evidence of LV hypertrophy. Left ventricular size is normal. The mid inferolateral wall appears aneurysmal. The base to mid inferolateral, base to mid inferior and inferoapical hay are akinetic. Severely decreased overall LV systolic function. The visual ejection fraction was estimated 25-29 %. Grade 1 diastolic dysfunction (impaired relaxation and low-normal LA pressure). Left Atrium The left atrium is not well visualized. The left atrium appears mildly dilated. Right Ventricle The right ventricular chamber size and systolic function are within normal limits. Right Atrium RA size is normal. Aortic Valve The aortic valve is not well visualized, but appears calcified. There is mild aortic stenosis. There is no aortic regurgitation. Mitral Valve Moderate MV leaflet thickening. Yqpc-cf-wxrcdzdx mitral regurgitation. Tricuspid Valve The tricuspid valve is not well visualized. Mild tricuspid regurgitation. Estimated peak systolic PA pressure is 30- 35 mmHg (normal range) . Pulmonic Valve No evidence of pulmonary regurgitation. Aorta Aortic root size (SInus of Valsalva diameter) is indeterminate (not well seen) . Pericardium No pericardial effusion is visualized. IVC/SVC/PA/PV/Pleural The inferior vena cava size is indeterminate . Chambers/Structures Left Atrium LA Dimension: 5.98 cm Left Ventricle LVOT Diameter: 1.72 cm Right Atrium RA Systolic Pressure: 10 mmHg Right Ventricle RV Systolic Pressure: 26.63 mmHg Aorta Ao Root S of Meg.: 4.08 cm Doppler/Quantitative Measurements Mitral Valve MV Peak E- Wave: 1.18 m/s MV Peak A-Wave: 1.32 m/s P1/2t: 29.2 msec E/A Ratio: 0.89 Peak Velocity: 1.41 m/s Peak Gradient: 5.59 mmHg Mean Velocity: 0.87 m/s Deceleration Time: 101.4 msec Mean Gradient: 3.88 mmHg Area (continuity): 1.51 cm^2 MV Area (PHT): 7.54 cm^2 MR Velocity: 5.57 m/s MV VTI: 19 cm MV Toribio. Peak: Aortic Valve Peak Velocity: 2.82 m/s Mean Velocity: 2.33 m/s Peak Gradient: 31.74 mmHg Mean Gradient: 25.06 mmHg AV Area (continuity): 0.42 cm^2 AV VTI: 68.3 cm Cusp Separation: 0.74 cm AV DVI: 0.18 LVOT Peak Velocity: 0.65 m/s Peak Gradient: 1.69 mmHg Mean Velocity: 0.44 m/s Mean Gradient: 0.85 mmHg LVOT Diameter: 1.72 cm LVOT VTI: 12.35 cm LVOT Area: 2.32 cm^2 LVOT SV:28.68 mlLVOT CO: 2.75 l/min LVOT CI: 1.55 l/min/m^2 Tricuspid Valve Estimated RVSP: 29.12 mmHg Estimated RAP: 10 mmHg TR Velocity: 2.04 m/s TR Gradient: 16.63 mmHg Pulmonic Valve Estimated PASP: 26.63 mmHgCH[facility] (Asymptomatic ONLY)2021-01-11 08:30:00 Test Item Value Reference Range Interpretation Comments SARS-COV2/RT-PCR Negative Negative The SARS-Co V-2 (test code = target nucleic 15826-5) acids are not detected in this specimen. KANU (test code = The presence of KAUN) SARS-CoV-2/FLU/RSV viral nucleic acids cannot rule out co-infections or disease caused by other viral or bacterial pathogens. As with any molecular test, mutations within the target regions of the Xpert Xpress SARS-CoV-2/Flu/RSV test could affect primer and/or probe binding resulting in failure to detect the presence of virus or the virus being detected less predictably. False negative results may occur if the virus is present at levels below the analytical limit of detection in this specimen. This Xpert Xpress SARS-CoV-2/Flu/RSV test is a rapid, real-time RT-PCR test intended for the qualitative detection of nucleic acid from Xpert Xpress SARS-CoV-2/Flu/RSV in a nasopharyngeal swab specimen collected from individuals suspected of Xpert Xpress SARS-CoV-2/Flu/RSV by their healthcare provider. Results from [facility] Xpert Xpress SARS-CoV-2/Flu/RSV test should be correlated with the clinical history, epidemiological data, and other data available to the clinician evaluating the patient. Viral nucleic acid may persist in vivo, independent of virus viability. Detection of analyte target(s) does not imply that the corresponding virus(es) are infectious or are the causative agents for clinical symptoms. This test has not been Food and Drug Administration (FDA) cleared or approved and has been authorized by FDA under an Emergency Use Authorization (EUA). This EUA will be effective until the declaration that circumstances exist justifying the authorization of the emergency use of in vitro diagnostic tests for detection and/or diagnosis of COVID-19 is terminated under Section 564(b)(2) of the Act or the EUA is revoked under Section 564(g) of the Act. Fact Sheet for Healthcare Providers:https://www .[employer]/Document s/Xpert%20Xpress%20SA RS%20CoV-2/Fact%20She ets/3023902%20SARS-C OV-2%20HEALTHCARE%20P ROVIDERS%20FACT%20SHE ET.pdf Fact Sheet for Healthcare Patients:https://www. [employer]/Documents /Xpert%20Xpress%20SAR S%20Cov-2/Fact%20Shee ts/302-8123%20SARS-CO V-2%20PATIENT%20FACT% 20SHEET.pdf Lab Interpretation Normal (test code = 19260-3) [facility]2021-01-11 08:30:00 Test Item Value Reference Range Interpretation Comments SARS-COV2/RT-PCR Negative Negative The SARS-Co V-2 target (test code = 6721363) nuclei c acids are not detected in thi s specimen. The presence of SARS-CoV-2/FLU/RSV viral nucleic acids cannot rule out co- infections or disease caused by other viral or bacterial pathogens. As with any molecular test, mutations within the target regions of the Xpert Xpress SARS-CoV-2/Flu/RSV test could affect primer and/or probe binding resulting in failure to detect the presence of virus or the virus being detected less predictably. False negative results may occur if the virus is present at levels below the analytical limit of detection in this specimen.This Xpert Xpress SARS-CoV-2/Flu/RSV test is a rapid, real-time RT-PCR test intended for the qualitative detection of nucleic acid from Xpert Xpress SARS-CoV-2/Flu/RSV in a nasopharyngeal swab specimen collected from individuals suspected of Xpert Xpress SARS-CoV-2/Flu/RSV by their healthcare provider. Results from [facility] Xpert Xpress SARS-CoV-2/Flu/RSV test should be correlated with the clinical history, epidemiological data, and other data available to the clinician evaluating the patient. Viral nucleic acid may persist in vivo, independent of virus viability. Detection of analyte target(s) does not imply that the corresponding virus(es) are infectious or are the causative agents for clinical symptoms.This test has not been Food and Drug Administration (FDA) cleared or approved and has been authorized by FDA under an Emergency Use Authorization (EUA). This EUA will be effective until the declaration that circumstances exist justifying the authorization of the emergency use of in vitro diagnostic tests for detection and/or diagnosis of COVID-19 is terminated under Section 564(b)(2) of the Act or the EUA is revoked under Section 564(g) of the Act.Fact Sheet for Healthcare Providers :https://www.[employer]/Documents/Xpert%20Xpress%20SARS%20CoV-2/Fact%20Sheets/3 02-3902%63MKPB-DRC-5%20HEALTHCARE%20PROVIDERS%20FACT%20SHEET.pdfFact Sheet for Healthcare Patients:https://www.[employer] /Documents/Xpert%20Xpress%20SARS%20Cov-2/Fact%20Sheets/302-3801%85ZLWZ-DVB-8%20P ATIENT%20FACT%20SHEET.pdfB-type natriuretic [id number] 06:15:00 Test Item Value Reference Range Interpretation Comments BNP (test code = 01668-4) 3107 pg/mL 0-100 H KANU (test code = KANU) [employer] Finisher Helper ID - RYAN Lab Interpretation (test Abnormal code = 83916-9) [facility] [id number] 06:15:00 Test Item Value Reference Range Interpretation Comments TROPONIN I (BEAKER) (test code = 5.64 ng/mL 0.00-0.15 397) Troponin I (TnI) levels must be interpreted in the context of the presenting symptoms and the clinical findings. Elevated TnI levels indicate myocardial damage, but are not specific for ischemic heart disease. Elevated TnI levels are seen in patients with other cardiac conditions (including myocarditis and congestive heart failure), and slight TnI elevations occur in patients with other conditions, including sepsis, renal failure, acidosis, acute neurological disease, and persistent tachyarrhythmia.[employer] Lining Finisher Helper ID - LITOB-TYPE NATRIURETIC FACTOR (BNP)2021-01-11 06:15:00 Test Item Value Reference Range Interpretation Comments B-TYPE NATRIURETIC PEPTIDE 3107 pg/mL 0-100 H (BEAKER) (test code = 700) [employer] Finisher Helper ID - LITOProthrombin time/[id number] 06:04:00 Test Item Value Reference Interpretation Comments Range Protime (test code = 11.5 See_Comment Final 5902-2) Information (Auto Output) [Automated message] The system which generated this result transmitted reference range : 9.3 - 12.0 seconds. The reference range was not used to interpret this result as normal/abnormal . INR (test code = 1.04 See_Comment Final 6301-6) Information (Auto Output) [Automated message] The system which generated this result transmitted reference range : <=5.90. The reference range was not used to interpret this result as normal/abnormal . KANU (test code = RECOMMENDED KANU) COUMADIN/WARFARIN INR THERAPY RANGESSTANDARD DOSE: 2.0 - 3.0 Includes: PROPHYLAXIS for venous thrombosis, systemic embolization; TREATMENT for venous thrombosis and/or pulmonary embolus.HIGH RISK: Target INR is 2.5-3.5 for patients with mechanical heart valves. Lab Interpretation Normal (test code = 43481-0) [facility]/[id number] 06:04:00 Test Item Value Reference Range Interpretation Comments PROTIME (BEAKER) 11.5 seconds 9.3-12.0 Final Infor mation (test code = 759) (Auto Outp ut) INR (BEAKER) (test 1.04 See_Comment Final Inf ormation code = 370) (Auto Output) [Automated mess age] The system [employer] generated this result transmitted ref erence range: <=5.90. The reference range was not used to int erpret this result as normal/abnormal . RECOMMENDED COUMADIN/WARFARIN INR THERAPY RANGESSTANDARD DOSE: 2.0 - 3.0 Includes: PROPHYLAXIS forvenous thrombosis, systemic embolization; TREATMENT for venous thrombosis and/or pulmonary embolus.HIGH RISK: Target INR is 2.5-3.5 for patients with mechanical heart valves.Lipid [id number] 05:50:00 Test Item Value Reference Range Interpretation Comments Triglycerides (test 76 mg/dL code = 2571-8) Cholesterol (test code 101 mg/dL = 2093-3) HDL (test code = 33 mg/dL 5-9) LDL Calculated (test 53 mg/dL code = 83396-7) KANU (test code = KANU) Triglyceride Reference Range: Low Risk <150 Borderline 150-199 High Risk 200-499 Very High Risk >=500 Cholesterol Reference Range: Low Risk <200 Borderline 200-239 High Risk >240 HDL Cholesterol Reference Range: Low Risk >=60 High Risk <40 LDL Cholesterol Reference Range: Optimal <100 Near Optimal 100-129 Borderline 130-159 High 160-189 Very High >=190 [employer] L[employer] Finisher Helper ID - LITOOperator ID - LITOOperator ID - RYAN [facility]LIP[facility] [id number] 05:50:00 Test Item Value Reference Range Interpretation Comments TRIGLYCERIDES (BEAKER) (test code = 76 mg/dL 540) CHOLESTEROL (BEAKER) (test code = 101 mg/dL 631) HDL CHOLESTEROL (BEAKER) (test code 33 mg/dL = 976) LDL CHOLESTEROL CALCULATED (BEAKER) 53 mg/dL (test code = 633) Triglyceride Reference Range: Low Risk <150 Borderline 150-199 High Risk 200-499 Very High Risk >=500Cholesterol Reference Range: Low Risk <200 Borderline 200-239 High Risk >240HDL Cholesterol Reference Range: Low Risk >=60 High Risk <40LDL Cholesterol Reference Range: Optimal <100 Near Optimal 100-129 Borderline 130-159 High 160-189 Very High >=190 [employer] L[employer] Finisher Helper ID - LITOOperator ID - LITOOperator ID - LITOTROPONIN I 2021-01-11 02:58:00 Test Item Value Reference Range Interpretation Comments TROPONIN I (BEAKER) (test code = 6.38 ng/mL 0.00-0.15 397) Troponin I (TnI) levels must be interpreted in the context of the presenting symptoms and the clinical findings. Elevated TnI levels indicate myocardial damage, but are not specific for ischemic heart disease. Elevated TnI levels are seen in patients with other cardiac conditions (including myocarditis and congestive heart failure), and slight TnI elevations occur in patients with other conditions, including sepsis, renal failure, acidosis, acute neurological disease, and persistent tachyarrhythmia.[employer] L[employer] Finisher Helper ID - LITOBASIC METABOLIC PANEL 2021-01-11 01:29:00 Test Item Value Reference Range Interpretation Comments SODIUM (BEAKER) 140 meq/L 135-148 (test code = 381) POTASSIUM (BEAKER) 4.1 meq/L 3.6-5.5 (test code = 379) CHLORIDE (BEAKER) 113 meq/L 98-106 H (test code = 382) CO2 (BEAKER) (test 18 meq/L 20-29 L code = 355) BLOOD UREA NITROGEN 15 mg/dL 10-26 (BEAKER) (test code = 354) CREATININE (BEAKER) 0.90 mg/dL 0.50-1.20 (test code = 358) GLUCOSE RANDOM 83 mg/dL 70-110 (BEAKER) (test code = 652) CALCIUM (BEAKER) 9.0 mg/dL 8.5-10.5 (test code = 697) EGFR (BEAKER) (test 80 mL/min/1.73 ESTIMA ARTI GFR IS code = 1092) sq m NOT ACCURATE CREATININE CLEARANCE IN PREDICTING GLOMERULAR FILTRATION RATE . ESTIMATED GFR I S NOT APPLICABLE FOR DIALYSIS PATIEN TS. [employer] L[employer] Finisher Helper ID - LITOOperator ID - LITOOperator ID - LITOOperator ID - LITOOperator ID - LITOOperator ID - LITOOperator ID - LITOOperator ID - LITOOperator ID - LITOOperator ID - [id number] 01:29:00 Test Item Value Reference Range Interpretation Comments MAGNESIUM (BEAKER) (test code = 2.2 mg/dL 1.5-3.0 627) [employer] Finisher Helper ID - LITOOperator ID - LITOOperator ID - LITOOperator ID - RYAN [id number] 01:25:00 Test Item Value Reference Range Interpretation Comments Phosphorus (test code = 2.5 mg/dL 2.5-4.5 2777-1) KANU (test code = KANU) [employer] Finisher Helper ID - RYAN Lab Interpretation (test Normal code = 68281-2) [facility] 01:25:00 Test Item Value Reference Range Interpretation Comments PHOSPHORUS (BEAKER) (test code = 2.5 mg/dL 2.5-4.5 604) [employer]isher Helper ID - LITOCBC W/PLT COUNT & AUTO [id number] 01:16:00 Test Item Value Reference Range Interpretation Comments WHITE BLOOD CELL COUNT (BEAKER) 16.3 K/ L 4.0-10.0 H (test code = 775) RED BLOOD CELL COUNT (BEAKER) 3.66 M/ L 4.20-5.80 L (test code = 761) HEMOGLOBIN (BEAKER) (test code = 10.0 GM/DL 13.0-16.8 L 410) HEMATOCRIT (BEAKER) (test code = 30.1 % 36.0-50.0 L 411) MEAN CORPUSCULAR VOLUME (BEAKER) 82.2 fL 82.0-99.0 (test code = 753) MEAN CORPUSCULAR HEMOGLOBIN 27.3 pg 27.0-33.0 (BEAKER) (test code = 751) MEAN CORPUSCULAR HEMOGLOBIN CONC 33.2 GM/DL 32.0-36.0 (BEAKER) (test code = 752) RED CELL DISTRIBUTION WIDTH 19.9 % 12.0-15.0 H (BEAKER) (test code = 412) PLATELET COUNT (BEAKER) (test 312 K/CU MM 150-430 code = 756) MEAN PLATELET VOLUME (BEAKER) 12.3 fL 6.0-11.5 H (test code = 754) NUCLEATED RED BLOOD CELLS 0 /100 WBC 0-0 (BEAKER) (test code = 413) NEUTROPHILS RELATIVE PERCENT 82 % (BEAKER) (test code = 429) LYMPHOCYTES RELATIVE PERCENT 7 % (BEAKER) (test code = 430) MONOCYTES RELATIVE PERCENT 8 % (BEAKER) (test code = 431) EOSINOPHILS RELATIVE PERCENT 0 % (BEAKER) (test code = 432) BASOPHILS RELATIVE PERCENT 0 % (BEAKER) (test code = 437) NEUTROPHILS ABSOLUTE COUNT 13.43 K/ L 1.80-8.00 H (BEAKER) (test code = 670) LYMPHOCYTES ABSOLUTE COUNT 1.21 K/ L 1.48-4.50 L (BEAKER) (test code = 414) MONOCYTES ABSOLUTE COUNT (BEAKER) 1.31 K/ L 0.00-1.30 H (test code = 415) EOSINOPHILS ABSOLUTE COUNT 0.02 K/ L 0.00-0.50 (BEAKER) (test code = 416) BASOPHILS ABSOLUTE COUNT (BEAKER) 0.04 K/ L 0.00-0.20 (test code = 417) IMMATURE GRANULOCYTES-RELATIVE 2 % 0-0 H PERCENT (BEAKER) (test code = 2801) ABORH, [id number] 14:12:00 Test Item Value Reference Range Interpretation Comments ABO Grouping (test code = 2588) A Rh Factor (test code = 2589) POS [facility], [id number] 12:45:00 Test Item Value Reference Range Interpretation Comments ABO/RH AUTOMATED (BEAKER) (test A POSITIVE ECHO code = 2260) Ab Scrn (test code = 890-4) NEGATIVE ECHO [facility] HospitalHepatic function [id number] 12:12:00 Test Item Value Reference Range Interpretation Comments Protein, Total (test 6.0 See_Comment [Autom ated code = 2885-2) message] The system which generated this result transmit arti reference range : 6.0 - 8.5 gm/dL . The reference range was not u sed to interpret th is result as normal/abnormal . Albumin (test code = 2.6 g/dL 3.5-5 L 98608-5) Total Bilirubin (test 0.8 mg/dL 0.1-1.2 code = 1975-2) Bilirubin, Direct 0.4 mg/dL 0-0.4 (test code = 1968-7) Alkaline Phosphatase 73 U/L 30-115 (test code = 6768-6) AST (test code = 31 U/L 5-40 1920-8) ALT (test code = 31 U/L 5-50 1742-6) KANU (test code = KANU) [employer] Helper ID - [id number] ID - [id number] ID - zrif94Ajlihhhb ID - rkuz04Udviwvuv ID - hgra08Seqgfzep ID - hayv00Zghskkbs ID - apji23Kesnhoon ID - kgir63Bdpcevqa ID - rleh48Ezoifrpl ID - [id number] Lab Interpretation Abnormal (test code = 82084-5) [facility] Hospital[facility]AT[facility] FUNCTION [id number] 12:12:00 Test Item Value Reference Range Interpretation Comments TOTAL PROTEIN (BEAKER) (test code = 6.0 gm/dL 6.0-8.5 770) ALBUMIN (BEAKER) (test code = 1145) 2.6 g/dL 3.5-5.0 L BILIRUBIN TOTAL (BEAKER) (test code 0.8 mg/dL 0.1-1.2 = 377) BILIRUBIN DIRECT (BEAKER) (test 0.4 mg/dL 0.0-0.4 code = 706) ALKALINE PHOSPHATASE (BEAKER) (test 73 U/L 30-115 code = 346) AST (SGOT) (BEAKER) (test code = 31 U/L 5-40 353) ALT (SGPT) (BEAKER) (test code = 31 U/L 5-50 347) Asbestos Brake Lining Finisher Helper ID - [id number] ID - [id number] ID - [id number] ID - [id number] ID - [id number] ID - [id number] ID - [id number] ID - [id number] ID - [id number] ID - [id number] METABOLIC [id number] 12:06:00 Test Item Value Reference Range Interpretation Comments SODIUM (BEAKER) 140 meq/L 135-148 (test code = 381) POTASSIUM (BEAKER) 3.6 meq/L 3.6-5.5 (test code = 379) CHLORIDE (BEAKER) 112 meq/L 98-106 H (test code = 382) CO2 (BEAKER) (test 21 meq/L 20-29 code = 355) BLOOD UREA NITROGEN 21 mg/dL 10-26 (BEAKER) (test code = 354) CREATININE (BEAKER) 0.95 mg/dL 0.50-1.20 (test code = 358) GLUCOSE RANDOM 74 mg/dL 70-110 (BEAKER) (test code = 652) CALCIUM (BEAKER) 8.6 mg/dL 8.5-10.5 (test code = 697) EGFR (BEAKER) (test 75 mL/min/1.73 ESTIMA ARTI GFR IS code = 1092) sq m NOT ACCURATE CREATININE CLEARANCE IN PREDICTING GLOMERULAR FILTRATION RATE . ESTIMATED GFR I S NOT APPLICABLE FOR DIALYSIS PATIEN TS. Asbestos Brake Lining Finisher Helper ID - [id number] ID - [id number] ID - [id number] ID - [id number] ID - [id number] ID - [id number] ID - [id number] ID - [id number] ID - [id number] W/PLT COUNT & AUTO [id number] 11:52:00 Test Item Value Reference Range Interpretation Comments WHITE BLOOD CELL COUNT (BEAKER) 14.8 K/ L 4.0-10.0 H (test code = 775) RED BLOOD CELL COUNT (BEAKER) 3.21 M/ L 4.20-5.80 L (test code = 761) HEMOGLOBIN (BEAKER) (test code = 8.8 GM/DL 13.0-16.8 L 410) HEMATOCRIT (BEAKER) (test code = 26.7 % 36.0-50.0 L 411) MEAN CORPUSCULAR VOLUME (BEAKER) 83.2 fL 82.0-99.0 (test code = 753) MEAN CORPUSCULAR HEMOGLOBIN 27.4 pg 27.0-33.0 (BEAKER) (test code = 751) MEAN CORPUSCULAR HEMOGLOBIN CONC 33.0 GM/DL 32.0-36.0 (BEAKER) (test code = 752) RED CELL DISTRIBUTION WIDTH 19.1 % 12.0-15.0 H (BEAKER) (test code = 412) PLATELET COUNT (BEAKER) (test 270 K/CU MM 150-430 code = 756) MEAN PLATELET VOLUME (BEAKER) 12.2 fL 6.0-11.5 H (test code = 754) NUCLEATED RED BLOOD CELLS 0 /100 WBC 0-0 (BEAKER) (test code = 413) NEUTROPHILS RELATIVE PERCENT 78 % (BEAKER) (test code = 429) LYMPHOCYTES RELATIVE PERCENT 10 % (BEAKER) (test code = 430) MONOCYTES RELATIVE PERCENT 9 % (BEAKER) (test code = 431) EOSINOPHILS RELATIVE PERCENT 0 % (BEAKER) (test code = 432) BASOPHILS RELATIVE PERCENT 0 % (BEAKER) (test code = 437) NEUTROPHILS ABSOLUTE COUNT 11.62 K/ L 1.80-8.00 H (BEAKER) (test code = 670) LYMPHOCYTES ABSOLUTE COUNT 1.41 K/ L 1.48-4.50 L (BEAKER) (test code = 414) MONOCYTES ABSOLUTE COUNT (BEAKER) 1.33 K/ L 0.00-1.30 H (test code = 415) EOSINOPHILS ABSOLUTE COUNT 0.02 K/ L 0.00-0.50 (BEAKER) (test code = 416) BASOPHILS ABSOLUTE COUNT (BEAKER) 0.04 K/ L 0.00-0.20 (test code = 417) IMMATURE GRANULOCYTES-RELATIVE 3 % 0-0 H PERCENT (BEAKER) (test code = 2801) [id number] 00:00:00Ordered by an unspecified provider.[facility]
--- NOTE | 2021-02-13 14:17 | RAD REPORT ---
EXAM DESCRIPTION: RAD - Chest Single View - 02/13/2021 2:12 pm CLINICAL HISTORY: COUGH COMPARISON: January 07 TECHNIQUE: AP portable chest image was obtained 02/13/2021 2:12 pm using portable supine technique. FINDINGS: Lung volumes normal range. Hazy opacification is present in the right lung field. Left yarelis g field is not significantly different from comparison. Heart and vasculature are normal. Minimal ple ural effusion on the right is suspected. Pleural fluid is difficult to assess in supine positioning. There is no pneumothorax identifiable. Shunt tube mean overlies the right-side of the chest. Sternotomy wires are in place. No acute bony ab normality seen. No acute aortic findings suspected. IMPRESSION: Suspected right lung field pneumonia. Minimal pleural fluid may be present as well.
--- NOTE | 2021-02-13 14:41 | RAD REPORT ---
EXAM DESCRIPTION: RAD - Hip Right 2 View - 02/13/2021 2:13 pm CLINICAL HISTORY: PAIN, fall with hip pain, recent surgery in December for hip fracture COMPARISON: Hip Right 2 View dated 12/27/2020; Femur Right dated 12/27/2020; Hip In Or dated 12/29/2020 FINDINGS: AP and cross-table lateral views were obtained. Surgical hardware is present from prior fracture repair. No change in positioning of the fracture fatmata dware identifiable. Prior imaging showed intertrochanteric fracture. The current examination shows spiral fracture extend ing into the proximal shaft of the femur extending a few mm distal to the tip of the intramedullary f ixation harpreet. No distraction or angulation component. This new proximal shaft spiral fracture line shows no periosteal reaction or callus formation. This is believed to be a new fracture. IMPRESSION: Spiral fracture changes are present extending into the proximal shaft. The distal most f racture component is a few mm distal to the intramedullary fracture hardware. Proximal shaft fracture is new from the date of the surgery and is presumably related to the acute fa ll.
--- NOTE | 2021-02-13 14:43 | RAD REPORT ---
EXAM DESCRIPTION: RAD - Pelvis - 02/13/2021 2:13 pm CLINICAL HISTORY: fall, recent fixation of proximal right femur fracture COMPARISON: Pelvis dated 12/27/2020; Hip Right 2 View dated 12/27/2020; Femur Right dated 12/27/2020; H ip In Or dated 12/29/2020 TECHNIQUE: AP imaging of the pelvis was obtained. FINDINGS: Lower lumbar degenerative changes are present. No fracture of the bony pelvis seen. Left h ip joint and proximal most left femur show no acute findings. Hardware is in place from prior right intertrochanteric fracture. No change in positioning of the fatmata dware or fracture fragments. Proximal shaft of the right femur is not imaged on this study. IMPRESSION: No fracture of the pelvis. No acute pelvic or hip joint finding.
[2021-02-13 14:47] LABS: Absolute Lymphocytes (CBC) 2.2 K/uL (0.7-4.9); Basophils % 0.6 % (0-1.3); Lymphocytes % 23.8 % (15.3-44.8); MPV 10.2 fL (7.6-11.3); Protime INR 1.31; RBC Red Blood Cell Count 4.36 M/uL (4.33-5.43)
[2021-02-13 15:00] LABS: Albumin 3.1 g/dL (3.4-5.0); Bilirubin Direct 0.7 mg/dL (0-0.2); Bilirubin Total 1.3 mg/dL (0.2-1.0); Magnesium 2.7 mg/dL (1.8-2.4); Potassium 3.4 mmol/L (3.5-5.1); Protein, Total 8.6 g/dL (6.4-8.2); Troponin (Emerg Dept Use Only) 0.11 ng/mL (0.0-0.045)
[2021-02-13] MEDS ORDERED: NA CHLORIDE 0.9% 1,000 ML ONE (15:18)
--- NOTE | 2021-02-13 15:41 | EDPHYS ---
Physician Documentation [facility] Name: Joey Ramsey Age: 85 yrs Sex: Male : 1935 Arrival Date: 02/13/2021 Time: 13:26 Bed 13 Private MD: ED Physician Mehdi Santos HPI: 02/13 15:30 This 85 yrs old Male presents to ER via EMS with complaints of Hip Injury. mychal 15:30 The patient or guardian reports decreased range of motion, pain. that occurred at home, mychal sustained from a fall, There is no obvious deformity, The patient is not able to ambulate. Patient is not able to bear weight. There is no radiation of the patient's discomfort. The complaints affect the right hip. Onset: The symptoms/episode began/occurred this morning. Modifying factors: The symptoms are alleviated by remaining still, the symptoms are aggravated by any movement, weight bearing. Associated signs and symptoms: Loss of consciousness: the patient experienced no loss of consciousness, Pertinent positives:. Severity of symptoms: At their worst the symptoms were mild, moderate, in the emergency department the symptoms have improved, mildly. The patient has experienced similar episodes in the past, a few times. 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 - Family history:: not pertinent. - Social history:: Smoking status: unknown. ROS: 15:30 Constitutional: Negative for fever, chills, and weight loss, Eyes: Negative for injury, mychal pain, redness, and discharge, ENT: Negative for injury, pain, and discharge, Neck: Negative for injury, pain, and swelling, Cardiovascular: Negative for chest pain, palpitations, and edema, Abdomen/GI: Negative for abdominal pain, nausea, vomiting, diarrhea, and constipation, Back: Negative for injury and pain, : Negative for injury, bleeding, discharge, and swelling, Skin: Negative for injury, rash, and discoloration, Neuro: Negative for headache, weakness, numbness, tingling, and seizure, Psych: Negative for depression, anxiety, suicide ideation, homicidal ideation, and hallucinations, Allergy/Immunology: Negative for hives, rash, and allergies, Endocrine: Negative for neck swelling, polydipsia, polyuria, polyphagia, and marked weight changes, Hematologic/Lymphatic: Negative for swollen nodes, abnormal bleeding, and unusual bruising. 15:30 Respiratory: Positive for cough. 15:30 MS/extremity: Positive for decreased range of motion, pain, tenderness, of the right hip. Exam: 15:30 Constitutional: This is a well developed, well nourished patient who is awake, alert, mychal and in no acute distress. Head/Face: Normocephalic, atraumatic. Eyes: Pupils equal round and reactive to light, extra-ocular motions intact. Lids and lashes normal. Conjunctiva and sclera are non-icteric and not injected. Cornea within normal limits. Periorbital areas with no swelling, redness, or edema. ENT: Nares patent. No nasal discharge, no septal abnormalities noted. Tympanic membranes are normal and external auditory canals are clear. Oropharynx with no redness, swelling, or masses, exudates, or evidence of obstruction, uvula midline. Mucous membranes moist. Neck: Trachea midline, no thyromegaly or masses palpated, and no cervical lymphadenopathy. Supple, full range of motion without nuchal rigidity, or vertebral point tenderness. No Meningismus. Chest/axilla: Normal chest wall appearance and motion. Nontender with no deformity. No lesions are appreciated. Cardiovascular: Regular rate and rhythm with a normal S1 and S2. No gallops, murmurs, or rubs. Normal PMI, no JVD. No pulse deficits. Abdomen/GI: Soft, non-tender, with normal bowel sounds. No distension or tympany. No guarding or rebound. No evidence of tenderness throughout. Back: No spinal tenderness. No costovertebral tenderness. Full range of motion. Male : Normal genitalia with no discharge or lesions. Skin: Warm, dry with normal turgor. Normal color with no rashes, no lesions, and no evidence of cellulitis. Neuro: Awake and alert, GCS 15, oriented to person, place, time, and situation. Cranial nerves II-XII grossly intact. Motor strength 5/5 in all extremities. Sensory grossly intact. Cerebellar exam normal. Normal gait. Psych: Awake, alert, with orientation to person, place and time. Behavior, mood, and affect are within normal limits. 15:30 ECG was reviewed by the Attending Physician. 15:30 Respiratory: the patient does not display signs of respiratory distress, Respirations: no acute changes, Breath sounds: rhonchi, that are mild, are heard in the left posterior lower lobe. Vital Signs: 13:27 BP 100 / 68; Pulse 110; Resp 18; ss 13:45 BP 111 / 84; Pulse 99; Resp 20; Pulse Ox 91% ; jl7 13:51 BP 97 / 64; Pulse 109; Temp 97.3(TE); ss 14:15 BP 108 / 92; Pulse 108; Resp 19; Pulse Ox 97% ; jl7 15:28 BP 124 / 75; Pulse 110; Resp 21; Pulse Ox 98% on R/A; jl7 16:30 BP 124 / 82; Pulse 106; Resp 23; Pulse Ox 99% ; jl7 17:30 BP 118 / 87; Pulse 108; Resp 21; Pulse Ox 99% ; jl7 18:20 BP 95 / 68; Pulse 116; Resp 23; Pulse Ox 98% ; jl7 Franck Coma Score: 13:26 Eye Response: spontaneous(4). Verbal Response: oriented(5). Motor Response: obeys ss commands(6). Total: 15. 14:15 Eye Response: spontaneous(4). Verbal Response: oriented(5). Motor Response: obeys jl7 commands(6). Total: 15. 15:28 Eye Response: spontaneous(4). Verbal Response: oriented(5). Motor Response: obeys jl7 commands(6). Total: 15. Trauma Score (Adult): 13:26 Eye Response: spontaneous(1); Verbal Response: oriented(1); Motor Response: obeys ss commands(2); Systolic BP: > 89 mm Hg(4); Respiratory Rate: 10 to 29 per min(4); [place] Score: 15; Trauma Score: 12 MDM: 13:42 Patient medically screened. [facility] 15:34 Differential diagnosis: spiral fx right hip periprosthetic. Data reviewed: vital signs, [facility] nurses notes, lab test result(s), EKG, radiologic studies, CT scan, plain films. 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 Test interpretation: by ED physician or midlevel provider: ECG, plain radiologic studies. Counseling: I had a detailed discussion with the patient and/or guardian regarding: the historical points, exam findings, and any diagnostic results supporting the discharge/admit diagnosis, lab results, radiology results, the need to transfer to another facility, for higher level of care, [facility] does not immediately have the required specialist. 02/13 13:43 Order name: Basic Metabolic Panel; Complete Time: 15:23 [facility] 02/13 13:43 Order name: CBC with Diff [facility] 02/13 13:43 Order name: LFT's; Complete Time: 15:23 [facility] 02/13 13:43 Order name: Magnesium; Complete Time: 15:23 [facility] 02/13 13:43 Order name: NT PRO-BNP; Complete Time: 15:23 [facility] 02/13 13:43 Order name: PT-INR; Complete Time: 15:23 [facility] 02/13 13:43 Order name: Troponin (emerg Dept Use Only); Complete Time: 15:23 [facility] 02/13 13:43 Order name: XRAY Chest (1 view); Complete Time: 15:23 [facility] 02/13 13:43 Order name: Pelvis XRAY; Complete Time: 15:23 [facility] 02/13 13:48 Order name: Hip Right 2 View; Complete Time: 15:23 [facility] 02/13 15:27 Order name: Blood Culture Adult (2) [facility] 02/13 17:52 Order name: SARS-COV-2 RT PCR [facility] 02/13 13:43 Order name: EKG; Complete Time: 13:44 [facility] 02/13 13:43 Order name: Cardiac monitoring; Complete Time: 14:32 [facility] 02/13 13:43 Order name: EKG - Nurse/Tech; Complete Time: 13:56 [facility] 02/13 13:43 Order name: IV Saline Lock; Complete Time: 14:28 [facility] 02/13 13:43 Order name: Labs collected and sent; Complete Time: 14:28 [facility] 02/13 13:43 Order name: O2 Per Protocol; Complete Time: 14:28 [facility] 02/13 13:43 Order name: O2 Sat Monitoring; Complete Time: 14:28 [facility] EC:30 Rate is 111 beats/min. Rhythm is regular. QRS [place] is Normal. SD interval is normal. mychal QRS interval is normal. QT interval is normal. No Q waves. T waves are Normal. ST Segment is depressed in leads II, III, aVF, V5, V6. Clinical impression: Sinus tachycardia. Interpreted by me. Reviewed by me. Administered Medications: 15:26 Drug: NS 0.9% 1000 ml Route: IV; Rate: 125 ml/hr; Site: right forearm; jl7 16:52 Follow up: IV Status: Infusion continued upon transfer jl7 16:07 Drug: NS 0.9% 500 ml Route: IV; Rate: bolus; Site: right forearm; jl7 16:50 Follow up: Response: No adverse reaction; IV Status: Completed infusion; IV Intake: jl7 500ml 16:07 Drug: Rocephin (cefTRIAXone) 1 grams Route: IV; Rate: per protocol; Site: right forearm;7 16:10 Follow up: Response: No adverse reaction; IV Status: Completed infusion jl7 16:51 Drug: Zithromax (azithromycin) 500 mg Route: IVPB; Infused Over: 1 hrs; Site: right jl7 forearm; 17:51 Follow up: Response: No adverse reaction; IV Status: Completed infusion jl7 Disposition Summary: 02/13/21 15:41 Transfer Ordered Transfer Location: [facility] mychal Reason: Higher level of care mychal Condition: Fair mychal Problem: new mychal Symptoms: have improved mychal Accepting Physician: to Medicine, consult ortho(02/13/21 19:03) jl7 Diagnosis - Fall due to bumping against object mychal - Abnormal levels of other serum enzymes - troponin 0.11 mychal - Displaced spiral fracture of shaft of left femur - periprosthetic mychal - Pneumonia, unspecified organism - right lung mychal Forms: - Medication Reconciliation Form mychal - SBAR form mychal Signatures: Dispatcher [employer] EDAK Mehdi Santos MD MD cha Smirch, Shelby, RN RN Eliza Wong RN RN jl7 Corrections: (The following items were deleted from the chart) 13:48 13:44 Hip Left 2 View+RAD.RAD.BRZ ordered. EDMS EDMS 16:32 15:28 CORONAVIRUS+MR.LAB.BRZ ordered. EDAK EDMS 19:03 15:41 to Medicine, consult ortho mychal jacobs
--- NOTE | 2021-02-13 15:41 | ER ---
Nurse's Notes [facility] Name: Joey Ramsey Age: 85 yrs Sex: Male : 1935 Arrival Date: 02/13/2021 Time: 13:26 Bed 13 Private MD: Diagnosis: Fall due to bumping against object;Abnormal levels of other serum enzymes-troponin 0.11;Displaced spiral fracture of shaft of left femur-periprosthetic;Pneumonia, unspecified organism-right lung Presentation: 02/13 13:26 Chief complaint: EMS states: R hip pain after falling from a standing position at 0300 ss this morning. Care prior to arrival: None. Mechanism of Injury: Fall from standing position. Trauma event details: Injury occurred in the [facility], Injury occurred: at home. Injury occurred: February 13, 2021. 13: Acuity: VINAY 3 ss 13:26 Method Of Arrival: EMS: [facility] ss 13:28 Coronavirus screen: Client denies travel out of the [place] in the last 14 days. Ebola ss Screen: Patient denies exposure to infectious person. Patient denies travel to an Ebola-affected area in the 21 days before illness onset. Initial Sepsis Screen: Does the patient meet any 2 criteria? No. Patient's initial sepsis screen is negative. Does the patient have a suspected source of infection? No. Patient's initial sepsis screen is negative. Risk Assessment: Do you want to hurt yourself or someone else? Patient reports no desire to harm self or others. Onset of symptoms was February 13, 2021. Trauma Activation: Not Applicable Physician: ED Physician; Name: ; Notified At: ; Arrived At: Physician: General Surgeon; Name: ; Notified At: ; Arrived At: Physician: Radiology; Name: ; Notified At: ; Arrived At: Physician: Respiratory; Name: ; Notified At: ; Arrived At: Physician: Lab; Name: ; Notified At: ; Arrived At: Historical: - Allergies: :28 No Known Allergies; ss - PMHx: cardia by barrett; CVA; High Cholesterol; TIA; ss - Immunization history: Last tetanus immunization: unknown. - Family history:: not pertinent. - Social history:: Smoking status: unknown. Screenin: Abuse screen: Denies threats or abuse. Denies injuries from another. Tuberculosis ss screening: Never had TB. 15:28 Nutritional screening: No deficits noted. Fall Risk Fall in past 12 months (25 points). jl7 Secondary diagnosis (15 points) TIA, CVA, IV access (20 points). Ambulatory Aid- None/Bed Rest/Nurse Assist (0 pts). Gait- Weak (10 pts.). Mental Status- Overestimates/Forgets Limitations (15 pts.). Total Que[place] Fall Scale indicates High Risk Score (45 or more points). Fall prevention measures have been instituted. Side Rails Up X 2 Placed Close to Nursing Station Frequent Obs/Assessments Occuring As available patient and family educated on Fall Prevention Program and Strategies. Primary Survey: 13:26 NO uncontrolled hemorrhage observed. A: The patient is alert. Airway: patent, No ss supplemental oxygen in use on arrival. Oral cavity: clear, Trachea midline. Breathing/Chest: Respiratory pattern: regular, Respiratory effort: spontaneous, unlabored, Chest inspection: symmetrical rise and fall of the chest. Circulation: Skin temperature: warm. Disability Alert. Exposure/Environment: There is no evidence of uncontrolled external bleeding. 13:45 Reassessment Airway Airway Patent Breathing/Chest Respiratory pattern Regular jl7 Respiratory effort Spontaneous Unlabored Chest inspection Symmetrical. Assessment: 13:45 General: Appears in no apparent distress. uncomfortable, Behavior is calm, cooperative, jl7 appropriate for age. Pain: Complains of pain in right hip. Neuro: Level of Consciousness is awake, alert, obeys commands. Cardiovascular: Denies chest pain, Patient's skin is warm and dry. Respiratory: Airway is patent Respiratory effort is even, labored, Respiratory pattern is symmetrical, tachypnea. EENT: Pt hard of hearing. Derm: Skin is pink, warm \T\ dry. 15:00 Reassessment: Patient appears in no apparent distress at this time. No changes from jl7 previously documented assessment. Patient and/or family updated on plan of care and expected duration. Pain level reassessed. Patient is alert, oriented x 3, equal unlabored respirations, skin warm/dry/pink. 16:00 Reassessment: Patient appears in no apparent distress at this time. No changes from jl7 previously documented assessment. Patient and/or family updated on plan of care and expected duration. Pain level reassessed. Patient is alert, oriented x 3, equal unlabored respirations, skin warm/dry/pink. 17:00 Reassessment: Patient appears in no apparent distress at this time. No changes from jl7 previously documented assessment. Patient and/or family updated on plan of care and expected duration. Pain level reassessed. Patient is alert, oriented x 3, equal unlabored respirations, skin warm/dry/pink. Vital Signs: 13:27 BP 100 / 68; Pulse 110; Resp 18; ss 13:45 BP 111 / 84; Pulse 99; Resp 20; Pulse Ox 91% ; jl7 13:51 BP 97 / 64; Pulse 109; Temp 97.3(TE); ss 14:15 BP 108 / 92; Pulse 108; Resp 19; Pulse Ox 97% ; jl7 15:28 BP 124 / 75; Pulse 110; Resp 21; Pulse Ox 98% on R/A; jl7 16:30 BP 124 / 82; Pulse 106; Resp 23; Pulse Ox 99% ; jl7 17:30 BP 118 / 87; Pulse 108; Resp 21; Pulse Ox 99% ; jl7 18:20 BP 95 / 68; Pulse 116; Resp 23; Pulse Ox 98% ; jl7 [place] Coma Score: 13:26 Eye Response: spontaneous(4). Verbal Response: oriented(5). Motor Response: obeys ss commands(6). Total: 15. 14:15 Eye Response: spontaneous(4). Verbal Response: oriented(5). Motor Response: obeys jl7 commands(6). Total: 15. 15:28 Eye Response: spontaneous(4). Verbal Response: oriented(5). Motor Response: obeys jl7 commands(6). Total: 15. Trauma Score (Adult): 13:26 Eye Response: spontaneous(1); Verbal Response: oriented(1); Motor Response: obeys ss commands(2); Systolic BP: > 89 mm Hg(4); Respiratory Rate: 10 to 29 per min(4); [place] Score: 15; Trauma Score: 12 ED Course: 13:26 Patient arrived in ED. ss 13:27 Triage completed. ss 13:27 Patient has correct armband on for positive identification. ss 13:28 Arm band placed on right wrist. ss 13:30 nurse monitoring on. Pulse ox on. NIBP on. Warm blanket given. jl7 13:42 Mehdi Santos MD is Attending Physician. mychal 13:45 Initial lab(s) drawn, by me, sent to lab. EKG done, by ED staff, reviewed by Mehdi Santos MD. Inserted saline lock: 22 gauge in right forearm, using aseptic technique. Blood collected. 14:00 Patient maintains SpO2 saturation greater than 95% on room air. Thermoregulation: warm jl7 blanket given to patient. 14:03 Eliza Wong, RN is Primary Nurse. jl7 14:12 XRAY Chest (1 view) In Process Unspecified. EDMS 14:13 Pelvis XRAY In Process Unspecified. EDMS 14:13 Hip Right 2 View In Process Unspecified. EDMS 15:50 First set of blood cultures drawn by me. jl7 16:03 Second set of blood cultures drawn by me. COVID swab sent to lab. jl7 16:58 transfer initiated to [facility] by dr santos. bd 18:22 No provider procedures requiring assistance completed. Patient transferred, IV remains jl7 in place. intact, No redness/swelling at site. Administered Medications: 15:26 Drug: NS 0.9% 1000 ml Route: IV; Rate: 125 ml/hr; Site: right forearm; jl7 16:52 Follow up: IV Status: Infusion continued upon transfer jl7 16:07 Drug: NS 0.9% 500 ml Route: IV; Rate: bolus; Site: right forearm; jl7 16:50 Follow up: Response: No adverse reaction; IV Status: Completed infusion; IV Intake: jl7 500ml 16:07 Drug: Rocephin (cefTRIAXone) 1 grams Route: IV; Rate: per protocol; Site: right forearm;jl7 16:10 Follow up: Response: No adverse reaction; IV Status: Completed infusion jl7 16:51 Drug: Zithromax (azithromycin) 500 mg Route: IVPB; Infused Over: 1 hrs; Site: right jl7 forearm; 17:51 Follow up: Response: No adverse reaction; IV Status: Completed infusion jl7 Intake: 16:50 IV: 500ml; Total: 500ml. jl7 18:38 PO: 0ml; Total: 500ml. jl7 Output: 18:38 Urine: 0ml; Total: 0ml. jl7 Outcome: 15:41 ER care complete, transfer ordered by . mychal 17:00 Transferred by ground EMS to [facility], [facility], Transfer form completed. jl7 X-rays sent w/ patient. 17:00 Condition: stable 17:00 Discharge instructions given to patient, family, Instructed on the need for transfer, Demonstrated understanding of instructions. 18:38 Patient's length of stay was not longer than 2 hours. jl7 19:03 Patient left the ED. jl7 Signatures: Dispatcher [employer] EDMS Jimena Duarte Corey, MD MD cha Smirch, Shelby, RN RN ss Leal, Jahala, RN RN jl7 Corrections: (The following items were deleted from the chart) 13:47 13:26 Chief complaint: EMS states: L hip pain after falling from a standing position at ss 0300 this morning. 18:39 17:07 Response: No adverse reaction; IV Status: Completed infusion jl7 jl7
[2021-02-13] MEDS ORDERED: AZITHROMYCIN IV 500 MG in NA CHLORIDE 0.9% 250 ML IVPB ONE (16:00)
[2021-02-13] MEDS ORDERED: CEFTRIAXONE/SWI 1gm 1 GM/10 ML SYR ONE (16:03)
[2021-02-13 19:18] VITALS: TEMP 97.3
[2021-02-13 19:25] VITALS: BP 95/68; O2SAT 98
[2021-02-13 20:41] LABS: Anisocytosis 1+; Blood Morphology Comment NOTED (NOT SEEN); Platelet Estimate ADEQ; White Blood Cell Scan OK (OK)
--- NOTE | 2021-02-14 11:29 | EKG ---
Test Date: 2021-02-13 Test Time: 13:53:07 Conditioner Tumbler: LARA MEASUREMENT RESULTS: Intervals: Rate: 111 MS: 150 QRSD: 114 QT: 382 QTc: 519 [place]: P: 36 MS: 150 QRS: 52 T: 237 INTERPRETIVE STATEMENTS: Sinus tachycardia with fusion complexes ST & T wave abnormality, consider inferolateral ischemia Abnormal ECG Compared to ECG 01/08/2021 02:07:17 Fusion complex(es) now present Atrial fibrillation no longer present ST (T wave) deviation still present Possible ischemia still present Electronically Signed On 02-14-21 11:26:47 CDT by Nick Stubbs
== END 2021-02-13 19:03 | disposition short-term general hospital (02) ==
LOC: ER 13:24
DX: S72.341A Displaced spiral fracture of shaft of right femur, initial encounter for closed fracture (principal); M97.01XA Periprosthetic fracture around internal prosthetic right hip joint, initial encounter; J18.9 Pneumonia, unspecified organism; R74.8 Abnormal levels of other serum enzymes; W18.00XA Striking against unspecified object with subsequent fall, initial encounter; Y92.009 Unspecified place in unspecified non-institutional (private) residence as the place of occurrence of the external cause; Z20.822 Contact with and (suspected) exposure to COVID-19; Z95.1 Presence of aortocoronary bypass graft
CPT/HCPCS: 96365; 96361; 93005; 87040 ×2; 85025; 80048; 36415; 83735; 85610; 80076; 84484; 83880; 71045; 72170; 73502; 96375; 99285; U0003; J0456; J0696; J7050; J7030